=== PATIENT | female | born 1930 | race Caucasian/White ===

== ENCOUNTER → 2016-09-21 | Outpatient (CLI) | payer OTHER, BC ==
[~2016-09-21] MED LIST: ASPI-232 PO; CALC600T37 PO; LEVO100T7 PO; LISI-461 PO; LPT/40 PO; MULTTAB58 PO; TNR50 PO; WARF2.5T8 PO; WARF5TAB7 PO
--- NOTE | 2016-09-21 12:32 | MAMMOGRAPHY REPORT ---
BILATERAL DIGITAL SCREENING MAMMOGRAM WITH CAD: 09/21/2016 CLINICAL HISTORY: Routine screening. Patient has no complaints. TECHNIQUE: Bilateral CC and MLO views were obtained. Current study was also evaluated with a Comput er Aided Detection (CAD) system. COMPARISON: Comparison is made to exams dated: 09/09/2014 mammogram, 07/27/2012 mammogram, 08/28/2013 mammogram, 07/26/2011 mammogram, 07/22/2010 mammogram, and 07/21/2009 mammogram - [facility]. BREAST COMPOSITION: There are scattered areas of fibroglandular density in both breasts. FINDINGS: There are mild vascular calcifications and scattered stable benign-appearing round and ro d like calcifications in the breasts. No suspicious mass, architectural distortion or cluster of lynda picious microcalcifications is seen. IMPRESSION: ACR BI-RADS CATEGORY 2: BENIGN There is no mammographic evidence of malignancy. A 1 year screening mammogram is recommended. The p atient will receive written notification of the results. Approximately 10% of breast cancers are not detected with mammography. A negative mammographic repor t should not delay biopsy if a clinically suggestive mass is present. Mare Arguello M.D. ay/:09/21/2016 08:20:41 [place]: Nellie SIMMONS(R)(M), [facility] letter sent: Normal 1/2 BI-RADS Code: ACR BI-RADS Category 2: Benign
== END | disposition home or self-care (01) ==
LOC: C.MAMM 07:32
PROVIDERS: ATTEND Family Medicine
DX: Z12.31 Encounter for screening mammogram for malignant neoplasm of breast (principal)

== ENCOUNTER 2017-06-29 08:07 | Inpatient (IN) | payer OTHER, BC ==
[~2017-06-29] VITALS: Ht 170.2 cm; Wt 61.4 kg
[2017-06-29] MEDS ORDERED: SODIUM CHLORIDE 0.9% 1000ML 1,000 ML IV STA (08:23)
[2017-06-29] MEDS ORDERED: CEFTRIAXONE SOD INJ 1 GM ADDVIAL IV STA (08:44)
[2017-06-29 09:12] LABS: BASO % 0.2 %; BASO ABS # 0.02 K/uL (0-0.2); COMPLETE YES; HEMATOCRIT 40.4 % (37-47); IG% 0.1 %; LYMPH % 17.8 %; MEAN CELL VOLUME 98.1 fL (80-100); MEAN CORPUSCULAR HEMOGLOBIN 31.8 pg (25-34); MEAN CORPUSCULAR HGB CONC 32.4 g/dl (32-36); MEAN PLATELET VOLUME 9.6 fL (7.4-10.4); MONO % 7.3 %; NEUT % 74.6 %; PLATELET COUNT 202 K/uL (130-400); RED BLOOD COUNT 4.12 M/uL (4.2-5.4); WHITE BLOOD COUNT 10.66 K/uL (4.8-10.8)
[2017-06-29 09:19] LABS: INR 2.1 (0.9-1.1); PARTIAL THROMBOPLASTIN RATIO 1.4; PROTHROMBIN TIME (PATIENT) 23.1 SECONDS (9.0-12.0)
--- NOTE | 2017-06-29 09:24 | DIAGNOSTIC IMAGING REPORT ---
CT HEAD WITHOUT CONTRAST (CT) CLINICAL HISTORY: Weakness COMPARISON STUDY: 05/18/2016 TECHNIQUE: Axial CT of the brain is performed from the vertex to the skull base. IV contrast was not administered for this examination. A dose lowering technique was utilized adhering to the principles of ALARA. CT DOSE: 782.75 mGycm FINDINGS: No intra or extra-axial mass lesions are visualized. There is no CT evidence of acute cortical infarction. There is no evidence of midline shift. There is no acute hemorrhage. No calvarial fractures are visualized. There are moderately extensive white matter hypodensities likely on a small vessel basis. There is no evidence of pathologic ventricular dilatation. There is chronic partial opacification of the left mastoid. Postsurgical changes involve the right mastoid. IMPRESSION: No acute intracranial findings Electronically signed by: Trev Booker M.D. 06/29/2017 9:23 AM Dictated Date/Time: 06/29/2017 9:18 AM
[2017-06-29 09:29] LABS: ALT/SGPT 18 U/L (12-78); BLOOD UREA NITROGEN 20 mg/dl (7-18); BUN/CREATININE RATIO 20.9 (10-20); CALCIUM 9.2 mg/dl (8.5-10.1); CARBON DIOXIDE 26 mmol/L (21-32); CHLORIDE 107 mmol/L (98-107); CREATININE 0.95 mg/dl (0.60-1.20); GLUCOSE 107 mg/dl (70-99); MAGNESIUM 2.1 mg/dl (1.8-2.4); POTASSIUM 3.9 mmol/L (3.5-5.1); SODIUM 141 mmol/L (136-145)
[2017-06-29] MEDS ORDERED: LEVO100T7 PO (09:36)
[2017-06-29] MEDS ORDERED: ASPI81TA28 PO (09:36)
[2017-06-29] MEDS ORDERED: ATOR-24 PO (09:36)
[2017-06-29] MEDS ORDERED: METO-478 PO (09:36)
[2017-06-29] MEDS ORDERED: CALC-51 PO (09:36)
[2017-06-29] MEDS ORDERED: WARF5TAB7 PO (09:36)
[2017-06-29] MEDS ORDERED: LOSA100T30 PO (09:36)
[2017-06-29] MEDS ORDERED: MULT-506 PO (09:36)
[2017-06-29] MEDS ORDERED: WARF2.5T8 PO (09:36)
[2017-06-29 09:38] LABS: ALKALINE PHOSPHATASE 103 U/L (45-117); AST/SGOT 19 U/L (15-37); THYROID STIMULATING HORMONE 0.744 uIu/ml (0.300-4.500)
--- NOTE | 2017-06-29 09:52 | DIAGNOSTIC IMAGING REPORT ---
CHEST ONE VIEW PORTABLE CLINICAL HISTORY: Weakness, disorientation. COMPARISON STUDY: 12/31/2015 FINDINGS: The cardiac and mediastinal contours are normal. There is no evidence of focal pulmonary consolidation. There is no evidence of failure. No pleural effusions are visualized.[ Subtle increased retrocardiac markings, likely represent a summation. IMPRESSION: No active disease in the chest. Electronically signed by: Trev Booker M.D. 06/29/2017 9:50 AM Dictated Date/Time: 06/29/2017 9:49 AM
[2017-06-29 10:16] LABS: URINE APPEARANCE CLEAR (CLEAR); URINE BILIRUBIN NEG (NEG); URINE COLOR YELLOW; URINE EPITHELIAL CELL AUTO >30 /lpf (0-5); URINE NITRITE NEG (NEG); URINE PH 7.5 (4.5-7.5); URINE SPECIFIC GRAVITY 1.024 (1.000-1.030); UROBILINOGEN NEG (NEG)
[2017-06-29 10:18] LABS: MANUAL MICROSCOPIC REQUIRED? NO; REVIEW REQ? NO
[2017-06-29 10:55] VITALS: O2SAT 95; Ht 170.2 cm; Wt 61.4 kg
[2017-06-29] MEDS ORDERED: CALC600T9 PO (10:58)
[2017-06-29] MEDS ORDERED: LOSA1TAB PO (10:58)
[2017-06-29] MEDS ORDERED: LOSA50TA6 PO (10:58)
[2017-06-29] MEDS ORDERED: ONDANSETRON INJ 2 MG/ML 2 ML VIAL IV PRN (11:00)
[2017-06-29] MEDS ORDERED: ACETAMINOPHEN 325 MG TAB ONE (11:10)
[2017-06-29] MEDS ORDERED: IV FLUIDS COMPLETED PRN (11:30)
--- NOTE | 2017-06-29 12:20 | History and Physical ---
History & Physical Date & Time of Service: Jun 29, 2017 at 11:50 Chief Complaint: Disoriented, Can't Find Words Primary Care Physician: Anamaria Mosley, History of Present Illness Source: patient, spouse, clinic records, hospital records This is an 87yo F with a PMH of HTN, hypothyroidism, paroxysmal A Fib and HLD who presents with confusion that began last evening. Patient presented to her PCP last week for painful urination and one episode of hematuria. UA was found to have a trace amount of blood and leuk esterase but no antibiotics were started. Urine culture was collected. Patient used Monistat with some relief. Throughout the course of the week, patient developed a dull headache, muscle aches and fatigue that her spouse assumed was the flu. Last evening patient was found to have a fever and chills that improved with Tylenol. Seemed slightly confused but thought mentation would improve with rest. This morning, per spouse , patient woke up markedly confused, not knowing how to get to her bathroom or remembering she was going to the ER despite being reminded multiple times. Per chart review, patient's urine culture came back growing E. coli on 06/23. Patient has not yet been notified with this result. Patient is A&O x 3 at baseline, but is only oriented to self at this time. Endorses dysuria, a dull frontal headache, chills and some dull lower back pain. Denies fever, visual changes, dizziness, difficulty with speech, facial droop, CP, SOB, abdominal pain, N/V, CVA tenderness or numbness/weakness of upper or lower extremities. Past Medical/Surgical History Medical Problems: (1) Dyslipidemia Status: Chronic (2) Hypertension Status: Chronic (3) Hypothyroidism Status: Chronic (4) Osteoporosis Status: Chronic (5) Paroxysmal atrial tachycardia Status: Chronic Surgical Problems: (1) H/O colonoscopy with polypectomy Permanent Comment: 07/17- 4 mm hepatic flexure tubular adenoma 09/21/2009- polyp x1, adenomatous tissue Status: Chronic (2) History of cataract surgery Status: Chronic (3) Hx of mastoidectomy Status: Resolved (4) S/P knee surgery Status: Chronic (5) S/p mastoid surgery Status: Chronic (6) S/P tonsillectomy and adenoidectomy Status: Chronic Family History Hypertension Social History Smoking Status: Never Smoker Alcohol Use: socially (1 glass of wine with dinner most nights ) Marital Status: Housing status: lives with significant other Occupational Status: retired Immunizations History of Influenza Vaccine: Yes Influenza Vaccine Date: Jun 14, 2013 History of Tetanus Vaccine?: Yes History of Pneumococcal: Yes Pneumococcal Date: Jul 10, 2010 History of Hepatitis B Vaccine: Unknown Multi-Drug Resistant Organisms History of MDRO: No Allergies Coded Allergies: No Known Allergies (Verified , 06/29/17) Home Medications Scheduled Aspirin (Aspirin Ec), 81 MG PO DAILY Atorvastatin (Lipitor), 40 MG PO DAILY Calcium Carbonate-Vitamin D (Calcium + D), 600 MG PO DAILY Levothyroxine Sodium (Levothyroxine Sodium), 100 MCG PO DAILY Losartan Potassium (Cozaar), 50 MG PO DAILY Losartan Potassium (Cozaar), 1 TAB PO DAILY Metoprolol Succinate (Toprol Xl), 50 MG PO DAILY Multivitamin (Multivitamin), 1 TAB PO DAILY Warfarin Sod (Jantoven), 2.5 MG PO [id number] Warfarin Sod (Jantoven), 5 MG PO MWF Review of Systems Ten systems reviewed and negative except as noted in the HPI. Physical Exam Vital Signs Date Time Temp Pulse Resp B/P (MAP) Pulse Ox O2 Delivery O2 Flow Rate FiO2 06/29/17 10:55 95 Room Air 06/29/17 10:30 74 21 161/79 95 Room Air 06/29/17 10:01 75 21 162/86 96 Room Air 06/29/17 09:01 37.1 06/29/17 08:42 Room Air 06/29/17 08:36 81 06/29/17 08:32 79 22 138/68 94 Room Air 06/29/17 08:11 37.2 95 16 166/83 95 Room Air General Appearance: no apparent distress (Sleepy, confused but responsive ) Head: normocephalic, atraumatic Eyes: normal inspection, PERRL, sclerae normal (conjunctiva normal ) ENT: normal ENT inspection, hearing grossly normal, pharynx normal (Dry mucous membranes ) Neck: supple, thyroid normal, trachea midline Respiratory/Chest: chest non-tender, lungs clear, normal breath sounds, no respiratory distress, no accessory muscle use Cardiovascular: regular rate, rhythm, no murmur, normal peripheral pulses Abdomen/GI: normal bowel sounds, non tender, soft, no organomegaly Back: normal inspection, + pertinent finding (Paraspinal TTP in lumbosacral area with radiation to the flank ) Extremities/Musculoskelatal: normal inspection, no calf tenderness, no pedal edema, non-tender 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, no motor/sensory deficits, alert ( oriented to self but not place or time), normal mood/affect, + disoriented Skin: normal color, warm/dry, no rash Diagnostics Laboratory Results Results Past 24 Hours Test 06/29/17 00:00 06/29/17 08:41 06/29/17 08:47 06/29/17 09:04 Range/Units Urine Color YELLOW Urine Appearance CLEAR CLEAR Urine pH 7.5 4.5-7.5 Urine Specific [place] 1.024 1.000-1.030 Urine Protein NEG NEG Urine Glucose (UA) NEG NEG Urine Ketones NEG NEG Urine Occult Blood NEG NEG Urine Nitrite NEG NEG Urine Bilirubin NEG NEG Urine Urobilinogen NEG NEG Urine Leukocyte Esterase MODERATE NEG Urine WBC (Auto) >30 0-5 /hpf Urine RBC (Auto) 5-10 0-4 /hpf Urine Hyaline Casts (Auto) 5-10 0-5 /lpf Urine Epithelial Cells (Auto) >30 0-5 /lpf Urine Bacteria (Auto) NEG NEG White Blood Count 10.66 4.8-10.8 K/uL Red Blood Count 4.12 4.2-5.4 M/uL Hemoglobin 13.1 12.0-16.0 g/dL Hematocrit 40.4 37-47 % Mean Corpuscular Volume 98.1 80-100 fL Mean Corpuscular Hemoglobin 31.8 25-34 pg Mean Corpuscular Hemoglobin Concent 32.4 32-36 g/dl Platelet Count 202 130-400 K/uL Mean Platelet Volume 9.6 7.4-10.4 fL Neutrophils (%) (Auto) 74.6 % Lymphocytes (%) (Auto) 17.8 % Monocytes (%) (Auto) 7.3 % Eosinophils (%) (Auto) 0.0 % Basophils (%) (Auto) 0.2 % Neutrophils # (Auto) 7.95 1.4-6.5 K/uL Lymphocytes # (Auto) 1.90 1.2-3.4 K/uL Monocytes # (Auto) 0.78 0.11-0.59 K/uL Eosinophils # (Auto) 0.00 0-0.5 K/uL Basophils # (Auto) 0.02 0-0.2 K/uL RDW Standard Deviation 45.4 36.4-46.3 fL RDW Coefficient of Variation 12.7 11.5-14.5 % Immature Granulocyte % (Auto) 0.1 % Immature Granulocyte # (Auto) 0.01 0.00-0.02 K/uL Prothrombin Time 23.1 9.0-12.0 SECONDS Prothromb Time International Ratio 2.1 0.9-1.1 Activated Partial Thromboplast Time 36.1 21.0-31.0 SECONDS Partial Thromboplastin Ratio 1.4 Sodium Level 141 136-145 mmol/L Potassium Level 3.9 3.5-5.1 mmol/L Chloride Level 107 98-107 mmol/L Carbon Dioxide Level 26 21-32 mmol/L Anion Gap 8.0 3-11 mmol/L Blood Urea Nitrogen 20 7-18 mg/dl Creatinine 0.95 0.60-1.20 mg/dl Est Creatinine Clear Calc Drug Dose 41.3 ml/min Estimated GFR () 62.9 Estimated GFR (Non- 54.2 BUN/Creatinine Ratio 20.9 10-20 Random Glucose 107 70-99 mg/dl Calcium Level 9.2 8.5-10.1 mg/dl Magnesium Level 2.1 1.8-2.4 mg/dl Total Bilirubin 0.8 0.2-1 mg/dl Direct Bilirubin 0.2 0-0.2 mg/dl Aspartate Amino Transf (AST/SGOT) 19 15-37 U/L Alanine Aminotransferase (ALT/SGPT) 18 12-78 U/L Alkaline Phosphatase 103 45-117 U/L Total Creatine Kinase 48 26-192 U/L Creatine Kinase MB < 0.5 0.5-3.6 ng/ml Creatine Kinase MB Ratio 0-3.0 Troponin I < 0.015 0-0.045 ng/ml Total Protein 7.2 6.4-8.2 gm/dl Albumin 3.6 3.4-5.0 gm/dl Lipase 239 73-393 U/L Thyroid Stimulating Hormone (TSH) 0.744 0.300-4.500 uIu/ml Bedside Lactic Acid Venous 1.21 0.90-1.70 mmol/L Influenza Type A Antigen Neg for Influ A NEG Influenza Type B Antigen Neg for Influ B NEG Microbiology Results 06/29/17 Blood Culture, Received Pending 06/29/17 Blood Culture, Received Pending 06/29/17 Urine Culture, Received Pending Diagnostic Radiology CT head: IMPRESSION: No acute intracranial findings CXR normal EKG Normal sinus rhythm Left anterior fascicular block Moderate voltage criteria for LVH, may be normal variant Abnormal ECG When compared with ECG of 18-MAY-2016 23:16, No significant change was found No change from prior EKG Impression Assessment and Plan This is an 87yo F with a PMH of HTN, hypothyroidism, paroxysmal A Fib and HLD who presents with confusion that began last evening. Pyelonephritis: -Dysuria, subjective fever, confusion, lethargy, flank pain -VS stable, wbc on high end of normal, lactic acid wnl -Out-patient urine culture with presence of 10,000-100,000 colonies/ml of E. coli -Rocephin initiated for treatment in ER -Garcia-sensitive culture. Will continue Rocephin -Blood, urine cultures pending -IVF resuscitation -Tylenol for fever -Monitor CBC Metabolic encephalopathy 2/2 UTI: -Patient lethargic and disoriented likely due to infection -Should see improvement with abx treatment and IVF -Other etiologies considered but unlikely -CT head without acute abnormalities, no focal deficits on exam -No recent medication changes -Flu PCR negative Headache: -Dull, frontal headache x 3 days -CT head normal -Likely 2/2 poor PO intake, water intake -Alleviated by Tylenol at home -Tylenol PRN, IVF Paroxysmal A Fib: -NSR on initial EKG -Continue home dose metoprolol, coumadin -INR therapeutic at 2.1 HTN: -Slightly elevated, likely 2/2 infection and pain -Continue home losartan and metoprolol -Add additional agents if indicated HLD: -Continue statin Hypothyroidism: -Continue levothyroxine -TSH wnl DVT Ppx: Home dose coumadin Code status: FULL PCP: Melany Dispo: Plan to return home once medically stable Patient seen in collaboration with Dr. Vera. Please see addendum. ADDENDUM: I agree with the assessment and plan as above. My exam of the patient revealed an elderly female with very dry mucous membranes who appeared acutely confused with some attention span. She had no focal neuro deficits, although ambulating was not tested. She did report a minor headache in the frontal region of her head. She was stating how silly she felt that she couldn' t remember the events of the last 24 hours but did remember things such as having several days of dysuria. She did also report some flank pain on both sides. Abdominal pain was benign but I was able to appreciate bilateral CVA tenderness. The patient and her spouse reported significant chills and some fever at home. I agree with the diagnosis of acute pyelonephritis and the treatment with Rocephin empirically until cultures return. Chuy, Level of Care Med/Surg Advanced Directives Existing Living Will: Yes Existing Power of Occupational Therapist'S Assistant: Yes Resuscitation Status FULL RESUSCITATION VTE Prophylaxis VTE Risk Assessment Done? Y/N: Yes Risk Level: Moderate Given or contraindicated: Warfarin (Coumadin)
[2017-06-29 12:29] VITALS: BP 147/77; PULSE 84; TEMP 36.8; O2SAT 93
[2017-06-29] MEDS ORDERED: SODIUM CHLORIDE 0.9% 1000ML 1,000 ML IV SCH (13:00)
[2017-06-29 14:59] VITALS: BP 154/70; PULSE 78; TEMP 37.3; O2SAT 95
[2017-06-29] MEDS ORDERED: WARFARIN SOD 2.5 MG TAB PO SCH (16:00)
[2017-06-29] MEDS: ACETAMINOPHEN 325 MG TAB PO PRN ×2 (16:03→23:43)
--- NOTE | 2017-06-29 18:36 | EMERGENCY ROOM VISIT NOTE ---
History Report prepared by Abraham: Peter Bryant Under the Supervision of: Dr. Ciro Ardon M.D. First contact with patient: 08:22 Chief Complaint: STROKE SYMPTOMS Stated Complaint: DISORIENTED, CAN'T FIND WORDS Nursing Triage Summary: Yesterday morning woke up with fever/achy all over, had mid back pain, slept off and on most of the day. Pts reports she thought she had the flu, so she just let her sleep all day, this morning pts noticed that pt is disoriented, speech is slurred, pt is shaky. History of Present Illness The patient is an 87 year old female who presents to the Emergency Room with complaints of persistent confusion that began this morning. Per the patient's , the patient did not sleep two nights ago due to a headache. When she woke up yesterday morning, she was running a fever that was improved with Tylenol. The patient's states that they attributed the patient's symptoms to the flu yesterday, noting that the patient was fatigued and slept most of the day. When the patient woke up at 0530 this morning, she was incredibly confused and forgot she was going to the emergency department despite being told multiple times. The patient's states that the patient had a urinalysis done six days ago that was ordered by her PCP from [facility]. She states that she looked at the results online which revealed a flagged finding. The patient's states that they called the patient's PCP's office but did not receive a call back. The patient reports dysuria 4 days ago and used Monistat which improved her symptoms. 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 Today the patient additionally notes lower back pain. She states that she got a flu shot this year. Pt denies LOC, headache, fevers, chills, diaphoresis, visual changes, neck pain, chest pain, breathing difficulties, nausea, vomiting, abdominal pain, melena, hematochezia, urinary symptoms, numbness, weakness, lymphadenopathy, rash, or other complaints. Source of History: patient Onset: this morning Position: other (global) Quality: other (confusion) Timing: other (persistent) Associated Symptoms: + headache, + back pain Review of Systems See HPI for pertinent positives and negatives. A total of ten systems were reviewed and were otherwise negative. Past Medical & Surgical Medical Problems: (1) Dyslipidemia (2) Hypertension (3) Hypothyroidism (4) Osteoporosis (5) Paroxysmal atrial tachycardia (6) Right Knee DJD Surgical Problems: (1) H/O colonoscopy with polypectomy (2) History of cataract surgery (3) Hx of mastoidectomy (4) S/P knee surgery (5) S/p mastoid surgery (6) S/P tonsillectomy and adenoidectomy Family History Hypertension Social History Smoking Status: Never Smoker Alcohol Use: occasionally Marital Status: Housing Status: lives with significant other Occupation Status: retired Current/Historical Medications Scheduled Aspirin (Aspirin Ec), 81 MG PO DAILY Atorvastatin (Lipitor), 40 MG PO DAILY Calcium Carbonate-Vitamin D (Calcium + D), 600 MG PO DAILY Levothyroxine Sodium (Levothyroxine Sodium), 100 MCG PO DAILY Losartan Potassium (Cozaar), 50 MG PO DAILY Losartan Potassium (Cozaar), 1 TAB PO DAILY Metoprolol Succinate (Toprol Xl), 50 MG PO DAILY Multivitamin (Multivitamin), 1 TAB PO DAILY Warfarin Sod (Jantoven), 2.5 MG PO 4XWK Warfarin Sod (Jantoven), 5 MG PO MWF Allergies Coded Allergies: No Known Allergies (Verified , 06/29/17) Physical Exam Vital Signs Date Time Temp Pulse Resp B/P (MAP) Pulse Ox O2 Delivery O2 Flow Rate FiO2 06/29/17 10:30 74 21 161/79 95 Room Air 06/29/17 10:01 75 21 162/86 96 Room Air 06/29/17 09:01 37.1 06/29/17 08:42 Room Air 06/29/17 08:36 81 06/29/17 08:32 79 22 138/68 94 Room Air 06/29/17 08:11 37.2 95 16 166/83 95 Room Air Physical Exam GENERAL: Awake, alert, well appearing, no distress HENT: Normocephalic, atraumatic. TM's normal. Oropharynx unremarkable. EYES: PERRL. EOMI. Normal conjunctiva. Sclera non-icteric. NECK: Supple. No nuchal rigidity. FROM. No JVD or bruit. RESPIRATORY: CTA CARDIAC: RRR. No murmur. ABDOMEN: Soft, non distended. No tenderness to palpation. No rebound or guarding. No masses. RECTAL: Deferred. MUSCULOSKELETAL: Unremarkable. No edema. No discoloration. Gross motor strength symmetric. NEURO: Cranial nerves 2-12 grossly intact. MIld confusion. Normal sensorium. No sensory or motor deficits noted. Speech normal. No pronator drift. SKIN: No rash or jaundice noted. LYMPH: No adenopathy. Medical Decision & Procedures ER Provider Diagnostic Interpretation: Radiology results as stated below per my review and radiologist interpretation: CT HEAD WITHOUT CONTRAST (CT) CLINICAL HISTORY: Weakness COMPARISON STUDY: 05/18/2016 TECHNIQUE: Axial CT of the brain is performed from the vertex to the skull base. IV contrast was not administered for this examination. A dose lowering technique was utilized adhering to the principles of ALARA. CT DOSE: 782.75 mGycm FINDINGS: No intra or extra-axial mass lesions are visualized. There is no CT evidence of acute cortical infarction. There is no evidence of midline shift. There is no acute hemorrhage. No calvarial fractures are visualized. There are moderately extensive white matter hypodensities likely on a small vessel basis. There is no evidence of pathologic ventricular dilatation. There is chronic partial opacification of the left mastoid. Postsurgical changes involve the right mastoid. IMPRESSION: No acute intracranial findings Electronically signed by: Trev Booker M.D. 06/29/2017 9:23 AM Dictated Date/Time: 06/29/2017 9:18 AM CHEST ONE VIEW PORTABLE CLINICAL HISTORY: Weakness, disorientation. COMPARISON STUDY: 12/31/2015 FINDINGS: The cardiac and mediastinal contours are normal. There is no evidence of focal pulmonary consolidation. There is no evidence of failure. No pleural effusions are visualized.[ Subtle increased retrocardiac markings, likely represent a summation. IMPRESSION: No active disease in the chest. Electronically signed by: Trev Booker M.D. 06/29/2017 9:50 AM Dictated Date/Time: 06/29/2017 9:49 AM Laboratory Results 06/29/17 08:41 Red Blood Count 4.12, Mean Corpuscular Volume 98.1, Mean Corpuscular Hemoglobin 31.8, Mean Corpuscular Hemoglobin Concent 32.4, Mean Platelet Volume 9.6, Neutrophils (%) (Auto) 74.6, Lymphocytes (%) (Auto) 17.8, Monocytes (%) (Auto) 7.3, Eosinophils (%) (Auto) 0.0, Basophils (%) (Auto) 0.2, Neutrophils # (Auto) 7.95, Lymphocytes # (Auto) 1.90, Monocytes # (Auto) 0.78, Eosinophils # (Auto) 0.00, Basophils # (Auto) 0.02 06/29/17 08:41 Test 06/29/17 00:00 06/29/17 08:41 06/29/17 08:47 06/29/17 09:04 Urine Color YELLOW Urine Appearance CLEAR (CLEAR) Urine pH 7.5 (4.5-7.5) Urine Specific [place] 1.024 (1.000-1.030) Urine Protein NEG (NEG) Urine Glucose (UA) NEG (NEG) Urine Ketones NEG (NEG) Urine Occult Blood NEG (NEG) Urine Nitrite NEG (NEG) Urine Bilirubin NEG (NEG) Urine Urobilinogen NEG (NEG) Urine Leukocyte Esterase MODERATE (NEG) Urine WBC (Auto) >30 /hpf (0-5) Urine RBC (Auto) 5-10 /hpf (0-4) Urine Hyaline Casts (Auto) 5-10 /lpf (0-5) Urine Epithelial Cells (Auto) >30 /lpf (0-5) Urine Bacteria (Auto) NEG (NEG) White Blood Count 10.66 K/uL (4.8-10.8) Red Blood Count 4.12 M/uL (4.2-5.4) Hemoglobin 13.1 g/dL (12.0-16.0) Hematocrit 40.4 % (37-47) Mean Corpuscular Volume 98.1 fL (80-100) Mean Corpuscular Hemoglobin 31.8 pg (25-34) Mean Corpuscular Hemoglobin Concent 32.4 g/dl (32-36) Platelet Count 202 K/uL (130-400) Mean Platelet Volume 9.6 fL (7.4-10.4) Neutrophils (%) (Auto) 74.6 % Lymphocytes (%) (Auto) 17.8 % Monocytes (%) (Auto) 7.3 % Eosinophils (%) (Auto) 0.0 % Basophils (%) (Auto) 0.2 % Neutrophils # (Auto) 7.95 K/uL (1.4-6.5) Lymphocytes # (Auto) 1.90 K/uL (1.2-3.4) Monocytes # (Auto) 0.78 K/uL (0.11-0.59) Eosinophils # (Auto) 0.00 K/uL (0-0.5) Basophils # (Auto) 0.02 K/uL (0-0.2) RDW Standard Deviation 45.4 fL (36.4-46.3) RDW Coefficient of Variation 12.7 % (11.5-14.5) Immature Granulocyte % (Auto) 0.1 % Immature Granulocyte # (Auto) 0.01 K/uL (0.00-0.02) Prothrombin Time 23.1 SECONDS (9.0-12.0) Prothromb Time International Ratio 2.1 (0.9-1.1) Activated Partial Thromboplast Time 36.1 SECONDS (21.0-31.0) Partial Thromboplastin Ratio 1.4 Anion Gap 8.0 mmol/L (3-11) Est Creatinine Clear Calc Drug Dose 41.3 ml/min Estimated GFR () 62.9 Estimated GFR (Non- 54.2 BUN/Creatinine Ratio 20.9 (10-20) Calcium Level 9.2 mg/dl (8.5-10.1) Magnesium Level 2.1 mg/dl (1.8-2.4) Total Bilirubin 0.8 mg/dl (0.2-1) Direct Bilirubin 0.2 mg/dl (0-0.2) Aspartate Amino Transf (AST/SGOT) 19 U/L (15-37) Alanine Aminotransferase (ALT/SGPT) 18 U/L (12-78) Alkaline Phosphatase 103 U/L (45-117) Total Creatine Kinase 48 U/L (26-192) Creatine Kinase MB < 0.5 ng/ml (0.5-3.6) Creatine Kinase MB Ratio (0-3.0) Troponin I < 0.015 ng/ml (0-0.045) Total Protein 7.2 gm/dl (6.4-8.2) Albumin 3.6 gm/dl (3.4-5.0) Lipase 239 U/L (73-393) Thyroid Stimulating Hormone (TSH) 0.744 uIu/ml (0.300-4.500) Bedside Lactic Acid Venous 1.21 mmol/L (0.90-1.70) Influenza Type A Antigen Neg for Influ A (NEG) Influenza Type B Antigen Neg for Influ B (NEG) Laboratory results reviewed by me Outpatient urine culture done 6 days ago showed trace blood trace esterase, e- coli. Medications Administered Medications (Trade) Dose Ordered Sig/Josué Route Start Time Stop Time Status Last Admin Dose Admin Sodium Chloride 1,000 ml @ 125 mls/hr Q8H STAT IV 06/29/17 08:23 06/29/17 12:41 DC 06/29/17 08:41 125 MLS/HR Ceftriaxone Sodium (Rocephin Inj) 1 gm NOW STAT IV 06/29/17 08:44 06/29/17 08:46 DC 06/29/17 09:01 1 GM ECG Indication: other (confusion) Rate (beats per minute): 80 Rhythm: normal sinus Findings: LAFB, no acute ischemic change, no ectopy, other (LVH) ED Course 0822: The patient was evaluated in room B10. A complete history and physical exam was performed. 0823: Ordered Sodium Chloride 1000 ml @ 125 mls/hr IV. 0844: Ordered Rocephin Inj 1 gm IV. 0851: I reevaluated the patient and she is resting comfortably. I discussed the test results with her and I discussed the treatment plan. She verbalized complete understanding and agreement. The patient will be evaluated for further treatment. 0955: I discussed the patients case with Paris Padilla PA-C. She is going to evaluate the patient for further treatment. Medical Decision Triage Nursing notes reviewed. The patient's presentation and history were concerning for confusion, fever, headache, and recent UTI symptoms Etiologies such as TIA, CVA, metabolic, infection, hypo/hyperglycemia, electrolyte abnormalities, sinusitis, meningitis, cardiac sources, intracerebral event, toxicologic, neurologic, as well as others were entertained. The patient was evaluated. Physical examination revealed no nuchal rigidity. She had minimal headache present. Neurologically she was intact. She did have some confusion and her spouse describes disorientation that has been present for over 24 hours. She recently had a urinalysis performed at her primary physician, six days ago. I did obtain the records. She was found to have a culture positive for Escherichia coli. No sensitivities reported. The patient was given a dose of IV Rocephin. Blood work revealed some mild dehydration but was otherwise unremarkable. Cultures of blood and urine pending. The patient had a CAT scan performed which did not show any abnormalities. She had a therapeutic INR. The patient was hydrated. I discussed further evaluation and management in the hospital given the metal status changes and patient and spouse were in agreement. Consultation was made with the [facility] service. The patient was evaluated in the Emergency Room for further management. Medication Reconcilliation Current Medication List: was personally reviewed by me Blood Pressure Screening Patient's blood pressure: Elevated blood pressure Blood pressure disposition: Referred to PCP (and hospitalist) Consults Time Called: [phone] Consulting Physician: Paris Padilla PA-C Returned Call: [phone] I discussed the patients case with Paris Padilla PA-C. She is going to evaluate the patient for further treatment. Impression Primary Impression: Metabolic encephalopathy Additional Impression: E-coli UTI Scribe Attestation The scribe's documentation has been prepared under my direction and personally reviewed by me in its entirety. I confirm that the note above accurately reflects all work, treatment, procedures, and medical decision making performed by me. Departure Information Dispostion Being Evaluated By Hospitalist Referrals Anamaria Mosley DO (PCP) Problem Qualifiers
[2017-06-29 23:33] VITALS: BP 143/70; PULSE 92; TEMP 39.2
[2017-06-30] VITALS (18 sets, daily range): BP systolic 96–158; BP diastolic 51–68; PULSE 69–82; TEMP 37.1–39.1; O2SAT 89–97
[2017-06-30] MEDS ORDERED: LACTATED RINGER'S 1000ML 1,000 ML IV ONE (00:15)
[2017-06-30] MEDS: ACETAMINOPHEN IV 650 MG in EMPTY BAG 0 ML IV PRN ×3 (00:45→12:36)
[2017-06-30] MEDS: LEVOTHYROXINE 100 MCG TAB PO SCH (05:12)
[2017-06-30] MEDS: LOSARTAN POTASSIUM 50 MG TAB PO SCH (08:00)
[2017-06-30] MEDS: LOSARTAN POTASSIUM 25 MG TAB PO SCH (08:00)
[2017-06-30] MEDS: METOPROLOL SUCC 50MG EXT REL TAB PO SCH ×2 (08:00→22:04)
[2017-06-30] MEDS: CALCIUM 600MG + VIT D 400 IU TAB PO SCH (08:00)
[2017-06-30] MEDS: ASPIRIN 81 MG ECTAB PO SCH (08:00)
[2017-06-30] MEDS: ATORVASTATIN 40 MG TAB PO SCH (08:00)
[2017-06-30 08:02] LABS: HEMATOCRIT 32.6 % (37-47); MEAN CORPUSCULAR HEMOGLOBIN 32.4 pg (25-34); MEAN CORPUSCULAR HGB CONC 33.4 g/dl (32-36); MEAN PLATELET VOLUME 9.1 fL (7.4-10.4); PLATELET COUNT 140 K/uL (130-400); RED BLOOD COUNT 3.36 M/uL (4.2-5.4); WHITE BLOOD COUNT 8.53 K/uL (4.8-10.8)
[2017-06-30 08:11] LABS: INR 1.8 (0.9-1.1); PROTHROMBIN TIME (PATIENT) 19.4 SECONDS (9.0-12.0)
[2017-06-30 08:28] LABS: BUN/CREATININE RATIO 25.5 (10-20); CREATININE 0.7 mg/dl (0.60-1.20); POTASSIUM 3.4 mmol/L (3.5-5.1)
[2017-06-30] MEDS ORDERED: CEFTRIAXONE SOD INJ 1 GM in DEXTROSE 5% ADD-VANTAGE 50ML 50 ML IV SCH (09:00)
[2017-06-30] MEDS ORDERED: SULBACTAM SOD IV SCH (09:30)
[2017-06-30] MEDS ORDERED: AMPICILLIN IV SCH (09:30)
[2017-06-30] MEDS ORDERED: SODIUM CHLORIDE 0.9% IV SCH (09:30)
[2017-06-30] MEDS ORDERED: CEFTRIAXONE SOD INJ 1000 MG in DEXTROSE 5% 50ML IV ONE (10:30)
[2017-06-30] MEDS ORDERED: VANCOMYCIN INJ 1,500 MG in SODIUM CHLORIDE 0.9% 500ML 500 ML IV ONE (10:30)
[2017-06-30] MEDS: DEXAMETHASONE INJ 10 MG in SYRINGE 0 ML IV SCH ×3 (10:32→22:04)
[2017-06-30] MEDS: ACYCLOVIR SOD INJ 650 MG in DEXTROSE 5% 100ML 100 ML IV SCH ×2 (10:38→17:38)
[2017-06-30] MEDS: SODIUM CHLORIDE 0.9% 1000ML 1,000 ML IV SCH ×2 (10:41→11:51)
[2017-06-30] MEDS ORDERED: LIDOCAINE 2% JELLY 5 ML TUBE EXT STA (11:04)
--- NOTE | 2017-06-30 11:13 | Progress Note ---
Progress Note Date of Service Jun 30, 2017. Progress Note ID Consult Dictated #[id number] A/P: 1. 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
--- NOTE | 2017-06-30 11:43 | Pharmacy Progress Note ---
Pharmacy Antibiotic Consult Date of Service: Jun 30, 2017. Pharmacy Dosing Scope Pharmacy is consulted to initiate vancomycin IV dosing therapy, order appropriate labs and adjust drug dose/frequency. Subjective The patient is a 87 year old female admitted on Jun 29, 2017 at 10:48. Objective Height (Feet): 5 Height (Inches): 7.00 Weight (Kilograms): 65.500 Lab Results (24hrs): Test 06/30/17 07:30 06/30/17 10:43 White Blood Count 8.53 K/uL (4.8-10.8) Red Blood Count 3.36 M/uL (4.2-5.4) Hemoglobin 10.9 g/dL (12.0-16.0) Hematocrit 32.6 % (37-47) Mean Corpuscular Volume 97.0 fL (80-100) Mean Corpuscular Hemoglobin 32.4 pg (25-34) Mean Corpuscular Hemoglobin Concent 33.4 g/dl (32-36) RDW Standard Deviation 44.5 fL (36.4-46.3) RDW Coefficient of Variation 12.6 % (11.5-14.5) Platelet Count 140 K/uL (130-400) Mean Platelet Volume 9.1 fL (7.4-10.4) Prothrombin Time 19.4 SECONDS (9.0-12.0) Prothromb Time International Ratio 1.8 (0.9-1.1) Sodium Level 138 mmol/L (136-145) Potassium Level 3.4 mmol/L (3.5-5.1) Chloride Level 106 mmol/L (98-107) Carbon Dioxide Level 21 mmol/L (21-32) Anion Gap 12.0 mmol/L (3-11) Blood Urea Nitrogen 18 mg/dl (7-18) Creatinine 0.70 mg/dl (0.60-1.20) Est Creatinine Clear Calc Drug Dose 56.1 ml/min Estimated GFR () 90.9 Estimated GFR (Non- 78.5 BUN/Creatinine Ratio 25.5 (10-20) Random Glucose 89 mg/dl (70-99) Calcium Level 8.0 mg/dl (8.5-10.1) Lactic Acid Level 1.2 mmol/L (0.4-2.0) Micro Results: Date/Time Source Procedure Growth Status 06/30/17 10:43 Blood Cryptococcal Antigen Pending Received 06/30/17 10:43 Blood Blood Culture Pending Received 06/30/17 10:27 Blood Blood Culture Pending Received 06/29/17 08:51 Blood Blood Culture Pending Received 06/29/17 08:41 Blood Blood Culture Pending Received 06/29/17 00:00 Urine , Clean Catch Urine Culture Pending Received Assessment & Plan Assessment: 87yo F with a PMH of HTN, hypothyroidism, paroxysmal A Fib and HLD who presented with confusion. Patient with complaints of dysuria and flank pain. Previous Urine cultures were growing E. coli and patient was started on ceftriaxone. Abx being broadened to Vancomycin/Rocephin/Acyclovir/Ampicillin for possible meningitis. LP to be obtained. Blood cultures, Urine culture pending. WBC normal, Current Tmax 38.7 C. Plan: Loading dose: 1500 mg (23mg/kg) IV X 1 dose then: 1000 mg (15 mg/kg) IV every 14 hours. PK: SCr 0.7, CrCl 56.1, Ke 0.051, T1/2 14 hours Will dose more aggressively for meningitis Goal trough level estimate: between 17-20 mcg/mL. Trough ordered for 07/02 @0330. Pt also ordered Rocephin 2 gm q12H, Acyclovir 650 mg q8H, Ampicillin 2 gm q4H- dosed appropriately. Pharmacy will continue to follow and will adjust dose/frequency as necessary. Thank you
--- NOTE | 2017-06-30 11:57 | DIAGNOSTIC IMAGING REPORT ---
HEAD WITHOUT CONTRAST (CT) CLINICAL HISTORY: 87 years-old Female with worsening mental status. Acute altered mental status TECHNIQUE: Multiple axial CT images of the head were obtained without contrast. A dose lowering technique was utilized adhering to the principles of ALARA. CT DOSE: 1804.35 mGy.cm COMPARISON: CT head 06/29/2017. FINDINGS: Exam is mildly motion degraded. No acute intracranial hemorrhage, midline shift, mass, territorial ischemia or abnormal extra-axial collection. Mild to moderate atrophy with extensive chronic microvascular ischemic changes. Vascular calcifications are noted at the level of the skull base. The calvarium is intact. Small left mastoid effusion. Mild mucosal thickening of the ethmoid air cells. Scalp soft tissues and orbits are unremarkable. IMPRESSION: No acute intracranial abnormality. No hemorrhage or territorial ischemia. The above report was generated using voice recognition software. It may contain grammatical, syntax or spelling errors. Electronically signed by: Domingo Banks M.D. 06/30/2017 11:55 AM Dictated Date/Time: 06/30/2017 11:53 AM
[2017-06-30] MEDS ORDERED: VANCOMYCIN CONSULT ACTIVE PRN (12:00)
--- NOTE | 2017-06-30 12:07 | DIAGNOSTIC IMAGING REPORT ---
ABD/PELVIS NO IV OR ORAL CONT CT DOSE: HISTORY: Pain. Fever. h/o pyelo with onset of confusion/persistent fever TECHNIQUE: Multiaxial CT images of the abdomen and pelvis were performed without contrast. A dose lowering technique was utilized adhering to the principles of ALARA. COMPARISON STUDY: 12/31/2015 FINDINGS: Lung bases show mild chronic basilar interstitial change. No well-defined focal infiltrates are appreciated. A peripheral right hepatic cyst is stable. Liver otherwise is uniform. Spleen and pancreas are unremarkable. Small punctate nonobstructing right renal calcification. Very slight fullness right kidney compared to the left. No evidence for an obstructing urinary tract calculus. The ureters are normal in course and caliber. Bladder is midline. Bowel pattern is considered nonobstructive. IMPRESSION: No acute process of the abdomen or pelvis The above report was generated using voice recognition software. It may contain grammatical, syntax or spelling errors. Electronically signed by: Obie Warner M.D. 06/30/2017 12:05 PM Dictated Date/Time: 06/30/2017 11:59 AM
--- NOTE | 2017-06-30 12:10 | INFECT. DISEASE CONSULTATION ---
DATE OF CONSULTATION: 06/30/2017 DATE OF CONSULTATION: 06/30/2017 REQUESTING PHYSICIAN: Dr. Vera. HISTORY OF PRESENT ILLNESS: This is an 87-year-old female who was admitted to the hospital yesterday with confusion. Per the H&P she had recently been seen by her primary care physician for dysuria and hematuria. She was not given any antibiotics at that time. Yesterday, she developed some frontal headache and generalized fatigue. She was brought to the hospital. She was somewhat confused per the hospitalist service yesterday. Her is at the bedside and states that she is unable to recall her spouse's name, her name or where she is. Yesterday, she was able to give her birthdate and her location. She is not able to do that today. Per the H&P her outpatient culture was growing E. coli from 06/23/2017. She was given a dose of Rocephin yesterday which she tolerated well. Overnight she did have significant worsening with elevated fevers as high as 39.2 beginning around midnight last night. She has been persistently afebrile throughout the night despite being given intravenous Tylenol. Her spouse is at the bedside during my examination and states that she has become increasingly encephalopathic. She is having some shaking chills on my examination today. Blood and urine cultures were obtained yesterday and are pending. Repeat blood cultures were also obtained today in addition to a serum cryptococcal antigen. She did have a CAT scan of the head yesterday secondary to her confusion, which was negative. A repeat is pending at this time. She has not had any intra-abdominal imaging. She was followed by the ICU team earlier this morning and a CAT scan of the abdomen and pelvis will be obtained to rule out any obstruction or evidence of pyelonephritis. She was started on antibiotics yesterday with a clinical diagnosis of pyelo. Her antibiotics have subsequently been broadened as now there is concern for [employer] infection with her worsening mental status. She is currently receiving ampicillin, vancomycin, IV steroids and acyclovir and is continued on Rocephin. I do not have sensitivities from her previous urine culture with E. coli. The patient does open her eyes to her name and states she is feeling fine, but she is unable to answer any additional questions or follow any commands. MEDICAL HISTORY: Significant for high cholesterol, hypertension, hypothyroidism, osteoporosis, atrial tachycardia. PAST SURGICAL HISTORY: Significant for cholecystectomy, colonoscopy with polyp removal, cataract surgery, mastoidectomy, knee surgery, mastoid surgery and adenoidectomy. FAMILY HISTORY: Noncontributory. SOCIAL HISTORY: Negative for tobacco use, alcohol use or drug use. Her spouse denies any recent sick contacts. ALLERGIES: She has no known drug allergies. MEDICATIONS: Include Rocephin, vancomycin, Coumadin, ampicillin, acyclovir, dexamethasone, aspirin, Lipitor, Cozaar, Toprol-XL, Synthroid, acetaminophen. PHYSICAL EXAMINATION: VITAL SIGNS: She currently has temperature of 38.5, her T-max is 39.2. She has been persistently afebrile overnight, pulse 72, respiratory rate 18, blood pressure 96/57, oxygen saturation is 92% on room air. She is encephalopathic and does not follow commands. She does not have any nuchal rigidity. She is warm to touch. She is shaking on my examination. HEAD, EYES, EARS, NOSE, AND THROAT: Her mucous membranes are dry. HEART: Regular rate. I do not auscultate a murmur. LUNGS: Clear anteriorly with poor inspiratory effort. ABDOMEN: Soft and nondistended. There is no edema. SKIN: Without rash. LABORATORY DATA: CBC reveals a white blood cell count of 8.5, hemoglobin 10.9, platelets are 140. Chemistry panel reveals sodium of 138, potassium 3.4, chloride 106, bicarbonate 21, BUN 18, creatinine 0.7, glucose is 89. LFTs are within normal limits. TSH was normal. Procalcitonin is pending. Her urinalysis yesterday had greater than 30 WBCs, but no bacteria. Her flu swab was negative. Again, blood and urine cultures are pending. CT of the head and CT of the abdomen and pelvis are pending as well. ASSESSMENT AND PLAN: Sepsis with likely urinary source, but some concern for meningitis with acute change in mental status and persistent fever. I do agree with broadening her antibiotics pending the results of her cultures. Many imaging studies are pending and additional intervention will depend on those results. I do agree that an LP would be warranted if there is concern for meningitis. She will remain on broad spectrum antibiotics and antiviral pending the results of that. Should she have any clinical worsening there will be a low threshold for transfer to the intensive care unit. We will follow along with you. Thank you for this consultation.
[2017-06-30] MEDS ORDERED: ACETAMINOPHEN 325 MG TAB PO ONE (12:30)
[2017-06-30] MEDS ORDERED: ACETAMINOPHEN IV 650 MG in EMPTY BAG 0 ML IV ONE (12:45)
[2017-06-30 12:51] LABS: URINE APPEARANCE CLEAR (CLEAR); URINE BILIRUBIN NEG (NEG); URINE COLOR YELLOW; URINE NITRITE NEG (NEG); URINE SPECIFIC GRAVITY 1.022 (1.000-1.030); UROBILINOGEN NEG (NEG)
[2017-06-30 12:54] LABS: MANUAL MICROSCOPIC REQUIRED? NO; REVIEW REQ? NO
[2017-06-30] MEDS ORDERED: DiphenhydrAMINE INJ 12.5 MG in SYRINGE 0 ML IV ONE (13:00)
[2017-06-30] MEDS ORDERED: PHYTONADIONE INJ 5 MG in SODIUM CHLORIDE 0.9% 50ML 50 ML IV ONE (13:00)
[2017-06-30] MEDS: AMPICILLIN IV 2,000 MG in SODIUM CHLOR 0.9% AD-VAN 100ML 100 ML IV SCH ×4 (13:17→22:49)
[2017-06-30] MEDS ORDERED: WARFARIN SOD 5 MG TAB PO SCH (16:00)
--- NOTE | 2017-06-30 17:09 | Critical Care Consultation ---
Critical Care Consultation Date of Consultation: Jun 30, 2017. Attending Physician: Lyric Vera DO Reason for Consultation: Severe sepsis History of Present Illness This is a 87 year old female, admitted yesterday for confusion, headaches. As outpatient she was recently diagnosed with E Coli UTI, but was not treated yet. In the hospital she was started on Rocephin, however, today she appeared even more confused, became febrile overnight at 39.2 C. Per spouse, there was no photophobia or neck stiffness. In the morning she had significant chills but after receiving fluids, her temperature improved. Now, she is still confused, but appears comfortable, doesn 't appear to have any further chills. Went for repeat CT brain this AM and a CT of the abdomen, both being unremarkable. Now she is in the process of reversing the INR, receiving FFP transfusions and vitamin K Past Medical/Surgical History Atrial fibrillation HTN, hypothyroidism dyslipidemia Cholecystectomy, knee surgery cataract surgery Family History Hypertension Unable to obtain Social History Smoking Status: Never Smoker Alcohol Use: socially (1 glass of wine with dinner most nights ) Marital Status: Housing Status: lives with significant other Occupation Status: retired Allergies Coded Allergies: No Known Allergies (Verified , 06/29/17) Home Medications Scheduled Aspirin (Aspirin Ec), 81 MG PO DAILY Atorvastatin (Lipitor), 40 MG PO DAILY Calcium Carbonate-Vitamin D (Calcium + D), 600 MG PO DAILY Levothyroxine Sodium (Levothyroxine Sodium), 100 MCG PO DAILY Losartan Potassium (Cozaar), 50 MG PO DAILY Losartan Potassium (Cozaar), 1 TAB PO DAILY Metoprolol Succinate (Toprol Xl), 50 MG PO DAILY Multivitamin (Multivitamin), 1 TAB PO DAILY Warfarin Sod (Jantoven), 2.5 MG PO [id number] Warfarin Sod (Jantoven), 5 MG PO MWF Current Inpatient Medications Current Inpatient Medications Medications (Trade) Dose Ordered Sig/Josué Route Start Time Stop Time Status Last Admin Dose Admin Acetaminophen (Tylenol Tab) 650 mg Q4H PRN PO 06/29/17 11:00 07/29/17 10:59 06/29/17 16:03 650 MG Ondansetron HCl (Zofran Inj) 4 mg Q6H PRN IV 06/29/17 11:00 07/29/17 10:59 Aspirin (Ecotrin Tab) 81 mg DAILY PO 06/30/17 08:00 07/30/17 08:59 Atorvastatin Calcium (Lipitor Tab) 40 mg DAILY PO 06/30/17 08:00 07/30/17 08:59 Levothyroxine Sodium (Synthroid Tab) 100 mcg DAILYBB PO 06/30/17 06:30 07/30/17 06:29 Losartan Potassium (coZAAR TAB) 25 mg DAILY PO 06/30/17 08:00 07/30/17 08:59 Losartan Potassium (coZAAR TAB) 50 mg DAILY PO 06/30/17 08:00 07/30/17 08:59 Metoprolol Succinate (Toprol Xl Tab) 50 mg DAILY PO 06/30/17 08:00 07/30/17 08:59 Calcium/Vitamin D (Caltrate Plus Tab) 2 tab DAILY PO 06/30/17 08:00 07/30/17 07:59 Miscellaneous (Iv Fluids Completed) 1 ea PRN PRN N/A 06/29/17 11:30 06/29/18 11:29 Acetaminophen 650 mg/Empty Bag 65 ml @ 260 mls/hr Q6H PRN IV 06/30/17 00:15 07/30/17 00:14 06/30/17 12:36 260 MLS/HR Ceftriaxone Sodium 2000 mg/ Dextrose 70 ml @ 100 mls/hr Q12H IV 06/30/17 22:00 07/10/17 21:59 Vancomycin HCl 1000 mg/Sodium Chloride 270 ml @ 125 mls/hr Q14H IV 07/01/17 00:00 07/11/17 00:00 Acyclovir Sodium 650 mg/Dextrose 113 ml @ 110 mls/hr Q8H IV 06/30/17 10:30 07/10/17 10:29 06/30/17 10:38 110 MLS/HR Dexamethasone Sodium Phosphate 10 mg/Syringe 2.5 ml @ 1 mls/min Q6@0400,1000,1600,2200 IV 06/30/17 10:15 07/30/17 10:14 06/30/17 15:40 1 MLS/MIN Ampicillin Sodium 2000 mg/Sodium Chloride 100 ml @ 216 mls/hr Q4H IV 06/30/17 11:00 07/10/17 10:59 06/30/17 15:39 216 MLS/HR Vancomycin HCl (Consult) 1 ea UD PRN N/A 06/30/17 12:00 07/30/17 11:59 Review of Systems Unable to obtain secondary to confusion Physical Exam Date Time Temp Pulse Resp B/P (MAP) Pulse Ox O2 Delivery O2 Flow Rate FiO2 06/30/17 16:26 69 21 138/56 97 2.0 06/30/17 16:00 37.4 70 19 133/52 94 3.0 06/30/17 16:00 37.4 70 19 133/52 (79) 94 06/30/17 15:45 37.4 74 21 136/51 90 2.0 06/30/17 15:45 74 21 136/51 (79) 90 06/30/17 15:31 69 20 135/56 (82) 89 06/30/17 15:30 69 20 135/56 89 2.0 06/30/17 15:30 73 20 90 06/30/17 15:16 75 21 152/63 (92) 93 06/30/17 15:15 79 23 91 06/30/17 15:15 37.1 75 21 152/63 93 2.0 06/30/17 15:01 77 19 157/65 94 06/30/17 15:00 79 27 157/65 (95) 92 06/30/17 14:12 37.1 75 18 125/51 (75) 93 Room Air 06/30/17 14:05 39.1 82 20 92 06/30/17 12:02 39.1 82 20 138/62 (87) 92 Room Air 06/30/17 08:00 Room Air 06/30/17 07:59 38.5 72 18 96/57 (70) 92 Room Air 06/30/17 04:51 38.1 06/30/17 03:05 37.9 06/30/17 01:50 38.7 06/29/17 23:59 Room Air 06/29/17 23:33 39.2 92 20 143/70 (94) Room Air General Appearance: WD/WN, no apparent distress Head: normocephalic, atraumatic Eyes: PERRLA, EOMI Neck: normal range of motion, trachea midline, supple, no nuchal rigidity Respiratory: breath sounds normal, no respiratory distress Cardiovasular: regular rate/rhythm, normal S1S2 Abdomen: non tender, no rebound, no guarding Back: left CVA tenderness Upper Extremities: no edema Lower Extremities: no edema Neuro: other (AAO x 1, equal strength b/l, doeasn;t follow up commands well. EOMI) Laboratory Results Last 24 Hours Test 06/30/17 00:00 06/30/17 07:30 06/30/17 10:43 Urine Color YELLOW Urine Appearance CLEAR Urine pH 5.0 Urine Specific [place] 1.022 Urine Protein NEG Urine Glucose (UA) NEG Urine Ketones 1+ Urine Occult Blood TRACE Urine Nitrite NEG Urine Bilirubin NEG Urine Urobilinogen NEG Urine Leukocyte Esterase NEG Urine WBC (Auto) 1-5 /hpf Urine RBC (Auto) 0-4 /hpf Urine Hyaline Casts (Auto) 1-5 /lpf Urine Epithelial Cells (Auto) 10-20 /lpf Urine Bacteria (Auto) NEG White Blood Count 8.53 K/uL Red Blood Count 3.36 M/uL Hemoglobin 10.9 g/dL Hematocrit 32.6 % Mean Corpuscular Volume 97.0 fL Mean Corpuscular Hemoglobin 32.4 pg Mean Corpuscular Hemoglobin Concent 33.4 g/dl RDW Standard Deviation 44.5 fL RDW Coefficient of Variation 12.6 % Platelet Count 140 K/uL Mean Platelet Volume 9.1 fL Prothrombin Time 19.4 SECONDS Prothromb Time International Ratio 1.8 Sodium Level 138 mmol/L Potassium Level 3.4 mmol/L Chloride Level 106 mmol/L Carbon Dioxide Level 21 mmol/L Anion Gap 12.0 mmol/L Blood Urea Nitrogen 18 mg/dl Creatinine 0.70 mg/dl Est Creatinine Clear Calc Drug Dose 56.1 ml/min Estimated GFR () 90.9 Estimated GFR (Non- 78.5 BUN/Creatinine Ratio 25.5 Random Glucose 89 mg/dl Calcium Level 8.0 mg/dl Lactic Acid Level 1.2 mmol/L Procalcitonin 0.48 ng/ml Diagnostic Results 06/29: Blood Cx x 2 pending 06/30: Blood Cx x [address] abdomen: Lung bases show mild chronic basilar interstitial change. No well-defined focal infiltrates are appreciated. A peripheral right hepatic cyst is stable. Liver otherwise is uniform. Spleen and pancreas are unremarkable. Small punctate nonobstructing right renal calcification. Very slight fullness right kidney compared to the left. No evidence for an obstructing urinary tract calculus. The ureters are normal in course and caliber. Bladder is midline. Bowel pattern is considered nonobstructive. IMPRESSION: No acute process of the abdomen or pelvis CT brain: No acute intracranial abnormality. No hemorrhage or territorial ischemia. Assessment & Plan 87 year old female with severe sepsis (encephalopathy). Differential diagnosis at this point seems to be concentrated on UTI and encephalitis. Most likely she is delirious and encephalopathic secondary to UTI, however, we' ll need to empirically treat her and rule out encephalitis. Plan: Broad spectrum Abx to cover meningitis. On Vancomycin, Rocephin, Ampicillin and acyclovir Follow up blood cultures Reversing the INR with FFP and vitamin K If INR < 1.5, may proceed with lumbar puncture Remains in sinus rhythm. Continue beta-blockers. Holding anticoagulation for LP For the time being there is no benefit from ICU monitoring, may monitor in telemetry Critical care time spent greater than 40 minutes
[2017-06-30 19:40] LABS: INR 1.1 (0.9-1.1); PROTHROMBIN TIME (PATIENT) 11.9 SECONDS (9.0-12.0)
[2017-06-30] MEDS ORDERED: LIDOCAINE HCL 1% 20 ML VIAL ONE (20:05)
[2017-06-30] MEDS ORDERED: LACTOBACILLUS ACIDOPHILUS 1 GM PACK PO ONE (20:37)
--- NOTE | 2017-06-30 20:48 | Procedure Note ---
Procedure Note Procedure Date Jun 30, 2017. Procedure Description Procedure Name: Lumbar puncture Procedure time out: side/site verified, patient ID confirmed, correct procedure Consent obtained: written Time of procedure: 20:00 Performed by: attending Indications: diagnostic Description: Patient placed at the edge of the bed in sitting position, with the feet dangling, head flexed forward. The skin on the lower back was sterilized with chlorhexidine. The L4-L5 space was marked Patient covered with sterile drape Skin and SC tissues were infiltrated with lidocaine. The LP needle was inserted in between spaces, advanced between L4-L5 but unable to advance past half, hitting bone. Attempted one space below, but again unsuccessful. Procedure aborted, pressure applied. No bleeding noted. Patient to lay flat for tonight for an hour Complications: none Patient tolerated procedure: well Post-procedure vital signs: reviewed and stable
--- NOTE | 2017-06-30 21:51 | Progress Note ---
Medicine Progress Note Date & Time of Visit: Jun 30, 2017 at 0900. Subjective 87 yo F with PAF on coumadin presented with confusion, fever and UTI. In presence of fevers and chills with CVA tenderness on exam she was thought to have pyelonephritis and was placed on Rocephin empirically. Overnight she continued to spike fevers and this morning she was significantly more confused and was very ill-appearing laying in a position in bed. She had continued to have fevers and shaking chills. She did not admit to neck stiffness or photophobia but she was still somewhat reporting a headache, so encephalitis was considered more possible. She was placed on Vanc, an increased dose of Rocephin, Ampicillin, Acyclovir and dexamethasone empirically. ID was consulted and the ICU team was asked to evaluate for an LP as the fluoroscopy room was not in use today. She underwent a repeat head CT to look for bleed in the setting of worsening confusion on coumadin, and this was normal. A CT abd/pelvis was also ordered in setting of pyelo looking for obstructive findings and this did not reveal an acute process. A Mireles catheter was placed more because of the confusion. The patient was given FFP and IV vit K (5mg) to reverse her INR in setting of INR 1.8. She will undergo LP later today. Objective Last 8 Hrs Date Time Temp Pulse Resp B/P (MAP) Pulse Ox O2 Delivery O2 Flow Rate FiO2 06/30/17 16:26 69 21 138/56 97 2.0 06/30/17 16:00 37.4 70 19 133/52 94 3.0 06/30/17 16:00 37.4 70 19 133/52 (79) 94 06/30/17 15:45 37.4 74 21 136/51 90 2.0 06/30/17 15:45 74 21 136/51 (79) 90 06/30/17 15:31 69 20 135/56 (82) 89 06/30/17 15:30 69 20 135/56 89 2.0 06/30/17 15:30 73 20 90 06/30/17 15:16 75 21 152/63 (92) 93 06/30/17 15:15 79 23 91 06/30/17 15:15 37.1 75 21 152/63 93 2.0 06/30/17 15:01 77 19 157/65 94 06/30/17 15:00 79 27 157/65 (95) 92 06/30/17 14:12 37.1 75 18 125/51 (75) 93 Room Air 06/30/17 14:05 39.1 82 20 92 06/30/17 12:02 39.1 82 20 138/62 (87) 92 Room Air Physical Exam: GEN: WNWD, ill-appearing, alert but disoriented. Shaking chills noted. HEENT: NC/AT, PERRL, normal sclerae CARDIO: reg rate, S1/2 heard without m/g/r LUNGS: CTA bilaterally, no crackles, rales or wheezes, good diaphragmatic excursion ABD: soft, non-tender, non-distended, no rebound or guarding, +BS. CVA tenderness was not assessed. EXTREMITY: RP and DP palpable 2+ bilat, no LE swelling or edema, extremities are warm and well-perfused NEURO: disoriented, strength intact, pt unable to move neck much with passive ROM MUSC: deconditioned, no focal deficits-limited exam in clinical setting. SKIN: warm and dry Laboratory Results: 06/30/17 07:30 06/30/17 07:30 Test 06/29/17 08:41 06/29/17 08:47 06/29/17 09:04 06/30/17 00:00 Immature Granulocyte % (Auto) 0.1 % White Blood Count 10.66 K/uL (4.8-10.8) Red Blood Count 4.12 M/uL (4.2-5.4) Hemoglobin 13.1 g/dL (12.0-16.0) Hematocrit 40.4 % (37-47) Mean Corpuscular Volume 98.1 fL (80-100) Mean Corpuscular Hemoglobin 31.8 pg (25-34) Mean Corpuscular Hemoglobin Concent 32.4 g/dl (32-36) Platelet Count 202 K/uL (130-400) Mean Platelet Volume 9.6 fL (7.4-10.4) Neutrophils (%) (Auto) 74.6 % Lymphocytes (%) (Auto) 17.8 % Monocytes (%) (Auto) 7.3 % Eosinophils (%) (Auto) 0.0 % Basophils (%) (Auto) 0.2 % Neutrophils # (Auto) 7.95 K/uL (1.4-6.5) Lymphocytes # (Auto) 1.90 K/uL (1.2-3.4) Monocytes # (Auto) 0.78 K/uL (0.11-0.59) Eosinophils # (Auto) 0.00 K/uL (0-0.5) Basophils # (Auto) 0.02 K/uL (0-0.2) Immature Granulocyte # (Auto) 0.01 K/uL (0.00-0.02) Activated Partial Thromboplast Time 36.1 SECONDS (21.0-31.0) Partial Thromboplastin Ratio 1.4 Magnesium Level 2.1 mg/dl (1.8-2.4) Total Bilirubin 0.8 mg/dl (0.2-1) Direct Bilirubin 0.2 mg/dl (0-0.2) Aspartate Amino Transf (AST/SGOT) 19 U/L (15-37) Alanine Aminotransferase (ALT/SGPT) 18 U/L (12-78) Alkaline Phosphatase 103 U/L (45-117) Total Creatine Kinase 48 U/L (26-192) Creatine Kinase MB < 0.5 ng/ml (0.5-3.6) Creatine Kinase MB Ratio (0-3.0) Troponin I < 0.015 ng/ml (0-0.045) Total Protein 7.2 gm/dl (6.4-8.2) Albumin 3.6 gm/dl (3.4-5.0) Lipase 239 U/L (73-393) Thyroid Stimulating Hormone (TSH) 0.744 uIu/ml (0.300-4.500) Bedside Lactic Acid Venous 1.21 mmol/L (0.90-1.70) Influenza Type A Antigen Neg for Influ A (NEG) Influenza Type B Antigen Neg for Influ B (NEG) Urine Color YELLOW Urine Appearance CLEAR (CLEAR) Urine pH 5.0 (4.5-7.5) Urine Specific [place] 1.022 (1.000-1.030) Urine Protein NEG (NEG) Urine Glucose (UA) NEG (NEG) Urine Ketones 1+ (NEG) Urine Occult Blood TRACE (NEG) Urine Nitrite NEG (NEG) Urine Bilirubin NEG (NEG) Urine Urobilinogen NEG (NEG) Urine Leukocyte Esterase NEG (NEG) Urine WBC (Auto) 1-5 /hpf (0-5) Urine RBC (Auto) 0-4 /hpf (0-4) Urine Hyaline Casts (Auto) 1-5 /lpf (0-5) Urine Epithelial Cells (Auto) 10-20 /lpf (0-5) Urine Bacteria (Auto) NEG (NEG) Test 06/30/17 07:30 06/30/17 10:43 06/30/17 17:31 06/30/17 18:59 Red Blood Count 3.36 M/uL (4.2-5.4) Mean Corpuscular Volume 97.0 fL (80-100) Mean Corpuscular Hemoglobin 32.4 pg (25-34) Mean Corpuscular Hemoglobin Concent 33.4 g/dl (32-36) RDW Standard Deviation 44.5 fL (36.4-46.3) RDW Coefficient of Variation 12.6 % (11.5-14.5) Mean Platelet Volume 9.1 fL (7.4-10.4) Anion Gap 12.0 mmol/L (3-11) Est Creatinine Clear Calc Drug Dose 56.1 ml/min Estimated GFR () 90.9 Estimated GFR (Non- 78.5 BUN/Creatinine Ratio 25.5 (10-20) Calcium Level 8.0 mg/dl (8.5-10.1) Lactic Acid Level 1.2 mmol/L (0.4-2.0) Procalcitonin 0.48 ng/ml (0-0.5) Prothrombin Time 11.9 SECONDS (9.0-12.0) Prothromb Time International Ratio 1.1 (0.9-1.1) Test 06/30/17 20:48 Bedside Glucose 143 mg/dl (70-90) Date/Time Source Procedure Growth Status 06/30/17 10:43 Blood Cryptococcal Antigen - Final NO CRYPTOCOCCAL ANTIGEN DETECTED Complete 06/30/17 17:31 Cerebral Spinal Fluid Cryptococcal Antigen Pending Ordered 06/30/17 00:00 Urine,Catheterized Urine Culture Pending Received Last 24 Hours Test 06/30/17 00:00 06/30/17 07:30 06/30/17 10:43 Urine Color YELLOW Urine Appearance CLEAR Urine pH 5.0 Urine Specific [place] 1.022 Urine Protein NEG Urine Glucose (UA) NEG Urine Ketones 1+ Urine Occult Blood TRACE Urine Nitrite NEG Urine Bilirubin NEG Urine Urobilinogen NEG Urine Leukocyte Esterase NEG Urine WBC (Auto) 1-5 /hpf Urine RBC (Auto) 0-4 /hpf Urine Hyaline Casts (Auto) 1-5 /lpf Urine Epithelial Cells (Auto) 10-20 /lpf Urine Bacteria (Auto) NEG White Blood Count 8.53 K/uL Red Blood Count 3.36 M/uL Hemoglobin 10.9 g/dL Hematocrit 32.6 % Mean Corpuscular Volume 97.0 fL Mean Corpuscular Hemoglobin 32.4 pg Mean Corpuscular Hemoglobin Concent 33.4 g/dl RDW Standard Deviation 44.5 fL RDW Coefficient of Variation 12.6 % Platelet Count 140 K/uL Mean Platelet Volume 9.1 fL Prothrombin Time 19.4 SECONDS Prothromb Time International Ratio 1.8 Sodium Level 138 mmol/L Potassium Level 3.4 mmol/L Chloride Level 106 mmol/L Carbon Dioxide Level 21 mmol/L Anion Gap 12.0 mmol/L Blood Urea Nitrogen 18 mg/dl Creatinine 0.70 mg/dl Est Creatinine Clear Calc Drug Dose 56.1 ml/min Estimated GFR () 90.9 Estimated GFR (Non- 78.5 BUN/Creatinine Ratio 25.5 Random Glucose 89 mg/dl Calcium Level 8.0 mg/dl Lactic Acid Level 1.2 mmol/L Procalcitonin 0.48 ng/ml Date/Time Source Procedure Growth Status 06/30/17 10:43 Blood Cryptococcal Antigen - Final NO CRYPTOCOCCAL ANTIGEN DETECTED Complete 06/30/17 10:43 Blood Blood Culture Pending Received 06/30/17 10:27 Blood Blood Culture Pending Received 06/30/17 00:00 Urine,Catheterized Urine Culture Pending Received Assessment & Plan 87 yo F with PAF on coumadin presented with confusion, fever and UTI. In presence of fevers and chills with CVA tenderness on exam she was thought to have pyelonephritis and was placed on Rocephin empirically. Overnight she continued to spike fevers and this morning she was significantly more confused and was very ill-appearing laying in a position in bed. She had continued to have fevers and shaking chills. She did not admit to neck stiffness or photophobia but she was still somewhat reporting a headache, so encephalitis was considered more possible. She was placed on Vanc, an increased dose of Rocephin, Ampicillin, Acyclovir and dexamethasone empirically. ID was consulted and the ICU team was asked to evaluate for an LP as the fluoroscopy room was not in use today. She underwent a repeat head CT to look for bleed in the setting of worsening confusion on coumadin, and this was normal. A CT abd/pelvis was also ordered in setting of pyelo looking for obstructive findings and this did not reveal an acute process. A Mireles catheter was placed more because of the confusion. The patient was given FFP and IV vit K (5mg) to reverse her INR in setting of INR 1.8. She will undergo LP later today. 1. encephalitis-fever, headache and confusion point to this as a likely cause of her symptoms. Empiric acyclovir and broad abx pending CSF studies. 2. Pyelonephritis-covered with Rocephin being give for #1. Urine culture still pending. 3. PAF-on coumadin which was reversed and is being held. Will restart tomorrow pending ability to tolerate PO without bridge. 4. HTN-controlled on Losartan and Toprol XL. 5. Hypothyroidsim-cont Synthroid DVT Ppx: Holding coumadin with reversal in prep for LP procedure. Code status: FULL PCP: Melany Dispo: Plan to return home once medically stable Reassessed later in the day and mental status is starting to improve as she now remember's her spouse's name and is moving around easier in bed. Fever defervesced in the early afternoon on therapy. Lyric Vera DO [facility] Hospitalist Current Inpatient Medications: Current Inpatient Medications Medications (Trade) Dose Ordered Sig/Josué Route Start Time Stop Time Status Last Admin Dose Admin Acetaminophen (Tylenol Tab) 650 mg Q4H PRN PO 06/29/17 11:00 07/29/17 10:59 06/29/17 16:03 650 MG Ondansetron HCl (Zofran Inj) 4 mg Q6H PRN IV 06/29/17 11:00 07/29/17 10:59 Aspirin (Ecotrin Tab) 81 mg DAILY PO 06/30/17 08:00 07/30/17 08:59 Atorvastatin Calcium (Lipitor Tab) 40 mg DAILY PO 06/30/17 08:00 07/30/17 08:59 Levothyroxine Sodium (Synthroid Tab) 100 mcg DAILYBB PO 06/30/17 06:30 07/30/17 06:29 Losartan Potassium (coZAAR TAB) 25 mg DAILY PO 06/30/17 08:00 07/30/17 08:59 Losartan Potassium (coZAAR TAB) 50 mg DAILY PO 06/30/17 08:00 07/30/17 08:59 Metoprolol Succinate (Toprol Xl Tab) 50 mg DAILY PO 06/30/17 08:00 07/30/17 08:59 Calcium/Vitamin D (Caltrate Plus Tab) 2 tab DAILY PO 06/30/17 08:00 07/30/17 07:59 Miscellaneous (Iv Fluids Completed) 1 ea PRN PRN N/A 06/29/17 11:30 06/29/18 11:29 Acetaminophen 650 mg/Empty Bag 65 ml @ 260 mls/hr Q6H PRN IV 06/30/17 00:15 07/30/17 00:14 06/30/17 12:36 260 MLS/HR Ceftriaxone Sodium 2000 mg/ Dextrose 70 ml @ 100 mls/hr Q12H IV 06/30/17 22:00 07/10/17 21:59 Vancomycin HCl 1000 mg/Sodium Chloride 270 ml @ 125 mls/hr Q14H IV 07/01/17 00:00 07/11/17 00:00 Acyclovir Sodium 650 mg/Dextrose 113 ml @ 110 mls/hr Q8H IV 06/30/17 10:30 07/10/17 10:29 06/30/17 10:38 110 MLS/HR Dexamethasone Sodium Phosphate 10 mg/Syringe 2.5 ml @ 1 mls/min Q6@0400,1000,1600,2200 IV 06/30/17 10:15 07/30/17 10:14 06/30/17 15:40 1 MLS/MIN Ampicillin Sodium 2000 mg/Sodium Chloride 100 ml @ 216 mls/hr Q4H IV 06/30/17 11:00 07/10/17 10:59 06/30/17 15:39 216 MLS/HR Vancomycin HCl (Consult) 1 ea UD PRN N/A 06/30/17 12:00 07/30/17 11:59
[2017-06-30] MEDS: CEFTRIAXONE SOD INJ 2,000 MG in DEXTROSE 5% 50ML 50 ML IV SCH (22:04)
[2017-06-30] MEDS ORDERED: GLUCOSE 40% GEL 15 GM TUBE PO PRN (22:45)
[2017-06-30] MEDS ORDERED: GLUCOSE 10 TABS/TUBE PO PRN (22:45)
[2017-06-30] MEDS ORDERED: DEXTROSE 50% 50 ML SYR IV PRN (22:45)
[2017-06-30] MEDS ORDERED: GLUCAGON FOR INJ 1 MG VIAL SQ PRN (22:45)
[2017-07-01] VITALS (40 sets, daily range): BP systolic 115–153; BP diastolic 56–75; PULSE 50–89; TEMP 36.3–37.6; O2SAT 89–98
[2017-07-01] MEDS: ACETAMINOPHEN IV 650 MG in EMPTY BAG 0 ML IV PRN (00:05)
[2017-07-01] MEDS ORDERED: VANCOMYCIN TROUGH ONE (03:30)
[2017-07-01] MEDS: ACYCLOVIR SOD INJ 650 MG in DEXTROSE 5% 100ML 100 ML IV SCH ×3 (03:43→18:09)
[2017-07-01] MEDS: AMPICILLIN IV 2,000 MG in SODIUM CHLOR 0.9% AD-VAN 100ML 100 ML IV SCH ×6 (03:44→22:28)
[2017-07-01] MEDS: DEXAMETHASONE INJ 10 MG in SYRINGE 0 ML IV SCH ×2 (03:44→10:35)
[2017-07-01] MEDS: LEVOTHYROXINE 100 MCG TAB PO SCH (06:00)
[2017-07-01 06:07] LABS: COMPLETE YES; HEMATOCRIT 31.1 % (37-47); IG% 0.3 %; LYMPH % 21.9 %; LYMPH ABS # 1.31 K/uL (1.2-3.4); MEAN CORPUSCULAR HEMOGLOBIN 33.3 pg (25-34); MEAN CORPUSCULAR HGB CONC 34.7 g/dl (32-36); MEAN PLATELET VOLUME 9.9 fL (7.4-10.4); MONO % 3.7 %; NEUT % 74.1 %; PLATELET COUNT 129 K/uL (130-400); RED BLOOD COUNT 3.24 M/uL (4.2-5.4); WHITE BLOOD COUNT 5.99 K/uL (4.8-10.8)
[2017-07-01 06:27] LABS: INR 1.1 (0.9-1.1); PROTHROMBIN TIME (PATIENT) 11.6 SECONDS (9.0-12.0)
[2017-07-01 07:00] LABS: BUN/CREATININE RATIO 28.7 (10-20); CALCIUM 7.7 mg/dl (8.5-10.1); CREATININE 0.67 mg/dl (0.60-1.20); POTASSIUM 3.2 mmol/L (3.5-5.1)
[2017-07-01] MEDS: INSULIN ASPART 100 UNITS/ML 3 ML PEN SC SCH ×4 (07:00→21:53)
[2017-07-01] MEDS: ACETAMINOPHEN 325 MG TAB PO PRN (07:35)
[2017-07-01] MEDS: CALCIUM 600MG + VIT D 400 IU TAB PO SCH (07:36)
[2017-07-01] MEDS: LACTOBACILLUS ACIDOPHILUS 1 GM PACK PO SCH ×3 (07:36→15:26)
[2017-07-01] MEDS: LOSARTAN POTASSIUM 50 MG TAB PO SCH (07:37)
[2017-07-01] MEDS: ATORVASTATIN 40 MG TAB PO SCH (07:38)
[2017-07-01] MEDS: ASPIRIN 81 MG ECTAB PO SCH (07:38)
[2017-07-01] MEDS: LOSARTAN POTASSIUM 25 MG TAB PO SCH (07:38)
[2017-07-01] MEDS ORDERED: [UNRECOGNIZED DRUG - OTHER] IV SCH (08:30)
[2017-07-01] MEDS ORDERED: POTASSIUM CHLORIDE IV SCH (08:30)
[2017-07-01] MEDS ORDERED: POTASSIUM CHLORIDE 20 MEQ TABCR PO ONE (08:30)
[2017-07-01] MEDS ORDERED: CALCIUM GLUCONATE IV SCH (08:30)
[2017-07-01] MEDS: METOPROLOL SUCC 50MG EXT REL TAB PO SCH (08:39)
[2017-07-01] MEDS: CEFTRIAXONE SOD INJ 2,000 MG in DEXTROSE 5% 50ML 50 ML IV SCH ×2 (10:36→21:53)
--- NOTE | 2017-07-01 11:00 | DIAGNOSTIC IMAGING REPORT ---
FLUOROSCOPICALLY GUIDED LUMBAR PUNCTURE CLINICAL HISTORY: rule out bacterial meningitis. Altered mental status. FLUOROSCOPY TIME: 0.4 seconds. A single fluoroscopic spot image obtained. PROCEDURE: The procedure, risks and benefits were discussed with the patient including the risk of spinal headache, bleeding and infection. The patient agreed to the procedure and informed written consent was obtained. The procedure was performed by Dr. Castillo following a timeout. The left L3-L4 interlaminar space was targeted. Skin overlying the space was prepped and draped in the usual sterile fashion and local anesthesia was achieved with 1% lidocaine. Under intermittent fluoroscopic guidance, a 20-gauge x 3 1/2 in. Sprotte needle was inserted into the thecal sac. A total of 10 cc of clear, colorless cerebral spinal fluid was obtained and spread amongst 4 vials. The patient tolerated the procedure well. There were no immediate complications. The specimens were sent to the laboratory at the request of the referring physician. IMPRESSION: Successful fluoroscopic guided lumbar puncture with removal of 10 cc of clear, colorless cerebral spinal fluid. No immediate complications. Electronically signed by: Alexis Castillo M.D. 07/01/2017 10:59 AM Dictated Date/Time: 07/01/2017 10:58 AM
[2017-07-01 11:06] LABS: CSF CHEMISTRY TUBE # 1
[2017-07-01 11:13] LABS: CSF TOTAL PROTEIN 79.3 mg/dl (15.0-45.0)
[2017-07-01 11:25] LABS: CSF APPEARANCE CLEAR; CSF COLOR COLORLESS; CSF XANTHOCHROMIC NO XANTHOCHROMIA
[2017-07-01] MEDS ORDERED: LORAZEPAM 2 MG/ML 1 ML VIAL IV STA (13:17)
[2017-07-01] MEDS ORDERED: LORAZEPAM 0.5 MG TAB PO PRN (13:30)
[2017-07-01] MEDS: VANCOMYCIN INJ 1,000 MG in SODIUM CHLORIDE 0.9% 250ML 250 ML IV SCH ×3 (13:43)
--- NOTE | 2017-07-01 16:07 | Progress Note ---
Medicine Progress Note Date & Time of Visit: Jul 01, 2017 at 13:18. Subjective 87 yo F with PAF on coumadin presented with confusion, fever and UTI. In presence of fevers and chills with CVA tenderness on exam she was thought to have pyelonephritis and was placed on Rocephin empirically. Overnight she continued to spike fevers and on HD2 she was significantly more confused and was very ill-appearing laying in a position in bed. She had continued to have fevers and shaking chills. She did not admit to neck stiffness or photophobia but she was still somewhat reporting a headache, so meningoencephalitis was considered more possible. She was placed on Vanc, an increased dose of Rocephin, Ampicillin, Acyclovir and dexamethasone empirically. ID was consulted and the ICU team was asked to evaluate for an LP as the fluoroscopy room was not in use that day. She underwent a repeat head CT to look for bleed in the setting of worsening confusion on coumadin, and this was normal. A CT abd/pelvis was also ordered in setting of ?pyelo looking for obstructive findings and this did not reveal an acute process. A Mireles catheter was placed more because of the confusion. The patient was given FFP and IV vit K (5mg) to reverse her INR in setting of INR 1.8. Later that day an LP was attempted as her repeat INR was 1.1. The LP was unsuccessful, but she continued to do well clinically overnight. On HD3, 24 hours after starting antibiotics, she underwent fluoroscopic-guided LP that was successful revealing no organisms on gram stain. CSF studies otherwise included WBC 16, RBC 2, glucose 86 and total protein 79. She is mentating normally today and having some severe anxiety and some agitation likely related to the steroids she has been given as well as the stress of not remembering the events of the past couple of days. Spouse is at bedside and is comforting her. We discussed the Mireles removal which is for comfort and both spouse and patient were comfortable with keeping it in place until she was up and moving around a little more. Objective Last 8 Hrs Date Time Temp Pulse Resp B/P (MAP) Pulse Ox O2 Delivery O2 Flow Rate FiO2 07/01/17 12:00 36.8 62 21 130/64 (86) 91 07/01/17 12:00 91 Nasal Cannula 2.0 07/01/17 11:46 63 17 120/66 (84) 89 07/01/17 11:45 64 17 07/01/17 11:31 67 20 115/57 (76) 90 07/01/17 11:30 66 23 89 07/01/17 11:17 62 21 130/56 (80) 90 07/01/17 11:15 62 19 91 07/01/17 11:01 58 13 135/64 (87) 95 07/01/17 11:00 61 24 90 07/01/17 10:46 60 17 132/57 (82) 92 07/01/17 10:45 67 26 91 07/01/17 10:30 61 21 92 07/01/17 08:00 92 Nasal Cannula 2.0 07/01/17 06:56 36.3 80 19 130/60 (83) 93 Nasal Cannula 2.0 Physical Exam: GEN: WNWD, no more rigors noted, mentating clearly, emotionally distressed/ crying HEENT: NC/AT, PERRL, normal sclerae, MMM CARDIO: reg rate, S1/2 heard without m/g/r LUNGS: CTA bilaterally, no crackles, rales or wheezes, good diaphragmatic excursion ABD: soft, non-tender, non-distended, no rebound or guarding, +BS. EXTREMITY: RP and DP palpable 2+ bilat, no LE swelling or edema, extremities are warm and well-perfused NEURO: oriented, no gross focal deficits. MUSC: deconditioned, lying supine on a bed restriction so limited exam SKIN: warm and dry Laboratory Results: 07/01/17 05:37 Red Blood Count 3.24, Mean Corpuscular Volume 96.0, Mean Corpuscular Hemoglobin 33.3, Mean Corpuscular Hemoglobin Concent 34.7, Mean Platelet Volume 9.9, Neutrophils (%) (Auto) 74.1, Lymphocytes (%) (Auto) 21.9, Monocytes (%) (Auto) 3.7, Eosinophils (%) (Auto) 0.0, Basophils (%) (Auto) 0.0, Neutrophils # (Auto) 4.44, Lymphocytes # (Auto) 1.31, Monocytes # (Auto) 0.22, Eosinophils # (Auto) 0.00, Basophils # (Auto) 0.00 07/01/17 05:37 Test 06/29/17 08:41 06/29/17 08:47 06/29/17 09:04 06/30/17 00:00 Activated Partial Thromboplast Time 36.1 SECONDS (21.0-31.0) Partial Thromboplastin Ratio 1.4 Magnesium Level 2.1 mg/dl (1.8-2.4) Total Bilirubin 0.8 mg/dl (0.2-1) Direct Bilirubin 0.2 mg/dl (0-0.2) Aspartate Amino Transf (AST/SGOT) 19 U/L (15-37) Alanine Aminotransferase (ALT/SGPT) 18 U/L (12-78) Alkaline Phosphatase 103 U/L (45-117) Total Creatine Kinase 48 U/L (26-192) Creatine Kinase MB < 0.5 ng/ml (0.5-3.6) Creatine Kinase MB Ratio (0-3.0) Troponin I < 0.015 ng/ml (0-0.045) Total Protein 7.2 gm/dl (6.4-8.2) Albumin 3.6 gm/dl (3.4-5.0) Lipase 239 U/L (73-393) Thyroid Stimulating Hormone (TSH) 0.744 uIu/ml (0.300-4.500) Bedside Lactic Acid Venous 1.21 mmol/L (0.90-1.70) Influenza Type A Antigen Neg for Influ A (NEG) Influenza Type B Antigen Neg for Influ B (NEG) Urine Color YELLOW Urine Appearance CLEAR (CLEAR) Urine pH 5.0 (4.5-7.5) Urine Specific Geff 1.022 (1.000-1.030) Urine Protein NEG (NEG) Urine Glucose (UA) NEG (NEG) Urine Ketones 1+ (NEG) Urine Occult Blood TRACE (NEG) Urine Nitrite NEG (NEG) Urine Bilirubin NEG (NEG) Urine Urobilinogen NEG (NEG) Urine Leukocyte Esterase NEG (NEG) Urine WBC (Auto) 1-5 /hpf (0-5) Urine RBC (Auto) 0-4 /hpf (0-4) Urine Hyaline Casts (Auto) 1-5 /lpf (0-5) Urine Epithelial Cells (Auto) 10-20 /lpf (0-5) Urine Bacteria (Auto) NEG (NEG) Test 06/30/17 10:43 07/01/17 05:37 07/01/17 10:00 07/01/17 11:54 Lactic Acid Level 1.2 mmol/L (0.4-2.0) Procalcitonin 0.48 ng/ml (0-0.5) White Blood Count 5.99 K/uL (4.8-10.8) Red Blood Count 3.24 M/uL (4.2-5.4) Hemoglobin 10.8 g/dL (12.0-16.0) Hematocrit 31.1 % (37-47) Mean Corpuscular Volume 96.0 fL (80-100) Mean Corpuscular Hemoglobin 33.3 pg (25-34) Mean Corpuscular Hemoglobin Concent 34.7 g/dl (32-36) Platelet Count 129 K/uL (130-400) Mean Platelet Volume 9.9 fL (7.4-10.4) Neutrophils (%) (Auto) 74.1 % Lymphocytes (%) (Auto) 21.9 % Monocytes (%) (Auto) 3.7 % Eosinophils (%) (Auto) 0.0 % Basophils (%) (Auto) 0.0 % Neutrophils # (Auto) 4.44 K/uL (1.4-6.5) Lymphocytes # (Auto) 1.31 K/uL (1.2-3.4) Monocytes # (Auto) 0.22 K/uL (0.11-0.59) Eosinophils # (Auto) 0.00 K/uL (0-0.5) Basophils # (Auto) 0.00 K/uL (0-0.2) RDW Standard Deviation 43.8 fL (36.4-46.3) RDW Coefficient of Variation 12.3 % (11.5-14.5) Immature Granulocyte % (Auto) 0.3 % Immature Granulocyte # (Auto) 0.02 K/uL (0.00-0.02) Prothrombin Time 11.6 SECONDS (9.0-12.0) Prothromb Time International Ratio 1.1 (0.9-1.1) Anion Gap 9.0 mmol/L (3-11) Est Creatinine Clear Calc Drug Dose 58.6 ml/min Estimated GFR () 92.2 Estimated GFR (Non- 79.6 BUN/Creatinine Ratio 28.7 (10-20) Calcium Level 7.7 mg/dl (8.5-10.1) CSF Color COLORLESS CSF Appearance CLEAR CSF WBC 164 /uL (0-5) CSF RBC 2 /uL (0) CSF Polynuclear WBCs 1.0 % CSF Mononuclear WBCs 99.0 % CSF Xanthrochromic NO XANTHOCHROMIA CSF Cell Count Tube # 3 CSF Chemistry Tube # 1 CSF Glucose 86 mg/dl (40-70) CSF Total Protein 79.3 mg/dl (15.0-45.0) Bedside Glucose 207 mg/dl (70-90) Date/Time Source Procedure Growth Status 06/30/17 10:43 Blood Cryptococcal Antigen - Final NO CRYPTOCOCCAL ANTIGEN DETECTED Complete 07/01/17 10:00 Cerebral Spinal Fluid Gram Stain - Final Resulted 07/01/17 10:00 Cerebral Spinal Fluid CSF Culture Pending Resulted 06/30/17 00:00 Urine,Catheterized Urine Culture - Preliminary NO GROWTH - LESS THAN 1,000 COLONIES/... Resulted Last 24 Hours Test 06/30/17 16:38 06/30/17 18:59 06/30/17 20:48 07/01/17 00:07 Bedside Glucose 116 mg/dl 143 mg/dl 156 mg/dl Prothrombin Time 11.9 SECONDS Prothromb Time International Ratio 1.1 Test 07/01/17 05:37 07/01/17 06:01 07/01/17 10:00 07/01/17 11:54 White Blood Count 5.99 K/uL Red Blood Count 3.24 M/uL Hemoglobin 10.8 g/dL Hematocrit 31.1 % Mean Corpuscular Volume 96.0 fL Mean Corpuscular Hemoglobin 33.3 pg Mean Corpuscular Hemoglobin Concent 34.7 g/dl Platelet Count 129 K/uL Mean Platelet Volume 9.9 fL Neutrophils (%) (Auto) 74.1 % Lymphocytes (%) (Auto) 21.9 % Monocytes (%) (Auto) 3.7 % Eosinophils (%) (Auto) 0.0 % Basophils (%) (Auto) 0.0 % Neutrophils # (Auto) 4.44 K/uL Lymphocytes # (Auto) 1.31 K/uL Monocytes # (Auto) 0.22 K/uL Eosinophils # (Auto) 0.00 K/uL Basophils # (Auto) 0.00 K/uL RDW Standard Deviation 43.8 fL RDW Coefficient of Variation 12.3 % Immature Granulocyte % (Auto) 0.3 % Immature Granulocyte # (Auto) 0.02 K/uL Prothrombin Time 11.6 SECONDS Prothromb Time International Ratio 1.1 Sodium Level 141 mmol/L Potassium Level 3.2 mmol/L Chloride Level 108 mmol/L Carbon Dioxide Level 24 mmol/L Anion Gap 9.0 mmol/L Blood Urea Nitrogen 19 mg/dl Creatinine 0.67 mg/dl Est Creatinine Clear Calc Drug Dose 58.6 ml/min Estimated GFR () 92.2 Estimated GFR (Non- 79.6 BUN/Creatinine Ratio 28.7 Random Glucose 166 mg/dl Calcium Level 7.7 mg/dl Bedside Glucose 158 mg/dl 207 mg/dl CSF Color COLORLESS CSF Appearance CLEAR CSF WBC 164 /uL CSF RBC 2 /uL CSF Polynuclear WBCs 1.0 % CSF Mononuclear WBCs 99.0 % CSF Xanthrochromic NO XANTHOCHROMIA CSF Cell Count Tube # 3 CSF Chemistry Tube # 1 CSF Glucose 86 mg/dl CSF Total Protein 79.3 mg/dl Date/Time Source Procedure Growth Status 07/01/17 10:00 Cerebral Spinal Fluid Gram Stain - Final Resulted 07/01/17 10:00 Cerebral Spinal Fluid CSF Culture Pending Resulted 07/01/17 10:00 Cerebral Spinal Fluid Cryptococcal Antigen - Final Complete Assessment & Plan 87 yo F with PAF on coumadin presented with confusion, fever and UTI. In presence of fevers and chills with CVA tenderness on exam she was thought to have pyelonephritis and was placed on Rocephin empirically. Overnight she continued to spike fevers and on HD2 she was significantly more confused and was very ill-appearing laying in a position in bed. She had continued to have fevers and shaking chills. She did not admit to neck stiffness or photophobia but she was still somewhat reporting a headache, so meningoencephalitis was considered more possible. She was placed on Vanc, an increased dose of Rocephin, Ampicillin, Acyclovir and dexamethasone empirically. ID was consulted and the ICU team was asked to evaluate for an LP as the fluoroscopy room was not in use that day. She underwent a repeat head CT to look for bleed in the setting of worsening confusion on coumadin, and this was normal. A CT abd/pelvis was also ordered in setting of ?pyelo looking for obstructive findings and this did not reveal an acute process. A Mireles catheter was placed more because of the confusion. The patient was given FFP and IV vit K (5mg) to reverse her INR in setting of INR 1.8. Later that day an LP was attempted as her repeat INR was 1.1. The LP was unsuccessful, but she continued to do well clinically overnight. On HD3, 24 hours after starting antibiotics, she underwent fluoroscopic-guided LP that was successful revealing no organisms on gram stain. CSF studies otherwise included WBC 16, RBC 2, glucose 86 and total protein 79. She is mentating normally today and having some severe anxiety and some agitation likely related to the steroids she has been given as well as the stress of not remembering the events of the past couple of days. Spouse is at bedside and is comforting her. We discussed the Mireles removal which is for comfort and both spouse and patient were comfortable with keeping it in place until she was up and moving around a little more. 1. AMS 2/2 meningitis (likely viral) vs encephalitis--no orgs present on GS, however, pt had been on abx for 24 hours at this time. Continuing Vanc, Rocephin, Ampicillin and Acyclovir. Stopping steroids as S/ pneumo not seen at this point and patient is having side effects of steroids including hyperglycemia, agitation, emotional lability, and anxiety. Awaiting results of reference tests that were sent off and for ID to help de-escalate therapy. Clinically, she is mentating well. 2. Pyelonephritis-this was thought to be the case, however, the initial admission urine culture did not grow any bacteria nor did the repeat UA/UCx. Regardless she is receiving appropriate abx coverage for any UTI or pyelo at this time, but I don't think that was the source of her confusion and fever at this point. 3. PAF-on coumadin which was reversed and is being held. Will restart tomorrow after LP under fluoro was performed today. 4. HTN-controlled on Losartan and Toprol XL. 5. Hypothyroidsim-cont Synthroid 6. Hypokalemia-replaced, repeat in am. DVT Ppx: Holding coumadin with reversal in prep for LP procedure. Code status: FULL PCP: Melany Dispo: Plan to return home once medically stable. Will order PT/OT at this point. Lyric Vera DO [facility] Hospitalist Consultants: ID Current Inpatient Medications: Current Inpatient Medications Medications (Trade) Dose Ordered Sig/Josué Route Start Time Stop Time Status Last Admin Dose Admin Acetaminophen (Tylenol Tab) 650 mg Q4H PRN PO 06/29/17 11:00 07/29/17 10:59 07/01/17 07:35 650 MG Ondansetron HCl (Zofran Inj) 4 mg Q6H PRN IV 06/29/17 11:00 07/29/17 10:59 Aspirin (Ecotrin Tab) 81 mg DAILY PO 06/30/17 08:00 07/30/17 08:59 07/01/17 07:38 81 MG Atorvastatin Calcium (Lipitor Tab) 40 mg DAILY PO 06/30/17 08:00 07/30/17 08:59 07/01/17 07:38 40 MG Levothyroxine Sodium (Synthroid Tab) 100 mcg DAILYBB PO 06/30/17 06:30 07/30/17 06:29 Losartan Potassium (coZAAR TAB) 25 mg DAILY PO 06/30/17 08:00 07/30/17 08:59 07/01/17 07:38 25 MG Losartan Potassium (coZAAR TAB) 50 mg DAILY PO 06/30/17 08:00 07/30/17 08:59 07/01/17 07:37 50 MG Metoprolol Succinate (Toprol Xl Tab) 50 mg DAILY PO 06/30/17 08:00 07/30/17 08:59 07/01/17 08:39 50 MG Calcium/Vitamin D (Caltrate Plus Tab) 2 tab DAILY PO 06/30/17 08:00 07/30/17 07:59 07/01/17 07:36 2 TAB Miscellaneous (Iv Fluids Completed) 1 ea PRN PRN N/A 06/29/17 11:30 06/29/18 11:29 Acetaminophen 650 mg/Empty Bag 65 ml @ 260 mls/hr Q6H PRN IV 06/30/17 00:15 07/30/17 00:14 07/01/17 00:05 260 MLS/HR Ceftriaxone Sodium 2000 mg/ Dextrose 70 ml @ 100 mls/hr Q12H IV 06/30/17 22:00 07/10/17 21:59 07/01/17 10:36 100 MLS/HR Vancomycin HCl 1000 mg/Sodium Chloride 270 ml @ 125 mls/hr Q14H IV 07/01/17 00:00 07/11/17 00:00 07/01/17 00:00 125 MLS/HR Acyclovir Sodium 650 mg/Dextrose 113 ml @ 110 mls/hr Q8H IV 06/30/17 10:30 07/10/17 10:29 07/01/17 10:37 110 MLS/HR Ampicillin Sodium 2000 mg/Sodium Chloride 100 ml @ 216 mls/hr Q4H IV 06/30/17 11:00 07/10/17 10:59 07/01/17 10:37 216 MLS/HR Vancomycin HCl (Consult) 1 ea UD PRN N/A 06/30/17 12:00 07/30/17 11:59 Lactobacillus Acidophilus (Lactinex Granules Pack) 1 gm TIDM PO 07/01/17 07:30 07/31/17 07:29 07/01/17 07:36 1 GM Insulin Aspart (novoLOG ASPART) SLIDING SCALE If C... ACHS SC 07/01/17 07:00 07/31/17 06:59 07/01/17 12:50 2 UNITS Glucose (Glucose 40% Gel) 15-30 GRAMS 15 GRAMS... UD PRN PO 06/30/17 22:45 07/30/17 22:44 Glucose (Glucose Chew Tab) 4-8 Tablets 4 Tabl... UD PRN PO 06/30/17 22:45 07/30/17 22:44 Dextrose (Dextrose 50% 50ML Syringe) 25-50ML OF 50% DW IV FOR... UD PRN IV 06/30/17 22:45 07/30/17 22:44 Glucagon (Glucagon Inj) 1 mg UD PRN SQ 06/30/17 22:45 07/30/17 22:44
[2017-07-02] VITALS (9 sets, daily range): BP systolic 126–166; BP diastolic 61–83; PULSE 52–71; TEMP 36.4–36.9; O2SAT 90–98
[2017-07-02] MEDS: ACYCLOVIR SOD INJ 650 MG in DEXTROSE 5% 100ML 100 ML IV SCH ×3 (02:24→17:56)
[2017-07-02] MEDS: AMPICILLIN IV 2,000 MG in SODIUM CHLOR 0.9% AD-VAN 100ML 100 ML IV SCH ×6 (02:26→23:30)
[2017-07-02] MEDS: VANCOMYCIN INJ 1,000 MG in SODIUM CHLORIDE 0.9% 250ML 250 ML IV SCH (03:56)
[2017-07-02 03:59] LABS: COMPLETE YES; HEMATOCRIT 31.2 % (37-47); IG% 0.4 %; LYMPH % 6.7 %; LYMPH ABS # 0.89 K/uL (1.2-3.4); MEAN CELL VOLUME 95.1 fL (80-100); MEAN CORPUSCULAR HEMOGLOBIN 32.3 pg (25-34); MEAN PLATELET VOLUME 10.1 fL (7.4-10.4); MONO % 5.4 %; NEUT % 87.5 %; PLATELET COUNT 146 K/uL (130-400); RED BLOOD COUNT 3.28 M/uL (4.2-5.4); WHITE BLOOD COUNT 13.36 K/uL (4.8-10.8)
[2017-07-02 04:17] LABS: INR 1.1 (0.9-1.1)
[2017-07-02 04:25] LABS: BUN/CREATININE RATIO 41.5 (10-20); CALCIUM 7.9 mg/dl (8.5-10.1); CREATININE 0.71 mg/dl (0.60-1.20); MAGNESIUM 2.3 mg/dl (1.8-2.4)
[2017-07-02] MEDS: LEVOTHYROXINE 100 MCG TAB PO SCH (06:00)
[2017-07-02] MEDS: INSULIN ASPART 100 UNITS/ML 3 ML PEN SC SCH (07:00)
[2017-07-02] MEDS: LACTOBACILLUS ACIDOPHILUS 1 GM PACK PO SCH ×3 (08:21→15:22)
[2017-07-02] MEDS: METOPROLOL SUCC 50MG EXT REL TAB PO SCH (08:22)
[2017-07-02] MEDS: ATORVASTATIN 40 MG TAB PO SCH (08:22)
[2017-07-02] MEDS: ASPIRIN 81 MG ECTAB PO SCH (08:23)
[2017-07-02] MEDS: CALCIUM 600MG + VIT D 400 IU TAB PO SCH (08:23)
[2017-07-02] MEDS: LOSARTAN POTASSIUM 50 MG TAB PO SCH (08:24)
[2017-07-02] MEDS: LOSARTAN POTASSIUM 25 MG TAB PO SCH (08:24)
[2017-07-02] MEDS: CEFTRIAXONE SOD INJ 2,000 MG in DEXTROSE 5% 50ML 50 ML IV SCH ×2 (08:24→22:18)
[2017-07-02] MEDS: CALCIUM GLUCONATE 10% 1,000 MG in SODIUM CHLORIDE 0.9% 50ML 50 ML IV SCH ×2 (09:15→09:32)
[2017-07-02] MEDS: VANCOMYCIN INJ 1,250 MG in SODIUM CHLORIDE 0.9% 250ML 250 ML IV SCH (11:16)
--- NOTE | 2017-07-02 11:16 | Pharmacy Progress Note ---
Pharmacy Abx Dose Progress Nt Date of Service Jul 02, 2017. Pharmacy Dosing Scope The patient WAS receiving the following antimicrobial agents per Pharmacy consult: Vancomycin 1000 mg IV every 14 hours. It was increased today based on trough level. Objective Height (Feet): 5 Height (Inches): 7.00 Weight (Kilograms): 65.500 Vital Signs (Past 12Hrs) Vital Signs Past 12 Hours Date Time Temp Pulse Resp B/P (MAP) Pulse Ox O2 Delivery O2 Flow Rate FiO2 07/02/17 08:00 97 Room Air 07/02/17 07:34 36.6 57 20 158/74 (102) 98 2.0 07/02/17 04:10 Nasal Cannula 2.0 07/02/17 03:49 36.7 52 18 126/67 (86) 96 Nasal Cannula 2.0 Humidified Oxygen 07/02/17 00:02 Nasal Cannula 2.0 07/01/17 23:59 36.6 57 20 136/58 (84) 98 Nasal Cannula 2.0 Humidified Oxygen Lab Results (24Hrs) Item Value Date Time Vancomycin Level Trough 11.3 mcg/ml 07/02/17 0334 Laboratory Tests (24 Hours) Test 07/02/17 03:34 White Blood Count 13.36 K/uL (4.8-10.8) H Red Blood Count 3.28 M/uL (4.2-5.4) L Hemoglobin 10.6 g/dL (12.0-16.0) L Hematocrit 31.2 % (37-47) L Mean Corpuscular Volume 95.1 fL (80-100) Mean Corpuscular Hemoglobin 32.3 pg (25-34) Mean Corpuscular Hemoglobin Concent 34.0 g/dl (32-36) Platelet Count 146 K/uL (130-400) Mean Platelet Volume 10.1 fL (7.4-10.4) Neutrophils (%) (Auto) 87.5 % Lymphocytes (%) (Auto) 6.7 % Monocytes (%) (Auto) 5.4 % Eosinophils (%) (Auto) 0.0 % Basophils (%) (Auto) 0.0 % Neutrophils # (Auto) 11.69 K/uL (1.4-6.5) H Lymphocytes # (Auto) 0.89 K/uL (1.2-3.4) L Monocytes # (Auto) 0.72 K/uL (0.11-0.59) H Eosinophils # (Auto) 0.00 K/uL (0-0.5) Basophils # (Auto) 0.00 K/uL (0-0.2) Micro Results Date/Time Source Procedure Growth Status 06/30/17 10:43 Blood Cryptococcal Antigen - Final NO CRYPTOCOCCAL ANTIGEN DETECTED Complete 06/30/17 10:43 Blood Blood Culture - Preliminary NO GROWTH TO DATE. Resulted 06/30/17 10:27 Blood Blood Culture - Preliminary NO GROWTH TO DATE. Resulted 06/29/17 08:51 Blood Blood Culture - Preliminary NO GROWTH TO DATE. Resulted 06/29/17 08:41 Blood Blood Culture - Preliminary NO GROWTH TO DATE. Resulted 07/01/17 10:00 Cerebral Spinal Fluid Gram Stain - Final Resulted 07/01/17 10:00 Cerebral Spinal Fluid CSF Culture Pending Resulted 07/01/17 10:00 Cerebral Spinal Fluid Cryptococcal Antigen - Final Complete 06/30/17 00:00 Urine,Catheterized Urine Culture - Final NO GROWTH - LESS THAN 1,000 COLONIES/ML Complete 06/29/17 00:00 Urine , Clean Catch Urine Culture - Final MORE THAN THREE TYPES OF ORGANISMS MT... Complete Assessment & Plan Assessment 87 year old female receiving Vancomycin for treatment of Meningitis. Day # 3 of antimicrobial therapy Plan Vancomycin IV * Trough level of 11.3 mcg/mL is subtherapeutic for Meningitis. * Ke = 0.08/hr, Vd = 0.7 L/kg, t1/2 = 8.7 hrs. * Change to Vancomycin 1250 mg IV every 12 hours * Goal trough level 15 to 20 mcg/mL * Trough Vanco level ordered for: 07/03 before dose at 1200. Pharmacy will continue to follow and will adjust dose/frequency as necessary. Thank you.
--- NOTE | 2017-07-02 14:38 | Progress Note ---
Medicine Progress Note Date & Time of Visit: Jul 02, 2017 at 10:55. Subjective 87 yo F with PAF on coumadin presented with confusion, fever and UTI. In presence of fevers and chills with CVA tenderness on exam she was thought to have pyelonephritis and was placed on Rocephin empirically. Overnight she continued to spike fevers and on HD2 she was significantly more confused and was very ill-appearing laying in a position in bed. She had continued to have fevers and shaking chills. She did not admit to neck stiffness or photophobia but she was still somewhat reporting a headache, so meningoencephalitis was considered more possible. She was placed on Vanc, an increased dose of Rocephin, Ampicillin, Acyclovir and dexamethasone empirically. ID was consulted and the ICU team was asked to evaluate for an LP as the fluoroscopy room was not in use that day. She underwent a repeat head CT to look for bleed in the setting of worsening confusion on coumadin, and this was normal. A CT abd/pelvis was also ordered in setting of ?pyelo looking for obstructive findings and this did not reveal an acute process. A Mireles catheter was placed more because of the confusion. The patient was given FFP and IV vit K (5mg) to reverse her INR in setting of INR 1.8. Later that day an LP was attempted as her repeat INR was 1.1. The LP was unsuccessful, but she continued to do well clinically overnight. On HD3, 24 hours after starting antibiotics, she underwent fluoroscopic-guided LP that was successful revealing no organisms on gram stain. CSF studies otherwise included WBC 16, RBC 2, glucose 86 and total protein 79. She is mentating normally today and anxiety spells related to the steroids have resolved. She is ambulating with minimal assist today. -much improved today -up in chair, reading paper -mentating clearly -asymptomatic -some overnight confusion per spouse but pt was easily reoriented. -afebrile. Objective Last 8 Hrs Date Time Temp Pulse Resp B/P (MAP) Pulse Ox O2 Delivery O2 Flow Rate FiO2 07/02/17 08:00 97 Room Air 07/02/17 07:34 36.6 57 20 158/74 (102) 98 2.0 07/02/17 04:10 Nasal Cannula 2.0 07/02/17 03:49 36.7 52 18 126/67 (86) 96 Nasal Cannula 2.0 Humidified Oxygen Physical Exam: GEN: WNWD, mentating clearly, NAD HEENT: NC/AT, normal sclerae, MMM CARDIO: reg rate, S1/2 heard without m/g/r LUNGS: CTA bilaterally, no crackles, rales or wheezes, good diaphragmatic excursion ABD: soft, non-tender, non-distended, no rebound or guarding, +BS. EXTREMITY: RP and DP palpable 2+ bilat, no LE swelling or edema, extremities are warm and well-perfused NEURO: oriented, no gross focal deficits. MUSC: no gross focal deficits. SKIN: warm and dry Laboratory Results: 07/02/17 03:34 Red Blood Count 3.28, Mean Corpuscular Volume 95.1, Mean Corpuscular Hemoglobin 32.3, Mean Corpuscular Hemoglobin Concent 34.0, Mean Platelet Volume 10.1, Neutrophils (%) (Auto) 87.5, Lymphocytes (%) (Auto) 6.7, Monocytes (%) (Auto) 5.4, Eosinophils (%) (Auto) 0.0, Basophils (%) (Auto) 0.0, Neutrophils # (Auto) 11.69, Lymphocytes # (Auto) 0.89, Monocytes # (Auto) 0.72, Eosinophils # (Auto) 0.00, Basophils # (Auto) 0.00 07/02/17 03:34 Test 06/29/17 08:41 06/29/17 08:47 06/29/17 09:04 06/30/17 00:00 Activated Partial Thromboplast Time 36.1 SECONDS (21.0-31.0) Partial Thromboplastin Ratio 1.4 Total Bilirubin 0.8 mg/dl (0.2-1) Direct Bilirubin 0.2 mg/dl (0-0.2) Aspartate Amino Transf (AST/SGOT) 19 U/L (15-37) Alanine Aminotransferase (ALT/SGPT) 18 U/L (12-78) Alkaline Phosphatase 103 U/L (45-117) Total Creatine Kinase 48 U/L (26-192) Creatine Kinase MB < 0.5 ng/ml (0.5-3.6) Creatine Kinase MB Ratio (0-3.0) Troponin I < 0.015 ng/ml (0-0.045) Total Protein 7.2 gm/dl (6.4-8.2) Albumin 3.6 gm/dl (3.4-5.0) Lipase 239 U/L (73-393) Thyroid Stimulating Hormone (TSH) 0.744 uIu/ml (0.300-4.500) Bedside Lactic Acid Venous 1.21 mmol/L (0.90-1.70) Influenza Type A Antigen Neg for Influ A (NEG) Influenza Type B Antigen Neg for Influ B (NEG) Urine Color YELLOW Urine Appearance CLEAR (CLEAR) Urine pH 5.0 (4.5-7.5) Urine Specific [place] 1.022 (1.000-1.030) Urine Protein NEG (NEG) Urine Glucose (UA) NEG (NEG) Urine Ketones 1+ (NEG) Urine Occult Blood TRACE (NEG) Urine Nitrite NEG (NEG) Urine Bilirubin NEG (NEG) Urine Urobilinogen NEG (NEG) Urine Leukocyte Esterase NEG (NEG) Urine WBC (Auto) 1-5 /hpf (0-5) Urine RBC (Auto) 0-4 /hpf (0-4) Urine Hyaline Casts (Auto) 1-5 /lpf (0-5) Urine Epithelial Cells (Auto) 10-20 /lpf (0-5) Urine Bacteria (Auto) NEG (NEG) Test 06/30/17 10:43 07/01/17 10:00 07/02/17 03:34 07/02/17 07:05 Lactic Acid Level 1.2 mmol/L (0.4-2.0) Procalcitonin 0.48 ng/ml (0-0.5) CSF Color COLORLESS CSF Appearance CLEAR CSF WBC 164 /uL (0-5) CSF RBC 2 /uL (0) CSF Polynuclear WBCs 1.0 % CSF Mononuclear WBCs 99.0 % CSF Xanthrochromic NO XANTHOCHROMIA CSF Cell Count Tube # 3 CSF Chemistry Tube # 1 CSF Glucose 86 mg/dl (40-70) CSF Total Protein 79.3 mg/dl (15.0-45.0) White Blood Count 13.36 K/uL (4.8-10.8) Red Blood Count 3.28 M/uL (4.2-5.4) Hemoglobin 10.6 g/dL (12.0-16.0) Hematocrit 31.2 % (37-47) Mean Corpuscular Volume 95.1 fL (80-100) Mean Corpuscular Hemoglobin 32.3 pg (25-34) Mean Corpuscular Hemoglobin Concent 34.0 g/dl (32-36) Platelet Count 146 K/uL (130-400) Mean Platelet Volume 10.1 fL (7.4-10.4) Neutrophils (%) (Auto) 87.5 % Lymphocytes (%) (Auto) 6.7 % Monocytes (%) (Auto) 5.4 % Eosinophils (%) (Auto) 0.0 % Basophils (%) (Auto) 0.0 % Neutrophils # (Auto) 11.69 K/uL (1.4-6.5) Lymphocytes # (Auto) 0.89 K/uL (1.2-3.4) Monocytes # (Auto) 0.72 K/uL (0.11-0.59) Eosinophils # (Auto) 0.00 K/uL (0-0.5) Basophils # (Auto) 0.00 K/uL (0-0.2) RDW Standard Deviation 43.6 fL (36.4-46.3) RDW Coefficient of Variation 12.6 % (11.5-14.5) Immature Granulocyte % (Auto) 0.4 % Immature Granulocyte # (Auto) 0.06 K/uL (0.00-0.02) Prothrombin Time 12.0 SECONDS (9.0-12.0) Prothromb Time International Ratio 1.1 (0.9-1.1) Anion Gap 8.0 mmol/L (3-11) Est Creatinine Clear Calc Drug Dose 55.3 ml/min Estimated GFR () 89.4 Estimated GFR (Non- 77.1 BUN/Creatinine Ratio 41.5 (10-20) Calcium Level 7.9 mg/dl (8.5-10.1) Magnesium Level 2.3 mg/dl (1.8-2.4) Vancomycin Level Trough 11.3 mcg/ml (SEE COMMENT) Bedside Glucose 128 mg/dl (70-90) Date/Time Source Procedure Growth Status 06/30/17 10:43 Blood Cryptococcal Antigen - Final NO CRYPTOCOCCAL ANTIGEN DETECTED Complete 07/01/17 10:00 Cerebral Spinal Fluid Gram Stain - Final Resulted 07/01/17 10:00 Cerebral Spinal Fluid CSF Culture - Preliminary NO GROWTH TO DATE. Resulted 06/30/17 00:00 Urine,Catheterized Urine Culture - Final NO GROWTH - LESS THAN 1,000 COLONIES/ML Complete Last 24 Hours Test 07/01/17 11:54 07/01/17 16:14 07/01/17 20:13 07/02/17 03:34 Bedside Glucose 207 mg/dl 136 mg/dl 185 mg/dl White Blood Count 13.36 K/uL Red Blood Count 3.28 M/uL Hemoglobin 10.6 g/dL Hematocrit 31.2 % Mean Corpuscular Volume 95.1 fL Mean Corpuscular Hemoglobin 32.3 pg Mean Corpuscular Hemoglobin Concent 34.0 g/dl Platelet Count 146 K/uL Mean Platelet Volume 10.1 fL Neutrophils (%) (Auto) 87.5 % Lymphocytes (%) (Auto) 6.7 % Monocytes (%) (Auto) 5.4 % Eosinophils (%) (Auto) 0.0 % Basophils (%) (Auto) 0.0 % Neutrophils # (Auto) 11.69 K/uL Lymphocytes # (Auto) 0.89 K/uL Monocytes # (Auto) 0.72 K/uL Eosinophils # (Auto) 0.00 K/uL Basophils # (Auto) 0.00 K/uL RDW Standard Deviation 43.6 fL RDW Coefficient of Variation 12.6 % Immature Granulocyte % (Auto) 0.4 % Immature Granulocyte # (Auto) 0.06 K/uL Prothrombin Time 12.0 SECONDS Prothromb Time International Ratio 1.1 Sodium Level 144 mmol/L Potassium Level 4.0 mmol/L Chloride Level 111 mmol/L Carbon Dioxide Level 25 mmol/L Anion Gap 8.0 mmol/L Blood Urea Nitrogen 29 mg/dl Creatinine 0.71 mg/dl Est Creatinine Clear Calc Drug Dose 55.3 ml/min Estimated GFR () 89.4 Estimated GFR (Non- 77.1 BUN/Creatinine Ratio 41.5 Random Glucose 161 mg/dl Calcium Level 7.9 mg/dl Magnesium Level 2.3 mg/dl Vancomycin Level Trough 11.3 mcg/ml Test 07/02/17 07:05 Bedside Glucose 128 mg/dl Assessment & Plan 87 yo F with PAF on coumadin presented with confusion, fever and UTI. In presence of fevers and chills with CVA tenderness on exam she was thought to have pyelonephritis and was placed on Rocephin empirically. Overnight she continued to spike fevers and on HD2 she was significantly more confused and was very ill-appearing laying in a position in bed. She had continued to have fevers and shaking chills. She did not admit to neck stiffness or photophobia but she was still somewhat reporting a headache, so meningoencephalitis was considered more possible. She was placed on Vanc, an increased dose of Rocephin, Ampicillin, Acyclovir and dexamethasone empirically. ID was consulted and the ICU team was asked to evaluate for an LP as the fluoroscopy room was not in use that day. She underwent a repeat head CT to look for bleed in the setting of worsening confusion on coumadin, and this was normal. A CT abd/pelvis was also ordered in setting of ?pyelo looking for obstructive findings and this did not reveal an acute process. A Mireles catheter was placed more because of the confusion. The patient was given FFP and IV vit K (5mg) to reverse her INR in setting of INR 1.8. Later that day an LP was attempted as her repeat INR was 1.1. The LP was unsuccessful, but she continued to do well clinically overnight. On HD3, 24 hours after starting antibiotics, she underwent fluoroscopic-guided LP that was successful revealing no organisms on gram stain. CSF studies otherwise included WBC 16, RBC 2, glucose 86 and total protein 79. She is mentating normally today and anxiety spells related to the steroids have resolved. She is ambulating with minimal assist today. 1. AMS 2/2 meningitis (likely viral) vs encephalitis--no orgs present on GS, however, pt had been on abx for 24 hours at this time. Continuing Vanc, Rocephin, Ampicillin and Acyclovir. Stopping steroids as S. pneumo not seen at this point and patient is having side effects of steroids including hyperglycemia, agitation, emotional lability, and anxiety. Awaiting results of reference tests that were sent off and for ID to help de-escalate therapy. Clinically, she is mentating well. 2. PAF-on coumadin which was reversed and is being held. Restarting coumadin today. INR daily. 4. HTN-controlled on Losartan and Toprol XL. 5. Hypothyroidsim-cont Synthroid 6. Hypocalcemia-replaced, repeat in am. DVT Ppx: Coumadin and Lovenox 40mg SQ daily until INR therapeutic. Code status: FULL PCP: Melany Dispo: Plan to return home once medically stable and cleared by ID. DO [place] [facility] Consultants: [facility] Current Inpatient Medications: Current Inpatient Medications Medications (Trade) Dose Ordered Sig/Josué Route Start Time Stop Time Status Last Admin Dose Admin Acetaminophen (Tylenol Tab) 650 mg Q4H PRN PO 06/29/17 11:00 07/29/17 10:59 07/01/17 07:35 650 MG Ondansetron HCl (Zofran Inj) 4 mg Q6H PRN IV 06/29/17 11:00 07/29/17 10:59 Aspirin (Ecotrin Tab) 81 mg DAILY PO 06/30/17 08:00 07/30/17 08:59 07/02/17 08:23 81 MG Atorvastatin Calcium (Lipitor Tab) 40 mg DAILY PO 06/30/17 08:00 07/30/17 08:59 07/02/17 08:22 40 MG Levothyroxine Sodium (Synthroid Tab) 100 mcg DAILYBB PO 06/30/17 06:30 07/30/17 06:29 Losartan Potassium (coZAAR TAB) 25 mg DAILY PO 06/30/17 08:00 07/30/17 08:59 07/02/17 08:24 25 MG Losartan Potassium (coZAAR TAB) 50 mg DAILY PO 06/30/17 08:00 07/30/17 08:59 07/02/17 08:24 50 MG Metoprolol Succinate (Toprol Xl Tab) 50 mg DAILY PO 06/30/17 08:00 07/30/17 08:59 07/02/17 08:22 50 MG Calcium/Vitamin D (Caltrate Plus Tab) 2 tab DAILY PO 06/30/17 08:00 07/30/17 07:59 07/02/17 08:23 2 TAB Miscellaneous (Iv Fluids Completed) 1 ea PRN PRN N/A 06/29/17 11:30 06/29/18 11:29 Ceftriaxone Sodium 2000 mg/ Dextrose 70 ml @ 100 mls/hr Q12H IV 06/30/17 22:00 07/10/17 21:59 07/02/17 08:24 100 MLS/HR Acyclovir Sodium 650 mg/Dextrose 113 ml @ 110 mls/hr Q8H IV 06/30/17 10:30 07/10/17 10:29 07/02/17 08:25 110 MLS/HR Ampicillin Sodium 2000 mg/Sodium Chloride 100 ml @ 216 mls/hr Q4H IV 06/30/17 11:00 07/10/17 10:59 07/02/17 08:21 216 MLS/HR Vancomycin HCl (Consult) 1 ea UD PRN N/A 06/30/17 12:00 07/30/17 11:59 Lactobacillus Acidophilus (Lactinex Granules Pack) 1 gm TIDM PO 07/01/17 07:30 07/31/17 07:29 07/02/17 08:21 1 GM Insulin Aspart (novoLOG ASPART) SLIDING SCALE If C... ACHS SC 07/01/17 07:00 07/31/17 06:59 07/01/17 21:53 1 UNITS Glucose (Glucose 40% Gel) 15-30 GRAMS 15 GRAMS... UD PRN PO 06/30/17 22:45 07/30/17 22:44 Glucose (Glucose Chew Tab) 4-8 Tablets 4 Tabl... UD PRN PO 06/30/17 22:45 07/30/17 22:44 Dextrose (Dextrose 50% 50ML Syringe) 25-50ML OF 50% DW IV FOR... UD PRN IV 06/30/17 22:45 07/30/17 22:44 Glucagon (Glucagon Inj) 1 mg UD PRN SQ 06/30/17 22:45 07/30/17 22:44 Warfarin Sodium (Coumadin Tab) 5 mg DAILY@16 PO 07/02/17 16:00 08/01/17 15:59 Vancomycin HCl 1250 mg/Sodium Chloride 275 ml @ 125 mls/hr Q12H IV 07/02/17 12:00 07/11/17 00:00
[2017-07-02] MEDS: WARFARIN SOD 5 MG TAB PO SCH (15:21)
[2017-07-02] MEDS: ENOXAPARIN 40 MG/0.4 ML SYR SQ SCH (15:33)
[2017-07-03] MEDS: VANCOMYCIN INJ 1,250 MG in SODIUM CHLORIDE 0.9% 250ML 250 ML IV SCH (00:24)
[2017-07-03] MEDS: ACYCLOVIR SOD INJ 650 MG in DEXTROSE 5% 100ML 100 ML IV SCH ×3 (02:38→18:45)
[2017-07-03] MEDS: AMPICILLIN IV 2,000 MG in SODIUM CHLOR 0.9% AD-VAN 100ML 100 ML IV SCH ×2 (04:02→08:28)
[2017-07-03 07:32] LABS: INR 1.4 (0.9-1.1); PROTHROMBIN TIME (PATIENT) 15.1 SECONDS (9.0-12.0)
[2017-07-03 07:58] LABS: BUN/CREATININE RATIO 21.1 (10-20); CALCIUM 8.4 mg/dl (8.5-10.1); CREATININE 0.77 mg/dl (0.60-1.20); MAGNESIUM 1.9 mg/dl (1.8-2.4); POTASSIUM 3.5 mmol/L (3.5-5.1)
[2017-07-03 08:30] VITALS: BP 156/94; PULSE 84; TEMP 36.9; O2SAT 92
--- NOTE | 2017-07-03 10:34 | Progress Note ---
Subjective Date of Service: Jul 03, 2017. Subjective Pt evaluation today including: conversation w/ patient, conversation w/ family , physical exam, chart review, lab review pt lethargic this am, does not answer questions. at bedside, states she was up oob multiple times over night urinating. states yesterday pt was much better, at baseline, eating and reading paper, mentation much improved but had lack of sleep overnight. no fevers. All cultures negative, ct abd/pelvis negative, remains on multiple abx. CSF study delayed but with 164 wbc 99% lymphocytes. lyme pcr pending, unclear if hsv pcr done, remains on acyclovir. wbc increased but was also on steroids - stopped due to increased blood glucose and agitation. crypto antigen negative. Problem List Medical Problems: (1) E-coli UTI Status: Acute (2) Facial abrasion Status: Acute (3) Facial contusion Status: Acute (4) Fall Status: Acute (5) Metabolic encephalopathy Status: Acute (6) Nasal bone fracture Status: Acute (7) Rapid atrial fibrillation Status: Acute Objective Vital Signs Date Time Temp Pulse Resp B/P (MAP) Pulse Ox O2 Delivery O2 Flow Rate FiO2 07/03/17 08:30 36.9 84 16 156/94 (114) 92 Room Air 07/03/17 00:00 Room Air 07/02/17 22:42 36.4 71 17 166/83 (110) 90 Room Air 07/02/17 20:00 Room Air 07/02/17 16:30 Room Air 07/02/17 15:37 36.5 70 18 142/61 (88) 96 Room Air 07/02/17 12:34 36.8 69 18 126/70 (88) 96 Room Air 07/02/17 11:55 96 Room Air 07/02/17 11:43 36.9 70 24 126/64 (84) 95 07/02/17 11:42 36.6 57 20 97 2.0 Physical Exam General Appearance: + pertinent finding (confused, letheragic) ENT: + pertinent finding (mmd) Neck: supple Respiratory/Chest: lungs clear, normal breath sounds, no respiratory distress Cardiovascular: regular rate, rhythm, no edema Abdomen: non tender, soft Extremities: non-tender, no pedal edema Neurologic/Psychiatric: + disoriented, + pertinent finding Skin: normal color, no rash Laboratory Results Item Value Date Time Gram Stain - Final Complete 07/01/17 1000 Cerebral Spinal Fluid Cryptococcal Antigen - Final Complete 07/01/17 1000 Cerebral Spinal Fluid Blood Culture - Preliminary Resulted 06/30/17 1043 Blood NO GROWTH TO DATE. Blood Culture - Preliminary Resulted 06/30/17 1027 Blood NO GROWTH TO DATE. Urine Culture - Final Complete 06/30/17 0000 Urine,Catheterized NO GROWTH - LESS THAN 1,000 COLONIES/ML Blood Culture - Preliminary Resulted 06/29/17 0851 Blood NO GROWTH TO DATE. Blood Culture - Preliminary Resulted 06/29/17 0841 Blood NO GROWTH TO DATE. Last 24 Hours Test 07/03/17 07:06 Prothrombin Time 15.1 SECONDS Prothromb Time International Ratio 1.4 Sodium Level 135 mmol/L Potassium Level 3.5 mmol/L Chloride Level 100 mmol/L Carbon Dioxide Level 28 mmol/L Anion Gap 7.0 mmol/L Blood Urea Nitrogen 16 mg/dl Creatinine 0.77 mg/dl Est Creatinine Clear Calc Drug Dose 51.0 ml/min Estimated GFR () 81.0 Estimated GFR (Non- 69.9 BUN/Creatinine Ratio 21.1 Random Glucose 85 mg/dl Calcium Level 8.4 mg/dl Ionized Calcium 1.10 mmol/l Magnesium Level 1.9 mg/dl Assessment and Plan (1) Aseptic meningitis Assessment & Plan: will continue acyclovir for now, also ctx pending lyme. will stop vanco and amp as csf appears more viral. May need MRI head if no improvement in mental state, was reported at baseline yesterday All cultures remain negative. will follow.
[2017-07-03] MEDS: CALCIUM 600MG + VIT D 400 IU TAB PO SCH (10:35)
[2017-07-03] MEDS: LEVOTHYROXINE 100 MCG TAB PO SCH (10:35)
[2017-07-03] MEDS: LACTOBACILLUS ACIDOPHILUS 1 GM PACK PO SCH ×3 (10:35→17:00)
[2017-07-03] MEDS: ASPIRIN 81 MG ECTAB PO SCH (10:36)
[2017-07-03] MEDS: ACETAMINOPHEN 325 MG TAB PO PRN (11:07)
[2017-07-03] MEDS ORDERED: VANCOMYCIN TROUGH ONE (11:30)
[2017-07-03] MEDS: CEFTRIAXONE SOD INJ 2,000 MG in DEXTROSE 5% 50ML 50 ML IV SCH ×2 (11:47→23:44)
[2017-07-03] MEDS: LOSARTAN POTASSIUM 50 MG TAB PO SCH (12:24)
[2017-07-03] MEDS: LOSARTAN POTASSIUM 25 MG TAB PO SCH (12:24)
[2017-07-03] MEDS: METOPROLOL SUCC 50MG EXT REL TAB PO SCH (12:25)
[2017-07-03] MEDS: ATORVASTATIN 40 MG TAB PO SCH (12:25)
--- NOTE | 2017-07-03 13:29 | DIAGNOSTIC IMAGING REPORT ---
CHEST ONE VIEW PORTABLE CLINICAL HISTORY: Acute change in mental status VIRAL MENINGITIS COMPARISON STUDY: 06/29/2017 FINDINGS: The study is rotated. The heart is normal in size. There is a small left pleural effusion with associated left basilar atelectasis/consolidation. There is interstitial thickening at the right lung base.[ There is no overt failure. IMPRESSION: Small left pleural effusion with associated left basilar atelectasis/consolidation. Electronically signed by: Trev Booker M.D. 07/03/2017 1:28 PM Dictated Date/Time: 07/03/2017 1:27 PM
--- NOTE | 2017-07-03 13:37 | Neurology Consultation ---
Neurology Consultation Date of Consultation: Jul 03, 2017. Attending Physician: Lyric Vera DO Primary Care Physician: Anamaria Mosley DO Reason for Consultation: change MS History of Present Illness Source: patient, hospital records Indu is a 87 year old female PMH : HTN, hypothyroidism, paroxysmal A Fib and HLD who presents with confusion on 06/29 . She saw her PCP last week for painful urination and burning and her UA had trace amount of blood and leuk esterase. At that time she was not given antibiotics. she developed a dull headache, muscle aches and fatigue. The evening prior to the admission she was found to have a fever and chills that improved with Tylenol and was somewhat confused. The next morning she woke up markedly confused, not knowing how to get to her bathroom or remembering she was going to the ER. Her urine culture came back growing E. coli on 06/23. In the ED she was confused. A lumbar puncture was done which showed 164 WBC and both the protein and glucose were elevated Her is in the room and states the first 2 days she was minimally interactive. Over the weekend she was sitting up eating and reading the paper. She is normally independent and does gardening. She is lethargic and wants to sleep. denies pain. Past Medical/Surgical History Medical Problems: (1) E-coli UTI Status: Acute (2) Facial abrasion Status: Acute (3) Facial contusion Status: Acute (4) Fall Status: Acute (5) Metabolic encephalopathy Status: Acute (6) Nasal bone fracture Status: Acute (7) Rapid atrial fibrillation Status: Acute Social History Smoking Status: Former smoker Alcohol Use: socially (1 glass of wine with dinner most nights ) Marital Status: Housing Status: lives with significant other Occupation Status: retired Allergies Coded Allergies: No Known Allergies (Verified , 06/29/17) Current Inpatient Medications Current Inpatient Medications Medications (Trade) Dose Ordered Sig/Josué Route Start Time Stop Time Status Last Admin Dose Admin Acetaminophen (Tylenol Tab) 650 mg Q4H PRN PO 06/29/17 11:00 07/29/17 10:59 07/03/17 11:07 650 MG Ondansetron HCl (Zofran Inj) 4 mg Q6H PRN IV 06/29/17 11:00 07/29/17 10:59 Aspirin (Ecotrin Tab) 81 mg DAILY PO 06/30/17 08:00 07/30/17 08:59 07/02/17 08:23 81 MG Atorvastatin Calcium (Lipitor Tab) 40 mg DAILY PO 06/30/17 08:00 07/30/17 08:59 07/02/17 08:22 40 MG Levothyroxine Sodium (Synthroid Tab) 100 mcg DAILYBB PO 06/30/17 06:30 07/30/17 06:29 Losartan Potassium (coZAAR TAB) 25 mg DAILY PO 06/30/17 08:00 07/30/17 08:59 07/02/17 08:24 25 MG Losartan Potassium (coZAAR TAB) 50 mg DAILY PO 06/30/17 08:00 07/30/17 08:59 07/02/17 08:24 50 MG Metoprolol Succinate (Toprol Xl Tab) 50 mg DAILY PO 06/30/17 08:00 07/30/17 08:59 07/02/17 08:22 50 MG Calcium/Vitamin D (Caltrate Plus Tab) 2 tab DAILY PO 06/30/17 08:00 07/30/17 07:59 07/02/17 08:23 2 TAB Miscellaneous (Iv Fluids Completed) 1 ea PRN PRN N/A 06/29/17 11:30 06/29/18 11:29 Ceftriaxone Sodium 2000 mg/ Dextrose 70 ml @ 100 mls/hr Q12H IV 06/30/17 22:00 07/10/17 21:59 07/03/17 11:47 100 MLS/HR Acyclovir Sodium 650 mg/Dextrose 113 ml @ 110 mls/hr Q8H IV 06/30/17 10:30 07/10/17 10:29 07/03/17 10:24 110 MLS/HR Lactobacillus Acidophilus (Lactinex Granules Pack) 1 gm TIDM PO 07/01/17 07:30 07/31/17 07:29 07/02/17 15:22 1 GM Warfarin Sodium (Coumadin Tab) 5 mg DAILY@16 PO 07/02/17 16:00 08/01/17 15:59 07/02/17 15:21 5 MG Enoxaparin Sodium (Lovenox Inj) 40 mg Q24H SQ 07/02/17 16:00 08/01/17 15:59 07/02/17 15:33 40 MG Physical Exam Vital Signs (Past 24 Hrs): Date Time Temp Pulse Resp B/P (MAP) Pulse Ox O2 Delivery O2 Flow Rate FiO2 07/03/17 11:37 Room Air 07/03/17 08:30 36.9 84 16 156/94 (114) 92 Room Air 07/03/17 00:00 Room Air 07/02/17 22:42 36.4 71 17 166/83 (110) 90 Room Air 07/02/17 20:00 Room Air 07/02/17 16:30 Room Air 07/02/17 15:37 36.5 70 18 142/61 (88) 96 Room Air Physical Exam: Constitutional: appearance nourished, healthy and normal Ears, Nose, Mouth and Throat: mucous membranes moist, no injection and skin normal, eyes normal, neck supple Cardiovascular: normal S-1 and S-2 and regular rate and rhythm Respiratory: clear to auscultation (CTA) and no rales, rhonchi or wheeze Musculoskeletal: no peripheral edema and good distal pulses, non pitting edema of the right hand Skin: no stigmata of neurocutaneous disease noted and normal and intact, some bruising on shoulder Eyes: extraocular muscles intact (EOMI) and pupils equal, round and reactive to light (PERRL) NEUROLOGIC EXAMINATION: Mental status: Alert and interactive she does not know where she is or where she lives keep responding "I don't know " Oriented to person Speech fluent with no evidence of aphasia Cranial Nerves eye brow raise and smile symmetric Reflexes: Deep tendon reflexes were symmetrical and graded 2/5. Plantar responses were flexor. Gait/Stance: Posture lying in bed. stands with assistance to the bedside commode, and returns to bed with minimal assistance Strength: moves all ext spontaneously, squeezes bilaterally with hands. Laboratory Results Past 24 Hours: 07/03/17 07:06 Test 07/03/17 07:06 07/03/17 13:06 Prothrombin Time 15.1 SECONDS (9.0-12.0) Prothromb Time International Ratio 1.4 (0.9-1.1) Anion Gap 7.0 mmol/L (3-11) Est Creatinine Clear Calc Drug Dose 51.0 ml/min Estimated GFR () 81.0 Estimated GFR (Non- 69.9 BUN/Creatinine Ratio 21.1 (10-20) Calcium Level 8.4 mg/dl (8.5-10.1) Ionized Calcium 1.10 mmol/l (1.12-1.32) Magnesium Level 1.9 mg/dl (1.8-2.4) Imaging CT head- Senescent changes as above with no hemorrhage, mass effect, or evidence of acute territorial ischemia by CT criteria. Impression change MS Plan 1. Labs reviewed [address] in [address] 2[address] head with no evidence of stroke 3. ID - currently on ceftriaxone and acyclovir 4. a febrile since admission 5. TSH WNL 6. b12, folate pending results 7. MRI may be helpful to evaluate for any causes of confusion further recommendations to follow I have seen and discussed above patient with Dr Camilla Hudson, neurology Pt seen and examined, CT, labs hx reviewed. Pt CT has significant chronic vasc changes although they were present in large part on a CT head from 2016. Pt sleepy which waxes and wanes, not following commands, but in no distress. Perrla , unable to vis ON, no fixed gaze pref. Neck supple. No resting tremor, mild gegenhalten. Imp presumed viral meningitis, defer to ID re antimicrobials. Waxing, waning MS, likely some delirium made worse, or more susceptible to because of chronic vascular changes. Rec EEG, r/o sz, MRI brain, r/o abscess ( doubt). Discussed with pt and Dr Vera. ROGERIO Hudson MD
[2017-07-03 13:39] LABS: BASO % 0.1 %; BASO ABS # 0.01 K/uL (0-0.2); HEMATOCRIT 32.1 % (37-47); IG% 0.6 %; LYMPH % 17.1 %; LYMPH ABS # 1.54 K/uL (1.2-3.4); MEAN CELL VOLUME 93.9 fL (80-100); MEAN CORPUSCULAR HEMOGLOBIN 32.2 pg (25-34); MEAN PLATELET VOLUME 9.6 fL (7.4-10.4); MONO % 8.6 %; NEUT % 73.6 %; PLATELET COUNT 150 K/uL (130-400); RED BLOOD COUNT 3.42 M/uL (4.2-5.4); WHITE BLOOD COUNT 9.03 K/uL (4.8-10.8)
[2017-07-03 13:41] LABS: COMPLETE YES; MEAN CORPUSCULAR HGB CONC 34.3 g/dl (32-36)
--- NOTE | 2017-07-03 13:50 | DIAGNOSTIC IMAGING REPORT ---
CT SCAN OF THE BRAIN WITHOUT IV CONTRAST CLINICAL HISTORY: Change in mental status. COMPARISON STUDY: CT of the brain dated 06/30/2017. TECHNIQUE: Unenhanced axial CT scan of the brain is performed from the vertex to the skull base. CT DOSE: 1577.26 mGycm FINDINGS: Brain parenchyma: There are age-related involutional changes noting moderate to advanced subcortical and periventricular microangiopathic change. There is no hemorrhage, mass effect, or evidence of acute territorial ischemia by CT criteria. Mac-white matter is preserved. No extra-axial fluid collection is seen. Ventricles, sulci, cisterns: Prominent secondary to involutional change. Intracranial vasculature: There is atherosclerotic calcification of the cavernous carotid and vertebral arteries. Calvarium: Unremarkable. Sinuses and mastoids: Trace mucosal thickening is seen in left maxillary antrum. The remaining visualized paranasal sinuses are clear. There is a left mastoid effusion. There is evidence of previous right mastoid surgery. Orbits: The bony orbits are grossly intact. There are bilateral ocular lens implants. IMPRESSION: Senescent changes as above with no hemorrhage, mass effect, or evidence of acute territorial ischemia by CT criteria. Electronically signed by: Evgeny Garduno M.D. 07/03/2017 1:48 PM Dictated Date/Time: 07/03/2017 1:46 PM
--- NOTE | 2017-07-03 14:42 | Progress Note ---
Medicine Progress Note Date & Time of Visit: Jul 03, 2017 at 1100. Subjective 87 yo F with PAF on coumadin presented with confusion, fever and UTI. In presence of fevers and chills with CVA tenderness on exam she was thought to have pyelonephritis and was placed on Rocephin empirically. Overnight she continued to spike fevers and on HD2 she was significantly more confused and was very ill-appearing laying in a position in bed. She had continued to have fevers and shaking chills. She did not admit to neck stiffness or photophobia but she was still somewhat reporting a headache, so meningoencephalitis was considered more possible. She was placed on Vanc, an increased dose of Rocephin, Ampicillin, Acyclovir and dexamethasone empirically. ID was consulted and the ICU team was asked to evaluate for an LP as the fluoroscopy room was not in use that day. She underwent a repeat head CT to look for bleed in the setting of worsening confusion on coumadin, and this was normal. A CT abd/pelvis was also ordered in setting of ?pyelo looking for obstructive findings and this did not reveal an acute process. A Mireles catheter was placed more because of the confusion. The patient was given FFP and IV vit K (5mg) to reverse her INR in setting of INR 1.8. Later that day an LP was attempted as her repeat INR was 1.1. The LP was unsuccessful, but she continued to do well clinically overnight. On HD3, 24 hours after starting antibiotics, she underwent fluoroscopic-guided LP that was successful revealing no organisms on gram stain. CSF studies otherwise included WBC 16, RBC 2, glucose 86 and total protein 79. She was mentating normally on 07/02, reading the paper and ambulating at baseline, however, then became disoriented overnight. Mireles had been removed earlier that day and she was ambulating to and from the bathroom several times overnight. She is now completely disoriented on 07/03. Repeat head CT was negative for acute changes. CXR revealed a small possible basilar consolidation. The patient was not septic ( normal temp, normal WBC count, no respiratory distress). Neurology was consulted. Objective Last 8 Hrs Date Time Temp Pulse Resp B/P (MAP) Pulse Ox O2 Delivery O2 Flow Rate FiO2 07/03/17 11:37 Room Air 07/03/17 08:30 36.9 84 16 156/94 (114) 92 Room Air Physical Exam: GEN: WNWD, completely disoriented, verbal but not making sense HEENT: NC/AT, normal sclerae, MMM, PERRL-small CARDIO: reg rate, S1/2 heard without m/g/r LUNGS: CTA bilaterally, no crackles, rales or wheezes, good diaphragmatic excursion ABD: soft, non-tender, non-distended, no rebound or guarding, +BS. EXTREMITY: no LE swelling or edema, extremities are warm and well-perfused NEURO: pt disoriented generally MUSC: moving all extremities equally, no gross focal deficit, however, very limited exam in setting of altered state. SKIN: warm and dry Laboratory Results: 07/03/17 13:06 Red Blood Count 3.42, Mean Corpuscular Volume 93.9, Mean Corpuscular Hemoglobin 32.2, Mean Corpuscular Hemoglobin Concent 34.3, Mean Platelet Volume 9.6, Neutrophils (%) (Auto) 73.6, Lymphocytes (%) (Auto) 17.1, Monocytes (%) (Auto) 8.6, Eosinophils (%) (Auto) 0.0, Basophils (%) (Auto) 0.1, Neutrophils # (Auto) 6.65, Lymphocytes # (Auto) 1.54, Monocytes # (Auto) 0.78, Eosinophils # (Auto) 0.00, Basophils # (Auto) 0.01 07/03/17 07:06 Test 06/29/17 08:41 06/29/17 08:47 06/29/17 09:04 06/30/17 00:00 Activated Partial Thromboplast Time 36.1 SECONDS (21.0-31.0) Partial Thromboplastin Ratio 1.4 Total Bilirubin 0.8 mg/dl (0.2-1) Direct Bilirubin 0.2 mg/dl (0-0.2) Aspartate Amino Transf (AST/SGOT) 19 U/L (15-37) Alanine Aminotransferase (ALT/SGPT) 18 U/L (12-78) Alkaline Phosphatase 103 U/L (45-117) Total Creatine Kinase 48 U/L (26-192) Creatine Kinase MB < 0.5 ng/ml (0.5-3.6) Creatine Kinase MB Ratio (0-3.0) Troponin I < 0.015 ng/ml (0-0.045) Total Protein 7.2 gm/dl (6.4-8.2) Albumin 3.6 gm/dl (3.4-5.0) Lipase 239 U/L (73-393) Thyroid Stimulating Hormone (TSH) 0.744 uIu/ml (0.300-4.500) Bedside Lactic Acid Venous 1.21 mmol/L (0.90-1.70) Influenza Type A Antigen Neg for Influ A (NEG) Influenza Type B Antigen Neg for Influ B (NEG) Urine Color YELLOW Urine Appearance CLEAR (CLEAR) Urine pH 5.0 (4.5-7.5) Urine Specific [place] 1.022 (1.000-1.030) Urine Protein NEG (NEG) Urine Glucose (UA) NEG (NEG) Urine Ketones 1+ (NEG) Urine Occult Blood TRACE (NEG) Urine Nitrite NEG (NEG) Urine Bilirubin NEG (NEG) Urine Urobilinogen NEG (NEG) Urine Leukocyte Esterase NEG (NEG) Urine WBC (Auto) 1-5 /hpf (0-5) Urine RBC (Auto) 0-4 /hpf (0-4) Urine Hyaline Casts (Auto) 1-5 /lpf (0-5) Urine Epithelial Cells (Auto) 10-20 /lpf (0-5) Urine Bacteria (Auto) NEG (NEG) Test 06/30/17 10:43 07/01/17 10:00 07/02/17 03:34 07/02/17 07:05 Lactic Acid Level 1.2 mmol/L (0.4-2.0) Procalcitonin 0.48 ng/ml (0-0.5) CSF Color COLORLESS CSF Appearance CLEAR CSF WBC 164 /uL (0-5) CSF RBC 2 /uL (0) CSF Polynuclear WBCs 1.0 % CSF Mononuclear WBCs 99.0 % CSF Xanthrochromic NO XANTHOCHROMIA CSF Cell Count Tube # 3 CSF Chemistry Tube # 1 CSF Glucose 86 mg/dl (40-70) CSF Total Protein 79.3 mg/dl (15.0-45.0) Vancomycin Level Trough 11.3 mcg/ml (SEE COMMENT) Bedside Glucose 128 mg/dl (70-90) Test 07/03/17 07:06 07/03/17 13:06 Prothrombin Time 15.1 SECONDS (9.0-12.0) Prothromb Time International Ratio 1.4 (0.9-1.1) Anion Gap 7.0 mmol/L (3-11) Est Creatinine Clear Calc Drug Dose 51.0 ml/min Estimated GFR () 81.0 Estimated GFR (Non- 69.9 BUN/Creatinine Ratio 21.1 (10-20) Calcium Level 8.4 mg/dl (8.5-10.1) Ionized Calcium 1.10 mmol/l (1.12-1.32) Magnesium Level 1.9 mg/dl (1.8-2.4) White Blood Count 9.03 K/uL (4.8-10.8) Red Blood Count 3.42 M/uL (4.2-5.4) Hemoglobin 11.0 g/dL (12.0-16.0) Hematocrit 32.1 % (37-47) Mean Corpuscular Volume 93.9 fL (80-100) Mean Corpuscular Hemoglobin 32.2 pg (25-34) Mean Corpuscular Hemoglobin Concent 34.3 g/dl (32-36) Platelet Count 150 K/uL (130-400) Mean Platelet Volume 9.6 fL (7.4-10.4) Neutrophils (%) (Auto) 73.6 % Lymphocytes (%) (Auto) 17.1 % Monocytes (%) (Auto) 8.6 % Eosinophils (%) (Auto) 0.0 % Basophils (%) (Auto) 0.1 % Neutrophils # (Auto) 6.65 K/uL (1.4-6.5) Lymphocytes # (Auto) 1.54 K/uL (1.2-3.4) Monocytes # (Auto) 0.78 K/uL (0.11-0.59) Eosinophils # (Auto) 0.00 K/uL (0-0.5) Basophils # (Auto) 0.01 K/uL (0-0.2) RDW Standard Deviation 41.8 fL (36.4-46.3) RDW Coefficient of Variation 12.3 % (11.5-14.5) Immature Granulocyte % (Auto) 0.6 % Immature Granulocyte # (Auto) 0.05 K/uL (0.00-0.02) Nucleated RBC Absolute Count (auto) 0.04 K/uL (0-0) Nucleated Red Blood Cells % 0.4 % Vitamin B12 Level 645 pg/mL (211-911) Folate 12.91 ng/mL (>5.38) Date/Time Source Procedure Growth Status 06/30/17 10:43 Blood Cryptococcal Antigen - Final NO CRYPTOCOCCAL ANTIGEN DETECTED Complete 07/01/17 10:00 Cerebral Spinal Fluid Gram Stain - Final Complete 07/01/17 10:00 Cerebral Spinal Fluid CSF Culture - Final NO GROWTH Complete 06/30/17 00:00 Urine,Catheterized Urine Culture - Final NO GROWTH - LESS THAN 1,000 COLONIES/ML Complete Last 24 Hours Test 07/03/17 07:06 07/03/17 13:06 Prothrombin Time 15.1 SECONDS Prothromb Time International Ratio 1.4 Sodium Level 135 mmol/L Potassium Level 3.5 mmol/L Chloride Level 100 mmol/L Carbon Dioxide Level 28 mmol/L Anion Gap 7.0 mmol/L Blood Urea Nitrogen 16 mg/dl Creatinine 0.77 mg/dl Est Creatinine Clear Calc Drug Dose 51.0 ml/min Estimated GFR () 81.0 Estimated GFR (Non- 69.9 BUN/Creatinine Ratio 21.1 Random Glucose 85 mg/dl Calcium Level 8.4 mg/dl Ionized Calcium 1.10 mmol/l Magnesium Level 1.9 mg/dl White Blood Count 9.03 K/uL Red Blood Count 3.42 M/uL Hemoglobin 11.0 g/dL Hematocrit 32.1 % Mean Corpuscular Volume 93.9 fL Mean Corpuscular Hemoglobin 32.2 pg Mean Corpuscular Hemoglobin Concent 34.3 g/dl Platelet Count 150 K/uL Mean Platelet Volume 9.6 fL Neutrophils (%) (Auto) 73.6 % Lymphocytes (%) (Auto) 17.1 % Monocytes (%) (Auto) 8.6 % Eosinophils (%) (Auto) 0.0 % Basophils (%) (Auto) 0.1 % Neutrophils # (Auto) 6.65 K/uL Lymphocytes # (Auto) 1.54 K/uL Monocytes # (Auto) 0.78 K/uL Eosinophils # (Auto) 0.00 K/uL Basophils # (Auto) 0.01 K/uL RDW Standard Deviation 41.8 fL RDW Coefficient of Variation 12.3 % Immature Granulocyte % (Auto) 0.6 % Immature Granulocyte # (Auto) 0.05 K/uL Nucleated RBC Absolute Count (auto) 0.04 K/uL Nucleated Red Blood Cells % 0.4 % Vitamin B12 Level 645 pg/mL Folate 12.91 ng/mL Assessment & Plan 87 yo F with PAF on coumadin presented with confusion, fever and UTI. In presence of fevers and chills with CVA tenderness on exam she was thought to have pyelonephritis and was placed on Rocephin empirically. Overnight she continued to spike fevers and on HD2 she was significantly more confused and was very ill-appearing laying in a position in bed. She had continued to have fevers and shaking chills. She did not admit to neck stiffness or photophobia but she was still somewhat reporting a headache, so meningoencephalitis was considered more possible. She was placed on Vanc, an increased dose of Rocephin, Ampicillin, Acyclovir and dexamethasone empirically. ID was consulted and the ICU team was asked to evaluate for an LP as the fluoroscopy room was not in use that day. She underwent a repeat head CT to look for bleed in the setting of worsening confusion on coumadin, and this was normal. A CT abd/pelvis was also ordered in setting of ?pyelo looking for obstructive findings and this did not reveal an acute process. A Mireles catheter was placed more because of the confusion. The patient was given FFP and IV vit K (5mg) to reverse her INR in setting of INR 1.8. Later that day an LP was attempted as her repeat INR was 1.1. The LP was unsuccessful, but she continued to do well clinically overnight. On HD3, 24 hours after starting antibiotics, she underwent fluoroscopic-guided LP that was successful revealing no organisms on gram stain. CSF studies otherwise included WBC 16, RBC 2, glucose 86 and total protein 79. She was mentating normally on 07/02, reading the paper and ambulating at baseline, however, then became disoriented overnight. Mireles had been removed earlier that day and she was ambulating to and from the bathroom several times overnight. She is now completely disoriented on 07/03. Repeat head CT was negative for acute changes. CXR revealed a small possible basilar consolidation. The patient was not septic ( normal temp, normal WBC count, no respiratory distress). Neurology was consulted. 1. AMS 2/2 meningitis (likely viral) vs encephalitis--no orgs present on GS, however, pt had been on abx for 24 hours at this time. Vanc and Ampicillin were stopped 07/03 (after delirium began) and Rocephin/Acyclovir continued pending labs. She was given steroids initially but these were stopped 2/2 emotional lability and intense anxiety. She also had some Ativan IV and had a poor reaction to this. She ultimately cleared up and then regressed overnight. I am not convinced that a new small consolidation would cause this; she appears to have something more consistent with a worsening encephalitis. Neuro was consulted for assistance; considering MRI which I agree with. Repeat head CT was negative for acute changes. As there are no respiratory symptoms present and she was on broad spectrum antibiotics recently, and she is not septic, was planning to hold off on expanding abx but decided to empirically cover her with Zosyn in addition for anaerobic coverage. Apprec neuro and ID recs. Cont to monitor her closely. 2. HAP?-L base consolidation vs atelectasis. Added Zosyn to regimen for broader anaerobic coverage in setting of AMS. 3. PAF-on coumadin which was reversed with FFP/vitamin K. Coumadin restarted 07/02 and INR today is 1.4. Repeat head CT was negative for acute head bleed. Cont INR daily. 4. HTN-controlled on Losartan and Toprol XL. 5. Hypothyroidsim-cont Synthroid 6. Hypocalcemia-resolved. Diet-pt was made strict NPO at this time. Will add some maintenance fluids so she does not become dehydrated. DVT Ppx: Coumadin and Lovenox 40mg SQ daily until INR therapeutic. Code status: FULL PCP: Melany Dispo: uncertain at this time DO [facility] Consultants: ID Current Inpatient Medications: Current Inpatient Medications Medications (Trade) Dose Ordered Sig/Joséu Route Start Time Stop Time Status Last Admin Dose Admin Acetaminophen (Tylenol Tab) 650 mg Q4H PRN PO 06/29/17 11:00 07/29/17 10:59 07/03/17 11:07 650 MG Ondansetron HCl (Zofran Inj) 4 mg Q6H PRN IV 06/29/17 11:00 07/29/17 10:59 Aspirin (Ecotrin Tab) 81 mg DAILY PO 06/30/17 08:00 07/30/17 08:59 07/02/17 08:23 81 MG Atorvastatin Calcium (Lipitor Tab) 40 mg DAILY PO 06/30/17 08:00 07/30/17 08:59 07/02/17 08:22 40 MG Levothyroxine Sodium (Synthroid Tab) 100 mcg DAILYBB PO 06/30/17 06:30 07/30/17 06:29 Losartan Potassium (coZAAR TAB) 25 mg DAILY PO 06/30/17 08:00 07/30/17 08:59 07/02/17 08:24 25 MG Losartan Potassium (coZAAR TAB) 50 mg DAILY PO 06/30/17 08:00 07/30/17 08:59 07/02/17 08:24 50 MG Metoprolol Succinate (Toprol Xl Tab) 50 mg DAILY PO 06/30/17 08:00 07/30/17 08:59 07/02/17 08:22 50 MG Calcium/Vitamin D (Caltrate Plus Tab) 2 tab DAILY PO 06/30/17 08:00 07/30/17 07:59 07/02/17 08:23 2 TAB Miscellaneous (Iv Fluids Completed) 1 ea PRN PRN N/A 06/29/17 11:30 06/29/18 11:29 Ceftriaxone Sodium 2000 mg/ Dextrose 70 ml @ 100 mls/hr Q12H IV 06/30/17 22:00 07/10/17 21:59 07/03/17 11:47 100 MLS/HR Acyclovir Sodium 650 mg/Dextrose 113 ml @ 110 mls/hr Q8H IV 06/30/17 10:30 07/10/17 10:29 07/03/17 10:24 110 MLS/HR Lactobacillus Acidophilus (Lactinex Granules Pack) 1 gm TIDM PO 07/01/17 07:30 07/31/17 07:29 07/02/17 15:22 1 GM Warfarin Sodium (Coumadin Tab) 5 mg DAILY@16 PO 07/02/17 16:00 08/01/17 15:59 07/02/17 15:21 5 MG Enoxaparin Sodium (Lovenox Inj) 40 mg Q24H SQ 07/02/17 16:00 08/01/17 15:59 07/02/17 15:33 40 MG
[2017-07-03] MEDS ORDERED: PIPERACILL/TAZOBAC CONSULT ACTIVE PRN (14:55)
[2017-07-03] MEDS ORDERED: PIPERACILL/TAZOBAC IV 3.375 GM in DEXTROSE 5% 100ML IV ONE (15:30)
[2017-07-03 15:40] VITALS: BP 173/90; PULSE 93; TEMP 37; O2SAT 91
[2017-07-03] MEDS: WARFARIN SOD 5 MG TAB PO SCH (16:00)
[2017-07-03] MEDS: SODIUM CHLORIDE 0.9% 1000ML 1,000 ML IV SCH (16:26)
[2017-07-03] MEDS: ENOXAPARIN 40 MG/0.4 ML SYR SQ SCH (16:27)
[2017-07-03] MEDS ORDERED: QUETIAPINE FUMARATE 25 MG TAB PO ONE (20:45)
--- NOTE | 2017-07-03 21:41 | DIAGNOSTIC IMAGING REPORT ---
ORBITS FOR MRI HISTORY: Pre-MRI pre-MRI screening. COMPARISON: None. FINDINGS: There are no radiopaque foreign bodies identified within the orbits. No radiopaque foreign bodies within the region of the middle ears IMPRESSION: No radiopaque foreign bodies identified within the orbits or middle ear regions. The above report was generated using voice recognition software. It may contain grammatical, syntax or spelling errors. Electronically signed by: Obie Warner M.D. 07/03/2017 9:39 PM Dictated Date/Time: 07/03/2017 9:39 PM
--- NOTE | 2017-07-03 23:03 | DIAGNOSTIC IMAGING REPORT ---
BRAIN WITHOUT CONTRAST HISTORY: Mental status change MS change modest improvement with antibiotics TECHNIQUE: Multiplanar multisequence MRI of the brain was performed without the use of contrast. COMPARISON STUDY: CT brain same date. No prior MRIs FINDINGS: Near nondiagnostic study due to patient motion and inability to tolerate the exam diffusion-weighted images are considered negative for an acute ischemic insult. Components of age-related chronic small vessel change are felt to be present. Ventricular system is midline. No major mass or collection is felt to be present IMPRESSION: 1. Near nondiagnostic study as the patient could not tolerate the exam. 2. No evidence for an acute ischemic insult. 3. Generalized atrophy of the cerebellar as well as cerebral hemispheres. 4. Considerable chronic small vessel change throughout both cerebral hemispheres. The above report was generated using voice recognition software. It may contain grammatical, syntax or spelling errors. Electronically signed by: Obie Warner M.D. 07/03/2017 11:02 PM Dictated Date/Time: 07/03/2017 10:58 PM
[2017-07-03] MEDS: PIPERACILL/TAZOBAC IV 3.375 GM in DEXTROSE 5% 100ML IV SCH (23:42)
[2017-07-04] VITALS (19 sets, daily range): BP systolic 114–190; BP diastolic 71–117; PULSE 88–117; TEMP 36.8–38.9; O2SAT 92–99
[2017-07-04] MEDS ORDERED: NURSING VERBAL MED ORDER ONE (00:15)
[2017-07-04] MEDS ORDERED: ACETAMINOPHEN IV 650 MG / 65ML IV ONE (00:45)
[2017-07-04] MEDS: ACYCLOVIR SOD INJ 650 MG in DEXTROSE 5% 100ML 100 ML IV SCH ×3 (02:28→19:58)
[2017-07-04] MEDS: SODIUM CHLORIDE 0.9% 1000ML 1,000 ML IV SCH (02:31)
[2017-07-04] MEDS: LEVOTHYROXINE 100 MCG TAB PO SCH (05:29)
[2017-07-04] MEDS: PIPERACILL/TAZOBAC IV 3.375 GM in DEXTROSE 5% 100ML IV SCH ×3 (06:29→22:18)
[2017-07-04 06:54] LABS: HEMATOCRIT 37.2 % (37-47); MEAN CORPUSCULAR HEMOGLOBIN 32.5 pg (25-34); MEAN CORPUSCULAR HGB CONC 34.9 g/dl (32-36); MEAN PLATELET VOLUME 9.5 fL (7.4-10.4); PLATELET COUNT 179 K/uL (130-400); WHITE BLOOD COUNT 8.71 K/uL (4.8-10.8)
[2017-07-04 07:09] LABS: INR 1.3 (0.9-1.1); PROTHROMBIN TIME (PATIENT) 13.6 SECONDS (9.0-12.0)
[2017-07-04 07:31] LABS: BUN/CREATININE RATIO 15.6 (10-20); CALCIUM 8.4 mg/dl (8.5-10.1); CREATININE 0.62 mg/dl (0.60-1.20); POTASSIUM 3.1 mmol/L (3.5-5.1)
--- NOTE | 2017-07-04 08:59 | Progress Note ---
Medicine Progress Note Date & Time of Visit: Jul 04, 2017 at 08:59 . Subjective Increasing confusion / lethargy over past 24 hours. Leonides temp to 38.9 last night. Patient minimally responsive and unable to answer questions. . Objective Last 8 Hrs Date Time Temp Pulse Resp B/P (MAP) Pulse Ox O2 Delivery O2 Flow Rate FiO2 07/04/17 07:50 159/95 (116) 07/04/17 07:28 37.5 104 20 180/94 (122) 92 Room Air 185/103 (130) 07/04/17 02:30 36.8 07/04/17 01:20 Room Air Physical Exam: General- no apparent distress Eyes- anicteric ENT- dry oral mucosa Neck- supple, no JVD Lungs- transmitted upper airway sounds, irregular respirations Heart- RRR, tachy, no gallop appreciated Abdomen- quiet bowel sounds, soft, nontender Extremities- no pretibial edema or calf tenderness Neuro- lethargic, minimally response; pupils about 2 mm, reactive Skin- warm & dry . Laboratory Results: Last 24 Hours Test 07/03/17 13:06 07/04/17 06:38 White Blood Count 9.03 K/uL 8.71 K/uL Red Blood Count 3.42 M/uL 4.00 M/uL Hemoglobin 11.0 g/dL 13.0 g/dL Hematocrit 32.1 % 37.2 % Mean Corpuscular Volume 93.9 fL 93.0 fL Mean Corpuscular Hemoglobin 32.2 pg 32.5 pg Mean Corpuscular Hemoglobin Concent 34.3 g/dl 34.9 g/dl Platelet Count 150 K/uL 179 K/uL Mean Platelet Volume 9.6 fL 9.5 fL Neutrophils (%) (Auto) 73.6 % Lymphocytes (%) (Auto) 17.1 % Monocytes (%) (Auto) 8.6 % Eosinophils (%) (Auto) 0.0 % Basophils (%) (Auto) 0.1 % Neutrophils # (Auto) 6.65 K/uL Lymphocytes # (Auto) 1.54 K/uL Monocytes # (Auto) 0.78 K/uL Eosinophils # (Auto) 0.00 K/uL Basophils # (Auto) 0.01 K/uL RDW Standard Deviation 41.8 fL 41.2 fL RDW Coefficient of Variation 12.3 % 12.1 % Immature Granulocyte % (Auto) 0.6 % Immature Granulocyte # (Auto) 0.05 K/uL Nucleated RBC Absolute Count (auto) 0.04 K/uL Nucleated Red Blood Cells % 0.4 % Vitamin B12 Level 645 pg/mL Folate 12.91 ng/mL Prothrombin Time 13.6 SECONDS Prothromb Time International Ratio 1.3 Sodium Level 130 mmol/L Potassium Level 3.1 mmol/L Chloride Level 94 mmol/L Carbon Dioxide Level 26 mmol/L Anion Gap 10.0 mmol/L Blood Urea Nitrogen 10 mg/dl Creatinine 0.62 mg/dl Est Creatinine Clear Calc Drug Dose 63.3 ml/min Estimated GFR () 94.6 Estimated GFR (Non- 81.6 BUN/Creatinine Ratio 15.6 Random Glucose 107 mg/dl Calcium Level 8.4 mg/dl Magnesium Level 2.0 mg/dl Assessment & Plan ALTERED MENTAL STATUS Presented with progressive confusion. CT head demonstrated chronic microvascular changes, no acute findings. Altered mental status initially attributed to UTI. Recent outpatient urine culture grew E coli. UA at time of admission showed moderate leukocyte esterase, many WBC's, many epith cells, no bacteria. Initially received IV ceftriaxone. Urine culture subsequently grew more than 3 organisms, probable skin mariel. Blood cultures at time of admission were negative. 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 ID consulted. Antibiotic coverage was broadened (high dose ceftriaxone, vancomycin, ampicillin , acyclovir). LP could not be performed initially because of elevated INR on warfarin. Warfarin was reversed with vitamin K and FFP. LP performed, results as noted: Item Value Date Time CSF Appearance CLEAR 07/01/17 1000 CSF Color COLORLESS 07/01/17 1000 CSF WBC 164 /uL *H 07/01/17 1000 CSF RBC 2 /uL 07/01/17 1000 CSF Cell Count Tube # 3 07/01/17 1000 CSF Mononuclear WBCs 99.0 % 07/01/17 1000 CSF Polynuclear WBCs 1.0 % 07/01/17 1000 CSF Chemistry Tube # 1 07/01/17 1000 CSF Glucose 86 mg/dl H 07/01/17 1000 CSF Total Protein 79.3 mg/dl H 07/01/17 1000 CSF gram stain negative. CSF cultures negative so far. Cryptococcal Ag negative. Lyme PCR pending. HSV PCR pending. Enterovirus PCR pending. West Nile PCR pending. [place] most likely to have viral meningitis. Condition initially improved. Vancomycin and ampicillin discontinued. Ceftriaxone and acyclovir were continued. Worsening confusion yesterday (07/03). Neuro consulted. MRI performed yesterday had some motion artifact, but did not show any acute changes. EEG done- results pending. POSSIBLE PNEUMONIA Chest x-ray 07/03 showed LLL density, infiltrate vs atelectasis. Started on IV piperacillin / tazobactam for possible pneumonia. PAROXYSMAL ATRIAL TACHYCARDIA Unable to take oral metoprolol due to NPO status. Convert to parenteral. HYPERTENSION Unable to take oral meds due to NPO status. Convert metoprolol to IV. IV enalapril PRN. HYPONATREMIA Serum sodium 141 --> --> 130. Hyponatremia may be secondary to free water diluent in multiple IV antibiotics. Consider SIADH secondary to COMPONENT OVERHAUL OPERATOR or pulmonary process. Check Uosm. Follow. HYPOKALEMIA K today = 3.1. Replace. Follow. HYPOTHYROIDISM Unable to take oral levothyroxine. Convert to IV if NPO for a prolonged period of time. VTE PROPHYLAXIS On warfarin at time of admission which was subsequently held / reversed. Started on enoxaparin after LP. DISPOSITION To be determined. Family Medicine follow-up with Dr. Mosley. Life partner Pretty given update on status and plans. Transfer to Telemetry Unit for closer monitoring and administration of IV metoprolol. ADDENDUM: Around 12:30 patient developed increasing upper airway sounds. She maintained her O2 sats. Rapid Response Team summoned. Better air movement with insertion of nasal airway. Critical Care Team consulted. Transferred to ICU for monitoring of airway and further evaluation and management. . Consultants: ID Current Inpatient Medications: Current Inpatient Medications Medications (Trade) Dose Ordered Sig/Josué Route Start Time Stop Time Status Last Admin Dose Admin Acetaminophen (Tylenol Tab) 650 mg Q4H PRN PO 06/29/17 11:00 07/29/17 10:59 07/03/17 11:07 650 MG Ondansetron HCl (Zofran Inj) 4 mg Q6H PRN IV 06/29/17 11:00 07/29/17 10:59 Aspirin (Ecotrin Tab) 81 mg DAILY PO 06/30/17 08:00 07/30/17 08:59 07/02/17 08:23 81 MG Atorvastatin Calcium (Lipitor Tab) 40 mg DAILY PO 06/30/17 08:00 07/30/17 08:59 07/02/17 08:22 40 MG Levothyroxine Sodium (Synthroid Tab) 100 mcg DAILYBB PO 06/30/17 06:30 07/30/17 06:29 Losartan Potassium (coZAAR TAB) 25 mg DAILY PO 06/30/17 08:00 07/30/17 08:59 07/02/17 08:24 25 MG Losartan Potassium (coZAAR TAB) 50 mg DAILY PO 06/30/17 08:00 07/30/17 08:59 07/02/17 08:24 50 MG Metoprolol Succinate (Toprol Xl Tab) 50 mg DAILY PO 06/30/17 08:00 07/30/17 08:59 07/02/17 08:22 50 MG Calcium/Vitamin D (Caltrate Plus Tab) 2 tab DAILY PO 06/30/17 08:00 07/30/17 07:59 07/02/17 08:23 2 TAB Miscellaneous (Iv Fluids Completed) 1 ea PRN PRN N/A 06/29/17 11:30 06/29/18 11:29 Ceftriaxone Sodium 2000 mg/ Dextrose 70 ml @ 100 mls/hr Q12H IV 06/30/17 22:00 07/10/17 21:59 07/03/17 23:44 100 MLS/HR Acyclovir Sodium 650 mg/Dextrose 113 ml @ 110 mls/hr Q8H IV 06/30/17 10:30 07/10/17 10:29 07/04/17 02:28 110 MLS/HR Lactobacillus Acidophilus (Lactinex Granules Pack) 1 gm TIDM PO 07/01/17 07:30 07/31/17 07:29 07/02/17 15:22 1 GM Warfarin Sodium (Coumadin Tab) 5 mg DAILY@16 PO 07/02/17 16:00 08/01/17 15:59 07/02/17 15:21 5 MG Enoxaparin Sodium (Lovenox Inj) 40 mg Q24H SQ 07/02/17 16:00 08/01/17 15:59 07/03/17 16:27 40 MG Piperacillin Sod/ Tazobactam Sod (Consult) 1 ea UD PRN N/A 07/03/17 14:55 08/02/17 14:54 Piperacillin Sod/ Tazobactam Sod 3.375 gm/Dextrose 115 ml @ 28.75 mls/ hr Q8H IV 07/03/17 22:00 07/10/17 21:59 07/04/17 06:29 28.75 MLS/HR Sodium Chloride 1,000 ml @ 100 mls/hr Q10H IV 07/03/17 15:45 08/02/17 15:44 07/04/17 02:31 100 MLS/HR
[2017-07-04] MEDS: ASPIRIN 81 MG ECTAB PO SCH (09:51)
[2017-07-04] MEDS: LOSARTAN POTASSIUM 25 MG TAB PO SCH (09:51)
[2017-07-04] MEDS: LACTOBACILLUS ACIDOPHILUS 1 GM PACK PO SCH (09:51)
[2017-07-04] MEDS: LOSARTAN POTASSIUM 50 MG TAB PO SCH (09:51)
[2017-07-04] MEDS: CALCIUM 600MG + VIT D 400 IU TAB PO SCH (09:51)
[2017-07-04] MEDS: METOPROLOL SUCC 50MG EXT REL TAB PO SCH (09:52)
[2017-07-04] MEDS: ATORVASTATIN 40 MG TAB PO SCH (09:52)
[2017-07-04] MEDS: CEFTRIAXONE SOD INJ 2,000 MG in DEXTROSE 5% 50ML 50 ML IV SCH ×2 (10:52→21:44)
[2017-07-04] MEDS: METOPROLOL TARTRATE 1 MG/ML VIAL IV. SCH ×2 (10:54→17:45)
[2017-07-04] MEDS: POTASSIUM CHLORIDE INJ 40 MEQ in D5W AND NSS 1,000 ML IV SCH (10:56)
--- NOTE | 2017-07-04 13:09 | DIAGNOSTIC IMAGING REPORT ---
CHEST ONE VIEW PORTABLE CLINICAL HISTORY: cough dyspnea COMPARISON STUDY: 07/03/2017 FINDINGS: Unchanging left basilar parenchymal infiltrate. Slight blunting left lateral calcific angle. Right lung is considered clear. Components of a moderate emphysematous changes are present bilaterally. IMPRESSION: Stable exam with unchanging infiltrative and effusion change left lung base. The above report was generated using voice recognition software. It may contain grammatical, syntax or spelling errors. Electronically signed by: Obie Warner M.D. 07/04/2017 1:08 PM Dictated Date/Time: 07/04/2017 1:07 PM
--- NOTE | 2017-07-04 13:57 | DIAGNOSTIC IMAGING REPORT ---
HEAD WITHOUT CONTRAST (CT) CT DOSE: 558.98 mGy.cm HISTORY: Mental status change r/o stroke TECHNIQUE: Multiaxial CT images of the head were performed without the use of intravenous contrast. A dose lowering technique was utilized adhering to the principles of ALARA. Comparison: 07/03/2017 Findings: The paranasal sinuses and mastoid air cells are clear. The calvarium and skull base are intact. The ventricles and sulci are within normal limits. There is no mass, hematoma, midline shift, or acute infarct. Considerable chronic small vessel change throughout both cerebral hemispheres. Ventricular system is midline. No acute intracranial hemorrhage. Impression: Chronic and age-related change. No acute process. No change from the prior exam. The above report was generated using voice recognition software. It may contain grammatical, syntax or spelling errors. Electronically signed by: Obie Warner M.D. 07/04/2017 1:56 PM Dictated Date/Time: 07/04/2017 1:45 PM
--- NOTE | 2017-07-04 14:19 | ELECTROENCEPHALOGRAPH REPORT ---
ELECTROENCEPHALOGRAM FOR: Dr. Hudson and Camilla Olea. CLINICAL DIAGNOSIS: Viral meningoencephalitis with agitation and confusion. ELECTROENCEPHALOGRAM DIAGNOSIS: Moderately diffusely abnormal EEG during wakefulness. DESCRIPTION OF TRACING: This EEG was done as a bedside recording with simultaneous video analysis of patient movement and behavior. No stimulation parameters were utilized and drowsiness and light sleep are not clearly obtained. There is a lot of patient movement and muscle artifact throughout the recording and what appears to be some eye blink artifacts bifrontally, occurring episodically. The tracing is characterized by the absence of a normal background alpha rhythm and predominant rhythm was in the theta range at about 6-7 Hz of maximum frequency and of up to 30 microvolts of maximum amplitude. This is maximum in posterior head regions and bilaterally symmetrical. Polymorphic mid to lower frequency theta activity intermixed with some waveforms in the delta range and is seen over all head regions without clear focal or regional predominance. There are a number of high amplitude almost triphasic appearing waves occurring in the bifrontal regions and these may correlate with the presence of eye blink artifacts. Unfortunately, magnification of the video recording was insufficient to actually showed detailed eye movements. No clinical accompaniments are noted in the form of abnormal involuntary myoclonic activity, etc. At no time during the recording is there evidence for unequivocal potentially epileptogenic discharges. INTERPRETATION: This electroencephalogram reveals evidence for moderate diffuse generalized nonlateralizing encephalopathy of nonspecific type, but certainly one that could appear in the setting of a meningoencephalitis. There are no potentially epileptogenic discharges associated with this. The triphasic activity is of uncertain origin, could correlate with eye blinks but could also suggest an underlying metabolic disturbance.
--- NOTE | 2017-07-04 14:54 | Progress Note ---
Subjective Date of Service: Jul 04, 2017. Subjective Pt evaluation today including: conversation w/ patient, conversation w/ family , physical exam, chart review, lab review pt transferred to ICU today, resp distress, comfortable on mask O2 on my exam. Had increasing lethargy overnight, ct done today, unchanged, EEG done as well. at bedside, provides history. pt unable to answer questions, unresponsive. afebrile with exception of isolated fever 38.9 overnight. zosyn added yesterday by primary for concern of lower lobe infiltrate, ? aspiration. All cultures remain negative, remains on emperic acyclovir. MRI attempted but could not be fully completed due to agitation and movement. no enhancement noted however. would like to discuss transfer to tertiary care center. Problem List Medical Problems: (1) E-coli UTI Status: Acute (2) Facial abrasion Status: Acute (3) Facial contusion Status: Acute (4) Fall Status: Acute (5) Metabolic encephalopathy Status: Acute (6) Nasal bone fracture Status: Acute (7) Rapid atrial fibrillation Status: Acute Objective Vital Signs Date Time Temp Pulse Resp B/P (MAP) Pulse Ox O2 Delivery O2 Flow Rate FiO2 07/04/17 13:00 101 30 155/94 (114) 97 Humidified Oxygen 11.0 Mask 07/04/17 12:47 37.7 107 31 166/110 (128) 97 Humidified Oxygen 11.0 Mask 07/04/17 12:30 190/100 (130) 07/04/17 12:00 94 Room Air 07/04/17 11:46 36.8 109 29 148/101 (117) 96 Room Air 07/04/17 10:54 105 07/04/17 09:45 37.5 104 20 92 2.0 07/04/17 08:00 Room Air 07/04/17 07:50 159/95 (116) 07/04/17 07:28 37.5 104 20 180/94 (122) 92 Room Air 185/103 (130) 07/04/17 02:30 36.8 07/04/17 01:20 Room Air 07/04/17 00:08 38.9 88 20 163/97 (119) 93 07/03/17 16:00 Room Air 07/03/17 15:40 37.0 93 20 173/90 (117) 91 Room Air Physical Exam General Appearance: + pertinent finding (unresponsive) Neck: supple, + pertinent finding (no nuchal rigidity) Respiratory/Chest: lungs clear, + decreased breath sounds Cardiovascular: regular rate, rhythm, no edema Abdomen: non tender, soft Extremities: non-tender, no pedal edema Skin: normal color, no rash Laboratory Results Item Value Date Time Gram Stain - Final Complete 07/01/17 1000 Cerebral Spinal Fluid Blood Culture - Preliminary Resulted 06/30/17 1043 Blood NO GROWTH TO DATE. Blood Culture - Preliminary Resulted 06/30/17 1027 Blood NO GROWTH TO DATE. Blood Culture - Preliminary Resulted 06/29/17 0851 Blood NO GROWTH TO DATE. Blood Culture - Preliminary Resulted 06/29/17 0841 Blood NO GROWTH TO DATE. Last 24 Hours Test 07/04/17 06:38 White Blood Count 8.71 K/uL Red Blood Count 4.00 M/uL Hemoglobin 13.0 g/dL Hematocrit 37.2 % Mean Corpuscular Volume 93.0 fL Mean Corpuscular Hemoglobin 32.5 pg Mean Corpuscular Hemoglobin Concent 34.9 g/dl RDW Standard Deviation 41.2 fL RDW Coefficient of Variation 12.1 % Platelet Count 179 K/uL Mean Platelet Volume 9.5 fL Prothrombin Time 13.6 SECONDS Prothromb Time International Ratio 1.3 Sodium Level 130 mmol/L Potassium Level 3.1 mmol/L Chloride Level 94 mmol/L Carbon Dioxide Level 26 mmol/L Anion Gap 10.0 mmol/L Blood Urea Nitrogen 10 mg/dl Creatinine 0.62 mg/dl Est Creatinine Clear Calc Drug Dose 63.3 ml/min Estimated GFR () 94.6 Estimated GFR (Non- 81.6 BUN/Creatinine Ratio 15.6 Random Glucose 107 mg/dl Calcium Level 8.4 mg/dl Magnesium Level 2.0 mg/dl Assessment and Plan (1) Aseptic meningitis Assessment & Plan: will continue acyclovir for now, also ctx pending lyme. will stop vanco and amp as csf appears more viral. continue abx for now All cultures remain negative. will follow. would like transfer
[2017-07-04] MEDS: ENALAPRILAT IV 0.625 MG in DEXTROSE 5% 25ML 25 ML IV PRN (15:17)
[2017-07-04] MEDS: ENOXAPARIN 40 MG/0.4 ML SYR SQ SCH (15:55)
--- NOTE | 2017-07-04 19:04 | Critical Care Consultation ---
Critical Care Consultation Date of Consultation: Jul 04, 2017. Attending Physician: Ciro Arevalo M.D. Reason for Consultation: Code Purple History of Present Illness This is an 87 yo F with h/o Paroxysmal AFib, HTN, HLD, Hypothyroidism transferred to the ICU following a Code Purple. Patient initially presented with Confusion in the setting of fever and UTI. 1 day prior to arrival she had reportedly become progressively confused. On arrival she was treated with Rocephin for suspected pyelonephritis, however due to altered mental status, viral meningitis vs encephalitis were suspected. Lumbar puncture performed showed 164 WBC and both the protein and glucose were elevated with a negative gram stain. Infectious disease was consulted. Patient was placed popn broad spectrum abx including Vancomycin, Ceftriaxone, Ampicillin and Acyclovir. CT Head and MRI Brain were performed showing no acute abnormalities. CXR showed Left Basilar consolidation vs. atelectasis. During admission, patient became progressively more confused and lethargic. Aroung 12:30 today, when patient was being evaluated by nurse she reported increased lethargy and possible airway obstruction by her tongue thought she maintain oxygen saturation throughout. At this point, oxymask was placed on patient and raphael jaeger was called. Past Medical/Surgical History (1) Dyslipidemia Status: Chronic (2) Hypertension Status: Chronic (3) Hypothyroidism Status: Chronic (4) Osteoporosis Status: Chronic (5) Paroxysmal atrial tachycardia Status: Chronic Surgical Problems: (1) H/O colonoscopy with polypectomy Permanent Comment: 07/17- 4 mm hepatic flexure tubular adenoma 09/21/2009- polyp x1, adenomatous tissue Status: Chronic (2) History of cataract surgery Status: Chronic (3) Hx of mastoidectomy Status: Resolved (4) S/P knee surgery Status: Chronic (5) S/p mastoid surgery Status: Chronic (6) S/P tonsillectomy and adenoidectomy Status: Chronic Family History Hypertension Social History Smoking Status: Never Smoker Alcohol Use: socially (1 glass of wine with dinner most nights ) Marital Status: Housing Status: lives with significant other Occupation Status: retired Allergies Coded Allergies: No Known Allergies (Verified , 06/29/17) Home Medications Scheduled Aspirin (Aspirin Ec), 81 MG PO DAILY Atorvastatin (Lipitor), 40 MG PO DAILY Calcium Carbonate-Vitamin D (Calcium + D), 600 MG PO DAILY Levothyroxine Sodium (Levothyroxine Sodium), 100 MCG PO DAILY Losartan Potassium (Cozaar), 50 MG PO DAILY Losartan Potassium (Cozaar), 1 TAB PO DAILY Metoprolol Succinate (Toprol Xl), 50 MG PO DAILY Multivitamin (Multivitamin), 1 TAB PO DAILY Warfarin Sod (Jantoven), 2.5 MG PO [id number] Warfarin Sod (Jantoven), 5 MG PO MWF Current Inpatient Medications Current Inpatient Medications Medications (Trade) Dose Ordered Sig/Josué Route Start Time Stop Time Status Last Admin Dose Admin Acetaminophen (Tylenol Tab) 650 mg Q4H PRN PO 06/29/17 11:00 07/29/17 10:59 07/03/17 11:07 650 MG Ondansetron HCl (Zofran Inj) 4 mg Q6H PRN IV 06/29/17 11:00 07/29/17 10:59 Aspirin (Ecotrin Tab) 81 mg DAILY PO 06/30/17 08:00 07/30/17 08:59 Future Hold 07/02/17 08:23 81 MG Atorvastatin Calcium (Lipitor Tab) 40 mg DAILY PO 06/30/17 08:00 07/30/17 08:59 Future Hold 07/02/17 08:22 40 MG Levothyroxine Sodium (Synthroid Tab) 100 mcg DAILYBB PO 06/30/17 06:30 07/30/17 06:29 Future Hold Losartan Potassium (coZAAR TAB) 25 mg DAILY PO 06/30/17 08:00 07/30/17 08:59 Future Hold 07/02/17 08:24 25 MG Losartan Potassium (coZAAR TAB) 50 mg DAILY PO 06/30/17 08:00 07/30/17 08:59 Future Hold 07/02/17 08:24 50 MG Metoprolol Succinate (Toprol Xl Tab) 50 mg DAILY PO 06/30/17 08:00 07/30/17 08:59 Future Hold 07/02/17 08:22 50 MG Calcium/Vitamin D (Caltrate Plus Tab) 2 tab DAILY PO 06/30/17 08:00 07/30/17 07:59 Future Hold 07/02/17 08:23 2 TAB Miscellaneous (Iv Fluids Completed) 1 ea PRN PRN N/A 06/29/17 11:30 06/29/18 11:29 Ceftriaxone Sodium 2000 mg/ Dextrose 70 ml @ 100 mls/hr Q12H IV 06/30/17 22:00 07/10/17 21:59 07/04/17 10:52 100 MLS/HR Acyclovir Sodium 650 mg/Dextrose 113 ml @ 110 mls/hr Q8H IV 06/30/17 10:30 07/10/17 10:29 07/04/17 12:15 110 MLS/HR Lactobacillus Acidophilus (Lactinex Granules Pack) 1 gm TIDM PO 07/01/17 07:30 07/31/17 07:29 Future Hold 07/02/17 15:22 1 GM Warfarin Sodium (Coumadin Tab) 5 mg DAILY@16 PO 07/02/17 16:00 08/01/17 15:59 Future Hold 07/02/17 15:21 5 MG Enoxaparin Sodium (Lovenox Inj) 40 mg Q24H SQ 07/02/17 16:00 08/01/17 15:59 07/04/17 15:55 40 MG Piperacillin Sod/ Tazobactam Sod (Consult) 1 ea UD PRN N/A 07/03/17 14:55 08/02/17 14:54 Piperacillin Sod/ Tazobactam Sod 3.375 gm/Dextrose 115 ml @ 28.75 mls/ hr Q8H IV 07/03/17 22:00 07/10/17 21:59 07/04/17 15:26 28.75 MLS/HR Metoprolol Tartrate (Lopressor Iv) 5 mg Q6 IV. 07/04/17 12:00 08/03/17 11:59 07/04/17 17:45 5 MG Potassium Chloride 40 meq/ Dextrose/Sodium Chloride 1,020 ml @ 100 mls/hr [id number] IV 07/04/17 10:30 08/03/17 10:29 07/04/17 10:56 100 MLS/HR Enalaprilat 0.625 mg/Dextrose 25.5 ml @ 100 mls/hr Q6H PRN IV 07/04/17 09:15 08/03/17 09:14 07/04/17 15:17 100 MLS/HR Review of Systems could not assess due to patient's unresponsiveness Physical Exam Date Time Temp Pulse Resp B/P (MAP) Pulse Ox O2 Delivery O2 Flow Rate FiO2 07/04/17 18:00 92 92 172/105 (127) 99 Humidified Oxygen 11.0 07/04/17 17:45 109 145/107 07/04/17 16:25 168/103 (124) 07/04/17 16:00 36.9 117 25 180/117 (138) 97 Humidified Oxygen 11.0 07/04/17 16:00 97 Humidified Oxygen 11.0 07/04/17 13:00 101 30 155/94 (114) 97 Humidified Oxygen 11.0 Mask 07/04/17 12:47 37.7 107 31 166/110 (128) 97 Humidified Oxygen 11.0 Mask 07/04/17 12:30 190/100 (130) 07/04/17 12:00 94 Room Air 07/04/17 11:46 36.8 109 29 148/101 (117) 96 Room Air 07/04/17 10:54 105 07/04/17 09:45 37.5 104 20 92 2.0 07/04/17 08:00 Room Air 07/04/17 07:50 159/95 (116) 07/04/17 07:28 37.5 104 20 180/94 (122) 92 Room Air 185/103 (130) 07/04/17 02:30 36.8 07/04/17 01:20 Room Air 07/04/17 00:08 38.9 88 20 163/97 (119) 93 General Appearance: other (unresponsive) Head: normocephalic, atraumatic Eyes: PERRLA, conjunctivae normal Neck: trachea midline, no stridor, supple, no lymphadenopathy Respiratory: no respiratory distress, other (coarse breath sounds) Cardiovasular: regular rate/rhythm, no murmur Abdomen: normal bowel sounds, no rebound, no masses Upper Extremities: no edema Lower Extremities: no edema Neuro: lethargic, other (unresponsive) Laboratory Results Last 24 Hours Test 07/04/17 06:38 07/04/17 18:38 White Blood Count 8.71 K/uL Red Blood Count 4.00 M/uL Hemoglobin 13.0 g/dL Hematocrit 37.2 % Mean Corpuscular Volume 93.0 fL Mean Corpuscular Hemoglobin 32.5 pg Mean Corpuscular Hemoglobin Concent 34.9 g/dl RDW Standard Deviation 41.2 fL RDW Coefficient of Variation 12.1 % Platelet Count 179 K/uL Mean Platelet Volume 9.5 fL Prothrombin Time 13.6 SECONDS Prothromb Time International Ratio 1.3 Sodium Level 130 mmol/L Potassium Level 3.1 mmol/L Chloride Level 94 mmol/L Carbon Dioxide Level 26 mmol/L Anion Gap 10.0 mmol/L Blood Urea Nitrogen 10 mg/dl Creatinine 0.62 mg/dl Est Creatinine Clear Calc Drug Dose 63.3 ml/min Estimated GFR () 94.6 Estimated GFR (Non- 81.6 BUN/Creatinine Ratio 15.6 Random Glucose 107 mg/dl Calcium Level 8.4 mg/dl Magnesium Level 2.0 mg/dl Diagnostic Results HEAD WITHOUT CONTRAST (CT) CT DOSE: 558.98 mGy.cm HISTORY: Mental status change r/o stroke TECHNIQUE: Multiaxial CT images of the head were performed without the use of intravenous contrast. A dose lowering technique was utilized adhering to the principles of ALARA. Comparison: 07/03/2017 Findings: The paranasal sinuses and mastoid air cells are clear. The calvarium and skull base are intact. The ventricles and sulci are within normal limits. There is no mass, hematoma, midline shift, or acute infarct. Considerable chronic small vessel change throughout both cerebral hemispheres. Ventricular system is midline. No acute intracranial hemorrhage. Impression: Chronic and age-related change. No acute process. No change from the prior exam. CHEST ONE VIEW PORTABLE CLINICAL HISTORY: cough dyspnea COMPARISON STUDY: 07/03/2017 FINDINGS: Unchanging left basilar parenchymal infiltrate. Slight blunting left lateral calcific angle. Right lung is considered clear. Components of a moderate emphysematous changes are present bilaterally. IMPRESSION: Stable exam with unchanging infiltrative and effusion change left lung base. ORBITS FOR MRI HISTORY: Pre-MRI pre-MRI screening. COMPARISON: None. FINDINGS: There are no radiopaque foreign bodies identified within the orbits. No radiopaque foreign bodies within the region of the middle ears IMPRESSION: No radiopaque foreign bodies identified within the orbits or middle ear regions. CT SCAN OF THE BRAIN WITHOUT IV CONTRAST CLINICAL HISTORY: Change in mental status. COMPARISON STUDY: CT of the brain dated 06/30/2017. TECHNIQUE: Unenhanced axial CT scan of the brain is performed from the vertex to the skull base. CT DOSE: 1577.26 mGycm FINDINGS: Brain parenchyma: There are age-related involutional changes noting moderate to advanced subcortical and periventricular microangiopathic change. There is no hemorrhage, mass effect, or evidence of acute territorial ischemia by CT criteria. Mac-white matter is preserved. No extra-axial fluid collection is seen. Ventricles, sulci, cisterns: Prominent secondary to involutional change. Intracranial vasculature: There is atherosclerotic calcification of the cavernous carotid and vertebral arteries. Calvarium: Unremarkable. Sinuses and mastoids: Trace mucosal thickening is seen in left maxillary antrum. The remaining visualized paranasal sinuses are clear. There is a left mastoid effusion. There is evidence of previous right mastoid surgery. Orbits: The bony orbits are grossly intact. There are bilateral ocular lens implants. IMPRESSION: Senescent changes as above with no hemorrhage, mass effect, or evidence of acute territorial ischemia by CT criteria. ABD/PELVIS NO IV OR ORAL CONT CT DOSE: HISTORY: Pain. Fever. h/o pyelo with onset of confusion/persistent fever TECHNIQUE: Multiaxial CT images of the abdomen and pelvis were performed without contrast. A dose lowering technique was utilized adhering to the principles of ALARA. COMPARISON STUDY: 12/31/2015 FINDINGS: Lung bases show mild chronic basilar interstitial change. No well-defined focal infiltrates are appreciated. A peripheral right hepatic cyst is stable. Liver otherwise is uniform. Spleen and pancreas are unremarkable. Small punctate nonobstructing right renal calcification. Very slight fullness right kidney compared to the left. No evidence for an obstructing urinary tract calculus. The ureters are normal in course and caliber. Bladder is midline. Bowel pattern is considered nonobstructive. IMPRESSION: No acute process of the abdomen or pelvis ABD/PELVIS NO IV OR ORAL CONT CT DOSE: HISTORY: Pain. Fever. h/o pyelo with onset of confusion/persistent fever TECHNIQUE: Multiaxial CT images of the abdomen and pelvis were performed without contrast. A dose lowering technique was utilized adhering to the principles of ALARA. COMPARISON STUDY: 12/31/2015 FINDINGS: Lung bases show mild chronic basilar interstitial change. No well-defined focal infiltrates are appreciated. A peripheral right hepatic cyst is stable. Liver otherwise is uniform. Spleen and pancreas are unremarkable. Small punctate nonobstructing right renal calcification. Very slight fullness right kidney compared to the left. No evidence for an obstructing urinary tract calculus. The ureters are normal in course and caliber. Bladder is midline. Bowel pattern is considered nonobstructive. IMPRESSION: No acute process of the abdomen or pelvis CHEST ONE VIEW PORTABLE CLINICAL HISTORY: Weakness, disorientation. COMPARISON STUDY: 12/31/2015 FINDINGS: The cardiac and mediastinal contours are normal. There is no evidence of focal pulmonary consolidation. There is no evidence of failure. No pleural effusions are visualized.[ Subtle increased retrocardiac markings, likely represent a summation. IMPRESSION: No active disease in the chest. CT HEAD WITHOUT CONTRAST (CT) CLINICAL HISTORY: Weakness COMPARISON STUDY: 05/18/2016 TECHNIQUE: Axial CT of the brain is performed from the vertex to the skull base. IV contrast was not administered for this examination. A dose lowering technique was utilized adhering to the principles of ALARA. CT DOSE: 782.75 mGycm FINDINGS: No intra or extra-axial mass lesions are visualized. There is no CT evidence of acute cortical infarction. There is no evidence of midline shift. There is no acute hemorrhage. No calvarial fractures are visualized. There are moderately extensive white matter hypodensities likely on a small vessel basis. There is no evidence of pathologic ventricular dilatation. There is chronic partial opacification of the left mastoid. Postsurgical changes involve the right mastoid. IMPRESSION: No acute intracranial findings Assessment & Plan 87 yo F w/x h/o Paroxysmal AFIB, HTN, HLD, presented with fever, Acute Confusion /Lethardy and UTI. LP consiste with menigits vs Encepahliyis likely of viral origin, currently on broad spectrum abx ( Zosyn, Ceftriaxone )and Acyclovir. 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 No acute process. No change from the prior exam. MRI: No evidence for an acute ischemic insult.Generalized atrophy of the cerebellar as well as cerebral hemispheres ID following the patient. Continue broad abx coverage ( Ceftriaxone, Zosyn) + Acyclovir EEG dated 07/05: Result reveals evidence for moderate diffuse generalized nonlateralizing encephalopathy of nonspecific type Respiratory: Possible Pneumonia vs Atelectasis Possible Pneumonia: Maintain on on broad spectrum abx pending cx's Chest X-ray: Reviewed: Stable exam with unchanging infiltrative and effusion change left lung base. Cardiovascular: Paroxysmal Afib, HTN HLD HTN: IV enalapril prn recently started, Continue to monitor BP Afib: Continue IV Lopressor 5 mg q6 CV drips: Remains off vasoactive medications Rhythm: Sinus EKG: Normal sinus_, QTc : 429 Fluids/Renal: Hyponatremia appears hypovolemic F/u serum osms Hypokalemia: K 3.1, Continue IV KCL supplementation IV Fluids: Fluids from intravenous medications Mireles: Present GI/Nutrition: Feeding: none Prophylaxis: Not On PPI Bowel movements:0 Endocrine: Last 24 hour glucose: Ranging 84 to 164 Insulin protocol: Yes; Drip: No Hematology: Hemoglobin 13 DVT prophylaxis: Lovenox Lovenox Infectious Disease/Immunology: suspected Viral Encephalitis vs.Viral Meningitis Tmax: 37.8 Antimicrobials: day 5 Ceftriaxone Day 5/? Zosyn day 2/? Acyclovir Cultures: Blood: No growth Urine: No growth MRSA: neg CSF: No growth to date Resident Physician Supervision Note: Dr. Phillip was resident physician during care of patient. I separately evaluated patient and did history and exam. I discussed the case with the resident and generally agree with the findings and plan. Patient experienced a code purple for an acute airway obstruction in the setting of acute encephalopathy. Upon my arrival in the patient's room the patient had undergone placement of a nasal trumpet without difficulty and essentially without response by the patient to maintain a patent airway. During my evaluation the patient's mucous membranes were rather dry and the patient's tongue had actually adhered to the hard palate and affectively formed in acute airway obstruction. Placement of the nasal trumpet circumvented the airway obstruction and she was saturating well. I think tongue depressor and examine the oropharynx for hard concretions, there were none it is noted that the patient did not exhibit a gag reflex. The bio teen spray and mouth care carefully lubricated the patient's oropharynx and she was breathing easier through her oropharynx. Given the acute encephalopathy with minimal response and placing a nasal trumpet and lack of gag reflex she is at risk for reocclusion of her airway and his brought to the critical care unit for closer monitoring. An extensive discussion with the patient's spouse, and discussing long-term goals of care should the patient undergo a cardiac arrest she would not want to undergo cardiopulmonary resuscitation. She is agreeable to short-term intubation for correctable medical conditions which still allow her to have a meaningful engagement in life. I have personally spent 35 minutes of critical care time in the direct management of this patient. This is a life/limb threatening event. This includes time spent evaluating patient, direct bedside care, chart review, placing orders, interpretation of diagnostic studies, discussion with consultants, patient, and family members, as well as other required patient management activities. This time is exclusive of all separately billable procedures, and teaching time and separate from and in addition to any other critical care service time. This note is reflective of care delivered on the date of service of 07/04/2017 Documented By: Demond Salmeron DO
[2017-07-04 20:12] LABS: LYME DISEASE AB IGG NEG (NEG); LYME DISEASE AB IGM NEG (NEG)
--- NOTE | 2017-07-04 20:23 | NEUROLOGY CONSULTATION ---
DATE OF CONSULTATION: 07/04/2017 HISTORY OF PRESENT ILLNESS: I am seeing Mrs. Venegas in followup of what appears to be a viral meningitis. Her MRI of the brain was performed last evening and was thought to be by the radiologist as nearly nondiagnostic. There were no acute ischemic abnormalities. There is considerable chronic vascular changes, contrast component was not performed. Her EEG shows moderate diffuse generalized nonlateralizing encephalopathy which is nonspecific but could appear in the setting of meningoencephalitis. There are no potentially epileptogenic discharges, triphasic activity of certain etiology could correlate with eye blinks but also suggest an underlying metabolic disturbance. Overnight she had respiratory decompensation, thought to be related in part to dry secretions. She was brought down stairs to the ICU and had a nasal trumpet in place. A followup CT of the head was unchanged. PHYSICAL EXAMINATION: VITAL SIGNS: T-max 37.7, pulse 92, respiration increased, blood pressure 172/105 and 99% on 11 liters of O2. NEUROLOGIC: The patient is sleepy, essentially unarousable. Her neck remained some mild rigidity. Her pupils are equal. I could not reliably visualize the optic nerves. There was a positive blink to visual threat. No obvious facial asymmetry, mild increase in tone in the uppers, but no posturing. Reflexes are symmetric. Toes are mute. Cerebellar sensory not testable. IMPRESSION: Meningo meningitis presumably viral, doubt HSV due to lack of temporal abnormality on MRI, non-supporting evidence on EEG and on lumbar puncture without significant red cells. That having been said, I agree with empiric antiviral therapy. Dr. Arevalo has contacted our lab asking if they can baca the PCR for HSV at the outside lab. Her West Nile negative. PLAN: The patient has declined. There is no obvious seizure. I would recommend if she does not, began to improve to do either a CT of the head with and without contrast. I think doing an MRI would require intubation which is not clearly desired by the patient's partner. It would be difficult to do an MRI under conscious sedation and risk of harm associated with sedation in this setting is greater than the potential yield of the imaging. I would also recommend if not improving, a repeat lumbar puncture. Along with lumbar puncture if performed, I would perform a cytology. Triphasic waves were seen on EEG, and can be seen in hepatic encephalopahty. Would repeat a liver profile and perform an ammonia level. I have taken the liberty to order a serum Lyme. Dr. Ingram will follow with you. SANDRAD
[2017-07-04 23:29] LABS: CULTURE SOURCE CSF; ENTEROVIRUS PCR Not Detected (Not Detected); HSV TYPE 1 DNA Not Detected (Not Detected); HSV TYPE 1&2 DNA SOURCE CSF; HSV TYPE 2 DNA Not Detected (Not Detected); LYME DNA PCR CSF OR SYNOVIAL Not detected (Not Detected); LYME DNA SOURCE CSF
[2017-07-05] VITALS (21 sets, daily range): BP systolic 99–182; BP diastolic 67–129; PULSE 62–105; TEMP 36.3–37; O2SAT 97–100
[2017-07-05 00:46] LABS: ISTAT ALLEN TEST Pass; ISTAT ARTERIAL BLOOD GAS HCO3 26 meq/L (19-24); ISTAT ARTERIAL BLOOD GAS PCO2 33 mmHg (35-46); ISTAT ARTERIAL BLOOD GAS PO2 132 mmHg (80-95); ISTAT ARTERIAL BLOOD GAS pH 7.49 (7.35-7.45); ISTAT CARBON DIOXIDE 27 mEq/l (24-31); ISTAT DELIVERY SYSTEM Other; ISTAT FIO2 50 %; ISTAT SITE L Radial
[2017-07-05] MEDS: ACYCLOVIR SOD INJ 650 MG in DEXTROSE 5% 100ML 100 ML IV SCH ×3 (03:21→17:15)
[2017-07-05 05:36] LABS: HEMATOCRIT 37.6 % (37-47); MEAN CELL VOLUME 93.1 fL (80-100); MEAN CORPUSCULAR HEMOGLOBIN 33.7 pg (25-34); MEAN CORPUSCULAR HGB CONC 36.2 g/dl (32-36); MEAN PLATELET VOLUME 9.6 fL (7.4-10.4); PLATELET COUNT 209 K/uL (130-400); RED BLOOD COUNT 4.04 M/uL (4.2-5.4); WHITE BLOOD COUNT 11.96 K/uL (4.8-10.8)
[2017-07-05 05:46] LABS: INR 1.4 (0.9-1.1); PROTHROMBIN TIME (PATIENT) 14.8 SECONDS (9.0-12.0)
[2017-07-05 05:55] LABS: BUN/CREATININE RATIO 14.5 (10-20); CALCIUM 7.9 mg/dl (8.5-10.1); CREATININE 0.89 mg/dl (0.60-1.20); MAGNESIUM 2.2 mg/dl (1.8-2.4); POTASSIUM 3.2 mmol/L (3.5-5.1)
[2017-07-05 05:57] LABS: ALB/GLOB RATIO 0.7 (0.9-2); PHOSPHORUS 2.5 mg/dl (2.5-4.9)
[2017-07-05] MEDS: PIPERACILL/TAZOBAC IV 3.375 GM in DEXTROSE 5% 100ML IV SCH (05:58)
[2017-07-05] MEDS: METOPROLOL TARTRATE 1 MG/ML VIAL IV. SCH ×4 (05:59→17:15)
[2017-07-05] MEDS: POTASSIUM CHLORIDE INJ 40 MEQ in D5W AND NSS 1,000 ML IV SCH ×2 (06:54→07:38)
[2017-07-05] MEDS ORDERED: ACETAMINOPHEN 650 MG SUPP PR PRN (07:30)
[2017-07-05] MEDS: POTASSIUM CHLR 10 MEQ / WTR 10 MEQ in PREMIXED WATER 100 ML IV SCH ×3 (07:37→10:29)
--- NOTE | 2017-07-05 09:34 | Critical Care Progress Note ---
Critical Care Progress Note Date of Service Jul 05, 2017. ICU Day ICU Day Number: [address] Salmeron Subjective Overnight fever resolved. Nurse reported facial grimacing and possible posturing. Patient remains well saturated with nasal trumpet and humidified oxygen mask Objective GENERAL: obtunded, no distress EYE EXAM: normal conjunctiva, PERRL and EOM's grossly intact OROPHARYNX: tongue normal and mucous membranes are moist NECK: supple, no nuchal rigidity, no adenopathy LUNGS: Clear to auscultation. Normal chest wall mechanics HEART: no murmurs, S1 normal and S2 normal ABDOMEN: abdomen soft, non-tender, normo-active bowel sounds, no masses, no rebound or guarding. LOWER EXTREMITIES: No pitting edema. NEURO EXAM: GCS 3 Current SOFA Score SOFA Score Response (Comments) Value Platelets (x10) > 150 0 Bilirubin (mg/dL) < 1.2 0 Erickson Coma Score < 6 4 Level of Hypotension No Hypotension 0 Creatinine (mg/dL) 1.2 - 1.9 1 Total 5 Assessment & Plan 87 yo F w/x h/o Paroxysmal AFIB,n HTN, HLD, presented with fever, Acute Confusion/Lethargy and UTI. LP consistent with menigitis vs Encephalitis likely of viral origin, currently on broad spectrum abx ( Zosyn, Ceftriaxone )and Acyclovir. GRAPHIC DESIGN INTERN/Neuro: Encephalopathy secondary to Suspected Viral Meningitis vs Encephalitis GCS: 3 Pupils: Pinpoint, reactive, Focal Signs: None EEG dated 07/05: Result reveals evidence for moderate diffuse generalized nonlateralizing encephalopathy of nonspecific type CT: Chronic and age-related change. No acute process. No change from the prior exam. MRI: No evidence for an acute ischemic insult.Generalized atrophy of the cerebellar as well as cerebral hemispheres ID following the patient. Continue broad abx coverage ( Ceftriaxone, Zosyn) + Acyclovir - Added Doxycycline CSF negative for Lyme ABs, Enterovirus, HSV I,II, [place] virus, Cryptococcal) VZV pending Repeating LP per Neurology recommendations Respiratory: Atelectasis given LL Lung Infiltrate, Pneumonia possible but less likley Possible Pneumonia: Maintain on broad spectrum abx Chest X-ray: Reviewed: Stable exam with unchanging infiltrative and effusion change left lung base. Cardiovascular: Paroxysmal Afib, HTN HLD HTN: IV enalapril prn , Continue IV Lopressor 5 mg q6 Continue to monitor BP Afib: rate controlled, Continue IV Lopressor 5 mg q6 CV drips: Remains off vasoactive medications Rhythm: Sinus EKG: Normal sinus, QTc : 429 Fluids/Renal: Hyponatremia appears hypovolemic Hypokalemia: K 3.2 <--3.1, Continue IV KCL supplementation IV Fluids: Fluids from intravenous medications Mireles: Present GI/Nutrition: Feeding: none Prophylaxis: Not On PPI Bowel movements:0 Endocrine: Last 24 hour glucose: Ranging 84 to 164 Insulin protocol: Yes; Drip: No Hematology: Hemoglobin 13 DVT prophylaxis: Lovenox Lovenox Infectious Disease/Immunology: suspected Viral Encephalitis vs.Viral Meningitis Tmax: 37.8 Antimicrobials: day 5 Ceftriaxone Day 5/? Zosyn day 2/? Acyclovir Cultures: Blood: No growth Urine: No growth MRSA: neg CSF: No growth to date Resident Physician Supervision Note: Dr. Phillip was resident physician during care of patient. I separately evaluated patient and did history and exam. I discussed the case with the resident and generally agree with the findings and plan. This note is reflective care delivered on 07/05/2017 Patient has not had significant improvement in her mental status. I discussed the case with Dr. Arevalo who has been in touch with infectious disease at [facility] regarding the differential of viral etiologies of aseptic meningitis versus encephalitis. In discussion with neurology repeat LP to demonstrate decrease in lymphocytes burden as well as cytology may be beneficial. Patient also had MRI degradation secondary to motion. Patient also has possible atelectasis of the left lower lobe versus a possible evolving infectious etiology, therefore and consideration of all 3 events felt the risks of intubation are outweighed by the benefits and we placed a endotracheal tube to facilitate lumbar puncture MRI as well as bronchoscopy. Consent was obtained from the patient's spouse. Plan for tomorrow is to have spontaneous waking trial as well as spontaneous breathing trial and consider possible extubation I have personally spent 45 minutes of critical care time in the direct management of this patient. This is a life/limb threatening event. This includes time spent evaluating patient, direct bedside care, chart review, placing orders, interpretation of diagnostic studies, discussion with consultants, patient, and family members, as well as other required patient management activities. This time is exclusive of all separately billable procedures, and teaching time and separate from and in addition to any other critical care service time. Documented By: Demond Salmeron DO Consults & Procedures Consultants: Infectious Disease Neurology Procedures: FLUOROSCOPICALLY GUIDED LUMBAR PUNCTURE CLINICAL HISTORY: Evaluate for encephalitis. PROCEDURE: Due to altered mental status and sedation, the procedure, risks and benefits were discussed with the patient's power of attorney at law including the risk of spinal headache, bleeding and infection. She agreed to the procedure and informed written consent was obtained. The procedure was performed by Dr. Sandoval following a timeout. The right L5-S1 interlaminar space was targeted. Skin overlying the space was prepped and draped in sterile fashion and local anesthesia was achieved with 1% lidocaine. Under intermittent fluoroscopic guidance, a 3 1/2 inch 22-gauge spinal needle was directed into the thecal sac with immediate return of clear CSF. A total of 9 cc of CSF was collected in 4 vials and sent to the laboratory as ordered. The needle was removed. The patient tolerated the procedure well and no immediate complications were evident. [~ rep ct add3]] MRI OF THE BRAIN COMBO CLINICAL HISTORY: Encephalitis. COMPARISON STUDY: CT of the brain dated 07/04/2017. MRI of the brain dated 07/03/2017. TECHNIQUE: MRI of the brain was performed utilizing various T1 and T2-weighted sequences in the axial, sagittal, and coronal planes. Contrast-enhanced sequences were acquired following the administration of 6 cc of Gadavist. FINDINGS: Brain parenchyma: There are age-related involutional changes noting advanced confluent subcortical and periventricular microangiopathic disease. There is no hemorrhage or mass effect. There is patchy T2 signal abnormality seen throughout the cerebellum, and also involving both thalami. There may also be T2 signal abnormality within the white matter; however, this is not well evaluated due to extensive microangiopathic change. Subtle cortical abnormality is identified within the temporal lobes, best appreciated on the FLAIR sequences. Faint restricted diffusion is suggested in these regions that is not typical for ischemia. No enhancing mass lesion is identified on the postcontrast images. There is no leptomeningeal or pachymeningeal enhancement. No extra-axial fluid collection is seen. The cerebellar tonsils are normal in configuration. Ventricles, sulci, and cisterns: Prominent secondary to involutional change. Pituitary and sella: Unremarkable. Intracranial vasculature: Normal flow voids are maintained at the skull base. Orbits: The bony orbits are grossly intact. Orbital contents are normal in appearance noting bilateral ocular lens implants. Sinuses and mastoids: Trace mucosal thickening is seen within the maxillary antra. Mild mucosal thickening is also identified within the ethmoid sinuses. Fluid is noted in the sphenoid sinuses. There is a left mastoid effusion. Fluid is present within the pharynx. Calvarium: Unremarkable. Cervical cord: Partially visualized cervical spinal cord is normal in morphology and signal intensity. IMPRESSION: 1. There is patchy T2 signal abnormality identified, greatest in the cerebellar hemispheres and the thalami. There may also be periventricular matter abnormality; however, this is not well assessed due to significant underlying microangiopathic change. Subtle cortical signal abnormality is seen within the temporal lobes, and these findings are best appreciated on the FLAIR sequence. The appearance is consistent with a nonspecific encephalitis/cerebritis. This could be related to an infectious/viral process or less likely a metabolic or global ischemic insult. Clinical correlation will be essential. 2. No hemorrhage is identified. There is no restricted diffusion identified typical for stroke. 3. There is no enhancing mass. No leptomeningeal/pachymeningeal enhancement is seen. 4. Left mastoid effusion and paranasal sinus disease as above. 5. Fluid is seen layering in the pharynx. IMPRESSION: Fluoroscopically guided lumbar puncture collection of 9 cc of clear CSF. Data Medications: Current Inpatient Medications Medications (Trade) Dose Ordered Sig/Josué Route Start Time Stop Time Status Last Admin Dose Admin Acetaminophen (Tylenol Tab) 650 mg Q4H PRN PO 06/29/17 11:00 07/29/17 10:59 Future Hold 07/03/17 11:07 650 MG Ondansetron HCl (Zofran Inj) 4 mg Q6H PRN IV 06/29/17 11:00 07/29/17 10:59 Aspirin (Ecotrin Tab) 81 mg DAILY PO 06/30/17 08:00 07/30/17 08:59 Future Hold 07/02/17 08:23 81 MG Atorvastatin Calcium (Lipitor Tab) 40 mg DAILY PO 06/30/17 08:00 07/30/17 08:59 Future Hold 07/02/17 08:22 40 MG Levothyroxine Sodium (Synthroid Tab) 100 mcg DAILYBB PO 06/30/17 06:30 07/30/17 06:29 Future Hold Losartan Potassium (coZAAR TAB) 25 mg DAILY PO 06/30/17 08:00 07/30/17 08:59 Future Hold 07/02/17 08:24 25 MG Losartan Potassium (coZAAR TAB) 50 mg DAILY PO 06/30/17 08:00 07/30/17 08:59 Future Hold 07/02/17 08:24 50 MG Metoprolol Succinate (Toprol Xl Tab) 50 mg DAILY PO 06/30/17 08:00 07/30/17 08:59 Future Hold 07/02/17 08:22 50 MG Calcium/Vitamin D (Caltrate Plus Tab) 2 tab DAILY PO 06/30/17 08:00 07/30/17 07:59 Future Hold 07/02/17 08:23 2 TAB Miscellaneous (Iv Fluids Completed) 1 ea PRN PRN N/A 06/29/17 11:30 06/29/18 11:29 Ceftriaxone Sodium 2000 mg/ Dextrose 70 ml @ 100 mls/hr Q12H IV 06/30/17 22:00 07/10/17 21:59 07/04/17 21:44 100 MLS/HR Acyclovir Sodium 650 mg/Dextrose 113 ml @ 110 mls/hr Q8H IV 06/30/17 10:30 07/10/17 10:29 07/05/17 03:21 110 MLS/HR Lactobacillus Acidophilus (Lactinex Granules Pack) 1 gm TIDM PO 07/01/17 07:30 07/31/17 07:29 Future Hold 07/02/17 15:22 1 GM Warfarin Sodium (Coumadin Tab) 5 mg DAILY@16 PO 07/02/17 16:00 08/01/17 15:59 Future Hold 07/02/17 15:21 5 MG Enoxaparin Sodium (Lovenox Inj) 40 mg Q24H SQ 07/02/17 16:00 08/01/17 15:59 Future Hold 07/04/17 15:55 40 MG Piperacillin Sod/ Tazobactam Sod (Consult) 1 ea UD PRN N/A 07/03/17 14:55 08/02/17 14:54 Piperacillin Sod/ Tazobactam Sod 3.375 gm/Dextrose 115 ml @ 28.75 mls/ hr Q8H IV 07/03/17 22:00 07/10/17 21:59 07/05/17 05:58 28.75 MLS/HR Metoprolol Tartrate (Lopressor Iv) 5 mg Q6 IV. 07/04/17 12:00 08/03/17 11:59 07/05/17 05:59 5 MG Potassium Chloride 40 meq/ Dextrose/Sodium Chloride 1,020 ml @ 100 mls/hr [id number] IV 07/04/17 10:30 08/03/17 10:29 07/05/17 07:38 100 MLS/HR Enalaprilat 0.625 mg/Dextrose 25.5 ml @ 100 mls/hr Q6H PRN IV 07/04/17 09:15 08/03/17 09:14 07/04/17 15:17 100 MLS/HR Acetaminophen (Tylenol Supp) 650 mg Q4H PRN [place] 07/05/17 07:30 08/04/17 07:29 Vital Signs: Date Time Temp Pulse Resp B/P (MAP) Pulse Ox O2 Delivery O2 Flow Rate FiO2 07/05/17 06:02 62 31 124/76 (92) 97 Humidified Oxygen 11.0 07/05/17 05:59 88 118/67 07/05/17 05:01 63 35 131/82 (98) 97 Humidified Oxygen 11.0 07/05/17 04:01 36.8 91 22 125/80 (95) 97 Humidified Oxygen 11.0 07/05/17 03:01 80 24 109/71 (84) 98 Humidified Oxygen 11.0 07/05/17 02:01 83 24 101/67 (78) 98 Humidified Oxygen 11.0 07/05/17 01:01 86 24 102/67 (79) 97 Humidified Oxygen 11.0 07/05/17 00:01 36.3 91 26 113/79 (90) 97 Humidified Oxygen 11.0 07/04/17 23:56 96 24 115/71 (86) 97 Humidified Oxygen 11.0 07/04/17 23:39 90 24 114/73 (87) 96 Humidified Oxygen 11.0 07/04/17 23:01 98 27 167/90 (115) 96 Humidified Oxygen 11.0 07/04/17 22:01 37.4 96 26 139/87 (104) 95 Humidified Oxygen 11.0 07/04/17 21:01 106 24 174/93 (120) 97 Humidified Oxygen 11.0 07/04/17 20:01 37.6 100 29 174/111 (132) 99 Humidified Oxygen 11.0 07/04/17 18:00 92 92 172/105 (127) 99 Humidified Oxygen 11.0 07/04/17 17:45 109 145/107 07/04/17 16:25 168/103 (124) 07/04/17 16:00 36.9 117 25 180/117 (138) 97 Humidified Oxygen 11.0 07/04/17 16:00 97 Humidified Oxygen 11.0 07/04/17 13:00 101 30 155/94 (114) 97 Humidified Oxygen 11.0 Mask 07/04/17 12:47 37.7 107 31 166/110 (128) 97 Humidified Oxygen 11.0 Mask 07/04/17 12:30 190/100 (130) 07/04/17 12:00 94 Room Air 07/04/17 11:46 36.8 109 29 148/101 (117) 96 Room Air 07/04/17 10:54 105 07/04/17 09:45 37.5 104 20 92 2.0 Laboratory Results: Last 24 Hours Test 07/04/17 18:48 07/05/17 00:03 07/05/17 00:06 07/05/17 00:32 Total Bilirubin 0.7 mg/dl Direct Bilirubin 0.2 mg/dl Aspartate Amino Transf (AST/SGOT) 26 U/L Alanine Aminotransferase (ALT/SGPT) 23 U/L Alkaline Phosphatase 82 U/L Ammonia 20.0 umol/L Total Protein 7.3 gm/dl Albumin 3.1 gm/dl Lyme Disease IgG Antibody NEG Lyme Disease IgM Antibody NEG Urine Osmolality 510 mOms/kg Bedside Glucose 122 mg/dl Blood Gas Sample Site L Radial Bedside Blood Gas pH (LAB) 7.49 Bedside Blood Gas pCO2 (LAB) 33 mmHg Bedside Blood Gas pO2 (LAB) 132 mmHg Bedside Blood Gas HCO3 (LAB) 26 meq/L Bedside Blood Gas Total CO2 27 mEq/l Bedside Blood Gas Base Excess (LAB) 2.0 meq/L Bedside Blood Gas O2 Saturation 99.0 % Evelio Test Pass Oxygen Delivery Device Other Bedside FiO2 50 % Test 07/05/17 05:09 White Blood Count 11.96 K/uL Red Blood Count 4.04 M/uL Hemoglobin 13.6 g/dL Hematocrit 37.6 % Mean Corpuscular Volume 93.1 fL Mean Corpuscular Hemoglobin 33.7 pg Mean Corpuscular Hemoglobin Concent 36.2 g/dl RDW Standard Deviation 41.2 fL RDW Coefficient of Variation 12.1 % Platelet Count 209 K/uL Mean Platelet Volume 9.6 fL Prothrombin Time 14.8 SECONDS Prothromb Time International Ratio 1.4 Sodium Level 128 mmol/L Potassium Level 3.2 mmol/L Chloride Level 93 mmol/L Carbon Dioxide Level 28 mmol/L Anion Gap 7.0 mmol/L Blood Urea Nitrogen 13 mg/dl Creatinine 0.89 mg/dl Est Creatinine Clear Calc Drug Dose 44.1 ml/min Estimated GFR () 68.0 Estimated GFR (Non- 58.7 BUN/Creatinine Ratio 14.5 Random Glucose 166 mg/dl Calcium Level 7.9 mg/dl Phosphorus Level 2.5 mg/dl Magnesium Level 2.2 mg/dl Total Bilirubin 0.6 mg/dl Aspartate Amino Transf (AST/SGOT) 20 U/L Alanine Aminotransferase (ALT/SGPT) 21 U/L Alkaline Phosphatase 75 U/L Total Protein 6.7 gm/dl Albumin 2.8 gm/dl Globulin 3.9 gm/dl Albumin/Globulin Ratio 0.7 Resident Tracking Resident Involvement: Resident Care Provided Care Provided: Adult Hospital Medicine
--- NOTE | 2017-07-05 10:22 | Progress Note ---
Medicine Progress Note Date & Time of Visit: Jul 05, 2017 at 08:15 . Subjective Low grade temp overnight. Remains unresponsive. No new problems reported. . Objective Last 8 Hrs Date Time Temp Pulse Resp B/P (MAP) Pulse Ox O2 Delivery O2 Flow Rate FiO2 07/05/17 10:00 96 21 182/129 (146) 99 Humidified Oxygen 11.0 07/05/17 08:00 36.8 89 26 153/90 (111) 100 Humidified Oxygen 11.0 07/05/17 08:00 Humidified Oxygen 11.0 Mask 07/05/17 06:02 62 31 124/76 (92) 97 Humidified Oxygen 11.0 07/05/17 05:59 88 118/67 07/05/17 05:01 63 35 131/82 (98) 97 Humidified Oxygen 11.0 07/05/17 04:01 36.8 91 22 125/80 (95) 97 Humidified Oxygen 11.0 07/05/17 03:01 80 24 109/71 (84) 98 Humidified Oxygen 11.0 Physical Exam: General- no apparent distress Eyes- anicteric Neck- supple, no JVD, no stridor Lungs- few scattered rhonchi Heart- RRR, with ectopy, no murmur, no gallop Abdomen- quiet bowel sounds, soft, nontender Extremities- no pretibial edema or calf tenderness Neuro- unresponsive; pupils 2 mm, reactive Skin- warm & dry . Laboratory Results: Last 24 Hours Test 07/04/17 18:48 07/05/17 00:03 07/05/17 00:06 07/05/17 00:32 Total Bilirubin 0.7 mg/dl Direct Bilirubin 0.2 mg/dl Aspartate Amino Transf (AST/SGOT) 26 U/L Alanine Aminotransferase (ALT/SGPT) 23 U/L Alkaline Phosphatase 82 U/L Ammonia 20.0 umol/L Total Protein 7.3 gm/dl Albumin 3.1 gm/dl Lyme Disease IgG Antibody NEG Lyme Disease IgM Antibody NEG Urine Osmolality 510 mOms/kg Bedside Glucose 122 mg/dl Blood Gas Sample Site L Radial Bedside Blood Gas pH (LAB) 7.49 Bedside Blood Gas pCO2 (LAB) 33 mmHg Bedside Blood Gas pO2 (LAB) 132 mmHg Bedside Blood Gas HCO3 (LAB) 26 meq/L Bedside Blood Gas Total CO2 27 mEq/l Bedside Blood Gas Base Excess (LAB) 2.0 meq/L Bedside Blood Gas O2 Saturation 99.0 % Evelio Test Pass Oxygen Delivery Device Other Bedside FiO2 50 % Test 07/05/17 05:09 07/05/17 10:04 White Blood Count 11.96 K/uL Red Blood Count 4.04 M/uL Hemoglobin 13.6 g/dL Hematocrit 37.6 % Mean Corpuscular Volume 93.1 fL Mean Corpuscular Hemoglobin 33.7 pg Mean Corpuscular Hemoglobin Concent 36.2 g/dl RDW Standard Deviation 41.2 fL RDW Coefficient of Variation 12.1 % Platelet Count 209 K/uL Mean Platelet Volume 9.6 fL Prothrombin Time 14.8 SECONDS Prothromb Time International Ratio 1.4 Sodium Level 128 mmol/L Potassium Level 3.2 mmol/L Chloride Level 93 mmol/L Carbon Dioxide Level 28 mmol/L Anion Gap 7.0 mmol/L Blood Urea Nitrogen 13 mg/dl Creatinine 0.89 mg/dl Est Creatinine Clear Calc Drug Dose 44.1 ml/min Estimated GFR () 68.0 Estimated GFR (Non- 58.7 BUN/Creatinine Ratio 14.5 Random Glucose 166 mg/dl Calcium Level 7.9 mg/dl Phosphorus Level 2.5 mg/dl Magnesium Level 2.2 mg/dl Total Bilirubin 0.6 mg/dl Aspartate Amino Transf (AST/SGOT) 20 U/L Alanine Aminotransferase (ALT/SGPT) 21 U/L Alkaline Phosphatase 75 U/L Total Protein 6.7 gm/dl Albumin 2.8 gm/dl Globulin 3.9 gm/dl Albumin/Globulin Ratio 0.7 Date/Time Source Procedure Growth Status 07/05/17 00:00 Blood Parasitology Test Pending Ordered 07/04/17 13:10 Nasal MRSA DNA Surveillance Screen - Final Specimen Negative for MRSA by DNA Probe Complete Assessment & Plan ALTERED MENTAL STATUS Presented with progressive confusion. CT head demonstrated chronic microvascular changes, no acute findings. Altered mental status initially attributed to UTI. Recent outpatient urine culture grew E coli. UA at time of admission showed moderate leukocyte esterase, many WBC's, many epith cells, no bacteria. Initially received IV ceftriaxone. Urine culture subsequently grew more than 3 organisms, probable skin mariel. Blood cultures at time of admission were negative. SUBSTANCE ABUSE TECHNICIAN infection was considered in light of fever and altered mental status. ID consulted. Antibiotic coverage was broadened (high dose ceftriaxone, vancomycin, ampicillin , acyclovir). LP could not be performed initially because of elevated INR on warfarin. Warfarin was reversed with vitamin K and FFP. LP performed, results as noted: Item Value Date Time CSF Appearance CLEAR 07/01/17 1000 CSF Color COLORLESS 07/01/17 1000 CSF WBC 164 /uL *H 07/01/17 1000 CSF RBC 2 /uL 07/01/17 1000 CSF Cell Count Tube # 3 07/01/17 1000 CSF Mononuclear WBCs 99.0 % 07/01/17 1000 CSF Polynuclear WBCs 1.0 % 07/01/17 1000 CSF Chemistry Tube # 1 07/01/17 1000 CSF Glucose 86 mg/dl H 07/01/17 1000 CSF Total Protein 79.3 mg/dl H 07/01/17 1000 CSF gram stain negative. CSF cultures negative so far. Cryptococcal Ag negative. CSF Lyme PCR and antibodies negative. CSF HSV 1/2 PCR negative. CSF Enterovirus PCR negative. CSF West Nile PCR negative. Anthony most likely to have viral meningitis. Condition initially improved. Vancomycin and ampicillin discontinued. Ceftriaxone and acyclovir were continued. Worsening confusion 07/03. Neuro consulted. MRI performed 07/03 had some motion artifact, but did not show any acute changes. EEG- moderate diffuse nonlateralizing encephalopathy, no apparent epileptogenic foci. Unresponsive. Coordinate care with CCM, Neuro, ID. POSSIBLE PNEUMONIA Chest x-ray 07/03 showed LLL density, infiltrate vs atelectasis. Started on IV piperacillin / tazobactam for possible pneumonia. PAROXYSMAL ATRIAL FIB Unable to take oral metoprolol due to NPO status. Converted to parenteral metoprolol. HYPERTENSION Unable to take oral meds due to NPO status. Converted metoprolol to IV. IV enalapril PRN. HYPONATREMIA Serum sodium 141 --> --> 130 --> 128. Hyponatremia may be secondary to free water diluent in multiple IV antibiotics. Consider SIADH secondary to SUBSTANCE ABUSE TECHNICIAN or pulmonary process. 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 Follow. HYPOKALEMIA K today = 3.2. Replace. Follow. HYPOTHYROIDISM Unable to take oral levothyroxine. Convert to IV if NPO for a prolonged period of time. VTE PROPHYLAXIS On warfarin at time of admission which was subsequently held / reversed. Started on enoxaparin after LP; hold for possible repeat LP. SCD's. DISPOSITION To be determined. Family Medicine follow-up with Dr. Mosley. Spouse given update. Status and options discussed. Pros and cons of transfer to tertiary care discussed. Ms. Cortes indicates that she would not like patient to be transferred to tertiary care unless there is likely to be clear benefit for the patient. At this time, there are no apparent diagnostic or therapeutic services that would require tertiary care. Continue current antimicrobial management and supportive care. Case discussed with CCM. Consider tick-borne illnesses besides Lyme (e.g., Anaplasmosis, Ehrlichiosis) Check tick-borne PCR panel (blood). Check peripheral smear for Anaplasma. Start doxycycline empirically. Repeat LP and MRI brain with contrast planned. Case discussed with ID at [facility]. Continuation of acyclovir recommended in case CSF HSV PCR false negative. Resumption of ampicillin to cover possible Listeria recommended. . Consultants: ID Current Inpatient Medications: Current Inpatient Medications Medications (Trade) Dose Ordered Sig/Josué Route Start Time Stop Time Status Last Admin Dose Admin Acetaminophen (Tylenol Tab) 650 mg Q4H PRN PO 06/29/17 11:00 07/29/17 10:59 Future Hold 07/03/17 11:07 650 MG Ondansetron HCl (Zofran Inj) 4 mg Q6H PRN IV 06/29/17 11:00 07/29/17 10:59 Aspirin (Ecotrin Tab) 81 mg DAILY PO 06/30/17 08:00 07/30/17 08:59 Future Hold 07/02/17 08:23 81 MG Atorvastatin Calcium (Lipitor Tab) 40 mg DAILY PO 06/30/17 08:00 07/30/17 08:59 Future Hold 07/02/17 08:22 40 MG Levothyroxine Sodium (Synthroid Tab) 100 mcg DAILYBB PO 06/30/17 06:30 07/30/17 06:29 Future Hold Losartan Potassium (coZAAR TAB) 25 mg DAILY PO 06/30/17 08:00 07/30/17 08:59 Future Hold 07/02/17 08:24 25 MG Losartan Potassium (coZAAR TAB) 50 mg DAILY PO 06/30/17 08:00 07/30/17 08:59 Future Hold 07/02/17 08:24 50 MG Metoprolol Succinate (Toprol Xl Tab) 50 mg DAILY PO 06/30/17 08:00 07/30/17 08:59 Future Hold 07/02/17 08:22 50 MG Calcium/Vitamin D (Caltrate Plus Tab) 2 tab DAILY PO 06/30/17 08:00 07/30/17 07:59 Future Hold 07/02/17 08:23 2 TAB Miscellaneous (Iv Fluids Completed) 1 ea PRN PRN N/A 06/29/17 11:30 06/29/18 11:29 Ceftriaxone Sodium 2000 mg/ Dextrose 70 ml @ 100 mls/hr Q12H IV 06/30/17 22:00 07/10/17 21:59 07/04/17 21:44 100 MLS/HR Acyclovir Sodium 650 mg/Dextrose 113 ml @ 110 mls/hr Q8H IV 06/30/17 10:30 07/10/17 10:29 07/05/17 03:21 110 MLS/HR Lactobacillus Acidophilus (Lactinex Granules Pack) 1 gm TIDM PO 07/01/17 07:30 07/31/17 07:29 Future Hold 07/02/17 15:22 1 GM Warfarin Sodium (Coumadin Tab) 5 mg DAILY@16 PO 07/02/17 16:00 08/01/17 15:59 Future Hold 07/02/17 15:21 5 MG Enoxaparin Sodium (Lovenox Inj) 40 mg Q24H SQ 07/02/17 16:00 08/01/17 15:59 Future Hold 07/04/17 15:55 40 MG Piperacillin Sod/ Tazobactam Sod (Consult) 1 ea UD PRN N/A 07/03/17 14:55 08/02/17 14:54 Piperacillin Sod/ Tazobactam Sod 3.375 gm/Dextrose 115 ml @ 28.75 mls/ hr Q8H IV 07/03/17 22:00 07/10/17 21:59 07/05/17 05:58 28.75 MLS/HR Metoprolol Tartrate (Lopressor Iv) 5 mg Q6 IV. 07/04/17 12:00 08/03/17 11:59 07/05/17 05:59 5 MG Potassium Chloride 40 meq/ Dextrose/Sodium Chloride 1,020 ml @ 100 mls/hr [id number] IV 07/04/17 10:30 08/03/17 10:29 07/05/17 07:38 100 MLS/HR Enalaprilat 0.625 mg/Dextrose 25.5 ml @ 100 mls/hr Q6H PRN IV 07/04/17 09:15 08/03/17 09:14 07/04/17 15:17 100 MLS/HR Acetaminophen (Tylenol Supp) 650 mg Q4H PRN [place] 07/05/17 07:30 08/04/17 07:29
[2017-07-05] MEDS: CEFTRIAXONE SOD INJ 2,000 MG in DEXTROSE 5% 50ML 50 ML IV SCH ×2 (10:29→22:11)
[2017-07-05] MEDS: ENALAPRILAT IV 0.625 MG in DEXTROSE 5% 25ML 25 ML IV PRN (10:31)
[2017-07-05] MEDS: NORMOSOL R 1,000 ML IV SCH ×2 (11:40→17:14)
[2017-07-05] MEDS: DOXYCYCLINE HYCLATE 100 MG in DEXTROSE 5% 100ML IV SCH ×2 (11:40→23:12)
[2017-07-05] MEDS: AMPICILLIN IV 2,000 MG in SODIUM CHLOR 0.9% AD-VAN 100ML 100 ML IV SCH ×3 (14:14→22:11)
[2017-07-05] MEDS ORDERED: ETOMIDATE 2 MG/ML 20 ML VIAL IV ONE (14:30)
[2017-07-05] MEDS ORDERED: VECURONIUM BROMIDE 10 MG VIAL IV STA (14:30)
[2017-07-05] MEDS ORDERED: RAPID SEQUENCE INDUCTION BAG ONE (14:35)
[2017-07-05] MEDS ORDERED: ROCURONIUM BROMIDE 10 MG/ML 5 ML VIAL IV ONE (14:44)
[2017-07-05] MEDS ORDERED: MIDAZOLAM HCL 1 MG/ML 2ML VIAL IV PRN (14:45)
[2017-07-05] MEDS ORDERED: FENTANYL CITRATE INJ 50 MCG/1 ML 2 ML VIAL IV PRN (14:45)
[2017-07-05] MEDS ORDERED: PROPOFOL IV EMULSION 10 MG/ML 100 ML VIAL IV ONE (16:07)
--- NOTE | 2017-07-05 16:15 | Anesthesiology Progress Note ---
Anesthesia Post Op Note Date & Time Jul 05, 2017 at 16:14 Vital Signs Pain Intensity: 0.0 Vital Signs Past 12 Hours Date Time Temp Pulse Resp B/P (MAP) Pulse Ox O2 Delivery O2 Flow Rate FiO2 07/05/17 15:43 100 07/05/17 14:00 105 21 133/77 (95) 98 Humidified Oxygen 11.0 07/05/17 12:00 36.9 91 29 153/94 (113) 98 Humidified Oxygen 11.0 07/05/17 12:00 Humidified Oxygen 11.0 Mask 07/05/17 11:41 106 198/100 07/05/17 10:00 96 21 182/129 (146) 99 Humidified Oxygen 11.0 07/05/17 08:00 36.8 89 26 153/90 (111) 100 Humidified Oxygen 11.0 07/05/17 08:00 Humidified Oxygen 11.0 Mask 07/05/17 06:02 62 31 124/76 (92) 97 Humidified Oxygen 11.0 07/05/17 05:59 88 118/67 07/05/17 05:01 63 35 131/82 (98) 97 Humidified Oxygen 11.0 Notes Mental Status: alert / awake / arousable, participated in evaluation Pt Amnestic to Procedure: Yes Nausea / Vomiting: adequately controlled Pain: adequately controlled Airway Patency, RR, SpO2: stable & adequate BP & HR: stable & adequate Hydration State: stable & adequate Anesthetic Complications: no major complications apparent Pt s/p LP under fluoro with anesthesia. Intubated and remained intubated on the vent. Vital signs otherwise stable. Sedated on propofol drip. Reports given to ICU nurse. RT at bedside managing vent.
--- NOTE | 2017-07-05 16:26 | DIAGNOSTIC IMAGING REPORT ---
FLUOROSCOPICALLY GUIDED LUMBAR PUNCTURE CLINICAL HISTORY: Evaluate for encephalitis. PROCEDURE: Due to altered mental status and sedation, the procedure, risks and benefits were discussed with the patient's power of state's attorney including the risk of spinal headache, bleeding and infection. She agreed to the procedure and informed written consent was obtained. The procedure was performed by Dr. Sandoval following a timeout. The right L5-S1 interlaminar space was targeted. Skin overlying the space was prepped and draped in sterile fashion and local anesthesia was achieved with 1% lidocaine. Under intermittent fluoroscopic guidance, a 3 1/2 inch 22-gauge spinal needle was directed into the thecal sac with immediate return of clear CSF. A total of 9 cc of CSF was collected in 4 vials and sent to the laboratory as ordered. The needle was removed. The patient tolerated the procedure well and no immediate complications were evident. IMPRESSION: Fluoroscopically guided lumbar puncture collection of 9 cc of clear CSF. Electronically signed by: Patricio Sandoval M.D. 07/05/2017 4:24 PM Dictated Date/Time: 07/05/2017 4:22 PM
--- NOTE | 2017-07-05 16:39 | PROGRESS NOTE ---
DATE: 07/05/2017 DATE: 07/05/2017 REFERRING DOCTOR: Dr. Arevalo. 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 The CSF initially had lymphocytic pleocytosis, elevated protein, normal glucose and cultures, etc. have been negative including testing for appropriate herpes virus. Imaging studies have been inadequate due to motion artifact. She was down today for another lumbar puncture, results of which are pending and is on deck for MRI with contrast under her current sedated state. I refer the reader to Dr. Hudson's recommendations that this additional testing be done and she is currently being seen by infectious disease. 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 Right now her examination shows a paralyzed woman who is unresponsive, intubated and on ventilator pending performance of some diagnostic studies, so at this time neurology is simply going to look at her again tomorrow after the MRI hopefully will be done and we can go from there. There was talk of transferring her off to [facility] for further studies or recommendations and I guess this is still a potential but I am not sure [facility] would offer anything different than what we are currently doing here. Again, I will check with her tomorrow. I discussed the case with Dr. Arevalo. HILARIO
[2017-07-05 18:02] LABS: CSF APPEARANCE CLEAR; CSF COLOR COLORLESS; CSF XANTHOCHROMIC NO XANTHOCHROMIA
[2017-07-05] MEDS ORDERED: GADAVIST IV PRN (19:30)
--- NOTE | 2017-07-05 19:32 | DIAGNOSTIC IMAGING REPORT ---
MRI OF THE BRAIN COMBO CLINICAL HISTORY: Encephalitis. COMPARISON STUDY: CT of the brain dated 07/04/2017. MRI of the brain dated 07/03/2017. TECHNIQUE: MRI of the brain was performed utilizing various T1 and T2-weighted sequences in the axial, sagittal, and coronal planes. Contrast-enhanced sequences were acquired following the administration of 6 cc of Gadavist. FINDINGS: Brain parenchyma: There are age-related involutional changes noting advanced confluent subcortical and periventricular microangiopathic disease. There is no hemorrhage or mass effect. There is patchy T2 signal abnormality seen throughout the cerebellum, and also involving both thalami. There may also be T2 signal abnormality within the white matter; however, this is not well evaluated due to extensive microangiopathic change. Subtle cortical abnormality is identified within the temporal lobes, best appreciated on the FLAIR sequences. Faint restricted diffusion is suggested in these regions that is not typical for ischemia. No enhancing mass lesion is identified on the postcontrast images. There is no leptomeningeal or pachymeningeal enhancement. No extra-axial fluid collection is seen. The cerebellar tonsils are normal in configuration. Ventricles, sulci, and cisterns: Prominent secondary to involutional change. Pituitary and sella: Unremarkable. Intracranial vasculature: Normal flow voids are maintained at the skull base. Orbits: The bony orbits are grossly intact. Orbital contents are normal in appearance noting bilateral ocular lens implants. Sinuses and mastoids: Trace mucosal thickening is seen within the maxillary antra. Mild mucosal thickening is also identified within the ethmoid sinuses. Fluid is noted in the sphenoid sinuses. There is a left mastoid effusion. Fluid is present within the pharynx. Calvarium: Unremarkable. Cervical cord: Partially visualized cervical spinal cord is normal in morphology and signal intensity. IMPRESSION: 1. There is patchy T2 signal abnormality identified, greatest in the cerebellar hemispheres and the thalami. There may also be periventricular matter abnormality; however, this is not well assessed due to significant underlying microangiopathic change. Subtle cortical signal abnormality is seen within the temporal lobes, and these findings are best appreciated on the FLAIR sequence. The appearance is consistent with a nonspecific encephalitis/cerebritis. This could be related to an infectious/viral process or less likely a metabolic or global ischemic insult. Clinical correlation will be essential. 2. No hemorrhage is identified. There is no restricted diffusion identified typical for stroke. 3. There is no enhancing mass. No leptomeningeal/pachymeningeal enhancement is seen. 4. Left mastoid effusion and paranasal sinus disease as above. 5. Fluid is seen layering in the pharynx. Electronically signed by: Evgeny Garduno M.D. 07/05/2017 7:31 PM Dictated Date/Time: 07/05/2017 7:21 PM
[2017-07-05] MEDS: PEPTAMEN INTENSE VHP 1000ML BAG OG SCH (23:13)
[2017-07-06] VITALS (46 sets, daily range): BP systolic 111–178; BP diastolic 65–102; PULSE 49–92; TEMP 36.8–37; O2SAT 97–100
[2017-07-06] MEDS: METOPROLOL TARTRATE 1 MG/ML VIAL IV. SCH ×5 (00:04→23:55)
[2017-07-06] MEDS: NORMOSOL R 1,000 ML IV SCH (01:51)
[2017-07-06] MEDS: ACYCLOVIR SOD INJ 650 MG in DEXTROSE 5% 100ML 100 ML IV SCH ×3 (01:52→17:41)
[2017-07-06] MEDS: AMPICILLIN IV 2,000 MG in SODIUM CHLOR 0.9% AD-VAN 100ML 100 ML IV SCH ×6 (01:52→22:28)
[2017-07-06 05:55] LABS: HEMATOCRIT 40.4 % (37-47); MEAN CORPUSCULAR HEMOGLOBIN 32.1 pg (25-34); MEAN CORPUSCULAR HGB CONC 34.2 g/dl (32-36); MEAN PLATELET VOLUME 9.4 fL (7.4-10.4); PLATELET COUNT 219 K/uL (130-400); WHITE BLOOD COUNT 10.63 K/uL (4.8-10.8)
[2017-07-06 06:05] LABS: ISTAT ALLEN TEST Pass; ISTAT ARTERIAL BLOOD GAS HCO3 25 meq/L (19-24); ISTAT ARTERIAL BLOOD GAS PCO2 33 mmHg (35-46); ISTAT ARTERIAL BLOOD GAS PO2 93 mmHg (80-95); ISTAT ARTERIAL BLOOD GAS pH 7.48 (7.35-7.45); ISTAT CARBON DIOXIDE 26 mEq/l (24-31); ISTAT DELIVERY SYSTEM Ventilator; ISTAT FIO2 30 %; ISTAT PEEP 5; ISTAT SITE L Radial
[2017-07-06 06:17] LABS: BUN/CREATININE RATIO 18.7 (10-20); CALCIUM 8.2 mg/dl (8.5-10.1); CREATININE 0.53 mg/dl (0.60-1.20); MAGNESIUM 2.2 mg/dl (1.8-2.4); PHOSPHORUS 1.8 mg/dl (2.5-4.9); POTASSIUM 3.6 mmol/L (3.5-5.1)
[2017-07-06] MEDS ORDERED: SODIUM PHOSPHATE 3 MMOL/1 ML INFUSION IV STA (06:27)
[2017-07-06] MEDS ORDERED: SODIUM PHOSPHATE INJ 21 MMOL in SODIUM CHLORIDE 0.9% 500ML 500 ML IV ONE (06:45)
--- NOTE | 2017-07-06 07:02 | DIAGNOSTIC IMAGING REPORT ---
CHEST ONE VIEW PORTABLE CLINICAL HISTORY: Respiratory failure COMPARISON STUDY: 07/04/2017 FINDINGS: There is an endotracheal tube 4.5 cm above the constantine. There is a nasogastric tube within the stomach. The cardiac and mediastinal contours remain stable. There are trace bilateral pleural effusions. There are left basal airspace opacities unchanged the prior study.[ IMPRESSION: 1. Endotracheal tube 4.5 cm above the constantine 2. Nasogastric tube within the stomach 3. Trace bilateral pleural effusions. Stable left basal airspace opacities Electronically signed by: Trev Booker M.D. 07/06/2017 7:00 AM Dictated Date/Time: 07/06/2017 6:58 AM
--- NOTE | 2017-07-06 08:07 | Progress Note ---
Medicine Progress Note Date & Time of Visit: Jul 06, 2017 at 07:30 . Subjective Intubated yesterday for airway protection. Repeat LP and MRI done. Nurses note eye opening to noxious stimuli. Spouse at bedside. . Objective Last 8 Hrs Date Time Temp Pulse Resp B/P (MAP) Pulse Ox O2 Delivery O2 Flow Rate FiO2 07/06/17 07:33 30 07/06/17 06:01 58 12 154/74 (100) 99 CPAP Mechanical Ventilator 07/06/17 05:38 81 148/81 07/06/17 05:32 73 13 148/81 (103) 100 07/06/17 05:24 30 07/06/17 05:01 70 8 149/75 (99) 99 07/06/17 04:01 37.0 78 16 140/79 (99) 97 CPAP Mechanical Ventilator 07/06/17 04:00 CPAP Mechanical Ventilator 07/06/17 03:31 80 10 135/74 (94) 98 07/06/17 03:01 59 13 145/75 (98) 98 07/06/17 02:33 30 07/06/17 02:31 57 12 126/76 (93) 99 07/06/17 02:01 55 14 131/82 (98) 99 CPAP Mechanical Ventilator 07/06/17 01:31 77 15 117/75 (89) 100 07/06/17 01:01 52 16 122/69 (86) 99 07/06/17 00:31 74 18 150/88 (108) 99 07/06/17 00:04 89 157/99 07/06/17 00:01 36.8 92 13 157/99 (118) 100 CPAP Mechanical Ventilator 07/05/17 23:59 CPAP Mechanical Ventilator Physical Exam: General- no apparent distress Eyes- anicteric ENT- oral ETT, oral GT Neck- no JVD Lungs- clear Heart- RRR, no murmur, no gallop Abdomen- quiet bowel sounds, soft, nontender Extremities- no pretibial edema or calf tenderness Neuro- minimally responsive; pupils 2 mm, reactive Skin- warm & dry . Laboratory Results: Last 24 Hours Test 07/05/17 10:04 07/05/17 11:52 07/05/17 15:39 07/05/17 23:48 Bedside Glucose 185 mg/dl 111 mg/dl CSF Color COLORLESS CSF Appearance CLEAR CSF WBC 57 /uL CSF RBC 41 /uL CSF Mononuclear WBCs 100.0 % CSF Xanthrochromic NO XANTHOCHROMIA CSF Cell Count Tube # 3 CSF Chemistry Tube # 1 CSF Glucose 76 mg/dl CSF Total Protein 81.0 mg/dl Test 07/06/17 00:27 07/06/17 05:33 07/06/17 05:54 Blood Gas Sample Site L Radial Bedside Blood Gas pH (LAB) 7.48 Bedside Blood Gas pCO2 (LAB) 33 mmHg Bedside Blood Gas pO2 (LAB) 93 mmHg Bedside Blood Gas HCO3 (LAB) 25 meq/L Bedside Blood Gas Total CO2 26 mEq/l Bedside Blood Gas Base Excess (LAB) 1.0 meq/L Bedside Blood Gas O2 Saturation 98.0 % Evelio Test Pass Oxygen Delivery Device Ventilator Bedside FiO2 30 % Blood Gas PEEP 5 White Blood Count 10.63 K/uL Red Blood Count 4.30 M/uL Hemoglobin 13.8 g/dL Hematocrit 40.4 % Mean Corpuscular Volume 94.0 fL Mean Corpuscular Hemoglobin 32.1 pg Mean Corpuscular Hemoglobin Concent 34.2 g/dl RDW Standard Deviation 40.8 fL RDW Coefficient of Variation 12.2 % Platelet Count 219 K/uL Mean Platelet Volume 9.4 fL Sodium Level 132 mmol/L Potassium Level 3.6 mmol/L Chloride Level 97 mmol/L Carbon Dioxide Level 26 mmol/L Anion Gap 9.0 mmol/L Blood Urea Nitrogen 10 mg/dl Creatinine 0.53 mg/dl Est Creatinine Clear Calc Drug Dose 74.1 ml/min Estimated GFR () 99.6 Estimated GFR (Non- 86.0 BUN/Creatinine Ratio 18.7 Random Glucose 102 mg/dl Calcium Level 8.2 mg/dl Phosphorus Level 1.8 mg/dl Magnesium Level 2.2 mg/dl Bedside Glucose 112 mg/dl Date/Time Source Procedure Growth Status 07/05/17 10:04 Blood Parasitology Test - Preliminary Resulted 07/05/17 15:39 Cerebral Spinal Fluid Gram Stain - Final Resulted 07/05/17 15:39 Cerebral Spinal Fluid CSF Culture Pending Resulted Assessment & Plan ALTERED MENTAL STATUS Presented with progressive confusion. CT head demonstrated chronic microvascular changes, no acute findings. Altered mental status initially attributed to UTI. Recent outpatient urine culture grew E coli. UA at time of admission showed moderate leukocyte esterase, many WBC's, many epith cells, no bacteria. Initially received IV ceftriaxone. Urine culture subsequently grew more than 3 organisms, probable skin mariel. Blood cultures at time of admission were negative. AQUATIC PERFORMER infection was considered in light of fever and altered mental status. ID consulted. Antibiotic coverage was broadened (high dose ceftriaxone, vancomycin, ampicillin , acyclovir). LP could not be performed initially because of elevated INR on warfarin. Warfarin was reversed with vitamin K and FFP. LP performed, results as noted: Item Value Date Time CSF Appearance CLEAR 07/01/17 1000 CSF Color COLORLESS 07/01/17 1000 CSF WBC 164 /uL *H 07/01/17 1000 CSF RBC 2 /uL 07/01/17 1000 CSF Cell Count Tube # 3 07/01/17 1000 CSF Mononuclear WBCs 99.0 % 07/01/17 1000 CSF Polynuclear WBCs 1.0 % 07/01/17 1000 CSF Chemistry Tube # 1 07/01/17 1000 CSF Glucose 86 mg/dl H 07/01/17 1000 CSF Total Protein 79.3 mg/dl H 07/01/17 1000 CSF gram stain negative. CSF cultures negative so far. Cryptococcal Ag negative. CSF Lyme PCR and antibodies negative. CSF HSV 1/2 PCR negative. CSF Enterovirus PCR negative. CSF West Nile PCR negative. Hernshaw most likely to have viral meningitis. Condition initially improved. Vancomycin, ampicillin, dexamethasone discontinued. Ceftriaxone and acyclovir were continued. Worsening confusion 07/03. Neuro consulted. MRI performed 07/03 had some motion artifact, but did not show any acute changes. EEG- moderate diffuse nonlateralizing encephalopathy, no apparent epileptogenic foci. Repeat LP 07/05/17: Item Value Date Time CSF WBC 57 /uL *H 07/05/17 1539 CSF RBC 41 /uL 07/05/17 1539 CSF Cell Count Tube # 3 07/05/17 1539 CSF Mononuclear WBCs 100.0 % 07/05/17 1539 CSF Glucose 76 mg/dl H 07/05/17 1539 CSF Total Protein 81.0 mg/dl H 07/05/17 1539 MRI with contrast 07/05/17 demonstrated T2 abnormalities in cerebellum and thalami as well as some subtle findings within temporal lobes. 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 Continue acyclovir. 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 Continue supportive measures. LLL DENSITY Chest x-ray 07/03 showed LLL density, infiltrate vs atelectasis. Started on IV piperacillin / tazobactam for possible pneumonia. Bronchoscopy performed 07/05; results pending. PAROXYSMAL ATRIAL FIB Unable to take oral metoprolol due to NPO status. Converted to parenteral metoprolol. Best not to maintain full anticoagulation at this time due to critical illness, procedures, etc. Resume warfarin when able. HYPERTENSION Unable to take oral meds due to NPO status. Converted metoprolol to IV. IV enalapril PRN. HYPONATREMIA Serum sodium 141 --> --> 130 --> 128--> 132. Hyponatremia may be secondary to free water diluent in multiple IV antibiotics. Consider SIADH secondary to AQUATIC PERFORMER or pulmonary process. 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 Follow. HYPOKALEMIA K as low as 3.1. Receiving replacement. K today = 3.6. Follow. HYPOTHYROIDISM Levothyroxine via OGT. NUTRITION Receiving enteral feedings via OGT. VTE PROPHYLAXIS On warfarin at time of admission which was subsequently held / reversed. Continue enoxaparin. SCD's. DISPOSITION To be determined. Family Medicine follow-up with Dr. Mosley. Spouse Ms. Cortes given update. . Consultants: ID Current Inpatient Medications: Current Inpatient Medications Medications (Trade) Dose Ordered Sig/Josué Route Start Time Stop Time Status Last Admin Dose Admin Acetaminophen (Tylenol Tab) 650 mg Q4H PRN PO 06/29/17 11:00 07/29/17 10:59 Future Hold 07/03/17 11:07 650 MG Ondansetron HCl (Zofran Inj) 4 mg Q6H PRN IV 06/29/17 11:00 07/29/17 10:59 Aspirin (Ecotrin Tab) 81 mg DAILY PO 06/30/17 08:00 07/30/17 08:59 Future Hold 07/02/17 08:23 81 MG Atorvastatin Calcium (Lipitor Tab) 40 mg DAILY PO 06/30/17 08:00 07/30/17 08:59 Future Hold 07/02/17 08:22 40 MG Levothyroxine Sodium (Synthroid Tab) 100 mcg DAILYBB PO 06/30/17 06:30 07/30/17 06:29 Future Hold Losartan Potassium (coZAAR TAB) 25 mg DAILY PO 06/30/17 08:00 07/30/17 08:59 Future Hold 07/02/17 08:24 25 MG Losartan Potassium (coZAAR TAB) 50 mg DAILY PO 06/30/17 08:00 07/30/17 08:59 Future Hold 07/02/17 08:24 50 MG Metoprolol Succinate (Toprol Xl Tab) 50 mg DAILY PO 06/30/17 08:00 07/30/17 08:59 Future Hold 07/02/17 08:22 50 MG Calcium/Vitamin D (Caltrate Plus Tab) 2 tab DAILY PO 06/30/17 08:00 07/30/17 07:59 Future Hold 07/02/17 08:23 2 TAB Miscellaneous (Iv Fluids Completed) 1 ea PRN PRN N/A 06/29/17 11:30 06/29/18 11:29 Ceftriaxone Sodium 2000 mg/ Dextrose 70 ml @ 100 mls/hr Q12H IV 06/30/17 22:00 07/10/17 21:59 07/05/17 22:11 100 MLS/HR Acyclovir Sodium 650 mg/Dextrose 113 ml @ 110 mls/hr Q8H IV 06/30/17 10:30 07/10/17 10:29 07/06/17 01:52 110 MLS/HR Lactobacillus Acidophilus (Lactinex Granules Pack) 1 gm TIDM PO 07/01/17 07:30 07/31/17 07:29 Future Hold 07/02/17 15:22 1 GM Warfarin Sodium (Coumadin Tab) 5 mg DAILY@16 PO 07/02/17 16:00 08/01/17 15:59 Future Hold 07/02/17 15:21 5 MG Enoxaparin Sodium (Lovenox Inj) 40 mg Q24H SQ 07/02/17 16:00 08/01/17 15:59 Future Hold 07/04/17 15:55 40 MG Metoprolol Tartrate (Lopressor Iv) 5 mg Q6 IV. 07/04/17 12:00 08/03/17 11:59 07/06/17 05:38 5 MG Enalaprilat 0.625 mg/Dextrose 25.5 ml @ 100 mls/hr Q6H PRN IV 07/04/17 09:15 08/03/17 09:14 07/05/17 10:31 100 MLS/HR Acetaminophen (Tylenol Supp) 650 mg Q4H PRN AR 07/05/17 07:30 08/04/17 07:29 Doxycycline Hyclate 100 mg/ Dextrose 110 ml @ 55 mls/hr Q12H IV 07/05/17 11:00 07/07/17 10:59 07/05/17 23:12 55 MLS/HR Parenteral Electrolyte Solution 1,000 ml @ 125 mls/hr Q8H IV 07/05/17 10:45 08/04/17 10:44 07/06/17 01:51 125 MLS/HR Fentanyl Citrate (Fentanyl Inj) 50 mcg Q2H PRN IV 07/05/17 11:15 07/19/17 11:14 Ampicillin Sodium 2000 mg/Sodium Chloride 100 ml @ 200 mls/hr Q4@0200,0600,1000,1400,1800,2200 IV 07/05/17 14:00 07/15/17 13:59 07/06/17 05:39 200 MLS/HR Midazolam HCl (Versed Inj) 2 mg Q2H PRN IV 07/05/17 14:45 08/04/17 14:44 Fentanyl Citrate (Fentanyl Inj) 50 mcg Q2H PRN IV 07/05/17 14:45 07/19/17 14:44 Gadobutrol (Gadavist) 6 mmol UD PRN IV 07/05/17 19:30 07/09/17 19:29 Enteral Nutritional Formula (Peptamen Intense VHP) Start at 20mL/hr, titrate... DAILY OG 07/05/17 22:15 08/04/17 22:14 07/05/17 23:13 20 ML Sodium Phosphate 21 mmol/Sodium Chloride 507 ml @ 88 mls/hr ONE ONCE IV 07/06/17 06:45 07/06/17 12:30 07/06/17 06:47 88 MLS/HR
[2017-07-06] MEDS: PEPTAMEN INTENSE VHP 1000ML BAG OG SCH (09:00)
[2017-07-06] MEDS ORDERED: POTASSIUM PHOS 3 MMOL/1 ML INFUSION IV STA (09:03)
[2017-07-06] MEDS ORDERED: POTASSIUM PHOSPHATE IV ONE (09:45)
[2017-07-06] MEDS ORDERED: SODIUM CHLORIDE 0.9% IV ONE (09:45)
[2017-07-06] MEDS: LEVOTHYROXINE 100 MCG TAB GT SCH (10:13)
[2017-07-06] MEDS: CEFTRIAXONE SOD INJ 2,000 MG in DEXTROSE 5% 50ML 50 ML IV SCH ×2 (10:26→22:28)
--- NOTE | 2017-07-06 11:13 | Critical Care Progress Note ---
Critical Care Progress Note Date of Service Jul 06, 2017. ICU Day ICU Day Number: [address] Salmeron Subjective Overnight Patient had a CPAP trial , tolerated overnight. remains minimally responsive. Tolerating feeds Objective GENERAL: obtunded, no distress EYE EXAM: normal conjunctiva, PERRL and EOM's grossly intact OROPHARYNX: tongue normal and mucous membranes are moist NECK: supple, no nuchal rigidity, no adenopathy LUNGS: Clear to auscultation. HEART: no murmurs, S1 normal and S2 normal ABDOMEN: abdomen soft, non-tender, normo-active bowel sounds, no masses, no rebound or guarding. LOWER EXTREMITIES: No pitting edema. NEURO EXAM: GCS 6T Current SOFA Score SOFA Score Response (Comments) Value Platelets (x10) > 150 0 Bilirubin (mg/dL) < 1.2 0 Erickson Coma Score < 6 4 Level of Hypotension No Hypotension 0 Creatinine (mg/dL) < 1.2 0 Total 4 Assessment & Plan 87 yo F w/x h/o Paroxysmal AFIB, HTN, HLD, presented with fever, Acute Confusion /Lethargy and UTI. LP consistent with meningitis vs Encephalitis likely of viral origin, currently on broad spectrum abx ( Zosyn, Ceftriaxone )and Acyclovir. BOBBIN DUMPER/Neuro: Encephalopathy secondary to Suspected Viral Meningitis vs Encephalitis GCS: 6T Pupils: Pinpoint, reactive Focal Signs: None EEG dated 07/05: Result reveals evidence for moderate diffuse generalized nonlateralizing encephalopathy of nonspecific type CT: Chronic and age-related change. No acute process. No change from the prior exam. MRI: No evidence for an acute ischemic insult.Generalized atrophy of the cerebellar as well as cerebral hemispheres ID following the patient. Continue broad abx coverage ( Ceftriaxone, Doxycycline, Ampicillin) + Acyclovir Repeat MRI (07/06) : appearance is consistent with a nonspecific encephalitis/ cerebritis CSF negative for Lyme ABs, Enterovirus, HSV I,II, [place] virus, Cryptococcal) VZV pending Repeat LP (07/05) showed decrease in WBC (164-->54), Gram stain neg. cx pending. Glucose, Tot protein remain elevated Respiratory: Atelectasis given LL Lung Infiltrate, Pneumonia possible but less likely Possible Pneumonia: Maintain on broad spectrum abx Chest X-ray(07/06): Reviewed: stable L Basal opacities, Trace messi pleural effusions Cardiovascular: Paroxysmal Afib, HTN HLD HTN: IV enalapril prn , Continue IV Lopressor 5 mg q6 Continue to monitor BP Afib: rate controlled, Continue IV Lopressor 5 mg q6 CV drips: Remains off vasoactive medications Rhythm: Sinus EKG: Normal sinus, QTc : 429 Fluids/Renal: Hyponatremia: improving 129-->132 Hypokalemia: K 3.6<--3.2 <--3.1, Continue IV KCL supplementation Hypophosphatemia ( Phos 1.8) Ordered 28 mmol KPhos D/C IV Fluids Mireles: Present GI/Nutrition: Feeding: Peptamen, tolerating feeds Prophylaxis: Not On PPI Bowel movements:0 Endocrine: Last 24 hour glucose: Ranging 102-166 Insulin protocol: Yes; Drip: No Hematology: Hemoglobin 13.8 DVT prophylaxis: Lovenox Infectious Disease/Immunology: suspected Viral Encephalitis of unknown etiology. Tmax: 37.8 Leukocytosis resolved Antimicrobials: day 6 Ceftriaxone Day7/? Ampicillin Day 2/? Doxycycline Day 2/? Acyclovir Day7/? Cultures: Blood: No growth Blood (Parasitology) on smear: Negative Bronchial washings:pending Urine: No growth MRSA: neg CSF: No growth to date Resident Physician Supervision Note: Dr. Phillip was resident physician during care of patient. I separately evaluated patient and did history and exam. I discussed the case with the resident and generally agree with the findings and plan. Patient has not had significant improvement in her mental status. I reviewed the results of the MRI, lumbar puncture, as well as reviewed neurology's consultation. I discussed the case with Dr. Arevalo. 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 We will likely discontinue the ampicillin in the next 24 hours and continue doxycycline in the interim. Him not encouraged by her lack of improvement over the last 72 hours. I discussed aspects of what the patient' s long-term wishes may be if she does not recover fully nor quickly and might necessitate placement in a long-term care facility with regards to feeding access and risks for pneumonia in the setting of possible aspiration events associated with severe encephalopathy. I am only able to elicit a grimace with nailbed pressure and no significant withdrawal. Given this heavy encephalopathic state did not feel it appropriate to extubate the patient at this time. I have personally spent 40 minutes of critical care time in the direct management of this patient. This is a life/limb threatening event. This includes time spent evaluating patient, direct bedside care, chart review, placing orders, interpretation of diagnostic studies, discussion with consultants, patient, and family members, as well as other required patient management activities. This time is exclusive of all separately billable procedures, and teaching time and separate from and in addition to any other critical care service time. Documented By: Demond Salmeron DO Consults & Procedures Consultants: Infectious Disease Neurology Procedures: FLUOROSCOPICALLY GUIDED LUMBAR PUNCTURE CLINICAL HISTORY: Evaluate for encephalitis. 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 She agreed to the procedure and informed written consent was obtained. The procedure was performed by Dr. Sandoval following a timeout. The right L5-S1 interlaminar space was targeted. Skin overlying the space was prepped and draped in sterile fashion and local anesthesia was achieved with 1% lidocaine. Under intermittent fluoroscopic guidance, a 3 1/2 inch 22-gauge spinal needle was directed into the thecal sac with immediate return of clear CSF. A total of 9 cc of CSF was collected in 4 vials and sent to the laboratory as ordered. The needle was removed. The patient tolerated the procedure well and no immediate complications were evident. [~ rep ct add3]] MRI OF THE BRAIN COMBO CLINICAL HISTORY: Encephalitis. COMPARISON STUDY: CT of the brain dated 07/04/2017. MRI of the brain dated 07/03/2017. TECHNIQUE: MRI of the brain was performed utilizing various T1 and T2-weighted sequences in the axial, sagittal, and coronal planes. Contrast-enhanced sequences were acquired following the administration of 6 cc of Gadavist. FINDINGS: Brain parenchyma: There are age-related involutional changes noting advanced confluent subcortical and periventricular microangiopathic disease. There is no hemorrhage or mass effect. There is patchy T2 signal abnormality seen throughout the cerebellum, and also involving both thalami. There may also be T2 signal abnormality within the white matter; however, this is not well evaluated due to extensive microangiopathic change. Subtle cortical abnormality is identified within the temporal lobes, best appreciated on the FLAIR sequences. Faint restricted diffusion is suggested in these regions that is not typical for ischemia. No enhancing mass lesion is identified on the postcontrast images. There is no leptomeningeal or pachymeningeal enhancement. No extra-axial fluid collection is seen. The cerebellar tonsils are normal in configuration. Ventricles, sulci, and cisterns: Prominent secondary to involutional change. Pituitary and sella: Unremarkable. Intracranial vasculature: Normal flow voids are maintained at the skull base. Orbits: The bony orbits are grossly intact. Orbital contents are normal in appearance noting bilateral ocular lens implants. Sinuses and mastoids: Trace mucosal thickening is seen within the maxillary antra. Mild mucosal thickening is also identified within the ethmoid sinuses. Fluid is noted in the sphenoid sinuses. There is a left mastoid effusion. Fluid is present within the pharynx. Calvarium: Unremarkable. Cervical cord: Partially visualized cervical spinal cord is normal in morphology and signal intensity. IMPRESSION: 1. There is patchy T2 signal abnormality identified, greatest in the cerebellar hemispheres and the thalami. There may also be periventricular matter abnormality; however, this is not well assessed due to significant underlying microangiopathic change. Subtle cortical signal abnormality is seen within the temporal lobes, and these findings are best appreciated on the FLAIR sequence. The appearance is consistent with a nonspecific encephalitis/cerebritis. This could be related to an infectious/viral process or less likely a metabolic or global ischemic insult. Clinical correlation will be essential. 2. No hemorrhage is identified. There is no restricted diffusion identified typical for stroke. 3. There is no enhancing mass. No leptomeningeal/pachymeningeal enhancement is seen. 4. Left mastoid effusion and paranasal sinus disease as above. 5. Fluid is seen layering in the pharynx. IMPRESSION: Fluoroscopically guided lumbar puncture collection of 9 cc of clear CSF. Data Medications: Current Inpatient Medications Medications (Trade) Dose Ordered Sig/Josué Route Start Time Stop Time Status Last Admin Dose Admin Acetaminophen (Tylenol Tab) 650 mg Q4H PRN PO 06/29/17 11:00 07/29/17 10:59 Future Hold 07/03/17 11:07 650 MG Ondansetron HCl (Zofran Inj) 4 mg Q6H PRN IV 06/29/17 11:00 07/29/17 10:59 Aspirin (Ecotrin Tab) 81 mg DAILY PO 06/30/17 08:00 07/30/17 08:59 Future Hold 07/02/17 08:23 81 MG Atorvastatin Calcium (Lipitor Tab) 40 mg DAILY PO 06/30/17 08:00 07/30/17 08:59 Future Hold 07/02/17 08:22 40 MG Losartan Potassium (coZAAR TAB) 25 mg DAILY PO 06/30/17 08:00 07/30/17 08:59 Future Hold 07/02/17 08:24 25 MG Losartan Potassium (coZAAR TAB) 50 mg DAILY PO 06/30/17 08:00 07/30/17 08:59 Future Hold 07/02/17 08:24 50 MG Metoprolol Succinate (Toprol Xl Tab) 50 mg DAILY PO 06/30/17 08:00 07/30/17 08:59 Future Hold 07/02/17 08:22 50 MG Calcium/Vitamin D (Caltrate Plus Tab) 2 tab DAILY PO 06/30/17 08:00 07/30/17 07:59 Future Hold 07/02/17 08:23 2 TAB Miscellaneous (Iv Fluids Completed) 1 ea PRN PRN N/A 06/29/17 11:30 06/29/18 11:29 Ceftriaxone Sodium 2000 mg/ Dextrose 70 ml @ 100 mls/hr Q12H IV 06/30/17 22:00 07/10/17 21:59 07/06/17 10:26 100 MLS/HR Acyclovir Sodium 650 mg/Dextrose 113 ml @ 110 mls/hr Q8H IV 06/30/17 10:30 07/10/17 10:29 07/06/17 01:52 110 MLS/HR Lactobacillus Acidophilus (Lactinex Granules Pack) 1 gm TIDM PO 07/01/17 07:30 07/31/17 07:29 Future Hold 07/02/17 15:22 1 GM Warfarin Sodium (Coumadin Tab) 5 mg DAILY@16 PO 07/02/17 16:00 08/01/17 15:59 Future Hold 07/02/17 15:21 5 MG Enoxaparin Sodium (Lovenox Inj) 40 mg Q24H SQ 07/02/17 16:00 08/01/17 15:59 Future hold 07/04/17 15:55 40 MG Metoprolol Tartrate (Lopressor Iv) 5 mg Q6 IV. 07/04/17 12:00 08/03/17 11:59 07/06/17 05:38 5 MG Enalaprilat 0.625 mg/Dextrose 25.5 ml @ 100 mls/hr Q6H PRN IV 07/04/17 09:15 08/03/17 09:14 07/05/17 10:31 100 MLS/HR Acetaminophen (Tylenol Supp) 650 mg Q4H PRN CA 07/05/17 07:30 08/04/17 07:29 Doxycycline Hyclate 100 mg/ Dextrose 110 ml @ 55 mls/hr Q12H IV 07/05/17 11:00 07/07/17 10:59 07/05/17 23:12 55 MLS/HR Fentanyl Citrate (Fentanyl Inj) 50 mcg Q2H PRN IV 07/05/17 11:15 07/19/17 11:14 Ampicillin Sodium 2000 mg/Sodium Chloride 100 ml @ 200 mls/hr Q4@0200,0600,1000,1400,1800,2200 IV 07/05/17 14:00 07/15/17 13:59 07/06/17 10:10 200 MLS/HR Midazolam HCl (Versed Inj) 2 mg Q2H PRN IV 07/05/17 14:45 08/04/17 14:44 Fentanyl Citrate (Fentanyl Inj) 50 mcg Q2H PRN IV 07/05/17 14:45 07/19/17 14:44 Gadobutrol (Gadavist) 6 mmol UD PRN IV 07/05/17 19:30 07/09/17 19:29 Enteral Nutritional Formula (Peptamen Intense VHP) Start at 20mL/hr, titrate... DAILY OG 07/05/17 22:15 08/04/17 22:14 07/05/17 23:13 20 ML Sodium Phosphate 21 mmol/Sodium Chloride 507 ml @ 88 mls/hr ONE ONCE IV 07/06/17 06:45 07/06/17 12:30 07/06/17 06:47 88 MLS/HR Levothyroxine Sodium (Synthroid Tab) 100 mcg DAILY GT 07/06/17 09:00 08/05/17 08:59 07/06/17 10:13 100 MCG Potassium Phosphate 28 mmol/ Sodium Chloride 509.3333 ml @ 105 mls/hr 0945 ONCE IV 07/06/17 09:45 07/06/17 14:36 07/06/17 10:20 105 MLS/HR Vital Signs: Date Time Temp Pulse Resp B/P (MAP) Pulse Ox O2 Delivery O2 Flow Rate FiO2 07/06/17 10:31 67 18 138/70 (92) 99 CPAP 30 Mechanical Ventilator 07/06/17 10:01 52 17 129/81 (97) 98 07/06/17 10:00 57 18 98 CPAP 30 Mechanical Ventilator 07/06/17 09:01 56 17 144/80 (101) 99 07/06/17 09:00 63 19 99 CPAP 30 Mechanical Ventilator 07/06/17 08:31 61 15 139/82 (101) 99 07/06/17 08:01 36.9 55 17 145/74 (97) 99 CPAP 30 Mechanical Ventilator 07/06/17 08:00 49 14 99 07/06/17 07:55 CPAP Mechanical Ventilator 07/06/17 07:33 30 07/06/17 07:31 59 16 131/73 (92) 99 07/06/17 07:01 56 16 122/71 (88) 99 07/06/17 07:00 60 16 99 07/06/17 06:01 58 12 154/74 (100) 99 CPAP Mechanical Ventilator 07/06/17 05:38 81 148/81 07/06/17 05:32 73 13 148/81 (103) 100 07/06/17 05:24 30 07/06/17 05:01 70 8 149/75 (99) 99 07/06/17 04:01 37.0 78 16 140/79 (99) 97 CPAP Mechanical Ventilator 07/06/17 04:00 CPAP Mechanical Ventilator 07/06/17 03:31 80 10 135/74 (94) 98 07/06/17 03:01 59 13 145/75 (98) 98 07/06/17 02:33 30 07/06/17 02:31 57 12 126/76 (93) 99 07/06/17 02:01 55 14 131/82 (98) 99 CPAP Mechanical Ventilator 07/06/17 01:31 77 15 117/75 (89) 100 07/06/17 01:01 52 16 122/69 (86) 99 07/06/17 00:31 74 18 150/88 (108) 99 07/06/17 00:04 89 157/99 07/06/17 00:01 36.8 92 13 157/99 (118) 100 CPAP Mechanical Ventilator 07/05/17 23:59 CPAP Mechanical Ventilator 07/05/17 23:31 87 13 148/87 (107) 98 07/05/17 23:10 30 07/05/17 23:01 94 15 122/91 (101) 100 07/05/17 22:31 91 12 121/73 (89) 100 Mechanical Ventilator 30 07/05/17 22:13 96 14 125/88 (100) 100 Mechanical Ventilator 30 07/05/17 21:31 91 12 99/75 (83) 100 Mechanical Ventilator 30 07/05/17 21:01 94 18 145/96 (112) 97 Mechanical Ventilator 30 07/05/17 20:31 91 14 120/80 (93) 100 07/05/17 20:02 30 07/05/17 20:01 37.0 91 18 107/82 (90) 100 Mechanical Ventilator 30 07/05/17 20:00 30 07/05/17 20:00 Mechanical Ventilator 30 07/05/17 18:00 74 16 165/102 (123) 99 Mechanical Ventilator 30 07/05/17 17:15 91 176/114 07/05/17 16:00 36.8 68 20 112/74 (87) 99 Mechanical Ventilator 30 07/05/17 16:00 Mechanical Ventilator 30 07/05/17 15:43 100 07/05/17 14:00 105 21 133/77 (95) 98 Humidified Oxygen 11.0 07/05/17 12:00 36.9 91 29 153/94 (113) 98 Humidified Oxygen 11.0 07/05/17 12:00 Humidified Oxygen 11.0 Mask 07/05/17 11:41 106 198/100 Laboratory Results: Last 24 Hours Test 07/05/17 11:52 07/05/17 15:39 07/05/17 23:48 07/06/17 00:27 Bedside Glucose 185 mg/dl 111 mg/dl CSF Color COLORLESS CSF Appearance CLEAR CSF WBC 57 /uL CSF RBC 41 /uL CSF Mononuclear WBCs 100.0 % CSF Xanthrochromic NO XANTHOCHROMIA CSF Cell Count Tube # 3 CSF Chemistry Tube # 1 CSF Glucose 76 mg/dl CSF Total Protein 81.0 mg/dl Blood Gas Sample Site L Radial Bedside Blood Gas pH (LAB) 7.48 Bedside Blood Gas pCO2 (LAB) 33 mmHg Bedside Blood Gas pO2 (LAB) 93 mmHg Bedside Blood Gas HCO3 (LAB) 25 meq/L Bedside Blood Gas Total CO2 26 mEq/l Bedside Blood Gas Base Excess (LAB) 1.0 meq/L Bedside Blood Gas O2 Saturation 98.0 % Evelio Test Pass Oxygen Delivery Device Ventilator Bedside FiO2 30 % Blood Gas PEEP 5 Test 07/06/17 05:33 07/06/17 05:54 07/06/17 09:35 White Blood Count 10.63 K/uL Red Blood Count 4.30 M/uL Hemoglobin 13.8 g/dL Hematocrit 40.4 % Mean Corpuscular Volume 94.0 fL Mean Corpuscular Hemoglobin 32.1 pg Mean Corpuscular Hemoglobin Concent 34.2 g/dl RDW Standard Deviation 40.8 fL RDW Coefficient of Variation 12.2 % Platelet Count 219 K/uL Mean Platelet Volume 9.4 fL Sodium Level 132 mmol/L Potassium Level 3.6 mmol/L Chloride Level 97 mmol/L Carbon Dioxide Level 26 mmol/L Anion Gap 9.0 mmol/L Blood Urea Nitrogen 10 mg/dl Creatinine 0.53 mg/dl Est Creatinine Clear Calc Drug Dose 74.1 ml/min Estimated GFR () 99.6 Estimated GFR (Non- 86.0 BUN/Creatinine Ratio 18.7 Random Glucose 102 mg/dl Calcium Level 8.2 mg/dl Phosphorus Level 1.8 mg/dl Magnesium Level 2.2 mg/dl Bedside Glucose 112 mg/dl Resident Tracking Resident Involvement: Resident Care Provided Care Provided: Adult Hospital Medicine
--- NOTE | 2017-07-06 11:40 | PROGRESS NOTE ---
DATE: 07/06/2017 Indu is still intubated. She is on some CPAP. She is breathing on her own largely. She is very stuporous. I can get her to grimace to deep pain delivered to her nailbeds, but beyond this I really cannot get much of a response. Imaging studies have been done and there is some vague uptake in the temporal lobes, unfortunately clouded by the presence of a fairly extensive leukoencephalopathy picture. There is no real enhancement of the meninges. The CSF thus far shows a reduced number of lymphocytes and persistently elevated protein and normal glucose. Cytology, etc. is still pending. 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 This woman's obtundation is difficult to explain on the basis of what we see in the brain and the CSF at this point. I am going to repeat an EEG tomorrow just to be sure there is not some ongoing potentially epileptogenic activity. Unfortunately, the initial EEG was very technically limited due to lot of patient movement artifacts and perhaps some eye blink artifacts and there were some triphasic waveforms that were hard to interpret, but they may indicate the evidence of bilateral periodic epileptiform discharges and at this point I think we will get a better quality tracing tomorrow and hopefully be able to make some more judgments regarding whether there is some low grade seizure activity. HILARIO
[2017-07-06] MEDS: DOXYCYCLINE HYCLATE 100 MG in DEXTROSE 5% 100ML IV SCH ×2 (12:24→23:52)
--- NOTE | 2017-07-06 15:03 | Procedure Note ---
Procedure Note Date of Service Jul 05, 2017. Procedure Note Procedure Date: July 05, 2027 Procedure: Endotracheal intubation Pre-procedure Diagnosis: Altered mental status, respiratory insufficiency, need to undergo invasive procedures Post-procedure Diagnosis: same as above Prior to Procedure: Informed Consent: consent was obtained from the patient's spouse, patient is encephalopathic unable to consent Attending Staff: Roselyn Salmeron DO Indications: Patient is an 86-year-old female who is currently encephalopathic with left lower lobe atelectasis, respiratory insufficiency and needs to undergo a lumbar puncture as well as MRI. It is felt that the patient would best tolerate the invasive procedures with a secured airway. The identity of the patient was confirmed and a bedside time out was performed. Description of Procedure: Patient was evaluated and required intubation for impending respiratory failure. The patient was prepared in the usual fashion. A 3 neal laryngoscope was used. A 7.5 Fr endotrachial tube was placed endotracheally to 22 cm at the teeth. A grade 2 view was obtained, the airway was rather anterior. The endotracheal tube was noted to pass through the vocal cords. Chest rise was bilateral. Bilateral breath sounds were heard without air sounds in the abdomen. Mist was noted in the endotracheal tube. End-tidal CO2 measurement was positive. Chest x-ray shows proper endotracheal tube placement. Complications: None Findings: not applicable Specimens: not applicable Estimated blood loss: Zero
--- NOTE | 2017-07-06 15:05 | Procedure Note ---
Procedure Note Date of Service Jul 05, 2017. Procedure Note Procedure date: 07/05/2017 Procedure: fiberoptic bronchoscopy Pre-procedure Diagnosis: Infiltrate on x-ray of left lower lobe, respiratory insufficiency Post-procedure Diagnosis: same as above Prior to Procedure: Informed Consent: The risks, benefits, indications, potential complications, and alternatives were explained to the patient/family and informed consent obtained. Attending Staff: Roselyn Salmeron DO Skin Prep: Not applicable Anesthesia: Propofol infusion Indications: Patient is an 85-year-old female with respiratory insufficiency and acute encephalopathy with concern for possible developing pneumonia versus lower lobe atelectasis and inability to clear secretions.. The identity of the patient was confirmed and a bedside time out was performed. Description of Procedure: Fiberoptic bronchoscopy was performed via endotracheal tube. Bronchioalveolar lavage left lower lobe was performed. Findings included: Clear secretions with exception of one posterior lobe occlusion with pearly white secretions were successfully lavaged Complications: None Specimens: Bronchial washings sent for culture and Gram stain, cytology, fungal elements, and AFB stain and culture. Estimated blood loss: Zero
[2017-07-06] MEDS: FENTANYL CITRATE INJ 50 MCG/1 ML 2 ML VIAL IV PRN (15:13)
[2017-07-06] MEDS: ENOXAPARIN 40 MG/0.4 ML SYR SQ SCH (15:15)
[2017-07-07] VITALS (51 sets, daily range): BP systolic 108–200; BP diastolic 64–119; PULSE 57–99; TEMP 36.5–37.2; O2SAT 97–99
[2017-07-07] MEDS: PEPTAMEN INTENSE VHP 1000ML BAG OG SCH (01:21)
[2017-07-07] MEDS: ENALAPRILAT IV 0.625 MG in DEXTROSE 5% 25ML 25 ML IV PRN ×2 (01:22→08:08)
[2017-07-07] MEDS: AMPICILLIN IV 2,000 MG in SODIUM CHLOR 0.9% AD-VAN 100ML 100 ML IV SCH ×2 (02:06→06:16)
[2017-07-07] MEDS: ACYCLOVIR SOD INJ 650 MG in DEXTROSE 5% 100ML 100 ML IV SCH ×3 (02:20→16:47)
[2017-07-07] MEDS: FENTANYL CITRATE INJ 50 MCG/1 ML 2 ML VIAL IV PRN ×2 (02:38→14:54)
[2017-07-07 05:50] LABS: VEN BLD GAS O2 SATURATION 78.9 %; VEN BLOOD GAS BASE EXCESS 4.3 mEq/L
[2017-07-07 05:52] LABS: HEMATOCRIT 39.8 % (37-47); MEAN CORPUSCULAR HEMOGLOBIN 32.7 pg (25-34); MEAN CORPUSCULAR HGB CONC 34.4 g/dl (32-36); MEAN PLATELET VOLUME 9.5 fL (7.4-10.4); PLATELET COUNT 236 K/uL (130-400); RED BLOOD COUNT 4.19 M/uL (4.2-5.4); WHITE BLOOD COUNT 10.97 K/uL (4.8-10.8)
[2017-07-07] MEDS: METOPROLOL TARTRATE 1 MG/ML VIAL IV. SCH (06:16)
[2017-07-07 06:30] LABS: BUN/CREATININE RATIO 27.8 (10-20); CALCIUM 8.6 mg/dl (8.5-10.1); CREATININE 0.53 mg/dl (0.60-1.20); POTASSIUM 3.6 mmol/L (3.5-5.1)
[2017-07-07] MEDS ORDERED: POTASSIUM PHOS 3 MMOL/1 ML INFUSION IV STA (06:32)
[2017-07-07] MEDS ORDERED: POTASSIUM PHOSPHATE INJ 15 MMOL in SODIUM CHLORIDE 0.9% 250ML 250 ML IV ONE (07:15)
--- NOTE | 2017-07-07 07:16 | DIAGNOSTIC IMAGING REPORT ---
CHEST ONE VIEW PORTABLE CLINICAL HISTORY: Intubated tube position COMPARISON STUDY: 07/06/2017 FINDINGS: Endotracheal tube 4.5 cm above the constantine. Persistent pleural reactive change/atelectasis left base. Lungs otherwise appear clear. Right hemidiaphragm is smooth. Nasogastric tube remains within the stomach. . IMPRESSION: Endotracheal tube 4.5 cm above the constantine . Persistent pleural reactive change/atelectasis left base. The above report was generated using voice recognition software. It may contain grammatical, syntax or spelling errors. Electronically signed by: Obie Warner M.D. 07/07/2017 7:15 AM Dictated Date/Time: 07/07/2017 7:13 AM
[2017-07-07] MEDS: LEVOTHYROXINE 100 MCG TAB GT SCH (07:43)
[2017-07-07] MEDS ORDERED: MAGNESIUM HYDROXIDE SUSP 30 ML UDC PO PRN (08:15)
[2017-07-07] MEDS: METOPROLOL TARTRATE 50 MG TAB PO SCH ×2 (08:37→21:00)
[2017-07-07] MEDS ORDERED: POTASSIUM CHLORIDE 20 MEQ TABCR PO ONE (08:45)
--- NOTE | 2017-07-07 08:51 | Progress Note ---
Medicine Progress Note Date & Time of Visit: Jul 07, 2017 at 07:45 . Subjective Afebrile. Tolerating GT feedings. No diarrhea. Seems to be more responsive at times. . Objective Last 8 Hrs Date Time Temp Pulse Resp B/P (MAP) Pulse Ox O2 Delivery O2 Flow Rate FiO2 07/07/17 07:30 30 07/07/17 06:16 83 167/87 07/07/17 06:00 86 18 167/87 (113) 99 CPAP 30 Mechanical Ventilator 07/07/17 05:45 30 07/07/17 04:00 CPAP 30 Mechanical Ventilator 07/07/17 04:00 30 07/07/17 04:00 36.7 86 12 147/81 (103) 98 CPAP 30 Mechanical Ventilator 07/07/17 02:00 71 16 152/81 (104) 98 CPAP 30 Mechanical Ventilator 07/07/17 01:55 30 Physical Exam: General- no apparent distress Eyes- anicteric ENT- oral ETT, oral GT Neck- no JVD Lungs- clear Heart- RRR, no murmur, no gallop Abdomen- + BS, soft, nontender Extremities- no pretibial edema or calf tenderness; SCD's applied Neuro- minimally responsive; pupils 2 mm, reactive Skin- warm & dry . Laboratory Results: Last 24 Hours Test 07/06/17 09:35 07/06/17 12:17 07/06/17 17:45 07/07/17 00:43 HIV (1&2) Ab and P24 Ag, 4th Gener NEG Bedside Glucose 112 mg/dl 109 mg/dl 95 mg/dl Test 07/07/17 05:36 07/07/17 06:21 White Blood Count 10.97 K/uL Red Blood Count 4.19 M/uL Hemoglobin 13.7 g/dL Hematocrit 39.8 % Mean Corpuscular Volume 95.0 fL Mean Corpuscular Hemoglobin 32.7 pg Mean Corpuscular Hemoglobin Concent 34.4 g/dl RDW Standard Deviation 43.0 fL RDW Coefficient of Variation 12.7 % Platelet Count 236 K/uL Mean Platelet Volume 9.5 fL Venous Blood pH 7.43 Venous Blood Partial Pressure CO2 45 mmHg Venous Blood Partial Pressure O2 43 mmHg Venous Blood HCO3 29 mmol/L Venous Blood Oxygen Saturation 78.9 % Venous Blood Base Excess 4.3 mEq/L Sodium Level 135 mmol/L Potassium Level 3.6 mmol/L Chloride Level 99 mmol/L Carbon Dioxide Level 28 mmol/L Anion Gap 8.0 mmol/L Blood Urea Nitrogen 15 mg/dl Creatinine 0.53 mg/dl Est Creatinine Clear Calc Drug Dose 74.1 ml/min Estimated GFR () 99.6 Estimated GFR (Non- 86.0 BUN/Creatinine Ratio 27.8 Random Glucose 104 mg/dl Calcium Level 8.6 mg/dl Phosphorus Level 2.0 mg/dl Magnesium Level 2.0 mg/dl Bedside Glucose 119 mg/dl Assessment & Plan ALTERED MENTAL STATUS Presented with progressive confusion. CT head demonstrated chronic microvascular changes, no acute findings. Altered mental status initially attributed to UTI. Recent outpatient urine culture grew E coli. UA at time of admission showed moderate leukocyte esterase, many WBC's, many epith cells, no bacteria. Initially received IV ceftriaxone. Urine culture subsequently grew more than 3 organisms, probable skin mariel. Blood cultures at time of admission were negative. CHASSIS INSPECTOR infection was considered in light of fever and altered mental status. ID consulted. Antibiotic coverage was broadened (high dose ceftriaxone, vancomycin, ampicillin , acyclovir). LP could not be performed initially because of elevated INR on warfarin. Warfarin was reversed with vitamin K and FFP. LP performed, results as noted: Item Value Date Time CSF Appearance CLEAR 07/01/17 1000 CSF Color COLORLESS 07/01/17 1000 CSF WBC 164 /uL *H 07/01/17 1000 CSF RBC 2 /uL 07/01/17 1000 CSF Cell Count Tube # 3 07/01/17 1000 CSF Mononuclear WBCs 99.0 % 07/01/17 1000 CSF Polynuclear WBCs 1.0 % 07/01/17 1000 CSF Chemistry Tube # 1 07/01/17 1000 CSF Glucose 86 mg/dl H 07/01/17 1000 CSF Total Protein 79.3 mg/dl H 07/01/17 1000 CSF gram stain negative. CSF cultures negative so far. Cryptococcal Ag negative. CSF Lyme PCR and antibodies negative. CSF HSV 1/2 PCR negative. CSF Enterovirus PCR negative. CSF West Nile PCR negative. [place] most likely to have viral meningitis. Condition initially improved. Vancomycin, ampicillin, dexamethasone discontinued. Ceftriaxone and acyclovir were continued. Worsening confusion 07/03. Neuro consulted. MRI performed 07/03 had some motion artifact, but did not show any acute changes. EEG- moderate diffuse nonlateralizing encephalopathy, no apparent epileptogenic foci. Repeat LP 07/05/17: Item Value Date Time CSF WBC 57 /uL *H 07/05/17 1539 CSF RBC 41 /uL 07/05/17 1539 CSF Cell Count Tube # 3 07/05/17 1539 CSF Mononuclear WBCs 100.0 % 07/05/17 1539 CSF Glucose 76 mg/dl H 07/05/17 1539 CSF Total Protein 81.0 mg/dl H 07/05/17 1539 MRI with contrast 07/05/17 demonstrated T2 abnormalities in cerebellum and thalami as well as some subtle findings within temporal lobes. 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 Continue acyclovir. Can probably de-escalate antibiotic coverage. Listeria unlikely- can probably DC ampicillin. Lyme, pneumococcal pneumonia ruled out- can probably DC ceftriaxone. ?? tick borne illness. Tick-borne illness PCR panel pending. May be reasonable to continue doxy for now. Continue supportive measures. LLL DENSITY Chest x-ray 07/03 showed LLL density, infiltrate vs atelectasis. Started on IV piperacillin / tazobactam for possible pneumonia. Bronchoscopy performed 07/05; sputum culture from bronch grew only scant normal mariel. Pneumonia unlikely. PAROXYSMAL ATRIAL FIB Unable to take oral metoprolol due to NPO status. Converted to parenteral metoprolol. Best not to maintain full anticoagulation at this time due to critical illness, procedures, etc. Resume warfarin when able. HYPERTENSION Unable to take oral meds due to NPO status. Converted metoprolol to IV. IV enalapril PRN. HYPONATREMIA Serum sodium 141 --> --> 128--> --> 135. Hyponatremia may be secondary to free water diluent in multiple IV antibiotics. Consider SIADH secondary to CHASSIS INSPECTOR or pulmonary process. 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 Follow. HYPOKALEMIA K as low as 3.1. Receiving replacement. K today = 3.6. Follow. HYPOTHYROIDISM Levothyroxine via OGT. NUTRITION Receiving enteral feedings via OGT. VTE PROPHYLAXIS On warfarin at time of admission which was subsequently held / reversed. Continue enoxaparin. SCD's. DISPOSITION To be determined. Family Medicine follow-up with Dr. Mosley. Spouse Ms. Cortes given update. . Consultants: ID [facility] Neurology . Procedures: CT head 06/29/17 CT head 06/30/17 LP under fluoro guidance 07/01/17 CT head 07/03/17 MRI brain 07/03/17 CT head 07/04/17 endotracheal intubation 07/05/17 mechanical ventilation 07/05/17 bronchoscopy 07/05/17 MRI brain with contrast 07/05/17 LP under fluoro guidance 06/25/17 . Current Inpatient Medications: Current Inpatient Medications Medications (Trade) Dose Ordered Sig/Josué Route Start Time Stop Time Status Last Admin Dose Admin Acetaminophen (Tylenol Tab) 650 mg Q4H PRN PO 06/29/17 11:00 07/29/17 10:59 Future Hold 07/03/17 11:07 650 MG Ondansetron HCl (Zofran Inj) 4 mg Q6H PRN IV 06/29/17 11:00 07/29/17 10:59 Aspirin (Ecotrin Tab) 81 mg DAILY PO 06/30/17 08:00 07/30/17 08:59 Future Hold 07/02/17 08:23 81 MG Atorvastatin Calcium (Lipitor Tab) 40 mg DAILY PO 06/30/17 08:00 07/30/17 08:59 Future Hold 07/02/17 08:22 40 MG Losartan Potassium (coZAAR TAB) 25 mg DAILY PO 06/30/17 08:00 07/30/17 08:59 Future Hold 07/02/17 08:24 25 MG Losartan Potassium (coZAAR TAB) 50 mg DAILY PO 06/30/17 08:00 07/30/17 08:59 Future Hold 07/02/17 08:24 50 MG Calcium/Vitamin D (Caltrate Plus Tab) 2 tab DAILY PO 06/30/17 08:00 07/30/17 07:59 Future Hold 07/02/17 08:23 2 TAB Miscellaneous (Iv Fluids Completed) 1 ea PRN PRN N/A 06/29/17 11:30 06/29/18 11:29 Acyclovir Sodium 650 mg/Dextrose 113 ml @ 110 mls/hr Q8H IV 06/30/17 10:30 07/10/17 10:29 07/07/17 02:20 110 MLS/HR Lactobacillus Acidophilus (Lactinex Granules Pack) 1 gm TIDM PO 07/01/17 07:30 07/31/17 07:29 Future Hold 07/02/17 15:22 1 GM Warfarin Sodium (Coumadin Tab) 5 mg DAILY@16 PO 07/02/17 16:00 08/01/17 15:59 Future Hold 07/02/17 15:21 5 MG Enoxaparin Sodium (Lovenox Inj) 40 mg Q24H SQ 07/02/17 16:00 08/01/17 15:59 Future hold 07/06/17 15:15 40 MG Enalaprilat 0.625 mg/Dextrose 25.5 ml @ 100 mls/hr Q6H PRN IV 07/04/17 09:15 08/03/17 09:14 07/07/17 08:08 100 MLS/HR Acetaminophen (Tylenol Supp) 650 mg Q4H PRN RI 07/05/17 07:30 08/04/17 07:29 Doxycycline Hyclate 100 mg/ Dextrose 110 ml @ 55 mls/hr Q12H IV 07/05/17 11:00 07/07/17 10:59 07/06/17 23:52 55 MLS/HR Fentanyl Citrate (Fentanyl Inj) 50 mcg Q2H PRN IV 07/05/17 11:15 07/19/17 11:14 07/07/17 02:38 50 MCG Midazolam HCl (Versed Inj) 2 mg Q2H PRN IV 07/05/17 14:45 08/04/17 14:44 Fentanyl Citrate (Fentanyl Inj) 50 mcg Q2H PRN IV 07/05/17 14:45 07/19/17 14:44 Gadobutrol (Gadavist) 6 mmol UD PRN IV 07/05/17 19:30 07/09/17 19:29 Enteral Nutritional Formula (Peptamen Intense VHP) Start at 20mL/hr, titrate... DAILY OG 07/05/17 22:15 08/04/17 22:14 07/07/17 01:21 1,000 ML Levothyroxine Sodium (Synthroid Tab) 100 mcg DAILY GT 07/06/17 09:00 08/05/17 08:59 07/07/17 07:43 100 MCG Potassium Phosphate 15 mmol/ Sodium Chloride 255 ml @ 88 mls/hr ONE ONCE IV 07/07/17 07:15 07/07/17 10:08 07/07/17 07:44 88 MLS/HR Metoprolol Tartrate (Lopressor Tab) 50 mg BID PO 07/07/17 09:00 08/06/17 08:59 Potassium Chloride (Klor-Con Tab) 40 meq NOW ONCE PO 07/07/17 08:45 07/07/17 08:46 Magnesium Hydroxide (Milk Of Magnesia Susp) 30 ml Q6H PRN PO 07/07/17 08:15 08/06/17 08:14 Doxycycline Hyclate 100 mg/ Dextrose 110 ml @ 50 mls/hr Q12 IV 07/07/17 09:00 07/14/17 08:59 UNV
[2017-07-07] MEDS ORDERED: METOPROLOL TARTRATE 1 MG/ML VIAL IV PRN (11:00)
[2017-07-07] MEDS ORDERED: ENALAPRILAT IV 1.25 MG in DEXTROSE 5% 25ML 25 ML IV PRN (11:00)
[2017-07-07] MEDS ORDERED: ENALAPRILAT IV 0.625 MG in DEXTROSE 5% 25ML 25 ML IV ONE (11:30)
--- NOTE | 2017-07-07 11:48 | Critical Care Progress Note ---
Critical Care Progress Note Date of Service Jul 07, 2017. ICU Day ICU Day Number: [address] Salmeron Subjective Overnight, systolic BP went into the 190's. IV Enalapril was administered at 1204 AM . Additionally ,patient was noted to be grimacing more and shifting her limbs. Fentanyl was given for discomfort Objective GENERAL: obtunded, no distress EYE EXAM: normal conjunctiva, PERRL and EOM's grossly intact OROPHARYNX: tongue normal and mucous membranes are moist NECK: supple, no nuchal rigidity, no adenopathy LUNGS: Clear to auscultation. HEART: no murmurs, S1 normal and S2 normal ABDOMEN: abdomen soft, non-tender, normo-active bowel sounds, no masses, no rebound or guarding. LOWER EXTREMITIES: No pitting edema. NEURO EXAM: GCS 6T Current SOFA Score SOFA Score Response (Comments) Value Platelets (x10) < 150 1 Bilirubin (mg/dL) < 1.2 0 [place] Coma Score < 6 4 Level of Hypotension No Hypotension 0 Creatinine (mg/dL) < 1.2 0 Total 5 Assessment & Plan 87 yo F w/x h/o Paroxysmal AFIB, HTN, HLD, presented with fever, Acute Confusion /Lethargy and UTI. LP consistent with meningitis vs Encephalitis likely of viral origin, currently on broad spectrum abx (Ampicillin, Ceftriaxone, Doxycycline )and Acyclovir. 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 No acute process. No change from the prior exam. MRI: No evidence for an acute ischemic insult.Generalized atrophy of the cerebellar as well as cerebral hemispheres ID following the patient. MRI (07/06) : appearance is consistent with a nonspecific encephalitis/ cerebritis Repeat LP (07/05) showed decrease in WBC (164-->54), Gram stain neg. cx pending. Glucose, Tot protein remain elevated CSF negative for Lyme ABs, Enterovirus, HSV I,II, [place] virus, Cryptococcal) VZV pending EEG dated 07/07: Mildly to moderately diffusely abnormal EEG, No evidence of epileptogenic activity or of periodic lateralized epileptiform discharges which may be seen in association with herpetic encephalitis Continue Doxycycline, D/C'd Ampicillin and Ceftriaxone. Continue Acyclovir Respiratory: Atelectasis given LL Lung Infiltrate, Pneumonia possible but less likely Possible Pneumonia: Maintain on broad spectrum abx Chest X-ray(07/07): Persistent pleural reactive change/atelectasis left base. Cardiovascular: Paroxysmal Afib, HTN, HLD HTN: IV enalapril prn , D/C'd IV Lopressor. Start PO Lopressor 50 mg BID Afib: currently sinus, Continue to monitor CV drips: Remains off vasoactive medications Rhythm: Sinus EKG: Normal sinus, QTc : 429 Fluids/Renal: Hyponatremia: improving 129-->132-->135 Hypokalemia: K 3.6<--3.2 <--3.1, Given 40 PO K Phos Hypophosphatemia ( Phos1.8--> 2.0) M[place]les: Present GI/Nutrition: Feeding: Peptamen, tolerating feeds Prophylaxis: Not On PPI Bowel movements:0 Start PRN Milk of Magnesia, Senokot Endocrine: Last 24 hour glucose: Ranging 104-119 Insulin protocol: Yes; Drip: No Hematology: Hemoglobin 13.7 DVT prophylaxis: Lovenox Infectious Disease/Immunology: suspected Viral Encephalitis of unknown etiology. Tmax: 37.8 Leukocytosis resolved Antimicrobials: Doxycycline Day 3/? D/d's Ceftriaxone D/C'd Ampicillin Continue Acyclovir Cultures: Blood: No growth Blood (Parasitology) on smear: Negative Bronchial washings:pending Urine: No growth MRSA: neg CSF: No growth to date Resident Physician Supervision Note: Dr. Phillip was resident physician during care of patient. I separately evaluated patient and did history and exam. I discussed the case with the resident and generally agree with the findings and plan. Reviewed EEG results, possible improvement that patient appearing more uncomfortable, and this may represent more awareness. Patient remains critically ill due to acute encephalopathy. It would be inappropriate to extubate the patient at this time such decreased mental function and inability to clear secretions and maintain airway patency. I have personally spent 35 minutes of critical care time in the direct management of this patient. This is a life/limb threatening event. This includes time spent evaluating patient, direct bedside care, chart review, placing orders, interpretation of diagnostic studies, discussion with consultants, patient, and family members, as well as other required patient management activities. This time is exclusive of all separately billable procedures, and teaching time and separate from and in addition to any other critical care service time. Documented By: Demond Salmeron DO Consults & Procedures Consultants: Infectious Disease Neurology Procedures: FLUOROSCOPICALLY GUIDED LUMBAR PUNCTURE CLINICAL HISTORY: Evaluate for encephalitis. PROCEDURE: Due to altered mental status and sedation, the procedure, risks and benefits were discussed with the patient's power of cop including the risk of spinal headache, bleeding and infection. She agreed to the procedure and informed written consent was obtained. The procedure was performed by Dr. Sandoval following a timeout. The right L5-S1 interlaminar space was targeted. Skin overlying the space was prepped and draped in sterile fashion and local anesthesia was achieved with 1% lidocaine. Under intermittent fluoroscopic guidance, a 3 1/2 inch 22-gauge spinal needle was directed into the thecal sac with immediate return of clear CSF. A total of 9 cc of CSF was collected in 4 vials and sent to the laboratory as ordered. The needle was removed. The patient tolerated the procedure well and no immediate complications were evident. [~ rep ct add3]] MRI OF THE BRAIN COMBO CLINICAL HISTORY: Encephalitis. COMPARISON STUDY: CT of the brain dated 07/04/2017. MRI of the brain dated 07/03/2017. TECHNIQUE: MRI of the brain was performed utilizing various T1 and T2-weighted sequences in the axial, sagittal, and coronal planes. Contrast-enhanced sequences were acquired following the administration of 6 cc of Gadavist. FINDINGS: Brain parenchyma: There are age-related involutional changes noting advanced confluent subcortical and periventricular microangiopathic disease. There is no hemorrhage or mass effect. There is patchy T2 signal abnormality seen throughout the cerebellum, and also involving both thalami. There may also be T2 signal abnormality within the white matter; however, this is not well evaluated due to extensive microangiopathic change. Subtle cortical abnormality is identified within the temporal lobes, best appreciated on the FLAIR sequences. Faint restricted diffusion is suggested in these regions that is not typical for ischemia. No enhancing mass lesion is identified on the postcontrast images. There is no leptomeningeal or pachymeningeal enhancement. No extra-axial fluid collection is seen. The cerebellar tonsils are normal in configuration. Ventricles, sulci, and cisterns: Prominent secondary to involutional change. Pituitary and sella: Unremarkable. Intracranial vasculature: Normal flow voids are maintained at the skull base. Orbits: The bony orbits are grossly intact. Orbital contents are normal in appearance noting bilateral ocular lens implants. Sinuses and mastoids: Trace mucosal thickening is seen within the maxillary antra. Mild mucosal thickening is also identified within the ethmoid sinuses. Fluid is noted in the sphenoid sinuses. There is a left mastoid effusion. Fluid is present within the pharynx. Calvarium: Unremarkable. Cervical cord: Partially visualized cervical spinal cord is normal in morphology and signal intensity. IMPRESSION: 1. There is patchy T2 signal abnormality identified, greatest in the cerebellar hemispheres and the thalami. There may also be periventricular matter abnormality; however, this is not well assessed due to significant underlying microangiopathic change. Subtle cortical signal abnormality is seen within the temporal lobes, and these findings are best appreciated on the FLAIR sequence. The appearance is consistent with a nonspecific encephalitis/cerebritis. This could be related to an infectious/viral process or less likely a metabolic or global ischemic insult. Clinical correlation will be essential. 2. No hemorrhage is identified. There is no restricted diffusion identified typical for stroke. 3. There is no enhancing mass. No leptomeningeal/pachymeningeal enhancement is seen. 4. Left mastoid effusion and paranasal sinus disease as above. 5. Fluid is seen layering in the pharynx. IMPRESSION: Fluoroscopically guided lumbar puncture collection of 9 cc of clear CSF. Data Medications: Current Inpatient Medications Medications (Trade) Dose Ordered Sig/Josué Route Start Time Stop Time Status Last Admin Dose Admin Acetaminophen (Tylenol Tab) 650 mg Q4H PRN PO 06/29/17 11:00 07/29/17 10:59 Future Hold 07/03/17 11:07 650 MG Ondansetron HCl (Zofran Inj) 4 mg Q6H PRN IV 06/29/17 11:00 07/29/17 10:59 Aspirin (Ecotrin Tab) 81 mg DAILY PO 06/30/17 08:00 07/30/17 08:59 Future Hold 07/02/17 08:23 81 MG Atorvastatin Calcium (Lipitor Tab) 40 mg DAILY PO 06/30/17 08:00 07/30/17 08:59 Future Hold 07/02/17 08:22 40 MG Losartan Potassium (coZAAR TAB) 25 mg DAILY PO 06/30/17 08:00 07/30/17 08:59 Future Hold 07/02/17 08:24 25 MG Losartan Potassium (coZAAR TAB) 50 mg DAILY PO 06/30/17 08:00 07/30/17 08:59 Future Hold 07/02/17 08:24 50 MG Calcium/Vitamin D (Caltrate Plus Tab) 2 tab DAILY PO 06/30/17 08:00 07/30/17 07:59 Future Hold 07/02/17 08:23 2 TAB Miscellaneous (Iv Fluids Completed) 1 ea PRN PRN N/A 06/29/17 11:30 06/29/18 11:29 Acyclovir Sodium 650 mg/Dextrose 113 ml @ 110 mls/hr Q8H IV 06/30/17 10:30 07/10/17 10:29 07/07/17 10:46 110 MLS/HR Lactobacillus Acidophilus (Lactinex Granules Pack) 1 gm TIDM PO 07/01/17 07:30 07/31/17 07:29 Future Hold 07/02/17 15:22 1 GM Warfarin Sodium (Coumadin Tab) 5 mg DAILY@16 PO 07/02/17 16:00 08/01/17 15:59 Future Hold 07/02/17 15:21 5 MG Enoxaparin Sodium (Lovenox Inj) 40 mg Q24H SQ 07/02/17 16:00 08/01/17 15:59 Future hold 07/06/17 15:15 40 MG Enalaprilat 0.625 mg/Dextrose 25.5 ml @ 100 mls/hr Q6H PRN IV 07/04/17 09:15 08/03/17 09:14 07/07/17 08:08 100 MLS/HR Acetaminophen (Tylenol Supp) 650 mg Q4H PRN IA 07/05/17 07:30 08/04/17 07:29 Fentanyl Citrate (Fentanyl Inj) 50 mcg Q2H PRN IV 07/05/17 11:15 07/19/17 11:14 07/07/17 02:38 50 MCG Midazolam HCl (Versed Inj) 2 mg Q2H PRN IV 07/05/17 14:45 08/04/17 14:44 Fentanyl Citrate (Fentanyl Inj) 50 mcg Q2H PRN IV 07/05/17 14:45 07/19/17 14:44 Gadobutrol (Gadavist) 6 mmol UD PRN IV 07/05/17 19:30 07/09/17 19:29 Enteral Nutritional Formula (Peptamen Intense VHP) Start at 20mL/hr, titrate... DAILY OG 07/05/17 22:15 08/04/17 22:14 07/07/17 01:21 1,000 ML Levothyroxine Sodium (Synthroid Tab) 100 mcg DAILY GT 07/06/17 09:00 08/05/17 08:59 07/07/17 07:43 100 MCG Metoprolol Tartrate (Lopressor Tab) 50 mg BID PO 07/07/17 09:00 08/06/17 08:59 07/07/17 08:37 50 MG Magnesium Hydroxide (Milk Of Magnesia Susp) 30 ml Q6H PRN PO 07/07/17 08:15 08/06/17 08:14 07/07/17 10:46 30 ML Enalaprilat 1.25 mg/Dextrose 26 ml @ 100 mls/hr Q6H PRN IV 07/07/17 11:00 08/06/17 10:59 Metoprolol Tartrate (Lopressor Iv) 2.5 mg Q4 PRN IV 07/07/17 11:00 08/06/17 10:59 Vital Signs: Date Time Temp Pulse Resp B/P (MAP) Pulse Ox O2 Delivery O2 Flow Rate FiO2 07/07/17 11:07 30 07/07/17 10:00 65 17 97 CPAP 30 Mechanical Ventilator 07/07/17 09:31 85 21 195/119 (144) 98 07/07/17 09:01 80 18 187/109 (135) 98 07/07/17 09:00 85 18 98 07/07/17 08:31 75 14 184/92 (122) 98 07/07/17 08:01 36.8 88 14 193/101 (131) 98 CPAP 30 Mechanical Ventilator 07/07/17 08:00 88 19 98 07/07/17 07:40 CPAP Mechanical Ventilator 07/07/17 07:31 80 20 200/103 (135) 99 07/07/17 07:30 30 07/07/17 07:01 68 15 125/69 (87) 98 07/07/17 07:00 69 15 98 07/07/17 06:16 83 167/87 07/07/17 06:00 86 18 167/87 (113) 99 CPAP 30 Mechanical Ventilator 07/07/17 05:45 30 07/07/17 04:00 CPAP 30 Mechanical Ventilator 07/07/17 04:00 30 07/07/17 04:00 36.7 86 12 147/81 (103) 98 CPAP 30 Mechanical Ventilator 07/07/17 02:00 71 16 152/81 (104) 98 CPAP 30 Mechanical Ventilator 07/07/17 01:55 30 07/07/17 00:01 36.5 69 15 159/79 (105) 99 CPAP 30 Mechanical Ventilator 07/06/17 23:59 CPAP 30 Mechanical Ventilator 07/06/17 23:59 30 07/06/17 23:55 69 140/69 07/06/17 22:35 30 07/06/17 22:00 71 16 111/65 (80) 98 CPAP 30 Mechanical Ventilator 07/06/17 20:00 36.9 75 15 98 CPAP 30 Mechanical Ventilator 07/06/17 20:00 CPAP 30 Mechanical Ventilator 07/06/17 20:00 30 07/06/17 19:01 84 11 162/91 (114) 98 07/06/17 19:00 81 18 98 07/06/17 18:55 30 07/06/17 18:34 86 19 99 07/06/17 18:01 79 18 178/100 (126) 99 07/06/17 18:00 80 19 99 07/06/17 17:38 90 172/102 07/06/17 17:01 86 18 172/102 (125) 98 07/06/17 17:00 84 16 99 07/06/17 16:59 30 07/06/17 16:01 36.8 87 16 168/91 (116) 99 07/06/17 16:00 CPAP Mechanical Ventilator 07/06/17 16:00 84 18 99 CPAP 30 Mechanical Ventilator 07/06/17 15:01 81 20 167/83 (111) 99 07/06/17 15:00 82 20 99 07/06/17 14:25 30 07/06/17 14:01 66 21 153/87 (109) 99 07/06/17 14:00 68 21 100 07/06/17 13:01 60 22 154/76 (102) 99 07/06/17 13:00 65 18 99 07/06/17 12:31 71 18 133/77 (95) 98 07/06/17 12:25 74 158/87 07/06/17 12:01 36.8 55 16 158/87 (110) 98 CPAP 30 Mechanical Ventilator 07/06/17 12:00 CPAP Mechanical Ventilator 07/06/17 12:00 66 17 98 Laboratory Results: Last 24 Hours Test 07/06/17 12:17 07/06/17 17:45 07/07/17 00:43 07/07/17 05:36 Bedside Glucose 112 mg/dl 109 mg/dl 95 mg/dl White Blood Count 10.97 K/uL Red Blood Count 4.19 M/uL Hemoglobin 13.7 g/dL Hematocrit 39.8 % Mean Corpuscular Volume 95.0 fL Mean Corpuscular Hemoglobin 32.7 pg Mean Corpuscular Hemoglobin Concent 34.4 g/dl RDW Standard Deviation 43.0 fL RDW Coefficient of Variation 12.7 % Platelet Count 236 K/uL Mean Platelet Volume 9.5 fL Venous Blood pH 7.43 Venous Blood Partial Pressure CO2 45 mmHg Venous Blood Partial Pressure O2 43 mmHg Venous Blood HCO3 29 mmol/L Venous Blood Oxygen Saturation 78.9 % Venous Blood Base Excess 4.3 mEq/L Sodium Level 135 mmol/L Potassium Level 3.6 mmol/L Chloride Level 99 mmol/L Carbon Dioxide Level 28 mmol/L Anion Gap 8.0 mmol/L Blood Urea Nitrogen 15 mg/dl Creatinine 0.53 mg/dl Est Creatinine Clear Calc Drug Dose 74.1 ml/min Estimated GFR () 99.6 Estimated GFR (Non- 86.0 BUN/Creatinine Ratio 27.8 Random Glucose 104 mg/dl Calcium Level 8.6 mg/dl Phosphorus Level 2.0 mg/dl Magnesium Level 2.0 mg/dl Test 07/07/17 06:21 Bedside Glucose 119 mg/dl Resident Tracking Resident Involvement: Resident Care Provided Care Provided: Adult Hospital Medicine
--- NOTE | 2017-07-07 14:05 | ELECTROENCEPHALOGRAPH REPORT ---
REQUESTING: Dr. Ingram. 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 EEG DIAGNOSIS: Mildly to moderately diffusely abnormal EEG during apparent wakefulness. DESCRIPTION OF TRACING: This EEG was done as a bedside recording with photic stimulation. Simultaneous video analysis of patient movement and behavior was obtained. Under these conditions, there were few muscle movement artifacts seen early on but by and largely the tracing is relatively free of major artifacts unlike the prior recording which quite a number of these were present including what may have been in retrospect eye blink artifacts mimicking triphasic activity. Currently, the EEG reveals a background rhythm in the lower alpha and upper theta range ranging from 7-9 Hz of maximum frequency and of up to 30 microvolts of maximum amplitude. Polymorphic lower frequency theta activity intermixed with moderate amplitude random waveforms in the delta range is seen bifrontally and centrally in a symmetrical fashion without any lateralizing features. Beta activity is difficult to dissect out from some of the frontal movement artifacts. Photic stimulation evoked a minimal driving response with out any photomyogenic or photoparoxysmal component. Drowsiness and light sleep are not clearly seen. At no time during the waking tracing is there evidence for potentially epileptogenic activity in the form of polyspike or spike wave bursts, focal sharp waves or focal spikes and the previously noted triphasic activity is no longer evident and there is nothing to suggest evidence of periodic lateralized epileptiform discharges which may be seen in association with herpetic encephalitis, which is part of the differential diagnosis this case. The absence of this activity does not exclude the diagnosis but makes it somewhat less likely. MTDD
[2017-07-07] MEDS ORDERED: HydrALAZINE HCL 20 MG/ML VIAL IV. PRN (14:45)
[2017-07-07] MEDS: ENOXAPARIN 40 MG/0.4 ML SYR SQ SCH (14:56)
[2017-07-07] MEDS ORDERED: AMLODIPINE BESYLATE 5 MG TAB NG ONE (15:00)
[2017-07-07] MEDS: DOXYCYCLINE IV 100 MG in DEXTROSE 5% 100ML 100 ML IV SCH (15:00)
[2017-07-07 15:37] LABS: VARICELLA ZOSTER DNA PCR QUAL Not Detected (Not Detected); VZ DNA SOURCE CSF
--- NOTE | 2017-07-07 16:03 | PROGRESS NOTE ---
DATE: 07/07/2017 Indu looks largely with the same as she did yesterday. I think I can get some eye movements with verbal commands and I thought at one point she may need some squeezing motions with her hand when asked her to, but I really cannot get any withdrawal for pain. She has no spontaneous activity or very little that I see and at this point she looks fairly stable to what she was yesterday. She is on no sedating medications. EEG shows now only a moderate degree of diffuse encephalopathy and actually some could consider it mild based on her age. She does have at times alpha rhythm and central theta intermixed with some higher amplitude delta and the triphasic waveforms which in retrospect wrre probably eye blink artifacts are no longer present. Of importance is the fact that we do not see evidence for periodic lateralized epileptiform discharges which can be a hallmark of herpes encephalitis and at this point while she does have some vague temporal uptake with the dye and pleocytosis, we really do not have any red cells, we do not have any depressed glucose, we will have a modest degree of protein elevation and herpes titers were negative. So even though clinically one could try to if force this into a herpes simplex encephalitis diagnosis I would have a hard time doing so. That having been said, we do not have any other treatments, so I suspect infectious disease will continue the acyclovir for the required period of time. Coverage for listeria will probably be maintained as well even though cultures thus far as far as I can tell all been negative as they may well be in this entity. I will check again with her tomorrow. HILARIO
[2017-07-08] VITALS (55 sets, daily range): BP systolic 85–195; BP diastolic 51–131; PULSE 55–101; TEMP 36.5–36.8; O2SAT 97–99
[2017-07-08] MEDS: ACYCLOVIR SOD INJ 650 MG in DEXTROSE 5% 100ML 100 ML IV SCH ×3 (02:32→16:37)
[2017-07-08] MEDS: DOXYCYCLINE IV 100 MG in DEXTROSE 5% 100ML 100 ML IV SCH (03:21)
[2017-07-08 05:46] LABS: HEMATOCRIT 39.2 % (37-47); MEAN CELL VOLUME 95.8 fL (80-100); MEAN CORPUSCULAR HEMOGLOBIN 32.8 pg (25-34); MEAN CORPUSCULAR HGB CONC 34.2 g/dl (32-36); MEAN PLATELET VOLUME 9.1 fL (7.4-10.4); PLATELET COUNT 296 K/uL (130-400); RED BLOOD COUNT 4.09 M/uL (4.2-5.4); WHITE BLOOD COUNT 11.18 K/uL (4.8-10.8)
[2017-07-08 05:50] LABS: VEN BLD GAS O2 SATURATION 80.5 %; VEN BLOOD GAS BASE EXCESS 4.3 mEq/L
[2017-07-08 06:11] LABS: BUN/CREATININE RATIO 30.2 (10-20); CALCIUM 9.3 mg/dl (8.5-10.1); CREATININE 0.56 mg/dl (0.60-1.20); MAGNESIUM 2.2 mg/dl (1.8-2.4); POTASSIUM 4.1 mmol/L (3.5-5.1)
--- NOTE | 2017-07-08 07:52 | Progress Note ---
Medicine Progress Note Date & Time of Visit: Jul 08, 2017 at 07:42 . Subjective Afebrile. Remains on vent. Responds to some stimuli. Tolerating enteral feedings. Bowel movements after receiving MOM. . Objective Last 8 Hrs Date Time Temp Pulse Resp B/P (MAP) Pulse Ox O2 Delivery O2 Flow Rate FiO2 07/08/17 06:55 30 07/08/17 06:31 81 15 152/93 (112) 98 CPAP 30 Mechanical Ventilator 07/08/17 06:02 85 15 170/104 (126) 98 CPAP 30 Mechanical Ventilator 07/08/17 05:15 30 07/08/17 05:01 82 14 149/89 (109) 98 CPAP 30 Mechanical Ventilator 07/08/17 04:01 36.5 80 19 167/96 (119) 98 CPAP 30 Mechanical Ventilator 07/08/17 04:00 98 30 07/08/17 04:00 30 07/08/17 03:10 30 07/08/17 03:01 70 16 141/81 (101) 99 CPAP 30 Mechanical Ventilator 07/08/17 02:01 71 16 115/76 (89) 97 CPAP 30 Mechanical Ventilator 07/08/17 01:01 58 16 115/66 (82) 98 CPAP 30 Mechanical Ventilator 07/08/17 00:01 68 17 150/88 (108) 99 CPAP 30 Mechanical Ventilator 07/07/17 23:59 30 07/07/17 23:59 99 30 Physical Exam: General- no apparent distress Eyes- anicteric ENT- oral ETT, oral GT Neck- no JVD Lungs- clear to auscultation Heart- RRR, no murmur, no gallop Abdomen- + BS, soft, nontender Extremities- no pretibial edema or calf tenderness; SCD's applied Neuro- minimally responsive; pupils 2 mm, reactive Skin- warm & dry . Laboratory Results: Last 24 Hours Test 07/07/17 14:45 07/08/17 05:35 Bedside Glucose 113 mg/dl White Blood Count 11.18 K/uL Red Blood Count 4.09 M/uL Hemoglobin 13.4 g/dL Hematocrit 39.2 % Mean Corpuscular Volume 95.8 fL Mean Corpuscular Hemoglobin 32.8 pg Mean Corpuscular Hemoglobin Concent 34.2 g/dl RDW Standard Deviation 43.8 fL RDW Coefficient of Variation 12.8 % Platelet Count 296 K/uL Mean Platelet Volume 9.1 fL Venous Blood pH 7.43 Venous Blood Partial Pressure CO2 45 mmHg Venous Blood Partial Pressure O2 44 mmHg Venous Blood HCO3 29 mmol/L Venous Blood Oxygen Saturation 80.5 % Venous Blood Base Excess 4.3 mEq/L Sodium Level 131 mmol/L Potassium Level 4.1 mmol/L Chloride Level 95 mmol/L Carbon Dioxide Level 30 mmol/L Anion Gap 6.0 mmol/L Blood Urea Nitrogen 17 mg/dl Creatinine 0.56 mg/dl Est Creatinine Clear Calc Drug Dose 70.1 ml/min Estimated GFR () 97.9 Estimated GFR (Non- 84.4 BUN/Creatinine Ratio 30.2 Random Glucose 117 mg/dl Calcium Level 9.3 mg/dl Phosphorus Level 3.0 mg/dl Magnesium Level 2.2 mg/dl Assessment & Plan ALTERED MENTAL STATUS / FEBRILE ILLNESS Presented with progressive confusion. CT head demonstrated chronic microvascular changes, no acute findings. Altered mental status initially attributed to UTI. Recent outpatient urine culture grew E coli. UA at time of admission showed moderate leukocyte esterase, many WBC's, many epith cells, no bacteria. Initially received IV ceftriaxone. Urine culture subsequently grew more than 3 organisms, probable skin mariel. Blood cultures at time of admission were negative. [employer] infection was considered in light of fever and altered mental status. ID consulted. Antibiotic coverage was broadened (high dose ceftriaxone, vancomycin, ampicillin , acyclovir). LP could not be performed initially because of elevated INR on warfarin. Warfarin was reversed with vitamin K and FFP. LP performed, results as noted: Item Value Date Time CSF Appearance CLEAR 07/01/17 1000 CSF Color COLORLESS 07/01/17 1000 CSF WBC 164 /uL *H 07/01/17 1000 CSF RBC 2 /uL 07/01/17 1000 CSF Cell Count Tube # 3 07/01/17 1000 CSF Mononuclear WBCs 99.0 % 07/01/17 1000 CSF Polynuclear WBCs 1.0 % 07/01/17 1000 CSF Chemistry Tube # 1 07/01/17 1000 CSF Glucose 86 mg/dl H 07/01/17 1000 CSF Total Protein 79.3 mg/dl H 07/01/17 1000 CSF gram stain negative. CSF cultures negative so far. Cryptococcal Ag negative. CSF Lyme PCR and antibodies negative. CSF HSV 1/2 PCR negative. CSF Enterovirus PCR negative. CSF West Nile PCR negative. Hobbs most likely to have viral meningitis. Condition initially improved. Vancomycin, ampicillin, dexamethasone discontinued. Ceftriaxone and acyclovir were continued. Worsening confusion 07/03. Neuro consulted. MRI performed 07/03 had some motion artifact, but did not show any acute changes. EEG- moderate diffuse nonlateralizing encephalopathy, no apparent epileptogenic foci. Repeat LP 07/05/17: Item Value Date Time CSF WBC 57 /uL *H 07/05/17 1539 CSF RBC 41 /uL 07/05/17 1539 CSF Cell Count Tube # 3 07/05/17 1539 CSF Mononuclear WBCs 100.0 % 07/05/17 1539 CSF Glucose 76 mg/dl H 07/05/17 1539 CSF Total Protein 81.0 mg/dl H 07/05/17 1539 MRI with contrast 07/05/17 demonstrated T2 abnormalities in cerebellum and thalami as well as some subtle findings within temporal lobes. 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 Last elevated temp 07/04. De-escalating antibiotic coverage. Listeria unlikely- ampicillin discontinued. Lyme, pneumococcal pneumonia ruled out- ceftriaxone discontinued. ?? tick borne illness. Tick-borne illness PCR panel negative. DC doxycycline. Continue acyclovir. Continue supportive measures. RESPIRATORY Intubated for airway protection. Oxygenating well on 30% FIO2. Management per [facility]. LLL DENSITY Chest x-ray 07/03 showed LLL density, infiltrate vs atelectasis. Started on IV piperacillin / tazobactam for possible pneumonia. Bronchoscopy performed 07/05; sputum culture from bronch grew only scant normal mariel and Jacy (probable contamination / colonization). Pneumonia unlikely. PAROXYSMAL ATRIAL FIB Unable to take oral metoprolol due to NPO status. Converted to parenteral metoprolol. Best not to maintain full anticoagulation at this time due to critical illness, procedures, etc. Resume warfarin when able. HYPERTENSION Unable to take oral meds due to NPO status. Blood pressures fluctuating. Best to allow relatively high BP's in light of neuro status. Converted metoprolol to IV --> GT. Added amlodipine via GT. IV enalapril PRN. HYPONATREMIA Serum sodium 141 --> --> 128--> --> 131. Hyponatremia may be secondary to free water diluent in multiple IV antibiotics. Consider SIADH secondary to [employer] or pulmonary process. 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 Follow. HYPOKALEMIA K as low as 3.1. Receiving replacement. K today = 4.1. Follow. HYPOTHYROIDISM Levothyroxine via OGT. NUTRITION Receiving enteral feedings via OGT. VTE PROPHYLAXIS On warfarin at time of admission which was subsequently held / reversed due to ICU status and multiple procedures. Continue enoxaparin. SCD's. DISPOSITION To be determined. Family Medicine follow-up with Dr. Mosley. Spouse Ms. Cortes at bedside and given update. . Consultants: ID NATAS[facility] Neurology . Procedures: CT head 06/29/17 CT head 06/30/17 LP under fluoro guidance 07/01/17 CT head 07/03/17 MRI brain 07/03/17 CT head 07/04/17 endotracheal intubation 07/05/17 mechanical ventilation 07/05/17 bronchoscopy 07/05/17 MRI brain with contrast 07/05/17 LP under fluoro guidance 06/25/17 . Current Inpatient Medications: Current Inpatient Medications Medications (Trade) Dose Ordered Sig/Josué Route Start Time Stop Time Status Last Admin Dose Admin Acetaminophen (Tylenol Tab) 650 mg Q4H PRN PO 06/29/17 11:00 07/29/17 10:59 Future Hold 07/03/17 11:07 650 MG Ondansetron HCl (Zofran Inj) 4 mg Q6H PRN IV 06/29/17 11:00 07/29/17 10:59 Aspirin (Ecotrin Tab) 81 mg DAILY PO 06/30/17 08:00 07/30/17 08:59 Future Hold 07/02/17 08:23 81 MG Atorvastatin Calcium (Lipitor Tab) 40 mg DAILY PO 06/30/17 08:00 07/30/17 08:59 Future Hold 07/02/17 08:22 40 MG Losartan Potassium (coZAAR TAB) 25 mg DAILY PO 06/30/17 08:00 07/30/17 08:59 Future Hold 07/02/17 08:24 25 MG Losartan Potassium (coZAAR TAB) 50 mg DAILY PO 06/30/17 08:00 07/30/17 08:59 Future Hold 07/02/17 08:24 50 MG Calcium/Vitamin D (Caltrate Plus Tab) 2 tab DAILY PO 06/30/17 08:00 07/30/17 07:59 Future Hold 07/02/17 08:23 2 TAB Miscellaneous (Iv Fluids Completed) 1 ea PRN PRN N/A 06/29/17 11:30 06/29/18 11:29 Acyclovir Sodium 650 mg/Dextrose 113 ml @ 110 mls/hr Q8H IV 06/30/17 10:30 07/10/17 10:29 07/08/17 02:32 110 MLS/HR Lactobacillus Acidophilus (Lactinex Granules Pack) 1 gm TIDM PO 07/01/17 07:30 07/31/17 07:29 Future Hold 07/02/17 15:22 1 GM Warfarin Sodium (Coumadin Tab) 5 mg DAILY@16 PO 07/02/17 16:00 08/01/17 15:59 Future Hold 07/02/17 15:21 5 MG Enoxaparin Sodium (Lovenox Inj) 40 mg Q24H SQ 07/02/17 16:00 08/01/17 15:59 Future hold 07/07/17 14:56 40 MG Enalaprilat 0.625 mg/Dextrose 25.5 ml @ 100 mls/hr Q6H PRN IV 07/04/17 09:15 08/03/17 09:14 07/07/17 08:08 100 MLS/HR Acetaminophen (Tylenol Supp) 650 mg Q4H PRN NE 07/05/17 07:30 08/04/17 07:29 Fentanyl Citrate (Fentanyl Inj) 50 mcg Q2H PRN IV 07/05/17 11:15 07/19/17 11:14 07/07/17 14:54 50 MCG Midazolam HCl (Versed Inj) 2 mg Q2H PRN IV 07/05/17 14:45 08/04/17 14:44 Fentanyl Citrate (Fentanyl Inj) 50 mcg Q2H PRN IV 07/05/17 14:45 07/19/17 14:44 Gadobutrol (Gadavist) 6 mmol UD PRN IV 07/05/17 19:30 07/09/17 19:29 Enteral Nutritional Formula (Peptamen Intense VHP) Start at 20mL/hr, titrate... DAILY OG 07/05/17 22:15 08/04/17 22:14 07/07/17 01:21 1,000 ML Levothyroxine Sodium (Synthroid Tab) 100 mcg DAILY GT 07/06/17 09:00 08/05/17 08:59 07/07/17 07:43 100 MCG Metoprolol Tartrate (Lopressor Tab) 50 mg BID PO 07/07/17 09:00 08/06/17 08:59 07/07/17 21:00 50 MG Magnesium Hydroxide (Milk Of Magnesia Susp) 30 ml Q6H PRN PO 07/07/17 08:15 08/06/17 08:14 07/07/17 10:46 30 ML Doxycycline Hyclate 100 mg/ Dextrose 110 ml @ 50 mls/hr Q12H IV 07/07/17 10:00 07/14/17 09:59 07/08/17 03:21 50 MLS/HR Enalaprilat 1.25 mg/Dextrose 26 ml @ 100 mls/hr Q6H PRN IV 07/07/17 11:00 08/06/17 10:59 Metoprolol Tartrate (Lopressor Iv) 2.5 mg Q4 PRN IV 07/07/17 11:00 08/06/17 10:59 07/07/17 13:47 2.5 MG Hydralazine HCl (HydrALAZINE INJ) 10 mg Q6H PRN IV. 07/07/17 14:45 08/06/17 14:44 Amlodipine Besylate (Norvasc Tab) 5 mg QAM NG 07/08/17 09:00 08/07/17 08:59
[2017-07-08] MEDS: LEVOTHYROXINE 100 MCG TAB GT SCH (08:05)
[2017-07-08] MEDS: METOPROLOL TARTRATE 50 MG TAB PO SCH ×2 (08:06→21:00)
--- NOTE | 2017-07-08 08:15 | DIAGNOSTIC IMAGING REPORT ---
CHEST ONE VIEW PORTABLE CLINICAL HISTORY: Intubated. COMPARISON STUDY: Chest radiograph July 07, 2017. FINDINGS: The tip of the endotracheal tube is 6.6 cm above the constantine. Tip of nasogastric tube is within the body of the stomach. Cardiomediastinal silhouette is stable. There is no pneumothorax or pleural effusion. Mild left lower lung opacity persists. IMPRESSION: 1. Tip of endotracheal tube 6.6 cm above the constantine. 2. Persistent left lower lung opacity. Electronically signed by: Patricio Sandoval M.D. 07/08/2017 8:14 AM Dictated Date/Time: 07/08/2017 8:12 AM
[2017-07-08] MEDS ORDERED: AMLODIPINE BESYLATE 5 MG TAB NG SCH (09:00)
[2017-07-08] MEDS ORDERED: FUROSEMIDE INJ 40 MG in SYRINGE 0 ML IV ONE (09:45)
[2017-07-08] MEDS ORDERED: POTASSIUM CHLORIDE 20 MEQ TABCR PO ONE (09:45)
[2017-07-08] MEDS: METHYLPREDNISOLONE IV 1,000 MG in DEXTROSE 5% 250ML 250 ML IV SCH (10:35)
--- NOTE | 2017-07-08 10:39 | Critical Care Progress Note ---
Critical Care Progress Note Date of Service Jul 08, 2017. ICU Day ICU Day Number: [address] Salmeron Subjective NO acute events overnight. High tube residuals per nursing. Rectal tube placed overnight. Objective GENERAL: obtunded, no distress EYE EXAM: normal conjunctiva, PERRL and EOM's grossly intact OROPHARYNX: tongue normal and mucous membranes are moist NECK: supple, no nuchal rigidity, no adenopathy LUNGS: Clear to auscultation. HEART: no murmurs, S1 normal and S2 normal ABDOMEN: abdomen soft, non-tender, normo-active bowel sounds, no masses, LOWER EXTREMITIES: No pitting edema. NEURO EXAM: GCS 6T Current SOFA Score SOFA Score Response (Comments) Value PaO2/FiO2 (mmHg) < 400 1 Platelets (x10) > 150 0 Bilirubin (mg/dL) < 1.2 0 [place] Coma Score < 6 4 Level of Hypotension No Hypotension 0 Creatinine (mg/dL) < 1.2 0 Total 5 Assessment & Plan 87 yo F w/x h/o Paroxysmal AFIB, HTN, HLD, presented with fever, Acute Confusion /Lethargy and UTI. LP consistent with meningitis vs Encephalitis likely of viral origin, currently on , Doxycycline and Acyclovir. 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 No acute process. No change from the prior exam. MRI: No evidence for an acute ischemic insult.Generalized atrophy of the cerebellar as well as cerebral hemispheres ID following the patient. MRI (07/06) : appearance is consistent with a nonspecific encephalitis/ cerebritis Repeat LP (07/05) showed decrease in WBC (164-->54), Gram stain neg. cx pending. Glucose, Tot protein remain elevated CSF negative for Lyme ABs, Enterovirus, HSV I,II, [place] virus, Cryptococcal VZV) EBV, CMV pending EEG dated 07/07: Mildly to moderately diffusely abnormal EEG, No evidence of epileptogenic activity or of periodic lateralized epileptiform discharges which may be seen in association with herpetic encephalitis D/C'd Ampicillin and Ceftriaxone (07/07). D/C'd Doxycycline, Continue Acyclovir Respiratory: Atelectasis given LL Lung Infiltrate, Pneumonia possible but less likely Possible Pneumonia: Maintain on broad spectrum abx Chest X-ray(07/08): Tip of endotracheal tube 6.6 cm above the constantine., Persistent left lower lung opacity. Cardiovascular: Paroxysmal Afib, HTN, HLD HTN: BP remains elevated, IV Enalapril prn , D/C'd IV Lopressor. I Increase PO Lopressor to 100 mg BID Afib: currently sinus, Continue to monitor CV drips: Remains off vasoactive medications Rhythm: Sinus EKG: Normal sinus, QTc : 429 Fluids/Renal: Hyponatremia: persists 129-->132-->135-->131 Hypokalemia: resolved Hypophosphatemia: resolved Mireles: Present GI/Nutrition: s/p rectal tube Feeding: Peptamen, High tube feed residuals Prophylaxis: Not On PPI Bowel movements:2 PRN Milk of Magnesia, Senokot Endocrine: Last 24 hour glucose: Ranging 104-117 Insulin protocol: Yes; Drip: No Hematology: Hemoglobin 13.4 DVT prophylaxis: Lovenox Infectious Disease/Immunology: suspected Viral Encephalitis of unknown etiology. Tmax: 37.2 Leukocytosis resolved Antimicrobials: D/C'd Doxycycline D/d's Ceftriaxone D/C'd Ampicillin Continue Acyclovir Cultures: Blood: No growth Blood (Parasitology) on smear: Negative Bronchial washings:Jacy (likely from aspiration, no indication for antifungal ) Urine: No growth MRSA: neg CSF: No growth to date EBV, CMP serology pending Resident Physician Supervision Note: Dr. Phillip was resident physician during care of patient. I separately evaluated patient and did history and exam. I discussed the case with the resident and generally agree with the findings and plan. Patient's neuro status still not has improved. I have ordered an anti-NMDA receptor after discussion with neurology. We have also started high-dose steroids. I am concerned given her lack of improvement that this will likely result in an unfavorable outcome. Patient is critically ill due to severe encephalopathy. She is minimally responsive to deep painful stimuli do not feel appropriate to extubate the patient at this time. I have personally spent 35 minutes of critical care time in the direct management of this patient. This is a life/limb threatening event. This includes time spent evaluating patient, direct bedside care, chart review, placing orders, interpretation of diagnostic studies, discussion with consultants, patient, and family members, as well as other required patient management activities. This time is exclusive of all separately billable procedures, and teaching time and separate from and in addition to any other critical care service time. Documented By: Demond Salmeron DO Consults & Procedures Consultants: Infectious Disease Neurology Procedures: FLUOROSCOPICALLY GUIDED LUMBAR PUNCTURE CLINICAL HISTORY: Evaluate for encephalitis. 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 She agreed to the procedure and informed written consent was obtained. The procedure was performed by Dr. Sandoval following a timeout. The right L5-S1 interlaminar space was targeted. Skin overlying the space was prepped and draped in sterile fashion and local anesthesia was achieved with 1% lidocaine. Under intermittent fluoroscopic guidance, a 3 1/2 inch 22-gauge spinal needle was directed into the thecal sac with immediate return of clear CSF. A total of 9 cc of CSF was collected in 4 vials and sent to the laboratory as ordered. The needle was removed. The patient tolerated the procedure well and no immediate complications were evident. [~ rep ct add3]] MRI OF THE BRAIN COMBO CLINICAL HISTORY: Encephalitis. COMPARISON STUDY: CT of the brain dated 07/04/2017. MRI of the brain dated 07/03/2017. TECHNIQUE: MRI of the brain was performed utilizing various T1 and T2-weighted sequences in the axial, sagittal, and coronal planes. Contrast-enhanced sequences were acquired following the administration of 6 cc of Gadavist. FINDINGS: Brain parenchyma: There are age-related involutional changes noting advanced confluent subcortical and periventricular microangiopathic disease. There is no hemorrhage or mass effect. There is patchy T2 signal abnormality seen throughout the cerebellum, and also involving both thalami. There may also be T2 signal abnormality within the white matter; however, this is not well evaluated due to extensive microangiopathic change. Subtle cortical abnormality is identified within the temporal lobes, best appreciated on the FLAIR sequences. Faint restricted diffusion is suggested in these regions that is not typical for ischemia. No enhancing mass lesion is identified on the postcontrast images. There is no leptomeningeal or pachymeningeal enhancement. No extra-axial fluid collection is seen. The cerebellar tonsils are normal in configuration. Ventricles, sulci, and cisterns: Prominent secondary to involutional change. Pituitary and sella: Unremarkable. Intracranial vasculature: Normal flow voids are maintained at the skull base. Orbits: The bony orbits are grossly intact. Orbital contents are normal in appearance noting bilateral ocular lens implants. Sinuses and mastoids: Trace mucosal thickening is seen within the maxillary antra. Mild mucosal thickening is also identified within the ethmoid sinuses. Fluid is noted in the sphenoid sinuses. There is a left mastoid effusion. Fluid is present within the pharynx. Calvarium: Unremarkable. Cervical cord: Partially visualized cervical spinal cord is normal in morphology and signal intensity. IMPRESSION: 1. There is patchy T2 signal abnormality identified, greatest in the cerebellar hemispheres and the thalami. There may also be periventricular matter abnormality; however, this is not well assessed due to significant underlying microangiopathic change. Subtle cortical signal abnormality is seen within the temporal lobes, and these findings are best appreciated on the FLAIR sequence. The appearance is consistent with a nonspecific encephalitis/cerebritis. This could be related to an infectious/viral process or less likely a metabolic or global ischemic insult. Clinical correlation will be essential. 2. No hemorrhage is identified. There is no restricted diffusion identified typical for stroke. 3. There is no enhancing mass. No leptomeningeal/pachymeningeal enhancement is seen. 4. Left mastoid effusion and paranasal sinus disease as above. 5. Fluid is seen layering in the pharynx. IMPRESSION: Fluoroscopically guided lumbar puncture collection of 9 cc of clear CSF. Data Medications: Current Inpatient Medications Medications (Trade) Dose Ordered Sig/Josué Route Start Time Stop Time Status Last Admin Dose Admin Acetaminophen (Tylenol Tab) 650 mg Q4H PRN PO 06/29/17 11:00 07/29/17 10:59 Future Hold 07/03/17 11:07 650 MG Ondansetron HCl (Zofran Inj) 4 mg Q6H PRN IV 06/29/17 11:00 07/29/17 10:59 Aspirin (Ecotrin Tab) 81 mg DAILY PO 06/30/17 08:00 07/30/17 08:59 Future Hold 07/02/17 08:23 81 MG Atorvastatin Calcium (Lipitor Tab) 40 mg DAILY PO 06/30/17 08:00 07/30/17 08:59 Future Hold 07/02/17 08:22 40 MG Losartan Potassium (coZAAR TAB) 25 mg DAILY PO 06/30/17 08:00 07/30/17 08:59 Future Hold 07/02/17 08:24 25 MG Losartan Potassium (coZAAR TAB) 50 mg DAILY PO 06/30/17 08:00 07/30/17 08:59 Future Hold 07/02/17 08:24 50 MG Calcium/Vitamin D (Caltrate Plus Tab) 2 tab DAILY PO 06/30/17 08:00 07/30/17 07:59 Future Hold 07/02/17 08:23 2 TAB Miscellaneous (Iv Fluids Completed) 1 ea PRN PRN N/A 06/29/17 11:30 06/29/18 11:29 Acyclovir Sodium 650 mg/Dextrose 113 ml @ 110 mls/hr Q8H IV 06/30/17 10:30 07/10/17 10:29 07/08/17 02:32 110 MLS/HR Lactobacillus Acidophilus (Lactinex Granules Pack) 1 gm TIDM PO 07/01/17 07:30 07/31/17 07:29 Future Hold 07/02/17 15:22 1 GM Warfarin Sodium (Coumadin Tab) 5 mg DAILY@16 PO 07/02/17 16:00 08/01/17 15:59 Future Hold 07/02/17 15:21 5 MG Enoxaparin Sodium (Lovenox Inj) 40 mg Q24H SQ 07/02/17 16:00 08/01/17 15:59 Future hold 07/07/17 14:56 40 MG Enalaprilat 0.625 mg/Dextrose 25.5 ml @ 100 mls/hr Q6H PRN IV 07/04/17 09:15 08/03/17 09:14 07/07/17 08:08 100 MLS/HR Acetaminophen (Tylenol Supp) 650 mg Q4H PRN OR 07/05/17 07:30 08/04/17 07:29 Fentanyl Citrate (Fentanyl Inj) 50 mcg Q2H PRN IV 07/05/17 11:15 07/19/17 11:14 07/07/17 14:54 50 MCG Midazolam HCl (Versed Inj) 2 mg Q2H PRN IV 07/05/17 14:45 08/04/17 14:44 Fentanyl Citrate (Fentanyl Inj) 50 mcg Q2H PRN IV 07/05/17 14:45 07/19/17 14:44 Gadobutrol (Gadavist) 6 mmol UD PRN IV 07/05/17 19:30 07/09/17 19:29 Enteral Nutritional Formula (Peptamen Intense VHP) Start at 20mL/hr, titrate... DAILY OG 07/05/17 22:15 08/04/17 22:14 07/07/17 01:21 1,000 ML Levothyroxine Sodium (Synthroid Tab) 100 mcg DAILY GT 07/06/17 09:00 08/05/17 08:59 07/08/17 08:05 100 MCG Magnesium Hydroxide (Milk Of Magnesia Susp) 30 ml Q6H PRN PO 07/07/17 08:15 08/06/17 08:14 07/07/17 10:46 30 ML Enalaprilat 1.25 mg/Dextrose 26 ml @ 100 mls/hr Q6H PRN IV 07/07/17 11:00 08/06/17 10:59 Metoprolol Tartrate (Lopressor Iv) 2.5 mg Q4 PRN IV 07/07/17 11:00 08/06/17 10:59 07/07/17 13:47 2.5 MG Hydralazine HCl (HydrALAZINE INJ) 10 mg Q6H PRN IV. 07/07/17 14:45 08/06/17 14:44 Methylprednisolone Sodium Succinate 1000 mg/Dextrose 266 ml @ 250 mls/hr QD@1000 IV 07/08/17 10:00 07/11/17 11:04 Amlodipine Besylate (Norvasc Tab) 10 mg QAM NG 07/09/17 09:00 08/07/17 08:59 Metoprolol Tartrate (Lopressor Tab) 100 mg BID PO 07/08/17 21:00 08/06/17 08:59 Vital Signs: Date Time Temp Pulse Resp B/P (MAP) Pulse Ox O2 Delivery O2 Flow Rate FiO2 07/08/17 08:31 85 19 195/131 (152) 98 07/08/17 08:10 98 CPAP 30 Mechanical Ventilator 07/08/17 08:01 87 16 185/93 (123) 98 CPAP 30 Mechanical Ventilator 07/08/17 08:00 86 18 97 07/08/17 07:52 36.8 07/08/17 07:31 82 18 149/95 (113) 98 07/08/17 07:06 87 17 177/116 (136) 98 07/08/17 07:03 89 17 187/115 (139) 97 07/08/17 07:01 89 16 182/109 (133) 98 07/08/17 07:00 88 17 98 07/08/17 06:55 30 07/08/17 06:31 81 15 152/93 (112) 98 CPAP 30 Mechanical Ventilator 07/08/17 06:02 85 15 170/104 (126) 98 CPAP 30 Mechanical Ventilator 07/08/17 05:15 30 07/08/17 05:01 82 14 149/89 (109) 98 CPAP 30 Mechanical Ventilator 07/08/17 04:01 36.5 80 19 167/96 (119) 98 CPAP 30 Mechanical Ventilator 07/08/17 04:00 98 30 07/08/17 04:00 30 07/08/17 03:10 30 07/08/17 03:01 70 16 141/81 (101) 99 CPAP 30 Mechanical Ventilator 07/08/17 02:01 71 16 115/76 (89) 97 CPAP 30 Mechanical Ventilator 07/08/17 01:01 58 16 115/66 (82) 98 CPAP 30 Mechanical Ventilator 07/08/17 00:01 68 17 150/88 (108) 99 CPAP 30 Mechanical Ventilator 07/07/17 23:59 30 07/07/17 23:59 99 30 07/07/17 23:31 36.8 59 16 126/71 (89) 98 CPAP 30 Mechanical Ventilator 07/07/17 23:01 57 17 155/77 (103) 98 CPAP 30 Mechanical Ventilator 07/07/17 22:31 57 18 161/92 (115) 98 CPAP 30 Mechanical Ventilator 07/07/17 22:30 30 07/07/17 22:01 36.8 64 16 135/68 (90) 99 CPAP 30 Mechanical Ventilator 07/07/17 21:31 69 16 108/64 (79) 99 CPAP 30 Mechanical Ventilator 07/07/17 21:01 83 16 140/84 (102) 98 CPAP 30 Mechanical Ventilator 07/07/17 20:31 84 16 153/88 (109) 98 CPAP 30 Mechanical Ventilator 07/07/17 20:14 CPAP 30 Mechanical Ventilator 07/07/17 20:01 36.8 89 18 159/96 (117) 97 CPAP 30 Mechanical Ventilator 07/07/17 19:31 96 20 167/100 (122) 97 CPAP 30 Mechanical Ventilator 07/07/17 19:01 97 19 165/97 (119) 97 07/07/17 19:00 96 19 97 07/07/17 18:55 30 07/07/17 18:31 95 20 148/92 (110) 98 07/07/17 18:01 99 19 154/96 (115) 97 07/07/17 18:00 98 19 97 07/07/17 17:35 30 07/07/17 17:31 91 18 156/97 (116) 97 07/07/17 17:01 92 18 162/99 (120) 98 07/07/17 17:00 93 18 98 07/07/17 16:31 89 17 167/99 (121) 97 07/07/17 16:01 89 16 152/96 (114) 97 07/07/17 16:00 88 15 97 07/07/17 15:37 CPAP Mechanical Ventilator 07/07/17 15:31 37.2 87 13 153/95 (114) 97 07/07/17 15:14 92 14 187/101 (129) 98 07/07/17 15:01 86 12 175/104 (127) 97 07/07/17 15:00 87 11 97 07/07/17 14:55 30 07/07/17 14:52 86 16 181/114 (136) 97 07/07/17 14:31 91 21 181/114 (136) 97 07/07/17 14:01 91 19 176/108 (130) 97 07/07/17 14:00 91 17 97 07/07/17 13:47 94 186/112 07/07/17 13:31 90 18 186/112 (136) 97 07/07/17 13:01 89 17 174/97 (122) 97 07/07/17 13:00 92 20 97 07/07/17 12:01 36.8 92 20 170/104 (126) 97 CPAP 30 Mechanical Ventilator 07/07/17 12:00 92 20 97 07/07/17 12:00 CPAP Mechanical Ventilator 07/07/17 11:31 85 20 157/90 (112) 97 07/07/17 11:07 30 07/07/17 11:01 84 19 182/107 (132) 98 07/07/17 11:00 84 20 97 Laboratory Results: Last 24 Hours Test 07/07/17 14:45 07/08/17 05:35 Bedside Glucose 113 mg/dl White Blood Count 11.18 K/uL Red Blood Count 4.09 M/uL Hemoglobin 13.4 g/dL Hematocrit 39.2 % Mean Corpuscular Volume 95.8 fL Mean Corpuscular Hemoglobin 32.8 pg Mean Corpuscular Hemoglobin Concent 34.2 g/dl RDW Standard Deviation 43.8 fL RDW Coefficient of Variation 12.8 % Platelet Count 296 K/uL Mean Platelet Volume 9.1 fL Venous Blood pH 7.43 Venous Blood Partial Pressure CO2 45 mmHg Venous Blood Partial Pressure O2 44 mmHg Venous Blood HCO3 29 mmol/L Venous Blood Oxygen Saturation 80.5 % Venous Blood Base Excess 4.3 mEq/L Sodium Level 131 mmol/L Potassium Level 4.1 mmol/L Chloride Level 95 mmol/L Carbon Dioxide Level 30 mmol/L Anion Gap 6.0 mmol/L Blood Urea Nitrogen 17 mg/dl Creatinine 0.56 mg/dl Est Creatinine Clear Calc Drug Dose 70.1 ml/min Estimated GFR () 97.9 Estimated GFR (Non- 84.4 BUN/Creatinine Ratio 30.2 Random Glucose 117 mg/dl Calcium Level 9.3 mg/dl Phosphorus Level 3.0 mg/dl Magnesium Level 2.2 mg/dl
--- NOTE | 2017-07-08 13:02 | PROGRESS NOTE ---
DATE: 07/08/2017 Indu is still lethargic. She may open her eyes a little bit to stimuli and maybe withdraws a little bit, but nothing major has transpired so far. I went over the labs again, discussed the case with Dr. Arevalo and Dr. Salmeron. I suppose one of the things that may be operating here is autoimmune encephalitis rather than an infectious one. The history suggests that she was fine and then had a sudden decline which would be more consistent with a viral illness than a paraneoplastic autoimmune phenomenon, but I think it is worth a trial of steroids here. The temporal lobe Flair imaginf abnormaities in the temporal lobes, the lymphocytic pleocytosis, the minor elevation of the protein and normal sugar, all could be part of an autoimmune picture. If this is the case and she would respond, then we may end up having to look for an underlying neoplasm and in this case particularly an ovarian one. For some unclear reason the cytology was never done or at least I cannot find it and Dr. Salmeron is considering asking them to do NMDA receptor antibody level on the spinal fluid if any is left. We may end up doing one on peripheral blood but I will let this decision up to the ICU staff. I did explain our thinking to Mrs. Venegas' significant other and I think she understands that this is a heroic effort and unlikely to be successful, but at least it is at this point likely to do no harm as long as we continue the antibiotics. I will check back with her tomorrow. HILARIO
[2017-07-08] MEDS: PEPTAMEN INTENSE VHP 1000ML BAG OG SCH (16:16)
[2017-07-08] MEDS: ENOXAPARIN 40 MG/0.4 ML SYR SQ SCH (16:16)
[2017-07-08 18:52] LABS: BUN/CREATININE RATIO 32.8 (10-20); CALCIUM 9.3 mg/dl (8.5-10.1); CREATININE 0.73 mg/dl (0.60-1.20); POTASSIUM 3.8 mmol/L (3.5-5.1)
[2017-07-09] VITALS (55 sets, daily range): BP systolic 90–177; BP diastolic 55–107; PULSE 59–105; TEMP 36.4–36.9; O2SAT 95–98
[2017-07-09] MEDS: ACYCLOVIR SOD INJ 650 MG in DEXTROSE 5% 100ML 100 ML IV SCH ×3 (02:30→19:00)
--- NOTE | 2017-07-09 05:09 | Critical Care Progress Note ---
Critical Care Progress Note Date of Service Jul 09, 2017. ICU Day ICU Day Number: [address] Salmeron Subjective NO acute events overnight. NO change in mental status. Objective GENERAL: obtunded, w/o distress EYE EXAM: normal conjunctiva, PERRL and EOM's grossly intact OROPHARYNX: tongue normal and mucous membranes are moist NECK: supple, no nuchal rigidity, no adenopathy LUNGS: Clear to auscultation. HEART: no murmurs, S1 normal and S2 normal ABDOMEN: abdomen soft, non-tender, normo-active bowel sounds, no masses, LOWER EXTREMITIES: No pitting edema. NEURO EXAM: GCS 6T Current SOFA Score SOFA Score Response (Comments) Value PaO2/FiO2 (mmHg) < 400 1 Platelets (x10) > 150 0 Bilirubin (mg/dL) < 1.2 0 [place] Coma Score < 6 4 Level of Hypotension No Hypotension 0 Creatinine (mg/dL) < 1.2 0 Total 5 Assessment & Plan 87 yo F w/x h/o Paroxysmal AFIB, HTN, HLD, presented with fever, Acute Confusion /Lethargy and UTI. LP consistent with meningitis vs Encephalitis likely of viral origin, currently on , Acyclovir. 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 No acute process. No change from the prior exam. MRI: No evidence for an acute ischemic insult.Generalized atrophy of the cerebellar as well as cerebral hemispheres ID following the patient. MRI (07/06) : appearance is consistent with a nonspecific encephalitis/ cerebritis Repeat LP (07/05) showed decrease in WBC (164-->54), Gram stain neg. cx pending. Glucose, Tot protein remain elevated CSF negative for Lyme ABs, Enterovirus, HSV I,II, [place] virus, Cryptococcal VZV) EBV, CMV pending EEG dated 07/07: Mildly to moderately diffusely abnormal EEG, No evidence of epileptogenic activity or of periodic lateralized epileptiform discharges which may be seen in association with herpetic encephalitis D/C'd Ampicillin and Ceftriaxone (07/07). D/C'd Doxycycline, Continue Acyclovir Respiratory: Atelectasis given LL Lung Infiltrate, Pneumonia possible but less likely Possible Pneumonia: Maintain on broad spectrum abx Chest X-ray(07/09): Tip of endotracheal tube 6 cm above the constantine Cardiovascular: Paroxysmal Afib, HTN, HLD HTN: BP remains elevated, IV Enalapril prn , D/C'd IV Lopressor. I Continue PO Lopressor to 100 mg BID Afib: currently sinus, Continue to monitor CV drips: Remains off vasoactive medications Rhythm: Sinus EKG: Normal sinus, QTc : 429 Fluids/Renal: Hyponatremia: persists 125, ordered urine osm, serum osm, urine Na, r/o SIADH R/o Cerebral edema, CT Head: No significant change compared to the prior study. No acute intracranial abnormality Hypokalemia: resolved Hypophosphatemia: resolved Mireles: Present GI/Nutrition: s/p rectal tube Feeding: Peptamen Prophylaxis: Not On PPI Bowel movements:1 PRN Milk of Magnesia, Senokot Endocrine: Last 24 hour glucose: Ranging 211-250 Insulin protocol: Yes; Drip: No ordered 15u Lantus Hematology: Hemoglobin 15.4 DVT prophylaxis: Lovenox Infectious Disease/Immunology: suspected Viral Encephalitis of unknown etiology. Tmax: 36.8 Leukocytosis resolved Antimicrobials: D/C'd Doxycycline D/d's Ceftriaxone D/C'd Ampicillin Continue Acyclovir Cultures: Blood: No growth Blood (Parasitology) on smear: Negative Bronchial washings:Jacy (likely from aspiration, no indication for antifungal ) Urine: No growth MRSA: neg CSF: No growth to date EBV, CMP serology pending Resident Physician Supervision Note: Dr. Phillip was resident physician during care of patient. I separately evaluated patient and did history and exam. I discussed the case with the resident and generally agree with the findings and plan. No obvious improvement in mental status. Patient's sodium continues to decrease , urine sodium and serum positive was most indicative of hypovolemic hyponatremia. I cannot really concentrate fluids much more, I will add additional salt tabs and Lasix to increase serum sodium level. I am concerned that this is most likely progression of the disease process and will ultimately result in a poor outcome. Spouse consented for PICC today as required multiple IVs, pharmacy glycemic consult given high-dose steroid usage Documented By: Demond Salmeron DO Consults & Procedures Consultants: Infectious Disease Neurology Procedures: FLUOROSCOPICALLY GUIDED LUMBAR PUNCTURE CLINICAL HISTORY: Evaluate for encephalitis. PROCEDURE: Due to altered mental status and sedation, the procedure, risks and benefits were discussed with the patient's power of deputy commonwealth's attorney including the risk of spinal headache, bleeding and infection. She agreed to the procedure and informed written consent was obtained. The procedure was performed by Dr. Sandoval following a timeout. The right L5-S1 interlaminar space was targeted. Skin overlying the space was prepped and draped in sterile fashion and local anesthesia was achieved with 1% lidocaine. Under intermittent fluoroscopic guidance, a 3 1/2 inch 22-gauge spinal needle was directed into the thecal sac with immediate return of clear CSF. A total of 9 cc of CSF was collected in 4 vials and sent to the laboratory as ordered. The needle was removed. The patient tolerated the procedure well and no immediate complications were evident. [~ rep ct add3]] MRI OF THE BRAIN COMBO CLINICAL HISTORY: Encephalitis. COMPARISON STUDY: CT of the brain dated 07/04/2017. MRI of the brain dated 07/03/2017. TECHNIQUE: MRI of the brain was performed utilizing various T1 and T2-weighted sequences in the axial, sagittal, and coronal planes. Contrast-enhanced sequences were acquired following the administration of 6 cc of Gadavist. FINDINGS: Brain parenchyma: There are age-related involutional changes noting advanced confluent subcortical and periventricular microangiopathic disease. There is no hemorrhage or mass effect. There is patchy T2 signal abnormality seen throughout the cerebellum, and also involving both thalami. There may also be T2 signal abnormality within the white matter; however, this is not well evaluated due to extensive microangiopathic change. Subtle cortical abnormality is identified within the temporal lobes, best appreciated on the FLAIR sequences. Faint restricted diffusion is suggested in these regions that is not typical for ischemia. No enhancing mass lesion is identified on the postcontrast images. There is no leptomeningeal or pachymeningeal enhancement. No extra-axial fluid collection is seen. The cerebellar tonsils are normal in configuration. Ventricles, sulci, and cisterns: Prominent secondary to involutional change. Pituitary and sella: Unremarkable. Intracranial vasculature: Normal flow voids are maintained at the skull base. Orbits: The bony orbits are grossly intact. Orbital contents are normal in appearance noting bilateral ocular lens implants. Sinuses and mastoids: Trace mucosal thickening is seen within the maxillary antra. Mild mucosal thickening is also identified within the ethmoid sinuses. Fluid is noted in the sphenoid sinuses. There is a left mastoid effusion. Fluid is present within the pharynx. Calvarium: Unremarkable. Cervical cord: Partially visualized cervical spinal cord is normal in morphology and signal intensity. IMPRESSION: 1. There is patchy T2 signal abnormality identified, greatest in the cerebellar hemispheres and the thalami. There may also be periventricular matter abnormality; however, this is not well assessed due to significant underlying microangiopathic change. Subtle cortical signal abnormality is seen within the temporal lobes, and these findings are best appreciated on the FLAIR sequence. The appearance is consistent with a nonspecific encephalitis/cerebritis. This could be related to an infectious/viral process or less likely a metabolic or global ischemic insult. Clinical correlation will be essential. 2. No hemorrhage is identified. There is no restricted diffusion identified typical for stroke. 3. There is no enhancing mass. No leptomeningeal/pachymeningeal enhancement is seen. 4. Left mastoid effusion and paranasal sinus disease as above. 5. Fluid is seen layering in the pharynx. IMPRESSION: Fluoroscopically guided lumbar puncture collection of 9 cc of clear CSF. Data Medications: Current Inpatient Medications Medications (Trade) Dose Ordered Sig/Josué Route Start Time Stop Time Status Last Admin Dose Admin Acetaminophen (Tylenol Tab) 650 mg Q4H PRN PO 06/29/17 11:00 07/29/17 10:59 Future Hold 07/03/17 11:07 650 MG Ondansetron HCl (Zofran Inj) 4 mg Q6H PRN IV 06/29/17 11:00 07/29/17 10:59 Aspirin (Ecotrin Tab) 81 mg DAILY PO 06/30/17 08:00 07/30/17 08:59 Future Hold 07/02/17 08:23 81 MG Atorvastatin Calcium (Lipitor Tab) 40 mg DAILY PO 06/30/17 08:00 07/30/17 08:59 Future Hold 07/02/17 08:22 40 MG Losartan Potassium (coZAAR TAB) 25 mg DAILY PO 06/30/17 08:00 07/30/17 08:59 Future Hold 07/02/17 08:24 25 MG Losartan Potassium (coZAAR TAB) 50 mg DAILY PO 06/30/17 08:00 07/30/17 08:59 Future Hold 07/02/17 08:24 50 MG Calcium/Vitamin D (Caltrate Plus Tab) 2 tab DAILY PO 06/30/17 08:00 07/30/17 07:59 Future Hold 07/02/17 08:23 2 TAB Miscellaneous (Iv Fluids Completed) 1 ea PRN PRN N/A 06/29/17 11:30 06/29/18 11:29 Acyclovir Sodium 650 mg/Dextrose 113 ml @ 110 mls/hr Q8H IV 06/30/17 10:30 07/10/17 10:29 07/09/17 02:30 110 MLS/HR Lactobacillus Acidophilus (Lactinex Granules Pack) 1 gm TIDM PO 07/01/17 07:30 07/31/17 07:29 Future Hold 07/02/17 15:22 1 GM Warfarin Sodium (Coumadin Tab) 5 mg DAILY@16 PO 07/02/17 16:00 08/01/17 15:59 Future Hold 07/02/17 15:21 5 MG Enoxaparin Sodium (Lovenox Inj) 40 mg Q24H SQ 07/02/17 16:00 08/01/17 15:59 Future hold 07/08/17 16:16 40 MG Enalaprilat 0.625 mg/Dextrose 25.5 ml @ 100 mls/hr Q6H PRN IV 07/04/17 09:15 08/03/17 09:14 07/07/17 08:08 100 MLS/HR Acetaminophen (Tylenol Supp) 650 mg Q4H PRN MN 07/05/17 07:30 08/04/17 07:29 Fentanyl Citrate (Fentanyl Inj) 50 mcg Q2H PRN IV 07/05/17 11:15 07/19/17 11:14 07/07/17 14:54 50 MCG Midazolam HCl (Versed Inj) 2 mg Q2H PRN IV 07/05/17 14:45 08/04/17 14:44 Fentanyl Citrate (Fentanyl Inj) 50 mcg Q2H PRN IV 07/05/17 14:45 07/19/17 14:44 Gadobutrol (Gadavist) 6 mmol UD PRN IV 07/05/17 19:30 07/09/17 19:29 Enteral Nutritional Formula (Peptamen Intense VHP) Start at 20mL/hr, titrate... DAILY OG 07/05/17:15 08/04/17 22:14 07/08/17 16:16 1,000 ML Levothyroxine Sodium (Synthroid Tab) 100 mcg DAILY GT 07/06/17 09:00 08/05/17 08:59 07/08/17 08:05 100 MCG Magnesium Hydroxide (Milk Of Magnesia Susp) 30 ml Q6H PRN PO 07/07/17 08:15 08/06/17 08:14 07/07/17 10:46 30 ML Enalaprilat 1.25 mg/Dextrose 26 ml @ 100 mls/hr Q6H PRN IV 07/07/17 11:00 08/06/17 10:59 Metoprolol Tartrate (Lopressor Iv) 2.5 mg Q4 PRN IV 07/07/17 11:00 08/06/17 10:59 07/07/17 13:47 2.5 MG Hydralazine HCl (HydrALAZINE INJ) 10 mg Q6H PRN IV. 07/07/17 14:45 08/06/17 14:44 Methylprednisolone Sodium Succinate 1000 mg/Dextrose 266 ml @ 250 mls/hr QD@1000 IV 07/08/17 10:00 07/11/17 11:04 07/08/17 10:35 250 MLS/HR Amlodipine Besylate (Norvasc Tab) 10 mg QAM NG 07/09/17 09:00 08/07/17 08:59 Metoprolol Tartrate (Lopressor Tab) 100 mg BID PO 07/08/17 21:00 08/06/17 08:59 Vital Signs: Date Time Temp Pulse Resp B/P (MAP) Pulse Ox O2 Delivery O2 Flow Rate FiO2 07/09/17 02:30 30 07/09/17 01:31 96 14 165/93 (117) 97 CPAP 30 Mechanical Ventilator 07/09/17 01:01 93 16 165/94 (117) 97 CPAP 30 Mechanical Ventilator 07/09/17 00:35 CPAP 30 Mechanical Ventilator 07/09/17 00:32 88 11 177/86 (116) 98 CPAP 30 Mechanical Ventilator 07/09/17 00:02 36.5 61 11 166/95 (118) 98 CPAP 30 Mechanical Ventilator 07/08/17 23:42 30 07/08/17 22:31 66 14 101/59 (73) 97 CPAP 30 Mechanical Ventilator 07/08/17 22:01 62 14 90/56 (67) 98 CPAP 30 Mechanical Ventilator 07/08/17 21:31 57 15 85/54 (64) 97 CPAP 30 Mechanical Ventilator 07/08/17 21:07 30 07/08/17 21:01 55 15 96/51 (66) 98 CPAP 30 Mechanical Ventilator 07/08/17 20:18 CPAP 30 Mechanical Ventilator 07/08/17 20:01 36.5 95 18 151/86 (107) 97 CPAP 30 Mechanical Ventilator 07/08/17 19:31 101 20 149/85 (106) 97 CPAP 30 Mechanical Ventilator 07/08/17 19:01 96 19 148/89 (108) 97 CPAP 30 Mechanical Ventilator 07/08/17 18:31 97 19 150/91 (110) 97 07/08/17 18:01 97 19 155/91 (112) 98 07/08/17 18:00 98 19 97 07/08/17 17:20 30 07/08/17 17:01 92 17 144/81 (102) 97 CPAP 30 Mechanical Ventilator 07/08/17 17:00 90 17 97 07/08/17 16:31 83 17 118/76 (90) 97 07/08/17 16:01 36.6 79 17 93/59 (70) 97 CPAP 30 Mechanical Ventilator 07/08/17 16:00 77 18 97 07/08/17 16:00 97 CPAP 30 Mechanical Ventilator 07/08/17 15:01 87 17 129/79 (96) 97 CPAP 30 Mechanical Ventilator 07/08/17 15:00 87 19 97 07/08/17 14:31 84 14 124/76 (92) 97 07/08/17 14:26 30 07/08/17 14:01 85 18 135/83 (100) 97 CPAP 30 Mechanical Ventilator 07/08/17 14:00 84 17 97 07/08/17 13:31 83 18 148/86 (106) 97 07/08/17 13:01 80 15 120/71 (87) 97 CPAP 30 Mechanical Ventilator 07/08/17 13:00 72 17 97 07/08/17 12:31 76 16 119/69 (86) 98 07/08/17 12:01 76 17 116/67 (83) 98 07/08/17 12:00 75 17 97 07/08/17 11:40 97 CPAP 30 Mechanical Ventilator 07/08/17 11:31 78 18 142/91 (108) 97 07/08/17 11:30 36.8 07/08/17 11:25 30 07/08/17 11:00 77 19 98 07/08/17 10:31 68 18 120/75 (90) 97 07/08/17 10:01 71 18 151/87 (108) 98 07/08/17 10:00 70 20 98 07/08/17 09:31 73 19 179/111 (133) 98 07/08/17 09:01 73 20 183/105 (131) 98 07/08/17 09:00 72 18 99 07/08/17 08:31 85 19 195/131 (152) 98 07/08/17 08:10 98 CPAP 30 Mechanical Ventilator 07/08/17 08:01 87 16 185/93 (123) 98 CPAP 30 Mechanical Ventilator 07/08/17 08:00 86 18 97 07/08/17 07:52 36.8 07/08/17 07:31 82 18 149/95 (113) 98 07/08/17 07:06 87 17 177/116 (136) 98 07/08/17 07:03 89 17 187/115 (139) 97 07/08/17 07:01 89 16 182/109 (133) 98 07/08/17 07:00 88 17 98 07/08/17 06:55 30 07/08/17 06:31 81 15 152/93 (112) 98 CPAP 30 Mechanical Ventilator 07/08/17 06:02 85 15 170/104 (126) 98 CPAP 30 Mechanical Ventilator 07/08/17 05:15 30 07/08/17 05:01 82 14 149/89 (109) 98 CPAP 30 Mechanical Ventilator Laboratory Results: Last 24 Hours Test 07/08/17 05:35 07/08/17 11:25 07/08/17 18:07 07/08/17 18:13 White Blood Count 11.18 K/uL Red Blood Count 4.09 M/uL Hemoglobin 13.4 g/dL Hematocrit 39.2 % Mean Corpuscular Volume 95.8 fL Mean Corpuscular Hemoglobin 32.8 pg Mean Corpuscular Hemoglobin Concent 34.2 g/dl RDW Standard Deviation 43.8 fL RDW Coefficient of Variation 12.8 % Platelet Count 296 K/uL Mean Platelet Volume 9.1 fL Venous Blood pH 7.43 Venous Blood Partial Pressure CO2 45 mmHg Venous Blood Partial Pressure O2 44 mmHg Venous Blood HCO3 29 mmol/L Venous Blood Oxygen Saturation 80.5 % Venous Blood Base Excess 4.3 mEq/L Sodium Level 131 mmol/L 125 mmol/L Potassium Level 4.1 mmol/L 3.8 mmol/L Chloride Level 95 mmol/L 91 mmol/L Carbon Dioxide Level 30 mmol/L 26 mmol/L Anion Gap 6.0 mmol/L 8.0 mmol/L Blood Urea Nitrogen 17 mg/dl 24 mg/dl Creatinine 0.56 mg/dl 0.73 mg/dl Est Creatinine Clear Calc Drug Dose 70.1 ml/min 53.8 ml/min Estimated GFR () 97.9 86.4 Estimated GFR (Non- 84.4 74.6 BUN/Creatinine Ratio 30.2 32.8 Random Glucose 117 mg/dl 250 mg/dl Calcium Level 9.3 mg/dl 9.3 mg/dl Phosphorus Level 3.0 mg/dl Magnesium Level 2.2 mg/dl Bedside Glucose 135 mg/dl 219 mg/dl Test 07/09/17 00:45 Bedside Glucose 180 mg/dl Resident Tracking Resident Involvement: Resident Care Provided Care Provided: Adult Hospital Medicine
[2017-07-09 05:41] LABS: HEMATOCRIT 43.2 % (37-47); MEAN CELL VOLUME 93.3 fL (80-100); MEAN CORPUSCULAR HEMOGLOBIN 33.3 pg (25-34); MEAN CORPUSCULAR HGB CONC 35.6 g/dl (32-36); MEAN PLATELET VOLUME 8.9 fL (7.4-10.4); PLATELET COUNT 375 K/uL (130-400); RED BLOOD COUNT 4.63 M/uL (4.2-5.4); WHITE BLOOD COUNT 14.22 K/uL (4.8-10.8)
[2017-07-09 05:44] LABS: VEN BLD GAS O2 SATURATION 95.1 %; VEN BLOOD GAS BASE EXCESS 3.1 mEq/L
[2017-07-09 06:11] LABS: BUN/CREATININE RATIO 43.4 (10-20); CALCIUM 9.9 mg/dl (8.5-10.1); CREATININE 0.76 mg/dl (0.60-1.20); MAGNESIUM 2.1 mg/dl (1.8-2.4); POTASSIUM 3.7 mmol/L (3.5-5.1)
[2017-07-09 06:19] LABS: PHOSPHORUS 3.2 mg/dl (2.5-4.9); PREALBUMIN 34.6 mg/dl (20-40)
[2017-07-09] MEDS: LEVOTHYROXINE 100 MCG TAB GT SCH (07:40)
[2017-07-09] MEDS: AMLODIPINE BESYLATE 5 MG TAB NG SCH (07:41)
[2017-07-09] MEDS: METOPROLOL TARTRATE 50 MG TAB PO SCH ×2 (07:41→20:19)
[2017-07-09] MEDS ORDERED: NURSING VERBAL MED ORDER ONE (07:45)
--- NOTE | 2017-07-09 08:12 | DIAGNOSTIC IMAGING REPORT ---
CHEST ONE VIEW PORTABLE HISTORY: Intubated COMPARISON: Chest 07/08/2017. FINDINGS: Patient is rotated on this study. The endotracheal tube terminates approximately 6 cm from the constantine. Nasogastric tube terminates below the diaphragm. The tip is not included on this study. No pneumothorax. No pleural effusions. The heart is stable in size. Improved aeration within the left lower lobe airspace opacity.. No evidence for pulmonary edema. IMPRESSION: 1. Endotracheal tube terminates 6 cm from the constantine. 2. Improved aeration within the left lower lobe airspace opacity. Electronically signed by: Alexis Castillo M.D. 07/09/2017 8:11 AM Dictated Date/Time: 07/09/2017 8:09 AM
[2017-07-09] MEDS ORDERED: NovoLOG PER UNIT CHARGE SC ONE (08:30)
--- NOTE | 2017-07-09 08:44 | Progress Note ---
Medicine Progress Note Date & Time of Visit: Jul 09, 2017 at 08:10 . Subjective Started on methylprednisolone yesterday. No significant changes overnight. Some intermittent movements of the legs. Respiratory status stable on CPAP/PS. Tolerating enteral feedings. . Objective Last 8 Hrs Date Time Temp Pulse Resp B/P (MAP) Pulse Ox O2 Delivery O2 Flow Rate FiO2 07/09/17 07:05 30 07/09/17 05:31 102 17 158/91 (113) 96 CPAP 30 Mechanical Ventilator 07/09/17 05:30 30 07/09/17 05:01 105 17 160/107 (124) 97 CPAP 30 Mechanical Ventilator 07/09/17 04:55 CPAP 30 Mechanical Ventilator 07/09/17 04:32 95 16 138/67 (90) 96 CPAP 30 Mechanical Ventilator 07/09/17 04:01 36.5 92 17 90/55 (67) 95 CPAP 30 Mechanical Ventilator 07/09/17 03:31 104 17 136/72 (93) 96 CPAP 30 Mechanical Ventilator 07/09/17 03:01 99 17 151/92 (111) 97 CPAP 30 Mechanical Ventilator 07/09/17 02:31 100 18 166/98 (120) CPAP 30 Mechanical Ventilator 07/09/17 02:30 30 07/09/17 02:01 93 16 162/91 (114) 97 CPAP 30 Mechanical Ventilator 07/09/17 01:31 96 14 165/93 (117) 97 CPAP 30 Mechanical Ventilator 07/09/17 01:31 96 14 165/93 (117) 97 07/09/17 01:01 93 16 165/94 (117) 97 07/09/17 01:01 93 16 165/94 (117) 97 CPAP 30 Mechanical Ventilator 07/09/17 01:00 67 16 97 Physical Exam: General- no apparent distress Eyes- anicteric ENT- oral ETT, oral GT Neck- no JVD Lungs- clear to auscultation Heart- RRR with ectopy with, no murmur, no gallop Abdomen- + BS, soft, nontender Extremities- no pretibial edema or calf tenderness; SCD's applied; waffle boots applied Neuro- minimally responsive; pupils 2 mm, reactive; roving eye movements; intermittent movement of RUE; does not follow commands Skin- warm & dry . Laboratory Results: Last 24 Hours Test 07/08/17 11:25 07/08/17 18:07 07/08/17 18:13 07/09/17 00:45 Bedside Glucose 135 mg/dl 219 mg/dl 180 mg/dl Sodium Level 125 mmol/L Potassium Level 3.8 mmol/L Chloride Level 91 mmol/L Carbon Dioxide Level 26 mmol/L Anion Gap 8.0 mmol/L Blood Urea Nitrogen 24 mg/dl Creatinine 0.73 mg/dl Est Creatinine Clear Calc Drug Dose 53.8 ml/min Estimated GFR () 86.4 Estimated GFR (Non- 74.6 BUN/Creatinine Ratio 32.8 Random Glucose 250 mg/dl Calcium Level 9.3 mg/dl Test 07/09/17 05:27 07/09/17 08:15 07/09/17 08:24 White Blood Count 14.22 K/uL Red Blood Count 4.63 M/uL Hemoglobin 15.4 g/dL Hematocrit 43.2 % Mean Corpuscular Volume 93.3 fL Mean Corpuscular Hemoglobin 33.3 pg Mean Corpuscular Hemoglobin Concent 35.6 g/dl RDW Standard Deviation 40.9 fL RDW Coefficient of Variation 12.3 % Platelet Count 375 K/uL Mean Platelet Volume 8.9 fL Venous Blood pH 7.47 Venous Blood Partial Pressure CO2 37 mmHg Venous Blood Partial Pressure O2 72 mmHg Venous Blood HCO3 27 mmol/L Venous Blood Oxygen Saturation 95.1 % Venous Blood Base Excess 3.1 mEq/L Sodium Level 125 mmol/L Potassium Level 3.7 mmol/L Chloride Level 91 mmol/L Carbon Dioxide Level 25 mmol/L Anion Gap 9.0 mmol/L Blood Urea Nitrogen 33 mg/dl Creatinine 0.76 mg/dl Est Creatinine Clear Calc Drug Dose 51.7 ml/min Estimated GFR () 82.3 Estimated GFR (Non- 71.0 BUN/Creatinine Ratio 43.4 Random Glucose 211 mg/dl Calcium Level 9.9 mg/dl Phosphorus Level 3.2 mg/dl Magnesium Level 2.1 mg/dl Total Bilirubin 0.5 mg/dl Direct Bilirubin 0.2 mg/dl Aspartate Amino Transf (AST/SGOT) 24 U/L Alanine Aminotransferase (ALT/SGPT) 30 U/L Alkaline Phosphatase 97 U/L Total Protein 7.6 gm/dl Albumin 3.1 gm/dl Prealbumin 34.6 mg/dl Assessment & Plan ALTERED MENTAL STATUS / FEBRILE ILLNESS Presented with progressive confusion. CT head demonstrated chronic microvascular changes, no acute findings. Altered mental status initially attributed to UTI. Recent outpatient urine culture grew E coli. UA at time of admission showed moderate leukocyte esterase, many WBC's, many epith cells, no bacteria. Initially received IV ceftriaxone. Urine culture subsequently grew more than 3 organisms, probable skin mariel. Blood cultures at time of admission were negative. [employer] infection was considered in light of fever and altered mental status. ID consulted. Antibiotic coverage was broadened (high dose ceftriaxone, vancomycin, ampicillin , acyclovir). LP could not be performed initially because of elevated INR on warfarin. Warfarin was reversed with vitamin K and FFP. LP performed, results as noted: Item Value Date Time CSF Appearance CLEAR 07/01/17 1000 CSF Color COLORLESS 07/01/17 1000 CSF WBC 164 /uL *H 07/01/17 1000 CSF RBC 2 /uL 07/01/17 1000 CSF Cell Count Tube # 3 07/01/17 1000 CSF Mononuclear WBCs 99.0 % 07/01/17 1000 CSF Polynuclear WBCs 1.0 % 07/01/17 1000 CSF Chemistry Tube # 1 07/01/17 1000 CSF Glucose 86 mg/dl H 07/01/17 1000 CSF Total Protein 79.3 mg/dl H 07/01/17 1000 CSF gram stain negative. CSF cultures negative so far. Cryptococcal Ag negative. CSF Lyme PCR and antibodies negative. CSF HSV 1/2 PCR negative. CSF Enterovirus PCR negative. CSF West Nile PCR negative. [place] most likely to have viral meningitis. Condition initially improved. Vancomycin, ampicillin, dexamethasone discontinued. Ceftriaxone and acyclovir were continued. Worsening confusion 07/03. Neuro consulted. MRI performed 07/03 had some motion artifact, but did not show any acute changes. EEG- moderate diffuse nonlateralizing encephalopathy, no apparent epileptogenic foci. Repeat LP 07/05/17: Item Value Date Time CSF WBC 57 /uL *H 07/05/17 1539 CSF RBC 41 /uL 07/05/17 1539 CSF Cell Count Tube # 3 07/05/17 1539 CSF Mononuclear WBCs 100.0 % 07/05/17 1539 CSF Glucose 76 mg/dl H 07/05/17 1539 CSF Total Protein 81.0 mg/dl H 07/05/17 1539 CSF culture negative. MRI with contrast 07/05/17 demonstrated T2 abnormalities in cerebellum and thalami as well as some subtle findings within temporal lobes. 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 Last elevated temp 07/04. De-escalated antibiotic coverage. Listeria unlikely- ampicillin discontinued. Lyme, pneumococcal pneumonia ruled out- ceftriaxone discontinued. ?? tick borne illness. Tick-borne illness PCR panel negative. Stopped doxycycline. Continue acyclovir. Empiric trial of methylprednisolone recommended by Neurology for possible autoimmune disease. Continue supportive measures. RESPIRATORY Intubated for airway protection. Oxygenating well on 30% FIO2. Management per [facility]. LLL DENSITY Chest x-ray 07/03 showed LLL density, infiltrate vs atelectasis. Started on IV piperacillin / tazobactam for possible pneumonia. Bronchoscopy performed 07/05; sputum culture from bronch grew only scant normal mariel and Jacy (probable contamination / colonization). Pneumonia unlikely. PAROXYSMAL ATRIAL FIB Unable to take oral metoprolol due to NPO status. Converted to parenteral metoprolol. Best not to maintain full anticoagulation at this time due to critical illness, procedures, etc. Resume warfarin when able. HYPERTENSION Unable to take oral meds due to NPO status. Blood pressures fluctuating. Best to allow relatively high BP's in light of neuro status. Converted metoprolol to IV --> GT. Added amlodipine via GT. IV enalapril PRN. HYPONATREMIA Serum sodium 141 --> --> 128--> --> 131 --> --> 125. 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 Follow. HYPOKALEMIA K as low as 3.1. Receiving replacement. K today = 3.7. Follow. HYPOTHYROIDISM Levothyroxine via OGT. NUTRITION Receiving enteral feedings via OGT. HYPERGLYCEMIA Serum glucose this morning 211. Hyperglycemia secondary to methylprednisolone therapy. Management per protocol. VTE PROPHYLAXIS On warfarin at time of admission which was subsequently held / reversed due to ICU status and multiple procedures. Continue enoxaparin. SCD's. DISPOSITION To be determined. Family Medicine follow-up with Dr. Mosley. Spouse Ms. Cortes at bedside and given update. . Consultants: ID [facility] Neurology . Procedures: CT head 06/29/17 CT head 06/30/17 LP under fluoro guidance 07/01/17 CT head 07/03/17 MRI brain 07/03/17 CT head 07/04/17 endotracheal intubation 07/05/17 mechanical ventilation 11/22/17 bronchoscopy 07/05/17 MRI brain with contrast 07/05/17 LP under fluoro guidance 06/25/17 . Current Inpatient Medications: Current Inpatient Medications Medications (Trade) Dose Ordered Sig/Josué Route Start Time Stop Time Status Last Admin Dose Admin Acetaminophen (Tylenol Tab) 650 mg Q4H PRN PO 06/29/17 11:00 07/29/17 10:59 Future Hold 07/03/17 11:07 650 MG Ondansetron HCl (Zofran Inj) 4 mg Q6H PRN IV 06/29/17 11:00 07/29/17 10:59 Aspirin (Ecotrin Tab) 81 mg DAILY PO 06/30/17 08:00 07/30/17 08:59 Future Hold 07/02/17 08:23 81 MG Atorvastatin Calcium (Lipitor Tab) 40 mg DAILY PO 06/30/17 08:00 07/30/17 08:59 Future Hold 07/02/17 08:22 40 MG Losartan Potassium (coZAAR TAB) 25 mg DAILY PO 06/30/17 08:00 07/30/17 08:59 Future Hold 07/02/17 08:24 25 MG Losartan Potassium (coZAAR TAB) 50 mg DAILY PO 06/30/17 08:00 07/30/17 08:59 Future Hold 07/02/17 08:24 50 MG Calcium/Vitamin D (Caltrate Plus Tab) 2 tab DAILY PO 06/30/17 08:00 07/30/17 07:59 Future Hold 07/02/17 08:23 2 TAB Miscellaneous (Iv Fluids Completed) 1 ea PRN PRN N/A 06/29/17 11:30 06/29/18 11:29 Acyclovir Sodium 650 mg/Dextrose 113 ml @ 110 mls/hr Q8H IV 06/30/17 10:30 07/10/17 10:29 07/09/17 02:30 110 MLS/HR Lactobacillus Acidophilus (Lactinex Granules Pack) 1 gm TIDM PO 07/01/17 07:30 07/31/17 07:29 Future Hold 07/02/17 15:22 1 GM Warfarin Sodium (Coumadin Tab) 5 mg DAILY@16 PO 07/02/17 16:00 08/01/17 15:59 Future Hold 07/02/17 15:21 5 MG Enoxaparin Sodium (Lovenox Inj) 40 mg Q24H SQ 07/02/17 16:00 08/01/17 15:59 Future hold 07/08/17 16:16 40 MG Enalaprilat 0.625 mg/Dextrose 25.5 ml @ 100 mls/hr Q6H PRN IV 07/04/17 09:15 08/03/17 09:14 07/07/17 08:08 100 MLS/HR Acetaminophen (Tylenol Supp) 650 mg Q4H PRN FL 07/05/17 07:30 08/04/17 07:29 Fentanyl Citrate (Fentanyl Inj) 50 mcg Q2H PRN IV 07/05/17 11:15 07/19/17 11:14 07/07/17 14:54 50 MCG Midazolam HCl (Versed Inj) 2 mg Q2H PRN IV 07/05/17 14:45 08/04/17 14:44 Fentanyl Citrate (Fentanyl Inj) 50 mcg Q2H PRN IV 07/05/17 14:45 07/19/17 14:44 Gadobutrol (Gadavist) 6 mmol UD PRN IV 07/05/17 19:30 07/09/17 19:29 Enteral Nutritional Formula (Peptamen Intense VHP) Start at 20mL/hr, titrate... DAILY OG 07/05/17 22:15 08/04/17 22:14 07/08/17 16:16 1,000 ML Levothyroxine Sodium (Synthroid Tab) 100 mcg DAILY GT 07/06/17 09:00 08/05/17 08:59 07/09/17 07:40 100 MCG Magnesium Hydroxide (Milk Of Magnesia Susp) 30 ml Q6H PRN PO 07/07/17 08:15 08/06/17 08:14 07/07/17 10:46 30 ML Enalaprilat 1.25 mg/Dextrose 26 ml @ 100 mls/hr Q6H PRN IV 07/07/17 11:00 08/06/17 10:59 Metoprolol Tartrate (Lopressor Iv) 2.5 mg Q4 PRN IV 07/07/17 11:00 08/06/17 10:59 07/07/17 13:47 2.5 MG Hydralazine HCl (HydrALAZINE INJ) 10 mg Q6H PRN IV. 07/07/17 14:45 08/06/17 14:44 Methylprednisolone Sodium Succinate 1000 mg/Dextrose 266 ml @ 250 mls/hr QD@1000 IV 07/08/17 10:00 07/11/17 11:04 07/08/17 10:35 250 MLS/HR Amlodipine Besylate (Norvasc Tab) 10 mg QAM NG 07/09/17 09:00 08/07/17 08:59 07/09/17 07:41 10 MG Metoprolol Tartrate (Lopressor Tab) 100 mg BID PO 07/08/17 21:00 08/06/17 08:59 07/09/17 07:41 100 MG
--- NOTE | 2017-07-09 09:07 | DIAGNOSTIC IMAGING REPORT ---
HEAD CT NONCONTRAST CT DOSE: 614.27 mGy.cm HISTORY: Altered mental status. TECHNIQUE: Multiaxial CT images of the head were performed without the use of intravenous contrast. Automated exposure control was utilized for this study. A dose lowering technique was utilized adhering to the principles of ALARA. Comparison: Brain MRI 07/05/2017. Head CT 07/04/2017. Findings: The paranasal sinuses and mastoid air cells are clear. The calvarium and skull base are intact. There is no mass, hematoma, midline shift, acute infarct. Stable white matter hypodensity. Mild atrophic changes within the brain. Impression: No significant change compared to the prior study. No acute intracranial abnormality. Electronically signed by: Alexis Castillo M.D. 07/09/2017 9:06 AM Dictated Date/Time: 07/09/2017 9:01 AM
[2017-07-09] MEDS: METHYLPREDNISOLONE IV 1,000 MG in DEXTROSE 5% 250ML 250 ML IV SCH (11:31)
[2017-07-09] MEDS: PEPTAMEN INTENSE VHP 1000ML BAG OG SCH (12:25)
--- NOTE | 2017-07-09 12:50 | PROGRESS NOTE ---
DATE: 07/09/2017 SUBJECTIVE: I saw Indu today. She looks largely the same. She withdraws to noxious stimuli delivered to her left hand, not so much the right, will barely open her eyes at all and according to her significant other, she has been in this state since yesterday. Despite 2 high doses of IV Solu-Medrol. Her sodium has been down a little bit likely due to SIADH. A second CT scan has been done just to be sure there is no other issue that might be producing this and again, it shows only senescent changes without any hydrocephalus or other abnormalities. The diagnosis remains unestablished. We are trying to treat her as if this might be a paraneoplastic autoimmune encephalitis, but the lack of significant improvement after 2 doses of IV Solu-Medrol is and argument against this as I would have expected some change at this point. 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 HILARIO
[2017-07-09] MEDS ORDERED: PHARMACY GLYCEMIC MGMT CONSULT PRN (13:42)
[2017-07-09] MEDS ORDERED: FUROSEMIDE INJ 40 MG in SYRINGE 0 ML IV SCH (13:45)
[2017-07-09] MEDS ORDERED: INSULIN GLARGINE SOLOSTAR 100 UNITS/ML 3 ML PEN SC STA (13:57)
[2017-07-09] MEDS ORDERED: INSULIN ASPART 100 UNITS/ML 3 ML PEN SC STA (14:04)
--- NOTE | 2017-07-09 16:21 | Pharmacy Progress Note ---
Glycemic Control Intl Consult Date of Service Jul 09, 2017. Scope Glycemic Pharmacist consulted by Dr Salmeron on 07/09/17 for glycemic control and to write orders per [facility] inpatient glycemic control protocol Objective Weight (Kilograms): 67.200 Accuchecks BSG (last 24hrs): Test 07/08/17 18:07 07/08/17 18:13 07/09/17 00:45 07/09/17 05:27 Bedside Glucose 219 mg/dl (70-90) 180 mg/dl (70-90) Random Glucose 250 mg/dl (70-99) 211 mg/dl (70-99) Test 07/09/17 11:45 Bedside Glucose 159 mg/dl (70-90) Laboratory Data (last 24hrs) Test 07/08/17 18:13 07/09/17 05:27 Anion Gap 8.0 mmol/L 9.0 mmol/L BUN/Creatinine Ratio 32.8 43.4 Blood Urea Nitrogen 24 mg/dl 33 mg/dl Creatinine 0.73 mg/dl 0.76 mg/dl Potassium Level 3.8 mmol/L 3.7 mmol/L Sodium Level 125 mmol/L 125 mmol/L White Blood Count 14.22 K/uL Recent Pertinent Medications Outpatient Anti-diabetic Regimen: * None Risk Factors for Insulin Resistance: * Steroids: Methylprednisolone 1000 mg IV daily * Infection: ?viral meningitis, on acyclovir * Diet: Peptamen bariatric * Mechanical Ventilation: yes Assessment & Plan ASSESSMENT: * 87 yo F with AMS, unknown etiology. Viral meningitis vs. autoimmune encephalitis vs. other. * Not diabetic at baseline, but experiencing steroid-induced hyperglycemia due to very high dose methylprednisolone * Would normally initiate insulin drip, but patient's BSG's responded nicely this AM to a single SQ dose of Novolog (283 to 159 mg/dL). Will therefore attempt to manage hyperglycemia with basal/bolus insulin. However, will have a very low threshold to initiate insulin gtt. * Lantus * 0.4 units/kg SC x1 now * Will give additional 0.15 units/kg tonight if BSG's >140 mg/dL * Novolog * Scheduled q4h as patient on tubefeeds. Ordered to include CHO from tubefeeds in CHO counts. * Goal range per ICU 140-180 mg/dL. * Weight-based, stress of 3 PLAN FOR INPATIENT GLYCEMIC CONTROL: * Basal insulin with LANTUS 25 units SQ x1 then 10 units BID (if BSG > 140 mg/dL ) * Correctional Insulin with NOVOLOG q4h * Goal Range: Low 140 mg/dL - High 180 mg/dL * Correction Factor: 25 mg/dL/unit * Nutritional / Prandial insulin per carb ratio of 1 unit per 8 grams CHO consumed * If any BSG > 250 mg/dL or if two consecutive BSG's > 180 mg/dL, start IV insulin infusion * Severe stress protocol * Goal Range 120 - 180 mg/dl * Please note that the plan above was derived based on current level of insulin resistance and hospital stress. These recommendations are appropriate for inpatient admission only. Plan of care upon discharge will need to be reassessed to avoid potential outpatient hypo/hyperglycemia. Thank you.
[2017-07-09] MEDS: ENOXAPARIN 40 MG/0.4 ML SYR SQ SCH (16:47)
[2017-07-09] MEDS: INSULIN ASPART 100 UNITS/ML 3 ML PEN SC SCH ×2 (17:01→20:18)
[2017-07-09] MEDS: INSULIN GLARGINE SOLOSTAR 100 UNITS/ML 3 ML PEN SC SCH (20:13)
[2017-07-09 21:45] LABS: BUN/CREATININE RATIO 43.7 (10-20); CALCIUM 9.8 mg/dl (8.5-10.1); CREATININE 0.93 mg/dl (0.60-1.20); POTASSIUM 3.6 mmol/L (3.5-5.1)
[2017-07-09 21:46] LABS: PHOSPHORUS 3.5 mg/dl (2.5-4.9)
[2017-07-09] MEDS ORDERED: SODIUM CHLORIDE 1 GM TAB PO STA (22:01)
[2017-07-09] MEDS ORDERED: FUROSEMIDE 40 MG/4 ML VIAL IV STA (22:01)
[2017-07-10] VITALS (35 sets, daily range): BP systolic 74–141; BP diastolic 44–81; PULSE 43–86; TEMP 36.4–36.8; O2SAT 95–100
[2017-07-10] MEDS: INSULIN ASPART 100 UNITS/ML 3 ML PEN SC SCH ×6 (00:21→19:56)
[2017-07-10] MEDS: ACYCLOVIR SOD INJ 650 MG in DEXTROSE 5% 100ML 100 ML IV SCH ×3 (02:58→16:38)
[2017-07-10 04:36] LABS: HEMATOCRIT 38.6 % (37-47); MEAN CELL VOLUME 94.4 fL (80-100); MEAN CORPUSCULAR HEMOGLOBIN 33.3 pg (25-34); MEAN CORPUSCULAR HGB CONC 35.2 g/dl (32-36); MEAN PLATELET VOLUME 8.8 fL (7.4-10.4); PLATELET COUNT 372 K/uL (130-400); RED BLOOD COUNT 4.09 M/uL (4.2-5.4); WHITE BLOOD COUNT 19.96 K/uL (4.8-10.8)
[2017-07-10 04:40] LABS: VEN BLOOD GAS BASE EXCESS 4.9 mEq/L; VENOUS BLOOD GAS PCO2 51 mmHg (38.0-50.0); VENOUS BLOOD GAS PO2 34 mmHg
[2017-07-10 04:57] LABS: CREATININE 0.85 mg/dl (0.60-1.20)
[2017-07-10 04:58] LABS: BUN/CREATININE RATIO 62.1 (10-20); CALCIUM 9.2 mg/dl (8.5-10.1); MAGNESIUM 2.2 mg/dl (1.8-2.4); POTASSIUM 3.9 mmol/L (3.5-5.1)
[2017-07-10] MEDS ORDERED: SODIUM CHLORIDE 1 GM TAB PO STA (05:23)
--- NOTE | 2017-07-10 07:23 | DIAGNOSTIC IMAGING REPORT ---
CHEST ONE VIEW PORTABLE HISTORY: 87 years-old Female Intubated acute respiratory failure. COMPARISON: Chest radiographs 07/09/2017 TECHNIQUE: Portable upright AP view the chest FINDINGS: Endotracheal tube terminates 3.9 cm superior to the level the constantine. Right-sided PICC has been placed with distal tip terminating within the region of the mid SVC. Cardiac silhouette is within normal limits. There are multiple clips limited leads overlying the right chest. Atherosclerosis of the aorta. No pneumothorax, pleural effusion, or overt pulmonary edema. There is improved aeration of the left lung base with persistent hazy left basilar opacities. Lungs are hyperinflated. Bones appear grossly intact. IMPRESSION: 1. Endotracheal tube terminates 3.9 cm superior to the level of the constantine. 2. Right-sided PICC terminates within the region of the mid SVC. 3. Improved aeration of the left lung base with persistent hazy left basilar opacities. The above report was generated using voice recognition software. It may contain grammatical, syntax or spelling errors. Electronically signed by: Domingo Banks M.D. 07/10/2017 7:21 AM Dictated Date/Time: 07/10/2017 7:19 AM
--- NOTE | 2017-07-10 08:31 | Progress Note ---
Medicine Progress Note Date & Time of Visit: Jul 10, 2017 at 07:50 . Subjective Remains intubated on ventilator. No change in neuro status. No new problem reported by staff. Spouse at bedside. . Objective Last 8 Hrs Date Time Temp Pulse Resp B/P (MAP) Pulse Ox O2 Delivery O2 Flow Rate FiO2 07/10/17 07:07 30 07/10/17 07:01 30 07/10/17 06:16 58 14 101/57 (72) 97 07/10/17 06:11 55 15 93/52 (66) 96 07/10/17 06:06 56 14 93/56 (68) 97 07/10/17 06:01 54 14 108/62 (77) 98 07/10/17 05:56 60 12 115/68 (84) 98 07/10/17 05:51 59 16 99/59 (72) 96 07/10/17 05:46 55 15 91/47 (62) 96 07/10/17 05:01 57 14 77/46 (56) 97 07/10/17 04:25 CPAP 30 Mechanical Ventilator 07/10/17 04:16 56 15 80/44 (56) 96 CPAP 30 Mechanical Ventilator 07/10/17 04:11 57 15 95/50 (65) 97 CPAP 30 Mechanical Ventilator 07/10/17 04:10 30 07/10/17 04:07 73 13 115/64 (81) 98 CPAP 30 Mechanical Ventilator 07/10/17 04:01 58 15 79/45 (56) 96 CPAP 30 Mechanical Ventilator 07/10/17 03:56 58 14 74/45 (55) 95 CPAP 30 Mechanical Ventilator 07/10/17 03:51 56 14 87/49 (62) 97 CPAP 30 Mechanical Ventilator 07/10/17 03:46 70 14 106/58 (74) 97 CPAP 30 Mechanical Ventilator 07/10/17 03:41 58 14 85/50 (62) 96 CPAP 30 Mechanical Ventilator 07/10/17 03:36 58 14 89/51 (64) 96 CPAP 30 Mechanical Ventilator 07/10/17 03:35 60 14 84/48 (60) 96 CPAP 30 Mechanical Ventilator 07/10/17 03:31 54 14 74/50 (58) 96 CPAP 30 Mechanical Ventilator 07/10/17 03:01 67 16 130/80 (97) 98 CPAP 30 Mechanical Ventilator 07/10/17 02:31 67 17 132/78 (96) 97 CPAP 30 Mechanical Ventilator 07/10/17 01:31 70 16 140/81 (100) 97 CPAP 30 Mechanical Ventilator 07/10/17 01:01 59 17 119/72 (88) 97 CPAP 30 Mechanical Ventilator 07/10/17 00:48 30 07/10/17 00:31 65 17 114/74 (87) 96 CPAP 30 Mechanical Ventilator 07/10/17 00:30 CPAP 30 Mechanical Ventilator Physical Exam: General- no apparent distress Eyes- anicteric ENT- oral ETT, oral GT Neck- no JVD Lungs- clear to auscultation Heart- RRR with ectopy with, no murmur, no gallop Abdomen- + BS, soft, nontender Extremities- no pretibial edema or calf tenderness; SCD's applied; waffle boots applied Neuro- withdrawal response to some stimuli; pupils 2 mm, reactive; does not follow commands Skin- warm & dry . Laboratory Results: Last 24 Hours Test 07/09/17 08:24 07/09/17 11:45 07/09/17 16:57 07/09/17 20:11 Osmolality 283 mOsm/kg Bedside Glucose 159 mg/dl 197 mg/dl 212 mg/dl Test 07/09/17 21:03 07/10/17 00:11 07/10/17 04:24 Sodium Level 127 mmol/L 126 mmol/L Potassium Level 3.6 mmol/L 3.9 mmol/L Chloride Level 89 mmol/L 91 mmol/L Carbon Dioxide Level 28 mmol/L 28 mmol/L Anion Gap 10.0 mmol/L 7.0 mmol/L Blood Urea Nitrogen 41 mg/dl 53 mg/dl Creatinine 0.93 mg/dl 0.85 mg/dl Est Creatinine Clear Calc Drug Dose 42.2 ml/min 46.2 ml/min Estimated GFR () 64.5 71.9 Estimated GFR (Non- 55.6 62.0 BUN/Creatinine Ratio 43.7 62.1 Random Glucose 213 mg/dl 163 mg/dl Calcium Level 9.8 mg/dl 9.2 mg/dl Phosphorus Level 3.5 mg/dl 4.0 mg/dl Magnesium Level 2.0 mg/dl 2.2 mg/dl Bedside Glucose 168 mg/dl White Blood Count 19.96 K/uL Red Blood Count 4.09 M/uL Hemoglobin 13.6 g/dL Hematocrit 38.6 % Mean Corpuscular Volume 94.4 fL Mean Corpuscular Hemoglobin 33.3 pg Mean Corpuscular Hemoglobin Concent 35.2 g/dl RDW Standard Deviation 42.4 fL RDW Coefficient of Variation 12.6 % Platelet Count 372 K/uL Mean Platelet Volume 8.8 fL Venous Blood pH 7.40 Venous Blood Partial Pressure CO2 51 mmHg Venous Blood Partial Pressure O2 34 mmHg Venous Blood HCO3 31 mmol/L Venous Blood Oxygen Saturation 63.0 % Venous Blood Base Excess 4.9 mEq/L Assessment & Plan ALTERED MENTAL STATUS / FEBRILE ILLNESS Presented with progressive confusion. CT head demonstrated chronic microvascular changes, no acute findings. Altered mental status initially attributed to UTI. Recent outpatient urine culture grew E coli. UA at time of admission showed moderate leukocyte esterase, many WBC's, many epith cells, no bacteria. Initially received IV ceftriaxone. Urine culture subsequently grew more than 3 organisms, probable skin mariel. Blood cultures at time of admission were negative. STICK INSERTER infection was considered in light of fever and altered mental status. ID consulted. Antibiotic coverage was broadened (high dose ceftriaxone, vancomycin, ampicillin , acyclovir). LP could not be performed initially because of elevated INR on warfarin. Warfarin was reversed with vitamin K and FFP. LP performed, results as noted: Item Value Date Time CSF Appearance CLEAR 07/01/17 1000 CSF Color COLORLESS 07/01/17 1000 CSF WBC 164 /uL *H 07/01/17 1000 CSF RBC 2 /uL 07/01/17 1000 CSF Cell Count Tube # 3 07/01/17 1000 CSF Mononuclear WBCs 99.0 % 07/01/17 1000 CSF Polynuclear WBCs 1.0 % 07/01/17 1000 CSF Chemistry Tube # 1 07/01/17 1000 CSF Glucose 86 mg/dl H 07/01/17 1000 CSF Total Protein 79.3 mg/dl H 07/01/17 1000 CSF gram stain negative. CSF cultures negative so far. Cryptococcal Ag negative. CSF Lyme PCR and antibodies negative. CSF HSV 1/2 PCR negative. CSF Enterovirus PCR negative. CSF West Nile PCR negative. [place] most likely to have viral meningitis. Condition initially improved. Vancomycin, ampicillin, dexamethasone discontinued. Ceftriaxone and acyclovir were continued. Worsening confusion 07/03. Neuro consulted. MRI performed 07/03 had some motion artifact, but did not show any acute changes. EEG- moderate diffuse nonlateralizing encephalopathy, no apparent epileptogenic foci. Repeat LP 07/05/17: Item Value Date Time CSF WBC 57 /uL *H 07/05/17 1539 CSF RBC 41 /uL 07/05/17 1539 CSF Cell Count Tube # 3 07/05/17 1539 CSF Mononuclear WBCs 100.0 % 07/05/17 1539 CSF Glucose 76 mg/dl H 07/05/17 1539 CSF Total Protein 81.0 mg/dl H 07/05/17 1539 CSF culture negative. MRI with contrast 07/05/17 demonstrated T2 abnormalities in cerebellum and thalami as well as some subtle findings within temporal lobes. 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 Last elevated temp 07/04. De-escalated antibiotic coverage. Listeria unlikely- ampicillin discontinued. Lyme, pneumococcal pneumonia ruled out- ceftriaxone discontinued. ?? tick borne illness. Tick-borne illness PCR panel negative. Stopped doxycycline. Continue acyclovir- today is day # 07/04. Empiric trial of methylprednisolone recommended by Neurology for possible autoimmune disease. CSF NMDA receptor antibody level pending. Repeat CT head 07/09 unchanged (no acute findings). Continue supportive measures. RESPIRATORY Intubated for airway protection. Oxygenating well on 30% FIO2. Possible need for trach for pulmonary toilet discussed with family. Management per CCM. LLL DENSITY Chest x-ray 07/03 showed LLL density, infiltrate vs atelectasis. Started on IV piperacillin / tazobactam for possible pneumonia. Bronchoscopy performed 07/05; sputum culture from bronch grew only scant normal mariel and Jacy (probable contamination / colonization). Pneumonia unlikely. PAROXYSMAL ATRIAL FIB Unable to take oral metoprolol due to NPO status. Converted to parenteral metoprolol. Best not to maintain full anticoagulation at this time due to critical illness, procedures, etc. Remains in SR with PAC's. Resume warfarin when able. HYPERTENSION Unable to take oral meds due to NPO status. Blood pressures fluctuating. Best to allow relatively high BP's in light of neuro status. Converted metoprolol to IV --> GT. Added amlodipine via GT. BP's lower today. Hold parameters ordered. IV enalapril PRN. HYPONATREMIA Serum sodium 141 --> --> 128--> --> 131 --> --> 126. 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 Follow. HYPOKALEMIA K as low as 3.1. Receiving replacement. K today = 3.7. Avoid excessive free water Follow. HYPOTHYROIDISM Levothyroxine via OGT. NUTRITION Receiving enteral feedings via OGT. HYPERGLYCEMIA Serum glucose this morning 163. Hyperglycemia secondary to methylprednisolone therapy. Management per protocol. VTE PROPHYLAXIS On warfarin at time of admission which was subsequently held / reversed due to ICU status and multiple procedures. Continue enoxaparin. SCD's. DISPOSITION To be determined. Case Management following. Family Medicine follow-up with Dr. Mosley. Spouse Ms. Cortes at bedside and given update. . Consultants: [facility] Neurology . Procedures: CT head 06/29/17 CT head 06/30/17 LP under fluoro guidance 07/01/17 CT head 07/03/17 MRI brain 07/03/17 CT head 07/04/17 endotracheal intubation 07/05/17 mechanical ventilation 07/05/17 bronchoscopy 07/05/17 MRI brain with contrast 07/05/17 LP under fluoro guidance 06/25/17 . Current Inpatient Medications: Current Inpatient Medications Medications (Trade) Dose Ordered Sig/Josué Route Start Time Stop Time Status Last Admin Dose Admin Acetaminophen (Tylenol Tab) 650 mg Q4H PRN PO 06/29/17 11:00 07/29/17 10:59 Future Hold 07/03/17 11:07 650 MG Ondansetron HCl (Zofran Inj) 4 mg Q6H PRN IV 06/29/17 11:00 07/29/17 10:59 Aspirin (Ecotrin Tab) 81 mg DAILY PO 06/30/17 08:00 07/30/17 08:59 Future Hold 07/02/17 08:23 81 MG Atorvastatin Calcium (Lipitor Tab) 40 mg DAILY PO 06/30/17 08:00 07/30/17 08:59 Future Hold 07/02/17 08:22 40 MG Losartan Potassium (coZAAR TAB) 25 mg DAILY PO 06/30/17 08:00 07/30/17 08:59 Future Hold 07/02/17 08:24 25 MG Losartan Potassium (coZAAR TAB) 50 mg DAILY PO 06/30/17 08:00 07/30/17 08:59 Future Hold 07/02/17 08:24 50 MG Calcium/Vitamin D (Caltrate Plus Tab) 2 tab DAILY PO 06/30/17 08:00 07/30/17 07:59 Future Hold 07/02/17 08:23 2 TAB Miscellaneous (Iv Fluids Completed) 1 ea PRN PRN N/A 06/29/17 11:30 06/29/18 11:29 Acyclovir Sodium 650 mg/Dextrose 113 ml @ 110 mls/hr Q8H IV 06/30/17 10:30 07/21/17 10:29 07/10/17 02:58 110 MLS/HR Lactobacillus Acidophilus (Lactinex Granules Pack) 1 gm TIDM PO 07/01/17 07:30 07/31/17 07:29 Future Hold 07/02/17 15:22 1 GM Warfarin Sodium (Coumadin Tab) 5 mg DAILY@16 PO 07/02/17 16:00 08/01/17 15:59 Future Hold 07/02/17 15:21 5 MG Enoxaparin Sodium (Lovenox Inj) 40 mg Q24H SQ 07/02/17 16:00 08/01/17 15:59 Future hold 07/09/17 16:47 40 MG Enalaprilat 0.625 mg/Dextrose 25.5 ml @ 100 mls/hr Q6H PRN IV 07/04/17 09:15 08/03/17 09:14 07/07/17 08:08 100 MLS/HR Acetaminophen (Tylenol Supp) 650 mg Q4H PRN MO 07/05/17 07:30 08/04/17 07:29 Fentanyl Citrate (Fentanyl Inj) 50 mcg Q2H PRN IV 07/05/17 11:15 07/19/17 11:14 07/07/17 14:54 50 MCG Midazolam HCl (Versed Inj) 2 mg Q2H PRN IV 07/05/17 14:45 08/04/17 14:44 Fentanyl Citrate (Fentanyl Inj) 50 mcg Q2H PRN IV 07/05/17 14:45 07/19/17 14:44 Enteral Nutritional Formula (Peptamen Intense VHP) Start at 20mL/hr, titrate... DAILY OG 07/05/17 22:15 08/04/17 22:14 07/09/17 12:25 1,000 ML Levothyroxine Sodium (Synthroid Tab) 100 mcg DAILY GT 07/06/17 09:00 08/05/17 08:59 07/09/17 07:40 100 MCG Magnesium Hydroxide (Milk Of Magnesia Susp) 30 ml Q6H PRN PO 07/07/17 08:15 08/06/17 08:14 07/07/17 10:46 30 ML Enalaprilat 1.25 mg/Dextrose 26 ml @ 100 mls/hr Q6H PRN IV 07/07/17 11:00 08/06/17 10:59 Metoprolol Tartrate (Lopressor Iv) 2.5 mg Q4 PRN IV 07/07/17 11:00 08/06/17 10:59 07/07/17 13:47 2.5 MG Hydralazine HCl (HydrALAZINE INJ) 10 mg Q6H PRN IV. 07/07/17 14:45 08/06/17 14:44 Methylprednisolone Sodium Succinate 1000 mg/Dextrose 266 ml @ 250 mls/hr QD@1000 IV 07/08/17 10:00 07/11/17 11:04 07/09/17 11:31 250 MLS/HR Amlodipine Besylate (Norvasc Tab) 10 mg QAM NG 07/09/17 09:00 08/07/17 08:59 07/09/17 07:41 10 MG Metoprolol Tartrate (Lopressor Tab) 100 mg BID PO 07/08/17 21:00 08/06/17 08:59 07/09/17 20:19 100 MG Sodium Chloride (Sodium Chloride Tab) 1 gm DAILY PO 07/10/17 09:00 08/09/17 08:59 Miscellaneous Information (Consult Glycemic Management Pharmacy) 1 ea UD PRN N/A 07/09/17 13:42 08/08/17 13:41 Insulin Aspart (novoLOG ASPART) SLIDING SCALE Q4 SC 07/09/17 14:00 08/08/17 13:59 Future hold 07/10/17 05:54 3 UNITS Insulin Glargine (Lantus Solostar Pen) Q12@08,1999 MN 07/09/17 20:00 08/08/17 19:59 07/09/17 20:13 10 UNITS Heparin Sodium (Porcine) (Heparin 10 Unit/ ml 5 ml Flush) 5 ml PRN PRN FLUSH 07/09/17 23:45 08/08/17 23:44
[2017-07-10] MEDS: LEVOTHYROXINE 100 MCG TAB GT SCH (08:38)
[2017-07-10] MEDS: AMLODIPINE BESYLATE 5 MG TAB NG SCH (08:39)
[2017-07-10] MEDS: INSULIN GLARGINE SOLOSTAR 100 UNITS/ML 3 ML PEN SC SCH ×2 (08:41→19:57)
[2017-07-10] MEDS ORDERED: SODIUM CHLORIDE 1 GM TAB PO SCH (09:00)
[2017-07-10] MEDS: METOPROLOL TARTRATE 50 MG TAB PO SCH ×2 (09:51→21:00)
[2017-07-10] MEDS: PEPTAMEN INTENSE VHP 1000ML BAG OG SCH (09:51)
[2017-07-10] MEDS: METHYLPREDNISOLONE IV 1,000 MG in DEXTROSE 5% 250ML 250 ML IV SCH (09:51)
[2017-07-10] MEDS: FAMOTIDINE IV INJ 20 MG in SYRINGE 3 ML IV SCH ×2 (10:36→21:24)
[2017-07-10] MEDS: SODIUM CHLORIDE 1 GM TAB PO SCH ×2 (12:38→21:24)
--- NOTE | 2017-07-10 13:21 | Critical Care Progress Note ---
Critical Care Progress Note Date of Service Jul 10, 2017. ICU Day ICU Day Number: [address] Padron Subjective No acute events overnight. No improvement in level of responsiveness. Objective GENERAL: obtunded, w/o distress EYE EXAM: normal conjunctiva, PERRL and EOM's grossly intact OROPHARYNX: tongue normal and mucous membranes are moist NECK: supple, no nuchal rigidity, no adenopathy LUNGS: Clear to auscultation. HEART: no murmurs, S1 normal and S2 normal ABDOMEN: abdomen soft, non-tender, normo-active bowel sounds, no masses LOWER EXTREMITIES: No pitting edema. NEURO EXAM: GCS 6T Current SOFA Score SOFA Score Response (Comments) Value PaO2/FiO2 (mmHg) < 400 1 Platelets (x10) > 150 0 Bilirubin (mg/dL) < 1.2 0 Erickson Coma Score 6 - 9 3 Level of Hypotension No Hypotension 0 Creatinine (mg/dL) < 1.2 0 Total 4 Assessment & Plan 87 yo F w/x h/o Paroxysmal AFIB, HTN, HLD, presented with fever, Acute Confusion /Lethargy and UTI. LP consistent with meningitis vs Encephalitis likely of viral origin, currently on , Acyclovir. 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 No acute process. No change from the prior exam. MRI: No evidence for an acute ischemic insult.Generalized atrophy of the cerebellar as well as cerebral hemispheres ID following the patient. MRI (07/06) : appearance is consistent with a nonspecific encephalitis/ cerebritis Repeat LP (07/05) showed decrease in WBC (164-->54), Gram stain neg. cx pending. Glucose, Tot protein remain elevated CSF negative for Lyme ABs, Enterovirus, HSV I,II, [place] virus, Cryptococcal VZV) EBV, CMV pending EEG dated 07/07: Mildly to moderately diffusely abnormal EEG, No evidence of epileptogenic activity or of periodic lateralized epileptiform discharges which may be seen in association with herpetic encephalitis D/C'd Ampicillin and Ceftriaxone (07/07). D/C'd Doxycycline(07/08) Continue Acyclovir anti-NMDA receptor ab's pending Respiratory: Atelectasis given LL Lung Infiltrate, Pneumonia possible but less likely possible PNA s/p treatment with broadspectrum abx Chest X-ray(07/09): Tip of endotracheal tube 3.4 cm above the constantine Cardiovascular: Paroxysmal Afib, HTN, HLD HTN: Labile BP , Hold parameter placed on Amlodipine for sys <140, IV Enalapril prn , Continue PO Lopressor to 100 mg BID Afib: currently sinus, Continue to monitor CV drips: Remains off vasoactive medications Rhythm: Sinus EKG: Normal sinus, QTc : 429 Fluids/Renal: Hyponatremia: persists Na 126, Increase Salt tabs 1 gm TID urine osm 663, serum osm 283, urine Na 10, not consistent with SIADH F/u Repeat BMP Ruled out Cerebral edema, CT Head: No significant change compared to the prior study. No acute intracranial abnormality Hypokalemia: resolved Hypophosphatemia: resolved Mireles: Present GI/Nutrition: s/p rectal tube Feeding: Peptamen Prophylaxis: Not On PPI Bowel movements:1 ( diarrhea) ordered C diff. PRN Milk of Magnesia, Senokot Endocrine: Last 24 hour glucose: Ranging 163-213 Insulin protocol: Yes; Drip: No Hematology: Hemoglobin 19 DVT prophylaxis: Lovenox Infectious Disease/Immunology: suspected Viral Encephalitis of unknown etiology. Tmax: 36.6 Leukocytosis resolved Antimicrobials: Doxycycline, Ceftriaxone, Ampicillin remain D/C'd Continue Acyclovir Cultures: Blood: No growth Blood (Parasitology) on smear: Negative Bronchial washings:Jacy (likely from aspiration, no indication for antifungal ) Urine: No growth MRSA: neg CSF: No growth to date EBV, CMP serology pending Resident Physician Supervision Note: I was present with Dr. Tapia during the history and exam. I discussed the case with the resident and agree with the findings and plan as documented in the note. Any exceptions or clarifications are listed here: In brief, Patient with encephalopathy for over a week with work up which included MRI x 2; EEG x 1; LP x 2 with elevated protein in 80's on empirical Acyclovir; PLAN: Neuro - off sedation for over > 48 hrs; does not respond to commands; CSF with elevated protein and overall encephalopathy c/w infectious etiology; on Empirical stress dose Steroids as per Neurology; c/w Acyclovir although CPR HSV negative; EBV, CMV, cyto, Listeria still pending; case d/w Neurology; Pulm - not a candidate for CPAP given lack of mental status; c/w vent support; Patient on 30% FIo2; Today's VBG noted; CV - hemodynamically stable;c/w Metoprolol and Amlodipine; ID - Noted diarrhea --> will check C diff; Leukocytosis likely from Steroids; Renal - cr stable; Noted Persistent Hyponatremia --> increased salt tabs; c/w diuresis; Other issues as per PGY II; I have personally spent 35 minutes of critical care time in the direct management of this patient. This is a life/limb threatening event. This includes time spent evaluating patient, direct bedside care, chart review, placing orders, interpretation of diagnostic studies, discussion with consultants, patient, and family members, as well as other required patient management activities. This time is exclusive of all separately billable procedures, and teaching time and separate from and in addition to any other critical care service time I met with patient's and updated her on patient's current condition and plan of care; As per her, the patient would not want to proceed with trach and PEG especially if she does not have a mental status; At the same time, as per , the patient was very functional up untill a week prior to today; Patient had been vented for only a week at this point, will continue supportive care; Documented By: Raman Padron Consults & Procedures Consultants: Infectious Disease Neurology Procedures: HEAD CT NONCONTRAST CT DOSE: 614.27 mGy.cm HISTORY: Altered mental status. TECHNIQUE: Multiaxial CT images of the head were performed without the use of intravenous contrast. Automated exposure control was utilized for this study. A dose lowering technique was utilized adhering to the principles of ALARA. Comparison: Brain MRI 07/05/2017. Head CT 07/04/2017. Findings: The paranasal sinuses and mastoid air cells are clear. The calvarium and skull base are intact. There is no mass, hematoma, midline shift, acute infarct. Stable white matter hypodensity. Mild atrophic changes within the brain. Impression: No significant change compared to the prior study. No acute intracranial abnormality. FLUOROSCOPICALLY GUIDED LUMBAR PUNCTURE CLINICAL HISTORY: Evaluate for encephalitis. PROCEDURE: Due to altered mental status and sedation, the procedure, risks and benefits were discussed with the patient's power of patent prosecution attorney including the risk of spinal headache, bleeding and infection. She agreed to the procedure and informed written consent was obtained. The procedure was performed by Dr. Sandoval following a timeout. The right L5-S1 interlaminar space was targeted. Skin overlying the space was prepped and draped in sterile fashion and local anesthesia was achieved with 1% lidocaine. Under intermittent fluoroscopic guidance, a 3 1/2 inch 22-gauge spinal needle was directed into the thecal sac with immediate return of clear CSF. A total of 9 cc of CSF was collected in 4 vials and sent to the laboratory as ordered. The needle was removed. The patient tolerated the procedure well and no immediate complications were evident. [~ rep ct add3]] MRI OF THE BRAIN COMBO CLINICAL HISTORY: Encephalitis. COMPARISON STUDY: CT of the brain dated 07/04/2017. MRI of the brain dated 07/03/2017. TECHNIQUE: MRI of the brain was performed utilizing various T1 and T2-weighted sequences in the axial, sagittal, and coronal planes. Contrast-enhanced sequences were acquired following the administration of 6 cc of Gadavist. FINDINGS: Brain parenchyma: There are age-related involutional changes noting advanced confluent subcortical and periventricular microangiopathic disease. There is no hemorrhage or mass effect. There is patchy T2 signal abnormality seen throughout the cerebellum, and also involving both thalami. There may also be T2 signal abnormality within the white matter; however, this is not well evaluated due to extensive microangiopathic change. Subtle cortical abnormality is identified within the temporal lobes, best appreciated on the FLAIR sequences. Faint restricted diffusion is suggested in these regions that is not typical for ischemia. No enhancing mass lesion is identified on the postcontrast images. There is no leptomeningeal or pachymeningeal enhancement. No extra-axial fluid collection is seen. The cerebellar tonsils are normal in configuration. Ventricles, sulci, and cisterns: Prominent secondary to involutional change. Pituitary and sella: Unremarkable. Intracranial vasculature: Normal flow voids are maintained at the skull base. Orbits: The bony orbits are grossly intact. Orbital contents are normal in appearance noting bilateral ocular lens implants. Sinuses and mastoids: Trace mucosal thickening is seen within the maxillary antra. Mild mucosal thickening is also identified within the ethmoid sinuses. Fluid is noted in the sphenoid sinuses. There is a left mastoid effusion. Fluid is present within the pharynx. Calvarium: Unremarkable. Cervical cord: Partially visualized cervical spinal cord is normal in morphology and signal intensity. IMPRESSION: 1. There is patchy T2 signal abnormality identified, greatest in the cerebellar hemispheres and the thalami. There may also be periventricular matter abnormality; however, this is not well assessed due to significant underlying microangiopathic change. Subtle cortical signal abnormality is seen within the temporal lobes, and these findings are best appreciated on the FLAIR sequence. The appearance is consistent with a nonspecific encephalitis/cerebritis. This could be related to an infectious/viral process or less likely a metabolic or global ischemic insult. Clinical correlation will be essential. 2. No hemorrhage is identified. There is no restricted diffusion identified typical for stroke. 3. There is no enhancing mass. No leptomeningeal/pachymeningeal enhancement is seen. 4. Left mastoid effusion and paranasal sinus disease as above. 5. Fluid is seen layering in the pharynx. IMPRESSION: Fluoroscopically guided lumbar puncture collection of 9 cc of clear CSF. Data Medications: Current Inpatient Medications Medications (Trade) Dose Ordered Sig/Josué Route Start Time Stop Time Status Last Admin Dose Admin Acetaminophen (Tylenol Tab) 650 mg Q4H PRN PO 06/29/17 11:00 07/29/17 10:59 Future Hold 07/03/17 11:07 650 MG Ondansetron HCl (Zofran Inj) 4 mg Q6H PRN IV 06/29/17 11:00 07/29/17 10:59 Aspirin (Ecotrin Tab) 81 mg DAILY PO 06/30/17 08:00 07/30/17 08:59 Future Hold 07/02/17 08:23 81 MG Atorvastatin Calcium (Lipitor Tab) 40 mg DAILY PO 06/30/17 08:00 07/30/17 08:59 Future Hold 07/02/17 08:22 40 MG Calcium/Vitamin D (Caltrate Plus Tab) 2 tab DAILY PO 06/30/17 08:00 07/30/17 07:59 Future Hold 07/02/17 08:23 2 TAB Miscellaneous (Iv Fluids Completed) 1 ea PRN PRN N/A 06/29/17 11:30 06/29/18 11:29 Acyclovir Sodium 650 mg/Dextrose 113 ml @ 110 mls/hr Q8H IV 06/30/17 10:30 07/21/17 10:29 07/10/17 09:51 110 MLS/HR Lactobacillus Acidophilus (Lactinex Granules Pack) 1 gm TIDM PO 07/01/17 07:30 07/31/17 07:29 Future Hold 07/02/17 15:22 1 GM Enoxaparin Sodium (Lovenox Inj) 40 mg Q24H SQ 07/02/17 16:00 08/01/17 15:59 Future hold 07/09/17 16:47 40 MG Enalaprilat 0.625 mg/Dextrose 25.5 ml @ 100 mls/hr Q6H PRN IV 07/04/17 09:15 08/03/17 09:14 07/07/17 08:08 100 MLS/HR Acetaminophen (Tylenol Supp) 650 mg Q4H PRN [place] 07/05/17 07:30 08/04/17 07:29 Fentanyl Citrate (Fentanyl Inj) 50 mcg Q2H PRN IV 07/05/17 11:15 07/19/17 11:14 07/07/17 14:54 50 MCG Midazolam HCl (Versed Inj) 2 mg Q2H PRN IV 07/05/17 14:45 08/04/17 14:44 Fentanyl Citrate (Fentanyl Inj) 50 mcg Q2H PRN IV 07/05/17 14:45 07/19/17 14:44 Enteral Nutritional Formula (Peptamen Intense VHP) Start at 20mL/hr, titrate... DAILY OG 07/05/17 22:15 08/04/17 22:14 07/10/17 09:51 1,000 ML Levothyroxine Sodium (Synthroid Tab) 100 mcg DAILY GT 07/06/17 09:00 08/05/17 08:59 07/10/17 08:38 100 MCG Magnesium Hydroxide (Milk Of Magnesia Susp) 30 ml Q6H PRN PO 07/07/17 08:15 08/06/17 08:14 07/07/17 10:46 30 ML Enalaprilat 1.25 mg/Dextrose 26 ml @ 100 mls/hr Q6H PRN IV 07/07/17 11:00 08/06/17 10:59 Metoprolol Tartrate (Lopressor Iv) 2.5 mg Q4 PRN IV 07/07/17 11:00 08/06/17 10:59 07/07/17 13:47 2.5 MG Hydralazine HCl (HydrALAZINE INJ) 10 mg Q6H PRN IV. 07/07/17 14:45 08/06/17 14:44 Methylprednisolone Sodium Succinate 1000 mg/Dextrose 266 ml @ 250 mls/hr QD@1000 IV 07/08/17 10:00 07/11/17 11:04 07/10/17 09:51 250 MLS/HR Amlodipine Besylate (Norvasc Tab) 10 mg QAM NG 07/09/17 09:00 08/07/17 08:59 07/09/17 07:41 10 MG Metoprolol Tartrate (Lopressor Tab) 100 mg BID PO 07/08/17 21:00 08/06/17 08:59 07/10/17 09:51 100 MG Miscellaneous Information (Consult Glycemic Management Pharmacy) 1 ea UD PRN N/A 07/09/17 13:42 08/08/17 13:41 Insulin Aspart (novoLOG ASPART) SLIDING SCALE Q4 [place] 07/09/17 14:00 08/08/17 13:59 Future hold 07/10/17 12:40 4 UNITS Insulin Glargine (Lantus Solostar Pen) Q12@0800,2000 [place] 07/09/17 20:00 08/08/17 19:59 07/10/17 08:41 10 UNITS Heparin Sodium (Porcine) (Heparin 10 Unit/ ml 5 ml Flush) 5 ml PRN PRN FLUSH 07/09/17 23:45 08/08/17 23:44 07/10/17 10:35 10 ML Sodium Chloride (Sodium Chloride Tab) 1 gm TID PO 07/10/17 14:00 08/09/17 13:59 07/10/17 12:38 1 GM Famotidine 20 mg/ Syringe 5 ml @ 2.5 mls/min Q12 IV 07/10/17 10:30 08/09/17 10:29 07/10/17 10:36 2.5 MLS/MIN Vital Signs: Date Time Temp Pulse Resp B/P (MAP) Pulse Ox O2 Delivery O2 Flow Rate FiO2 07/10/17 12:00 30 07/10/17 12:00 Mechanical Ventilator 30 07/10/17 12:00 36.6 84 12 126/70 (88) 97 Mechanical Ventilator 30 07/10/17 11:10 30 07/10/17 10:05 30 07/10/17 08:00 36.6 86 14 115/58 (77) 100 CPAP 30 Mechanical Ventilator 07/10/17 08:00 30 07/10/17 08:00 CPAP 30 Mechanical Ventilator 07/10/17 07:07 30 07/10/17 07:01 30 07/10/17 06:16 58 14 101/57 (72) 97 07/10/17 06:11 55 15 93/52 (66) 96 07/10/17 06:06 56 14 93/56 (68) 97 07/10/17 06:01 54 14 108/62 (77) 98 07/10/17 05:56 60 12 115/68 (84) 98 07/10/17 05:51 59 16 99/59 (72) 96 07/10/17 05:46 55 15 91/47 (62) 96 07/10/17 05:01 57 14 77/46 (56) 97 07/10/17 04:25 CPAP 30 Mechanical Ventilator 07/10/17 04:16 56 15 80/44 (56) 96 CPAP 30 Mechanical Ventilator 07/10/17 04:11 57 15 95/50 (65) 97 CPAP 30 Mechanical Ventilator 07/10/17 04:10 30 07/10/17 04:07 73 13 115/64 (81) 98 CPAP 30 Mechanical Ventilator 07/10/17 04:01 58 15 79/45 (56) 96 CPAP 30 Mechanical Ventilator 07/10/17 03:56 58 14 74/45 (55) 95 CPAP 30 Mechanical Ventilator 07/10/17 03:51 56 14 87/49 (62) 97 CPAP 30 Mechanical Ventilator 07/10/17 03:46 70 14 106/58 (74) 97 CPAP 30 Mechanical Ventilator 07/10/17 03:41 58 14 85/50 (62) 96 CPAP 30 Mechanical Ventilator 07/10/17 03:36 58 14 89/51 (64) 96 CPAP 30 Mechanical Ventilator 07/10/17 03:35 60 14 84/48 (60) 96 CPAP 30 Mechanical Ventilator 07/10/17 03:31 54 14 74/50 (58) 96 CPAP 30 Mechanical Ventilator 07/10/17 03:01 67 16 130/80 (97) 98 CPAP 30 Mechanical Ventilator 07/10/17 02:31 67 17 132/78 (96) 97 CPAP 30 Mechanical Ventilator 07/10/17 01:31 70 16 140/81 (100) 97 CPAP 30 Mechanical Ventilator 07/10/17 01:01 59 17 119/72 (88) 97 CPAP 30 Mechanical Ventilator 07/10/17 00:48 30 07/10/17 00:31 65 17 114/74 (87) 96 CPAP 30 Mechanical Ventilator 07/10/17 00:30 CPAP 30 Mechanical Ventilator 07/10/17 00:01 36.4 64 18 141/81 (101) 96 CPAP 30 Mechanical Ventilator 07/09/17 23:31 68 18 114/72 (86) 96 CPAP 30 Mechanical Ventilator 07/09/17 23:01 59 14 127/71 (89) 96 CPAP 30 Mechanical Ventilator 07/09/17 22:31 74 13 150/89 (109) 97 CPAP 30 Mechanical Ventilator 07/09/17 22:01 67 17 129/80 (96) 97 CPAP 30 Mechanical Ventilator 07/09/17 21:55 30 07/09/17 21:31 62 16 152/81 (104) 97 CPAP 30 Mechanical Ventilator 07/09/17 21:01 85 6 139/74 (95) 97 CPAP 30 Mechanical Ventilator 07/09/17 20:34 CPAP 30 Mechanical Ventilator 07/09/17 20:31 91 18 143/72 (95) 96 CPAP 30 Mechanical Ventilator 07/09/17 20:01 36.4 100 18 141/79 (99) 96 CPAP 30 Mechanical Ventilator 07/09/17 19:31 89 18 133/78 (96) 96 CPAP 30 Mechanical Ventilator 07/09/17 19:01 91 17 118/70 (86) 96 CPAP 30 Mechanical Ventilator 07/09/17 18:01 97 19 140/98 (112) 96 CPAP 30 Mechanical Ventilator 07/09/17 18:00 97 19 96 07/09/17 17:31 92 18 139/82 (101) 96 07/09/17 17:30 30 07/09/17 17:01 92 19 154/86 (108) 97 07/09/17 17:00 93 19 97 07/09/17 16:31 96 18 150/83 (105) 97 07/09/17 16:01 36.8 94 18 159/93 (115) 96 CPAP 30 Mechanical Ventilator 07/09/17 16:00 94 19 96 07/09/17 16:00 97 CPAP 30 Mechanical Ventilator 07/09/17 15:31 91 17 147/82 (103) 96 07/09/17 15:01 91 18 157/86 (109) 96 07/09/17 15:00 95 18 96 07/09/17 14:31 94 18 158/94 (115) 96 CPAP 30 Mechanical Ventilator 07/09/17 14:30 90 18 96 07/09/17 14:01 90 18 160/85 (110) 97 07/09/17 14:00 91 18 97 07/09/17 13:35 30 07/09/17 13:31 89 17 153/91 (111) 97 07/09/17 13:30 89 17 97 Laboratory Results: Last 24 Hours Test 07/09/17 16:57 07/09/17 20:11 07/09/17 21:03 07/10/17 00:11 Bedside Glucose 197 mg/dl 212 mg/dl 168 mg/dl Sodium Level 127 mmol/L Potassium Level 3.6 mmol/L Chloride Level 89 mmol/L Carbon Dioxide Level 28 mmol/L Anion Gap 10.0 mmol/L Blood Urea Nitrogen 41 mg/dl Creatinine 0.93 mg/dl Est Creatinine Clear Calc Drug Dose 42.2 ml/min Estimated GFR () 64.5 Estimated GFR (Non- 55.6 BUN/Creatinine Ratio 43.7 Random Glucose 213 mg/dl Calcium Level 9.8 mg/dl Phosphorus Level 3.5 mg/dl Magnesium Level 2.0 mg/dl Test 07/10/17 04:24 07/10/17 08:24 07/10/17 12:35 White Blood Count 19.96 K/uL Red Blood Count 4.09 M/uL Hemoglobin 13.6 g/dL Hematocrit 38.6 % Mean Corpuscular Volume 94.4 fL Mean Corpuscular Hemoglobin 33.3 pg Mean Corpuscular Hemoglobin Concent 35.2 g/dl RDW Standard Deviation 42.4 fL RDW Coefficient of Variation 12.6 % Platelet Count 372 K/uL Mean Platelet Volume 8.8 fL Venous Blood pH 7.40 Venous Blood Partial Pressure CO2 51 mmHg Venous Blood Partial Pressure O2 34 mmHg Venous Blood HCO3 31 mmol/L Venous Blood Oxygen Saturation 63.0 % Venous Blood Base Excess 4.9 mEq/L Sodium Level 126 mmol/L Potassium Level 3.9 mmol/L Chloride Level 91 mmol/L Carbon Dioxide Level 28 mmol/L Anion Gap 7.0 mmol/L Blood Urea Nitrogen 53 mg/dl Creatinine 0.85 mg/dl Est Creatinine Clear Calc Drug Dose 46.2 ml/min Estimated GFR () 71.9 Estimated GFR (Non- 62.0 BUN/Creatinine Ratio 62.1 Random Glucose 163 mg/dl Calcium Level 9.2 mg/dl Phosphorus Level 4.0 mg/dl Magnesium Level 2.2 mg/dl Bedside Glucose 148 mg/dl 204 mg/dl Resident Tracking Resident Involvement: Resident Care Provided Care Provided: Adult Hospital Medicine
[2017-07-10] MEDS: ENOXAPARIN 40 MG/0.4 ML SYR SQ SCH (16:38)
--- NOTE | 2017-07-10 17:25 | PROGRESS NOTE ---
DATE: 07/10/2017 Indu looks virtually the same as she has the last 3 days despite having now 3 grams of Solu-Medrol on board over the 3 day period. There may be some eye opening on occasion and occasional random hand movements but by and large, I see nothing that would suggest that steroids have had any benefit here. The whole concept that this was an autoimmune encephalitis was a bit thin anyway as the history suggests that this came on very acutely and is likely a viral illness that is simply not one that is responsive to the acyclovir. A lot of the titers are still out, CMV and mono and the cytology is still pending, but at this point if she does not improve after the fourth dose of Solu-Medrol I am simply going to suggest that she be dropped down slowly to 100 mg IV daily for a day or two, then 80, then 60, then 40, 20, 10, and then stop it. I will continue to check with her daily.
[2017-07-11] VITALS (24 sets, daily range): BP systolic 92–167; BP diastolic 51–95; PULSE 51–93; TEMP 36.4–36.9; O2SAT 96–100
[2017-07-11 00:34] LABS: CMV DNA PCR QUANT SOURCE CSF; CMV DNA QN REAL TIME PCR <200 IU/mL (<200); EBV DNA QUANT PCR <200 copies/mL (<200); EBV DNA QUANT SOURCE CSF
[2017-07-11] MEDS: ACYCLOVIR SOD INJ 650 MG in DEXTROSE 5% 100ML 100 ML IV SCH ×3 (02:38→18:34)
[2017-07-11] MEDS: INSULIN ASPART 100 UNITS/ML 3 ML PEN SC SCH ×7 (04:06→23:35)
[2017-07-11 05:15] LABS: HEMATOCRIT 37.7 % (37-47); MEAN CELL VOLUME 95.9 fL (80-100); MEAN CORPUSCULAR HEMOGLOBIN 33.8 pg (25-34); MEAN CORPUSCULAR HGB CONC 35.3 g/dl (32-36); MEAN PLATELET VOLUME 8.8 fL (7.4-10.4); PLATELET COUNT 370 K/uL (130-400); RED BLOOD COUNT 3.93 M/uL (4.2-5.4); WHITE BLOOD COUNT 15.91 K/uL (4.8-10.8)
[2017-07-11 05:43] LABS: BUN/CREATININE RATIO 66.9 (10-20); CALCIUM 9.2 mg/dl (8.5-10.1); CREATININE 1.14 mg/dl (0.60-1.20); MAGNESIUM 2.5 mg/dl (1.8-2.4); POTASSIUM 3.4 mmol/L (3.5-5.1)
[2017-07-11 05:45] LABS: PHOSPHORUS 3.4 mg/dl (2.5-4.9)
[2017-07-11 06:08] LABS: ISTAT ALLEN TEST Pass; ISTAT ARTERIAL BLOOD GAS HCO3 26 meq/L (19-24); ISTAT ARTERIAL BLOOD GAS PCO2 39 mmHg (35-46); ISTAT ARTERIAL BLOOD GAS PO2 105 mmHg (80-95); ISTAT ARTERIAL BLOOD GAS pH 7.44 (7.35-7.45); ISTAT CARBON DIOXIDE 27 mEq/l (24-31); ISTAT DELIVERY SYSTEM Ventilator; ISTAT FIO2 30 %; ISTAT PEEP 5; ISTAT RATE 12; ISTAT SITE L Radial; VE 6; Vt 450
[2017-07-11] MEDS: PEPTAMEN INTENSE VHP 1000ML BAG OG SCH (06:27)
[2017-07-11] MEDS: AMLODIPINE BESYLATE 5 MG TAB NG SCH (07:56)
[2017-07-11] MEDS: LEVOTHYROXINE 100 MCG TAB GT SCH (07:57)
[2017-07-11] MEDS: SODIUM CHLORIDE 1 GM TAB PO SCH ×3 (07:57→20:36)
[2017-07-11] MEDS: FAMOTIDINE IV INJ 20 MG in SYRINGE 3 ML IV SCH ×2 (07:58→20:36)
[2017-07-11] MEDS: METOPROLOL TARTRATE 50 MG TAB PO SCH ×2 (07:58→20:36)
[2017-07-11] MEDS: INSULIN GLARGINE SOLOSTAR 100 UNITS/ML 3 ML PEN SC SCH ×2 (08:00→20:35)
--- NOTE | 2017-07-11 08:06 | DIAGNOSTIC IMAGING REPORT ---
CHEST ONE VIEW PORTABLE HISTORY: Intubated. COMPARISON: 07/10/2017 FINDINGS: The endotracheal tube terminates 4.1 cm from the constantine. Nasogastric tube terminates below the diaphragm. Right PICC terminates at the SVC. The heart is stable in size. No pneumothorax. No pleural effusions. Hazy opacity within the left lung base remains unchanged. The right lung is clear. IMPRESSION: 1. Satisfactory support line placement. 2. No change in the left lower lobe hazy airspace opacity. This favors a pneumonia. Electronically signed by: Alexis Castillo M.D. 07/11/2017 8:05 AM Dictated Date/Time: 07/11/2017 8:03 AM
--- NOTE | 2017-07-11 09:37 | Critical Care Progress Note ---
Critical Care Progress Note Date of Service Jul 11, 2017. Attending Dr. Padron Subjective NO acute events overnight. Patient remains on high dose steroids. Objective GENERAL: obtunded, w/o distress EYE EXAM: normal conjunctiva, PERRL and EOM's grossly intact OROPHARYNX: tongue normal and mucous membranes are moist NECK: supple, no nuchal rigidity, no adenopathy LUNGS: Clear to auscultation. HEART: no murmurs, S1 normal and S2 normal ABDOMEN: abdomen soft, non-tender, normo-active bowel sounds, no masses LOWER EXTREMITIES: No pitting edema. NEURO EXAM: GCS 6T Current SOFA Score SOFA Score Response (Comments) Value PaO2/FiO2 (mmHg) < 400 1 Platelets (x10) > 150 0 Bilirubin (mg/dL) < 1.2 0 [place] Coma Score 6 - 9 3 Level of Hypotension No Hypotension 0 Creatinine (mg/dL) < 1.2 0 Total 4 Assessment & Plan 87 yo F w/x h/o Paroxysmal AFIB, HTN, HLD, presented with fever, Acute Confusion /Lethargy and UTI. LP consistent with meningitis vs Encephalitis likely of viral origin, currently on , Acyclovir. [employer] T[employer]IVER/Neuro: Encephalopathy secondary to Suspected Viral Meningitis vs Encephalitis GCS: 6T Pupils: Pinpoint, reactive Focal Signs: None NO improvement in mental status EEG dated 07/05: Result reveals evidence for moderate diffuse generalized nonlateralizing encephalopathy of nonspecific type CT: Chronic and age-related change. No acute process. No change from the prior exam. MRI: No evidence for an acute ischemic insult.Generalized atrophy of the cerebellar as well as cerebral hemispheres MRI (07/06) : appearance is consistent with a nonspecific encephalitis/ cerebritis Repeat LP (07/05) showed decrease in WBC (164-->54), Gram stain neg. cx pending. Glucose, Tot protein remain elevated CSF negative for Lyme ABs, Enterovirus, HSV I,II, [place] virus, Cryptococcal VZV) EBV, CMV pending EEG dated 07/07: Mildly to moderately diffusely abnormal EEG, No evidence of epileptogenic activity or of periodic lateralized epileptiform discharges which may be seen in association with herpetic encephalitis CT (07/09) no significant changes from previous D/C'd Ampicillin and Ceftriaxone (07/07). D/C'd Doxycycline(07/08) Continue Acyclovir anti-NMDA receptor ab's pending Respiratory: Atelectasis given LL Lung Infiltrate, Pneumonia possible but less likely possible PNA s/p treatment with broadspectrum abx Chest X-ray(07/11): No change in the left lower lobe hazy airspace opacity , ET Tube in place Cardiovascular: Paroxysmal Afib, HTN, HLD HTN: c/w Metoprolol and Amlodipine Afib: currently sinus, Continue to monitor CV drips: Remains off vasoactive medications Rhythm: Sinus EKG: Normal sinus, QTc : 429 Fluids/Renal: Hyponatremia: improved persists Na 126-->132, labs not consistent with SIADH Continue Salt tabs Mireles: Present GI/Nutrition: diarrhea s/p rectal tube Feeding: Peptamen Prophylaxis: Not On PPI Bowel movements:1 ( diarrhea) C diff. NEG. Endocrine: Last 24 hour glucose: Ranging 163-202 Insulin protocol: Yes; Drip: No Hematology: Hemoglobin 19-->15.9 Folow CBC's DVT prophylaxis: Lovenox Infectious Disease/Immunology: suspected Viral Encephalitis of unknown etiology. Tmax: 36.6 Leukocytosis resolved Antimicrobials: Continue Acyclovir Cultures: Blood: No growth Blood (Parasitology) on smear: Negative Bronchial washings:Jacy (likely from aspiration, no indication for antifungal ) Urine: No growth MRSA: neg CSF: No growth to date EBV, CMP NEG Resident Physician Supervision Note: I was present with Dr. Phillip during the history and exam. I discussed the case with the resident and agree with the findings and plan as documented in the note. Any exceptions or clarifications are listed here: In brief, Patient with encephalopathy for over a week with work up which included MRI x 2; EEG x 1; LP x 2 with elevated protein in 80's on empirical Acyclovir; PLAN: Neuro - off sedation for over > 3 days, only on PRN Fentanyl and Versed; does not respond to commands, but appears to move more; CSF with elevated protein and overall encephalopathy c/w infectious etiology; on Empirical stress dose Steroids as per Neurology; CSF NDMA receptor Ab pending ; c/w Acyclovir although CPR HSV negative; EBV negative; CMV negative, cyto, Listeria still pending; case d/w Neurology; Pulm - not an extubation candidate at this time; But did well on CPAP despite lack of mental status; c/w vent support; Patient on 30% FIo2; Today's ABG noted; CV - hemodynamically stable;c/w Metoprolol and Amlodipine; on Enalapriat; ID - Noted diarrhea --> C diff negative; Leukocytosis likely from Steroids; still on Acyclovir empirically; Renal - cr worsened from 0.5 --> 1.14; Noted Persistent Hyponatremia --> on salt tabs with improved Na to 132; c/w diuresis; Other issues as per PGY II; I have personally spent 39 minutes of critical care time in the direct management of this patient. This is a life/limb threatening event. This includes time spent evaluating patient, direct bedside care, chart review, placing orders, interpretation of diagnostic studies, discussion with consultants, patient, and family members, as well as other required patient management activities. This time is exclusive of all separately billable procedures, and teaching time and separate from and in addition to any other critical care service time I met with patient's and updated her on patient's current condition and plan of care; As per her, the patient would not want to proceed with trach and PEG especially if she does not have a mental status; At the same time, as per , the patient was very functional up untill a week prior to today; Patient had been vented for only a week at this point, will continue supportive care; Case discussed on am rounds; Consults & Procedures Consultants: Infectious Disease Neurology Procedures: HEAD CT NONCONTRAST CT DOSE: 614.27 mGy.cm HISTORY: Altered mental status. TECHNIQUE: Multiaxial CT images of the head were performed without the use of intravenous contrast. Automated exposure control was utilized for this study. A dose lowering technique was utilized adhering to the principles of ALARA. Comparison: Brain MRI 07/05/2017. Head CT 07/04/2017. Findings: The paranasal sinuses and mastoid air cells are clear. The calvarium and skull base are intact. There is no mass, hematoma, midline shift, acute infarct. Stable white matter hypodensity. Mild atrophic changes within the brain. Impression: No significant change compared to the prior study. No acute intracranial abnormality. FLUOROSCOPICALLY GUIDED LUMBAR PUNCTURE CLINICAL HISTORY: Evaluate for encephalitis. PROCEDURE: Due to altered mental status and sedation, the procedure, risks and benefits were discussed with the patient's power of ip technology transactions attorney including the risk of spinal headache, bleeding and infection. She agreed to the procedure and informed written consent was obtained. The procedure was performed by Dr. Sandoval following a timeout. The right L5-S1 interlaminar space was targeted. Skin overlying the space was prepped and draped in sterile fashion and local anesthesia was achieved with 1% lidocaine. Under intermittent fluoroscopic guidance, a 3 1/2 inch 22-gauge spinal needle was directed into the thecal sac with immediate return of clear CSF. A total of 9 cc of CSF was collected in 4 vials and sent to the laboratory as ordered. The needle was removed. The patient tolerated the procedure well and no immediate complications were evident. [~ rep ct add3]] MRI OF THE BRAIN COMBO CLINICAL HISTORY: Encephalitis. COMPARISON STUDY: CT of the brain dated 07/04/2017. MRI of the brain dated 07/03/2017. TECHNIQUE: MRI of the brain was performed utilizing various T1 and T2-weighted sequences in the axial, sagittal, and coronal planes. Contrast-enhanced sequences were acquired following the administration of 6 cc of Gadavist. FINDINGS: Brain parenchyma: There are age-related involutional changes noting advanced confluent subcortical and periventricular microangiopathic disease. There is no hemorrhage or mass effect. There is patchy T2 signal abnormality seen throughout the cerebellum, and also involving both thalami. There may also be T2 signal abnormality within the white matter; however, this is not well evaluated due to extensive microangiopathic change. Subtle cortical abnormality is identified within the temporal lobes, best appreciated on the FLAIR sequences. Faint restricted diffusion is suggested in these regions that is not typical for ischemia. No enhancing mass lesion is identified on the postcontrast images. There is no leptomeningeal or pachymeningeal enhancement. No extra-axial fluid collection is seen. The cerebellar tonsils are normal in configuration. Ventricles, sulci, and cisterns: Prominent secondary to involutional change. Pituitary and sella: Unremarkable. Intracranial vasculature: Normal flow voids are maintained at the skull base. Orbits: The bony orbits are grossly intact. Orbital contents are normal in appearance noting bilateral ocular lens implants. Sinuses and mastoids: Trace mucosal thickening is seen within the maxillary antra. Mild mucosal thickening is also identified within the ethmoid sinuses. Fluid is noted in the sphenoid sinuses. There is a left mastoid effusion. Fluid is present within the pharynx. Calvarium: Unremarkable. Cervical cord: Partially visualized cervical spinal cord is normal in morphology and signal intensity. IMPRESSION: 1. There is patchy T2 signal abnormality identified, greatest in the cerebellar hemispheres and the thalami. There may also be periventricular matter abnormality; however, this is not well assessed due to significant underlying microangiopathic change. Subtle cortical signal abnormality is seen within the temporal lobes, and these findings are best appreciated on the FLAIR sequence. The appearance is consistent with a nonspecific encephalitis/cerebritis. This could be related to an infectious/viral process or less likely a metabolic or global ischemic insult. Clinical correlation will be essential. 2. No hemorrhage is identified. There is no restricted diffusion identified typical for stroke. 3. There is no enhancing mass. No leptomeningeal/pachymeningeal enhancement is seen. 4. Left mastoid effusion and paranasal sinus disease as above. 5. Fluid is seen layering in the pharynx. IMPRESSION: Fluoroscopically guided lumbar puncture collection of 9 cc of clear CSF. Data Medications: Current Inpatient Medications Medications (Trade) Dose Ordered Sig/Josué Route Start Time Stop Time Status Last Admin Dose Admin Acetaminophen (Tylenol Tab) 650 mg Q4H PRN PO 06/29/17 11:00 07/29/17 10:59 Future Hold 07/03/17 11:07 650 MG Ondansetron HCl (Zofran Inj) 4 mg Q6H PRN IV 06/29/17 11:00 07/29/17 10:59 Aspirin (Ecotrin Tab) 81 mg DAILY PO 06/30/17 08:00 07/30/17 08:59 Future Hold 07/02/17 08:23 81 MG Atorvastatin Calcium (Lipitor Tab) 40 mg DAILY PO 06/30/17 08:00 07/30/17 08:59 Future Hold 07/02/17 08:22 40 MG Calcium/Vitamin D (Caltrate Plus Tab) 2 tab DAILY PO 06/30/17 08:00 07/30/17 07:59 Future Hold 07/02/17 08:23 2 TAB Miscellaneous (Iv Fluids Completed) 1 ea PRN PRN N/A 06/29/17 11:30 06/29/18 11:29 Acyclovir Sodium 650 mg/Dextrose 113 ml @ 110 mls/hr Q8H IV 06/30/17 10:30 07/21/17 10:29 07/11/17 02:38 110 MLS/HR Lactobacillus Acidophilus (Lactinex Granules Pack) 1 gm TIDM PO 07/01/17 07:30 07/31/17 07:29 Future Hold 07/02/17 15:22 1 GM Enoxaparin Sodium (Lovenox Inj) 40 mg Q24H SQ 07/02/17 16:00 08/01/17 15:59 Future hold 07/10/17 16:38 40 MG Enalaprilat 0.625 mg/Dextrose 25.5 ml @ 100 mls/hr Q6H PRN IV 07/04/17 09:15 08/03/17 09:14 07/07/17 08:08 100 MLS/HR Acetaminophen (Tylenol Supp) 650 mg Q4H PRN SD 07/05/17 07:30 08/04/17 07:29 Fentanyl Citrate (Fentanyl Inj) 50 mcg Q2H PRN IV 07/05/17 11:15 07/19/17 11:14 07/07/17 14:54 50 MCG Midazolam HCl (Versed Inj) 2 mg Q2H PRN IV 07/05/17 14:45 08/04/17 14:44 Fentanyl Citrate (Fentanyl Inj) 50 mcg Q2H PRN IV 07/05/17 14:45 07/19/17 14:44 Enteral Nutritional Formula (Peptamen Intense VHP) Start at 20mL/hr, titrate... DAILY OG 07/05/17 22:15 08/04/17 22:14 07/11/17 06:27 65 ML Levothyroxine Sodium (Synthroid Tab) 100 mcg DAILY GT 07/06/17 09:00 08/05/17 08:59 07/11/17 07:57 100 MCG Magnesium Hydroxide (Milk Of Magnesia Susp) 30 ml Q6H PRN PO 07/07/17 08:15 08/06/17 08:14 07/07/17 10:46 30 ML Enalaprilat 1.25 mg/Dextrose 26 ml @ 100 mls/hr Q6H PRN IV 07/07/17 11:00 08/06/17 10:59 Metoprolol Tartrate (Lopressor Iv) 2.5 mg Q4 PRN IV 07/07/17 11:00 08/06/17 10:59 07/07/17 13:47 2.5 MG Hydralazine HCl (HydrALAZINE INJ) 10 mg Q6H PRN IV. 07/07/17 14:45 08/06/17 14:44 Methylprednisolone Sodium Succinate 1000 mg/Dextrose 266 ml @ 250 mls/hr QD@1000 IV 07/08/17 10:00 07/11/17 11:04 07/10/17 09:51 250 MLS/HR Amlodipine Besylate (Norvasc Tab) 10 mg QAM NG 07/09/17 09:00 08/07/17 08:59 07/09/17 07:41 10 MG Metoprolol Tartrate (Lopressor Tab) 100 mg BID PO 07/08/17 21:00 08/06/17 08:59 07/11/17 07:58 100 MG Miscellaneous Information (Consult Glycemic Management Pharmacy) 1 ea UD PRN N/A 07/09/17 13:42 08/08/17 13:41 Insulin Aspart (novoLOG ASPART) SLIDING SCALE Q4 SC 07/09/17 14:00 08/08/17 13:59 Future hold 07/11/17 08:00 2 UNITS Insulin Glargine (Lantus Solostar Pen) Q12@0800,2000 SC 07/09/17 20:00 08/08/17 19:59 07/11/17 08:00 10 UNITS Heparin Sodium (Porcine) (Heparin 10 Unit/ ml 5 ml Flush) 5 ml PRN PRN FLUSH 07/09/17 23:45 08/08/17 23:44 07/10/17 10:35 10 ML Sodium Chloride (Sodium Chloride Tab) 1 gm TID PO 07/10/17 14:00 08/09/17 13:59 07/11/17 07:57 1 GM Famotidine 20 mg/ Syringe 5 ml @ 2.5 mls/min Q12 IV 07/10/17 10:30 08/09/17 10:29 07/11/17 07:58 2.5 MLS/MIN Vital Signs: Date Time Temp Pulse Resp B/P (MAP) Pulse Ox O2 Delivery O2 Flow Rate FiO2 07/11/17 08:00 30 07/11/17 08:00 CPAP 30 Mechanical Ventilator 07/11/17 08:00 66 12 122/71 (88) 100 CPAP 30 Mechanical Ventilator 07/11/17 07:40 30 07/11/17 07:10 30 07/11/17 07:00 79 14 136/71 (92) 99 Mechanical Ventilator 30 07/11/17 06:01 60 12 149/77 (109) 100 07/11/17 05:05 30 07/11/17 05:01 59 12 120/66 (79) 99 07/11/17 04:01 55 14 105/51 (60) 99 07/11/17 04:00 36.5 07/11/17 04:00 30 07/11/17 04:00 Mechanical Ventilator 30 07/11/17 03:01 52 14 100/54 (57) 99 07/11/17 02:01 54 12 95/55 (60) 98 07/11/17 01:40 30 07/11/17 01:07 62 13 109/63 (68) 99 07/11/17 00:01 55 14 125/60 (77) 96 07/11/17 00:00 30 07/11/17 00:00 Mechanical Ventilator 30 07/11/17 00:00 36.4 07/10/17 22:55 30 07/10/17 22:00 82 14 111/66 (81) 97 Mechanical Ventilator 30 07/10/17 20:00 30 07/10/17 20:00 Mechanical Ventilator 30 07/10/17 20:00 36.5 86 18 125/74 (91) 96 Mechanical Ventilator 30 07/10/17 19:10 30 07/10/17 18:15 86 16 121/69 (86) 96 Mechanical Ventilator 30 07/10/17 17:20 30 07/10/17 16:00 30 07/10/17 16:00 Mechanical Ventilator 30 07/10/17 16:00 78 16 129/70 (89) 97 Mechanical Ventilator 30 07/10/17 14:15 30 07/10/17 14:00 73 14 136/77 (96) 97 Mechanical Ventilator 30 07/10/17 12:00 30 07/10/17 12:00 69 14 123/71 (88) 97 Mechanical Ventilator 30 07/10/17 12:00 Mechanical Ventilator 30 07/10/17 11:10 30 07/10/17 10:05 30 07/10/17 10:00 36.6 84 14 126/70 (88) 97 CPAP 30 Mechanical Ventilator Laboratory Results: Last 24 Hours Test 07/10/17 12:35 07/10/17 16:30 07/10/17 19:38 07/10/17 23:59 Bedside Glucose 204 mg/dl 166 mg/dl 177 mg/dl 168 mg/dl Test 07/11/17 04:03 07/11/17 04:59 07/11/17 05:54 Bedside Glucose 203 mg/dl White Blood Count 15.91 K/uL Red Blood Count 3.93 M/uL Hemoglobin 13.3 g/dL Hematocrit 37.7 % Mean Corpuscular Volume 95.9 fL Mean Corpuscular Hemoglobin 33.8 pg Mean Corpuscular Hemoglobin Concent 35.3 g/dl RDW Standard Deviation 44.3 fL RDW Coefficient of Variation 12.9 % Platelet Count 370 K/uL Mean Platelet Volume 8.8 fL Sodium Level 132 mmol/L Potassium Level 3.4 mmol/L Chloride Level 97 mmol/L Carbon Dioxide Level 29 mmol/L Anion Gap 6.0 mmol/L Blood Urea Nitrogen 76 mg/dl Creatinine 1.14 mg/dl Est Creatinine Clear Calc Drug Dose 34.4 ml/min Estimated GFR () 50.4 Estimated GFR (Non- 43.5 BUN/Creatinine Ratio 66.9 Random Glucose 202 mg/dl Calcium Level 9.2 mg/dl Phosphorus Level 3.4 mg/dl Magnesium Level 2.5 mg/dl Blood Gas Sample Site L Radial Bedside Blood Gas pH (LAB) 7.44 Bedside Blood Gas pCO2 (LAB) 39 mmHg Bedside Blood Gas pO2 (LAB) 105 mmHg Bedside Blood Gas HCO3 (LAB) 26 meq/L Bedside Blood Gas Total CO2 27 mEq/l Bedside Blood Gas Base Excess (LAB) 2.0 meq/L Bedside Blood Gas O2 Saturation 98.0 % Evelio Test Pass Oxygen Delivery Device Ventilator Bedside Oxygen Rate (breaths/min) 12 Blood Gas Minute Ventilation 6 Bedside FiO2 30 % Blood Gas Tidal Volume 450 Blood Gas PEEP 5
[2017-07-11] MEDS: METHYLPREDNISOLONE IV 1,000 MG in DEXTROSE 5% 250ML 250 ML IV SCH (10:11)
[2017-07-11] MEDS ORDERED: POTASSIUM CHLR 20 MEQ / WTR 20 MEQ in PREMIXED WATER 100 ML IV STA (10:39)
--- NOTE | 2017-07-11 10:55 | Progress Note ---
Internal Med Progress Note Date of Service: Jul 11, 2017. Provider Documentation: SUBJECTIVE: The patient was seen and examined Remains intubated and stable No acute issues identified OBJECTIVE: Vital Signs-as noted below Exam: General-Intubated abd sedated No apparent distress Eyes-Closed ENT-Normalo Neck-Supple Lungs-Decreased breaths sound bilaterally at the bases Heart-Regular,no murmur appreciated Abdomen-Benign Extremities-No edema Neuro-[id number] on Vent Minimal response to painful stimuli Lab data as noted below. ASSESSMENT & PLAN: ALTERED MENTAL STATUS :possible Viral Encephalitis Presented with progressive confusion of short duration CT head demonstrated chronic microvascular changes, no acute findings. Altered mental status initially attributed to UTI and or Febrile Illness Recent outpatient urine culture grew E coli. UA at time of admission showed moderate leukocyte esterase, many WBC's, many epith cells, no bacteria. Initially received IV ceftriaxone. Urine culture subsequently grew more than 3 organisms, probable skin mariel. Blood cultures at time of admission were negative. INDEX CLERK infection was considered in light of fever and altered mental status. Antibiotic coverage was broadened (high dose ceftriaxone, vancomycin, ampicillin , acyclovir). LP performed after adjusting the INR LP performed, results as noted:Suggestive of Viral Meningitis::/Encephalitis Item Value Date Time CSF Appearance CLEAR 07/01/17 1000 CSF Color COLORLESS 07/01/17 1000 CSF WBC 164 /uL *H 07/01/17 1000 CSF RBC 2 /uL 07/01/17 1000 CSF Cell Count Tube # 3 07/01/17 1000 CSF Mononuclear WBCs 99.0 % 07/01/17 1000 CSF Polynuclear WBCs 1.0 % 07/01/17 1000 CSF Chemistry Tube # 1 07/01/17 1000 CSF Glucose 86 mg/dl H 07/01/17 1000 CSF Total Protein 79.3 mg/dl H 07/01/17 1000 CSF gram stain negative. CSF cultures negative so far. Cryptococcal Ag negative. CSF Lyme PCR and antibodies negative. CSF HSV 1/2 PCR negative. CSF Enterovirus PCR negative. CSF West Nile PCR negative. Vancomycin, ampicillin, dexamethasone discontinued. Ceftriaxone and acyclovir were continued. Appreciate ID recommendation Worsening confusion 07/03. Neuro consulted-appreciate Input MRI performed 07/03 had some motion artifact, but did not show any acute changes. EEG- moderate diffuse nonlateralizing encephalopathy, no apparent epileptogenic foci. Repeat LP 07/05/17: Item Value Date Time CSF WBC 57 /uL *H 07/05/17 1539 CSF RBC 41 /uL 07/05/17 1539 CSF Cell Count Tube # 3 07/05/17 1539 CSF Mononuclear WBCs 100.0 % 07/05/17 1539 CSF Glucose 76 mg/dl H 07/05/17 1539 CSF Total Protein 81.0 mg/dl H 07/05/17 1539 CSF culture negative. MRI with contrast 07/05/17 demonstrated T2 abnormalities in cerebellum and thalami as well as some subtle findings within temporal lobes. Listeria unlikely- ampicillin discontinued. Lyme, pneumococcal pneumonia ruled out- ceftriaxone discontinued. Tick-borne illness PCR panel negative. Stopped doxycycline. Continue acyclovir- today is day # 07/04. Empiric trial of methylprednisolone recommended by Neurology for possible autoimmune disease. CSF NMDA receptor antibody level pending. Repeat CT head 07/09 unchanged (no acute findings). Continue supportive measures. Clinically stable but remains unresponsive -sedated on Vent RESPIRATORY Intubated for airway protection. Oxygenating well on 30% FIO2. Possible need for trach for pulmonary toilet discussed with family. Management per [facility]. LLL DENSITY Chest x-ray 07/03 showed LLL density, infiltrate vs atelectasis. Started on IV piperacillin / tazobactam for possible pneumonia. Bronchoscopy performed 07/05; sputum culture from bronch grew only scant normal mariel and Jacy (probable contamination / colonization). Repeat CXR-Persistence of the LLL infiltration -likely Pneumonia Will put on antibiotic after discussing with the [facility] PAROXYSMAL ATRIAL FIB Unable to take oral metoprolol due to NPO status. Converted to parenteral metoprolol. Best not to maintain full anticoagulation at this time due to critical illness, procedures, etc. Remains in SR with PAC's. Resume warfarin when able. HYPERTENSION Unable to take oral meds due to NPO status. Converted metoprolol to IV --> GT. Added amlodipine via GT. BP's lower today. Hold parameters ordered. IV enalapril PRN. BP seems to be stable now HYPONATREMIA Serum sodium 141 --> --> 128--> --> 131 --> --> 126. 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 Sodium level improved to 132 on 07/11 HYPOKALEMIA K as low as 3.1. Receiving replacement. Remains low will supplement Monitor HYPOTHYROIDISM Levothyroxine via OGT. NUTRITION Receiving enteral feedings via OGT. HYPERGLYCEMIA Serum glucose this morning 163. Hyperglycemia secondary to methylprednisolone therapy. Management per protocol. VTE PROPHYLAXIS On warfarin at time of admission which was subsequently held / reversed due to ICU status and multiple procedures. Continue enoxaparin. SCD's. DISPOSITION To be determined. Case Management following. Family Medicine follow-up with Dr. Mosley. Spouse Ms. Cortes at bedside and given update on 07/11 . Consultants: [facility] Neurology . Procedures: CT head 06/29/17 CT head 06/30/17 LP under fluoro guidance 07/01/17 CT head 07/03/17 MRI brain 07/03/17 CT head 07/04/17 endotracheal intubation 07/05/17 mechanical ventilation 07/05/17 bronchoscopy 07/05/17 MRI brain with contrast 07/05/17 LP under fluoro guidance 06/25/17 . Vital Signs: Date Time Temp Pulse Resp B/P (MAP) Pulse Ox O2 Delivery O2 Flow Rate FiO2 07/11/17 10:07 36.6 64 14 124/64 (84) 99 CPAP 30 Mechanical Ventilator 07/11/17 08:00 30 07/11/17 08:00 CPAP 30 Mechanical Ventilator 07/11/17 08:00 66 12 122/71 (88) 100 CPAP 30 Mechanical Ventilator 07/11/17 07:40 30 07/11/17 07:10 30 07/11/17 07:00 79 14 136/71 (92) 99 Mechanical Ventilator 30 07/11/17 06:01 60 12 149/77 (109) 100 07/11/17 05:05 30 07/11/17 05:01 59 12 120/66 (79) 99 07/11/17 04:01 55 14 105/51 (60) 99 07/11/17 04:00 36.5 07/11/17 04:00 30 07/11/17 04:00 Mechanical Ventilator 30 07/11/17 03:01 52 14 100/54 (57) 99 07/11/17 02:01 54 12 95/55 (60) 98 07/11/17 01:40 30 07/11/17 01:07 62 13 109/63 (68) 99 07/11/17 00:01 55 14 125/60 (77) 96 07/11/17 00:00 30 07/11/17 00:00 Mechanical Ventilator 30 07/11/17 00:00 36.4 07/10/17 22:55 30 07/10/17 22:00 82 14 111/66 (81) 97 Mechanical Ventilator 30 07/10/17 20:00 30 07/10/17 20:00 Mechanical Ventilator 30 07/10/17 20:00 36.5 86 18 125/74 (91) 96 Mechanical Ventilator 30 07/10/17 19:10 30 07/10/17 18:15 86 16 121/69 (86) 96 Mechanical Ventilator 30 07/10/17 17:20 30 07/10/17 16:00 30 07/10/17 16:00 Mechanical Ventilator 30 07/10/17 16:00 78 16 129/70 (89) 97 Mechanical Ventilator 30 07/10/17 14:15 30 07/10/17 14:00 73 14 136/77 (96) 97 Mechanical Ventilator 30 07/10/17 12:00 30 07/10/17 12:00 69 14 123/71 (88) 97 Mechanical Ventilator 30 07/10/17 12:00 Mechanical Ventilator 30 07/10/17 11:10 30 Lab Results: Results Past 24 Hours Test 07/10/17 12:35 07/10/17 16:30 07/10/17 19:38 07/10/17 23:59 Range/Units Bedside Glucose 204 166 177 168 70-90 mg/dl Test 07/11/17 04:03 07/11/17 04:59 07/11/17 05:54 Range/Units Bedside Glucose 203 70-90 mg/dl White Blood Count 15.91 4.8-10.8 K/uL Red Blood Count 3.93 4.2-5.4 M/uL Hemoglobin 13.3 12.0-16.0 g/dL Hematocrit 37.7 37-47 % Mean Corpuscular Volume 95.9 80-100 fL Mean Corpuscular Hemoglobin 33.8 25-34 pg Mean Corpuscular Hemoglobin Concent 35.3 32-36 g/dl RDW Standard Deviation 44.3 36.4-46.3 fL RDW Coefficient of Variation 12.9 11.5-14.5 % Platelet Count 370 130-400 K/uL Mean Platelet Volume 8.8 7.4-10.4 fL Sodium Level 132 136-145 mmol/L Potassium Level 3.4 3.5-5.1 mmol/L Chloride Level 97 98-107 mmol/L Carbon Dioxide Level 29 21-32 mmol/L Anion Gap 6.0 3-11 mmol/L Blood Urea Nitrogen 76 7-18 mg/dl Creatinine 1.14 0.60-1.20 mg/dl Est Creatinine Clear Calc Drug Dose 34.4 ml/min Estimated GFR () 50.4 Estimated GFR (Non- 43.5 BUN/Creatinine Ratio 66.9 10-20 Random Glucose 202 70-99 mg/dl Calcium Level 9.2 8.5-10.1 mg/dl Phosphorus Level 3.4 2.5-4.9 mg/dl Magnesium Level 2.5 1.8-2.4 mg/dl Blood Gas Sample Site L Radial Bedside Blood Gas pH (LAB) 7.44 7.35-7.45 Bedside Blood Gas pCO2 (LAB) 39 35-46 mmHg Bedside Blood Gas pO2 (LAB) 105 80-95 mmHg Bedside Blood Gas HCO3 (LAB) 26 19-24 meq/L Bedside Blood Gas Total CO2 27 24-31 mEq/l Bedside Blood Gas Base Excess (LAB) 2.0 -9-1.8 meq/L Bedside Blood Gas O2 Saturation 98.0 90-95 % Evelio Test Pass Oxygen Delivery Device Ventilator Bedside Oxygen Rate (breaths/min) 12 Blood Gas Minute Ventilation 6 Bedside FiO2 30 % Blood Gas Tidal Volume 450 Blood Gas PEEP 5 Microbiology Results 07/10/17 C.difficile Toxin B Gene (PCR) - Final, Complete No C. difficile toxin B gene detected
--- NOTE | 2017-07-11 12:55 | Pharmacy Progress Note ---
Pharmacy Glycemic Short Note 2 Date of Service Jul 11, 2017. Outpatient Anti-diabetic Regimen: * None Risk Factors for Insulin Resistance: * Steroids: Methylprednisolone 1000 mg IV daily * Infection: ?viral meningitis, on acyclovir * Diet: Peptamen bariatric @ 65mL/hr * Mechanical Ventilation: yes ASSESSMENT: * 87 yo F with AMS, unknown etiology. Viral meningitis vs. autoimmune encephalitis vs. other. * Not diabetic at baseline, but experiencing steroid-induced hyperglycemia due to very high dose methylprednisolone * Last scheduled dose of IV SoluMedrol given this morning. Expect that hyperglycemia will resolve with discontinuation of high-dose steroids. * Patient has had several BSGs in the low 200's, but trying to avoid IV insulin infusion (and hourly accu-checks) in patient with poor prognosis and possible comfort care. * Lantus 10 units SQ BID * Novolog * Scheduled q4h as patient on tubefeeds. Ordered to include CHO from tubefeeds in CHO counts. * Goal range per ICU 140-180 mg/dL. * Weight-based, stress of 3 PLAN FOR INPATIENT GLYCEMIC CONTROL: * Increase Basal insulin with LANTUS to 12 units SQ BID * Correctional Insulin with NOVOLOG q4h * Goal Range: Low 140 mg/dL - High 180 mg/dL * Correction Factor: 20 mg/dL/unit * Nutritional / Prandial insulin per carb ratio of 1 unit per 8 grams CHO consumed * Please note that the plan above was derived based on current level of insulin resistance and hospital stress. These recommendations are appropriate for inpatient admission only. Plan of care upon discharge will need to be reassessed to avoid potential outpatient hypo/hyperglycemia. Thank you.
[2017-07-11] MEDS: ENOXAPARIN 40 MG/0.4 ML SYR SQ SCH (15:56)
--- NOTE | 2017-07-11 17:05 | PROGRESS NOTE ---
DATE: 07/11/2017 Indu is actually a little more awake today. She opens her eyes to command, will follow my fingers when I clap my hands on either side and will try to focus on them. I cannot get her to move her hands very much. I cannot induce any posturing of decerebrate or decorticate type on noxious stimulation, but her overall level of alertness is clearly better. At this point, she is going to be extubated and we are going to drop her to 100 mg of Solu-Medrol intravenously daily for a few days to see what transpires. 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 We will see what a tapering course of steroids does and I will check with her again tomorrow. EEGs have not shown any seizure like activity. MRI shows some vaguely defined uptake in the temporal lobes. The CSF shows a lymphocytic pleocytosis. Cytology is negative. Protein is elevated but the glucose remains normal, all consistent with more of a viral pattern or perhaps an autoimmune picture. MTDD
[2017-07-12] VITALS (23 sets, daily range): BP systolic 105–177; BP diastolic 53–121; PULSE 52–80; TEMP 36.5–36.8; O2SAT 94–100
[2017-07-12] MEDS: ACYCLOVIR SOD INJ 650 MG in DEXTROSE 5% 100ML 100 ML IV SCH ×3 (02:26→17:53)
[2017-07-12] MEDS: INSULIN ASPART 100 UNITS/ML 3 ML PEN SC SCH ×6 (04:07→23:43)
[2017-07-12 05:59] LABS: BASO % 0.1 %; BASO ABS # 0.01 K/uL (0-0.2); COMPLETE YES; HEMATOCRIT 37.6 % (37-47); IG% 0.8 %; LYMPH % 5.3 %; LYMPH ABS # 0.85 K/uL (1.2-3.4); MEAN CELL VOLUME 96.9 fL (80-100); MEAN CORPUSCULAR HEMOGLOBIN 33.5 pg (25-34); MEAN CORPUSCULAR HGB CONC 34.6 g/dl (32-36); MEAN PLATELET VOLUME 8.8 fL (7.4-10.4); MONO % 4.9 %; NEUT % 88.9 %; PLATELET COUNT 389 K/uL (130-400); RED BLOOD COUNT 3.88 M/uL (4.2-5.4); WHITE BLOOD COUNT 16.06 K/uL (4.8-10.8)
[2017-07-12 06:32] LABS: BUN/CREATININE RATIO 75.2 (10-20); CALCIUM 9.4 mg/dl (8.5-10.1); CREATININE 0.74 mg/dl (0.60-1.20); MAGNESIUM 2.7 mg/dl (1.8-2.4); PHOSPHORUS 2.2 mg/dl (2.5-4.9); POTASSIUM 4.1 mmol/L (3.5-5.1)
--- NOTE | 2017-07-12 07:36 | DIAGNOSTIC IMAGING REPORT ---
CHEST ONE VIEW PORTABLE CLINICAL HISTORY: 87 years-old Female presenting with pna. TECHNIQUE: Portable upright AP view of the chest was obtained. COMPARISON: 07/11/2017. FINDINGS: Endotracheal tube terminates in the upper thoracic trachea approximately 7 cm from the constantine. Right upper extremity PICC terminates in the lower SVC. Nasogastric tube descends below the diaphragm with the side hole located at the gastroesophageal junction. Atherosclerosis of aortic arch. Cardiac silhouette top normal in size. Minimal left basilar opacity stable to slightly decreased from prior. No large pleural effusion or pneumothorax. Osseous structures normal. Upper abdomen normal. IMPRESSION: 1. Nasogastric tube with sidehole at the gastroesophageal junction. Advancement to be considered. 2. Otherwise appropriately positioned lines and tubes. 3. Stable to slight decrease in left basilar opacity. Infection not excluded. Electronically signed by: Chan Nunez M.D. 07/12/2017 7:35 AM Dictated Date/Time: 07/12/2017 7:32 AM
[2017-07-12] MEDS: SODIUM CHLORIDE 1 GM TAB PO SCH ×2 (08:59→20:43)
[2017-07-12] MEDS: FAMOTIDINE IV INJ 20 MG in SYRINGE 3 ML IV SCH ×2 (09:00→20:43)
[2017-07-12] MEDS: AMLODIPINE BESYLATE 5 MG TAB NG SCH (09:00)
[2017-07-12] MEDS: PEPTAMEN INTENSE VHP 1000ML BAG OG SCH (09:00)
[2017-07-12] MEDS: LEVOTHYROXINE 100 MCG TAB GT SCH (09:00)
[2017-07-12] MEDS: METOPROLOL TARTRATE 50 MG TAB PO SCH ×2 (09:00→20:43)
[2017-07-12] MEDS: INSULIN GLARGINE SOLOSTAR 100 UNITS/ML 3 ML PEN SC SCH (09:04)
--- NOTE | 2017-07-12 09:34 | Critical Care Progress Note ---
Critical Care Progress Note Date of Service Jul 12, 2017. ICU Day ICU Day Number: [address] Padron Subjective overnight patient had improved mental status overall. following commands and tracking withe her eyes Objective GENERAL:awake, w/o distress EYE EXAM: normal conjunctiva, PERRL and EOM's grossly intact OROPHARYNX: tongue normal and mucous membranes are moist NECK: supple, no nuchal rigidity, no adenopathy LUNGS: Clear to auscultation. HEART: no murmurs, S1 normal and S2 normal ABDOMEN: abdomen soft, non-tender, normo-active bowel sounds, no masses LOWER EXTREMITIES: No pitting edema. NEURO EXAM: s/p extubation, Current SOFA Score SOFA Score Response (Comments) Value PaO2/FiO2 (mmHg) < 400 1 Platelets (x10) > 150 0 Bilirubin (mg/dL) < 1.2 0 Mcclure Coma Score 6 - 9 3 Level of Hypotension No Hypotension 0 Creatinine (mg/dL) < 1.2 0 Total 4 Assessment & Plan 87 yo F w/x h/o Paroxysmal AFIB, HTN, HLD, presented with fever, Acute Confusion /Lethargy and UTI. LP consistent with meningitis vs Encephalitis likely of viral origin, currently on , Acyclovir. [employer]/Neuro: Encephalopathy secondary to Suspected Viral Meningitis vs Encephalitis GCS: 11 Pupils: Pinpoint, reactive Focal Signs: None Significant improvement in mental status, following commands EEG dated 07/05: Result reveals evidence for moderate diffuse generalized nonlateralizing encephalopathy of nonspecific type CT: Chronic and age-related change. No acute process. No change from the prior exam. MRI: No evidence for an acute ischemic insult.Generalized atrophy of the cerebellar as well as cerebral hemispheres MRI (07/06) : appearance is consistent with a nonspecific encephalitis/ cerebritis Repeat LP (07/05) showed decrease in WBC (164-->54), Gram stain neg. cx pending. Glucose, Tot protein remain elevated CSF negative for Lyme ABs, Enterovirus, HSV I,II, [place] virus, Cryptococcal VZV) EBV, CMV pending EEG dated 07/07: Mildly to moderately diffusely abnormal EEG, No evidence of epileptogenic activity or of periodic lateralized epileptiform discharges which may be seen in association with herpetic encephalitis CT (07/09) no significant changes from previous D/C'd Ampicillin and Ceftriaxone (07/07). D /C'd Doxycycline(07/08) Continue Acyclovir anti-NMDA receptor ab's pending Respiratory: Atelectasis given LL Lung Infiltrate, Pneumonia possible but less likely Chest X-ray(07/12): Stable to slight decrease in left basilar opacity. Infection not excluded s/p extubation today Cardiovascular: Paroxysmal Afib, HTN, HLD HTN: c/w Metoprolol and Amlodipine Afib: currently sinus, had coverted back and forth Start Heparin drip for anticoagulation CV drips: Remains off vasoactive medications Rhythm: Sinus EKG: Normal sinus, QTc : 429 Fluids/Renal: Hyponatremia: improved Na 126-->132-->136 Hypophosphatemia: 2.2: Replete Phos Reduced Salt tabs to BID Mireles: Present GI/Nutrition: diarrhea Feeds held prior to extubation s/p rectal tube Prophylaxis: Not On PPI Bowel movements:1 ( diarrhea) C diff. NEG. Endocrine: Last 24 hour glucose: Ranging 125-202 Insulin protocol: Yes; Drip: No Hematology: Hemoglobin 19-->15.9--.13 Follow CBC's DVT prophylaxis: Lovenox d/c'd, already on heparin drip Infectious Disease/Immunology: suspected Viral Encephalitis of unknown etiology. Tmax: 36.6 Leukocytosis resolved Antimicrobials: Continue Acyclovir Cultures: Blood: No growth Blood (Parasitology) on smear: Negative Bronchial washings:Jacy (likely from aspiration, no indication for antifungal ) Urine: No growth MRSA: neg CSF: No growth to date EBV, CMP NEG Disposition: LTAC referral made per Case management Resident Physician Supervision Note: I was present with Dr. Phillip during the history and exam. I discussed the case with the resident and agree with the findings and plan as documented in the note. Any exceptions or clarifications are listed here: In brief, Patient with encephalopathy for over a week with work up which included MRI x 2; EEG x 1; LP x 2 with elevated protein in 80's on empirical Acyclovir; PLAN: Neuro - off sedation for over > 3 days, only on PRN Fentanyl and Versed; for past two days with improving mental status and started to follow commands; CSF with elevated protein and overall encephalopathy c/w infectious etiology; Started on decreased dose Steroids following high dose x 4 days as per Neurology ; CSF NDMA receptor Ab pending; c/w Acyclovir although CPR HSV negative; EBV negative; CMV negative, cyto, Listeria still pending; case d/w Neurology; Pulm - s/p extubated this am 07/12 following CPAP trial; + cuff leak; NIF - 18 but suspect lack of effort; post extubation had minimal stridor s/p nebs and racemic Epi x 1 got better; currently on low amount by NC with ETCO2 in 30's; CV - hemodynamically stable;c/w Metoprolol and Amlodipine; on Enalapriat; ID - Noted diarrhea --> C diff negative; Leukocytosis likely from Steroids; still on Acyclovir empirically; Renal - cr 0.7 Na improved; decreased salt tabs; Other issues as per PGY II; I have personally spent 43 minutes of critical care time in the direct management of this patient. This is a life/limb threatening event. This includes time spent evaluating patient, direct bedside care, chart review, placing orders, interpretation of diagnostic studies, discussion with consultants, patient, and family members, as well as other required patient management activities. This time is exclusive of all separately billable procedures, and teaching time and separate from and in addition to any other critical care service time I met with patient's and updated her on patient's current condition and plan of care; As per her, if the patient has significant neurological improvement then reintubation would be an option; in the event that the patient's mental status is poor and she is not able to interact with her environment, patient would not be reintubated. Above decisions were reached following a meeting with patient's which were attended by myself and Evgeny CASTILLO); All questions were addressed to the best of my ability and knowledge. The expressed understanding of the plan and agreed to it. Case discussed on am rounds; Consults & Procedures Consultants: Infectious Disease Neurology Procedures: HEAD CT NONCONTRAST CT DOSE: 614.27 mGy.cm HISTORY: Altered mental status. TECHNIQUE: Multiaxial CT images of the head were performed without the use of intravenous contrast. Automated exposure control was utilized for this study. A dose lowering technique was utilized adhering to the principles of ALARA. Comparison: Brain MRI 07/05/2017. Head CT 07/04/2017. Findings: The paranasal sinuses and mastoid air cells are clear. The calvarium and skull base are intact. There is no mass, hematoma, midline shift, acute infarct. Stable white matter hypodensity. Mild atrophic changes within the brain. Impression: No significant change compared to the prior study. No acute intracranial abnormality. FLUOROSCOPICALLY GUIDED LUMBAR PUNCTURE CLINICAL HISTORY: Evaluate for encephalitis. PROCEDURE: Due to altered mental status and sedation, the procedure, risks and benefits were discussed with the patient's power of managing attorney including the risk of spinal headache, bleeding and infection. She agreed to the procedure and informed written consent was obtained. The procedure was performed by Dr. Sandoval following a timeout. The right L5-S1 interlaminar space was targeted. Skin overlying the space was prepped and draped in sterile fashion and local anesthesia was achieved with 1% lidocaine. Under intermittent fluoroscopic guidance, a 3 1/2 inch 22-gauge spinal needle was directed into the thecal sac with immediate return of clear CSF. A total of 9 cc of CSF was collected in 4 vials and sent to the laboratory as ordered. The needle was removed. The patient tolerated the procedure well and no immediate complications were evident. [~ rep ct add3]] MRI OF THE BRAIN COMBO CLINICAL HISTORY: Encephalitis. COMPARISON STUDY: CT of the brain dated 07/04/2017. MRI of the brain dated 07/03/2017. TECHNIQUE: MRI of the brain was performed utilizing various T1 and T2-weighted sequences in the axial, sagittal, and coronal planes. Contrast-enhanced sequences were acquired following the administration of 6 cc of Gadavist. FINDINGS: Brain parenchyma: There are age-related involutional changes noting advanced confluent subcortical and periventricular microangiopathic disease. There is no hemorrhage or mass effect. There is patchy T2 signal abnormality seen throughout the cerebellum, and also involving both thalami. There may also be T2 signal abnormality within the white matter; however, this is not well evaluated due to extensive microangiopathic change. Subtle cortical abnormality is identified within the temporal lobes, best appreciated on the FLAIR sequences. Faint restricted diffusion is suggested in these regions that is not typical for ischemia. No enhancing mass lesion is identified on the postcontrast images. There is no leptomeningeal or pachymeningeal enhancement. No extra-axial fluid collection is seen. The cerebellar tonsils are normal in configuration. Ventricles, sulci, and cisterns: Prominent secondary to involutional change. Pituitary and sella: Unremarkable. Intracranial vasculature: Normal flow voids are maintained at the skull base. Orbits: The bony orbits are grossly intact. Orbital contents are normal in appearance noting bilateral ocular lens implants. Sinuses and mastoids: Trace mucosal thickening is seen within the maxillary antra. Mild mucosal thickening is also identified within the ethmoid sinuses. Fluid is noted in the sphenoid sinuses. There is a left mastoid effusion. Fluid is present within the pharynx. Calvarium: Unremarkable. Cervical cord: Partially visualized cervical spinal cord is normal in morphology and signal intensity. IMPRESSION: 1. There is patchy T2 signal abnormality identified, greatest in the cerebellar hemispheres and the thalami. There may also be periventricular matter abnormality; however, this is not well assessed due to significant underlying microangiopathic change. Subtle cortical signal abnormality is seen within the temporal lobes, and these findings are best appreciated on the FLAIR sequence. The appearance is consistent with a nonspecific encephalitis/cerebritis. This could be related to an infectious/viral process or less likely a metabolic or global ischemic insult. Clinical correlation will be essential. 2. No hemorrhage is identified. There is no restricted diffusion identified typical for stroke. 3. There is no enhancing mass. No leptomeningeal/pachymeningeal enhancement is seen. 4. Left mastoid effusion and paranasal sinus disease as above. 5. Fluid is seen layering in the pharynx. IMPRESSION: Fluoroscopically guided lumbar puncture collection of 9 cc of clear CSF. Data Medications: Current Inpatient Medications Medications (Trade) Dose Ordered Sig/Josué Route Start Time Stop Time Status Last Admin Dose Admin Acetaminophen (Tylenol Tab) 650 mg Q4H PRN PO 06/29/17 11:00 07/29/17 10:59 Future Hold 07/03/17 11:07 650 MG Ondansetron HCl (Zofran Inj) 4 mg Q6H PRN IV 06/29/17 11:00 07/29/17 10:59 Aspirin (Ecotrin Tab) 81 mg DAILY PO 06/30/17 08:00 07/30/17 08:59 Future Hold 07/02/17 08:23 81 MG Atorvastatin Calcium (Lipitor Tab) 40 mg DAILY PO 06/30/17 08:00 07/30/17 08:59 Future Hold 07/02/17 08:22 40 MG Calcium/Vitamin D (Caltrate Plus Tab) 2 tab DAILY PO 06/30/17 08:00 07/30/17 07:59 Future Hold 07/02/17 08:23 2 TAB Miscellaneous (Iv Fluids Completed) 1 ea PRN PRN N/A 06/29/17 11:30 06/29/18 11:29 Acyclovir Sodium 650 mg/Dextrose 113 ml @ 110 mls/hr Q8H IV 06/30/17 10:30 07/21/17 10:29 07/12/17 02:26 110 MLS/HR Lactobacillus Acidophilus (Lactinex Granules Pack) 1 gm TIDM PO 07/01/17 07:30 07/31/17 07:29 Future Hold 07/02/17 15:22 1 GM Enalaprilat 0.625 mg/Dextrose 25.5 ml @ 100 mls/hr Q6H PRN IV 07/04/17 09:15 08/03/17 09:14 07/07/17 08:08 100 MLS/HR Acetaminophen (Tylenol Supp) 650 mg Q4H PRN SD 07/05/17 07:30 08/04/17 07:29 Fentanyl Citrate (Fentanyl Inj) 50 mcg Q2H PRN IV 07/05/17 11:15 07/19/17 11:14 07/07/17 14:54 50 MCG Midazolam HCl (Versed Inj) 2 mg Q2H PRN IV 07/05/17 14:45 08/04/17 14:44 Fentanyl Citrate (Fentanyl Inj) 50 mcg Q2H PRN IV 07/05/17 14:45 07/19/17 14:44 Enteral Nutritional Formula (Peptamen Intense VHP) Start at 20mL/hr, titrate... DAILY OG 07/05/17 22:15 08/04/17 22:14 07/11/17 06:27 65 ML Levothyroxine Sodium (Synthroid Tab) 100 mcg DAILY GT 07/06/17 09:00 08/05/17 08:59 07/12/17 09:00 100 MCG Magnesium Hydroxide (Milk Of Magnesia Susp) 30 ml Q6H PRN PO 07/07/17 08:15 08/06/17 08:14 07/07/17 10:46 30 ML Enalaprilat 1.25 mg/Dextrose 26 ml @ 100 mls/hr Q6H PRN IV 07/07/17 11:00 08/06/17 10:59 Metoprolol Tartrate (Lopressor Iv) 2.5 mg Q4 PRN IV 07/07/17 11:00 08/06/17 10:59 07/07/17 13:47 2.5 MG Hydralazine HCl (HydrALAZINE INJ) 10 mg Q6H PRN IV. 07/07/17 14:45 08/06/17 14:44 Amlodipine Besylate (Norvasc Tab) 10 mg QAM NG 07/09/17 09:00 08/07/17 08:59 07/12/17 09:00 10 MG Metoprolol Tartrate (Lopressor Tab) 100 mg BID PO 07/08/17 21:00 08/06/17 08:59 07/12/17 09:00 100 MG Miscellaneous Information (Consult Glycemic Management Pharmacy) 1 ea UD PRN N/A 07/09/17 13:42 08/08/17 13:41 Insulin Aspart (novoLOG ASPART) SLIDING SCALE Q4 SC 07/09/17 14:00 08/08/17 13:59 Future hold 07/12/17 04:07 3 UNITS Heparin Sodium (Porcine) (Heparin 10 Unit/ ml 5 ml Flush) 5 ml PRN PRN FLUSH 07/09/17 23:45 08/08/17 23:44 07/10/17 10:35 10 ML Famotidine 20 mg/ Syringe 5 ml @ 2.5 mls/min Q12 IV 07/10/17 10:30 08/09/17 10:29 07/12/17 09:00 2.5 MLS/MIN Insulin Glargine (Lantus Solostar Pen) 12 units Q12H SC 07/11/17 20:00 08/10/17 19:59 07/12/17 09:04 12 UNITS Heparin Sodium/ Dextrose 1 ea Q15M N/A 07/12/17 08:15 08/11/17 08:14 Sodium Chloride (Sodium Chloride Tab) 1 gm BID PO 07/12/17 09:00 08/11/17 08:59 07/12/17 08:59 1 GM Methylprednisolone Sodium Succinate 100 mg/Syringe 1.6 ml @ 1.5 mls/min Q24H IV 07/12/17 09:00 07/13/17 09:02 Miscellaneous Information (Order Awaiting Action) 1 ea QS N/A 07/12/17 09:26 08/11/17 09:25 Heparin Sodium/ Dextrose 500 ml @ 22 mls/hr [id number] PRN IV 07/12/17 09:45 08/11/17 09:44 UNV Vital Signs: Date Time Temp Pulse Resp B/P (MAP) Pulse Ox O2 Delivery O2 Flow Rate FiO2 07/12/17 07:27 30 07/12/17 06:02 77 14 165/82 (97) 98 07/12/17 05:29 30 07/12/17 05:19 69 13 174/85 (120) 98 07/12/17 05:01 70 8 177/110 (127) 99 07/12/17 04:01 61 14 162/88 (97) 99 07/12/17 04:00 36.7 07/12/17 04:00 99 Mechanical Ventilator 30 07/12/17 04:00 30 07/12/17 03:02 71 16 165/74 (114) 99 07/12/17 02:01 53 12 137/72 (83) 99 07/12/17 01:51 30 07/12/17 01:01 54 14 135/67 (100) 99 07/12/17 00:01 52 15 105/53 (66) 99 07/12/17 00:01 36.5 07/11/17 23:59 30 07/11/17 23:59 98 Mechanical Ventilator 30 07/11/17 23:17 30 07/11/17 23:01 51 14 92/56 (67) 96 07/11/17 22:45 52 14 131/64 (84) 98 07/11/17 21:01 77 17 127/76 (89) 98 07/11/17 20:01 93 14 166/87 (119) 97 07/11/17 20:00 30 07/11/17 20:00 97 Mechanical Ventilator 30 07/11/17 20:00 30 07/11/17 20:00 36.8 07/11/17 19:01 88 17 149/81 (99) 97 07/11/17 18:00 86 16 149/95 (113) 97 Mechanical Ventilator 30 07/11/17 16:27 30 07/11/17 16:01 36.9 79 15 167/83 (111) 98 Mechanical Ventilator 30 07/11/17 16:00 30 07/11/17 16:00 Mechanical Ventilator 07/11/17 15:01 30 07/11/17 15:01 70 16 147/82 (103) 98 Mechanical Ventilator 30 07/11/17 14:04 30 07/11/17 14:00 74 14 153/69 (97) 99 Mechanical Ventilator 30 07/11/17 12:04 71 14 126/65 (85) 100 Mechanical Ventilator 30 07/11/17 12:00 30 07/11/17 12:00 CPAP 30 Mechanical Ventilator 07/11/17 10:35 30 07/11/17 10:07 36.6 64 14 124/64 (84) 99 CPAP 30 Mechanical Ventilator Laboratory Results: Last 24 Hours Test 07/11/17 11:58 07/11/17 15:48 07/11/17 19:57 07/11/17 23:29 Bedside Glucose 209 mg/dl 155 mg/dl 176 mg/dl 141 mg/dl Test 07/12/17 03:53 07/12/17 05:16 07/12/17 09:22 Bedside Glucose 146 mg/dl White Blood Count 16.06 K/uL Red Blood Count 3.88 M/uL Hemoglobin 13.0 g/dL Hematocrit 37.6 % Mean Corpuscular Volume 96.9 fL Mean Corpuscular Hemoglobin 33.5 pg Mean Corpuscular Hemoglobin Concent 34.6 g/dl Platelet Count 389 K/uL Mean Platelet Volume 8.8 fL Neutrophils (%) (Auto) 88.9 % Lymphocytes (%) (Auto) 5.3 % Monocytes (%) (Auto) 4.9 % Eosinophils (%) (Auto) 0.0 % Basophils (%) (Auto) 0.1 % Neutrophils # (Auto) 14.28 K/uL Lymphocytes # (Auto) 0.85 K/uL Monocytes # (Auto) 0.79 K/uL Eosinophils # (Auto) 0.00 K/uL Basophils # (Auto) 0.01 K/uL RDW Standard Deviation 44.8 fL RDW Coefficient of Variation 13.2 % Immature Granulocyte % (Auto) 0.8 % Immature Granulocyte # (Auto) 0.13 K/uL Sodium Level 136 mmol/L Potassium Level 4.1 mmol/L Chloride Level 102 mmol/L Carbon Dioxide Level 32 mmol/L Anion Gap 2.0 mmol/L Blood Urea Nitrogen 55 mg/dl Creatinine 0.74 mg/dl Est Creatinine Clear Calc Drug Dose 53.1 ml/min Estimated GFR () 85.0 Estimated GFR (Non- 73.4 BUN/Creatinine Ratio 75.2 Random Glucose 125 mg/dl Calcium Level 9.4 mg/dl Phosphorus Level 2.2 mg/dl Magnesium Level 2.7 mg/dl Resident Tracking Resident Involvement: Resident Care Provided Care Provided: Adult [facility]
[2017-07-12 09:44] LABS: ISTAT ALLEN TEST Pass; ISTAT ARTERIAL BLOOD GAS HCO3 32 meq/L (19-24); ISTAT ARTERIAL BLOOD GAS PCO2 38 mmHg (35-46); ISTAT ARTERIAL BLOOD GAS PO2 115 mmHg (80-95); ISTAT ARTERIAL BLOOD GAS pH 7.53 (7.35-7.45); ISTAT CARBON DIOXIDE 33 mEq/l (24-31); ISTAT DELIVERY SYSTEM Ventilator; ISTAT FIO2 30 %; ISTAT PEEP 5; ISTAT SITE L Radial
[2017-07-12] MEDS ORDERED: ALTEPLASE, RECOMBINANT 1 MG/ML 2 ML VIAL IV SCH (09:45)
[2017-07-12] MEDS ORDERED: RACEPINEPHRINE 2.25% NEBU SOLN 0.5 ML VIAL INH STA (09:53)
[2017-07-12 09:56] LABS: PARTIAL THROMBOPLASTIN RATIO 0.9; PROTHROMBIN TIME (PATIENT) 10.3 SECONDS (9.0-12.0)
[2017-07-12] MEDS ORDERED: ALBUT/IPRATROP 3MG/0.5MG NEB 3 ML VIAL INH ONE (10:00)
[2017-07-12] MEDS ORDERED: RACEPINEPHRINE 2.25% NEBU SOLN 0.5 ML VIAL INH ONE (10:00)
[2017-07-12] MEDS: HEPARIN 25,000 UNIT/500ML D5W 500 ML IV PRN (10:46)
[2017-07-12] MEDS: METHYLPREDNISOLONE IV 100 MG in SYRINGE 0 ML IV SCH (10:53)
[2017-07-12] MEDS ORDERED: SODIUM PHOSPHATE 3 MMOL/1 ML INFUSION IV STA (11:08)
[2017-07-12] MEDS ORDERED: SODIUM PHOSPHATE INJ 15 MMOL in SODIUM CHLORIDE 0.9% 250ML 250 ML IV ONE (11:30)
--- NOTE | 2017-07-12 13:30 | Progress Note ---
Internal Med Progress Note Date of Service: Jul 12, 2017. Provider Documentation: SUBJECTIVE: The patient was seen and examined Remains intubated and stable No acute issues identified Minimally improved compared with yesterday OBJECTIVE: Vital Signs-as noted below Exam: General-Intubated and sedated No apparent distress Minimal response to vocal commands Eyes-Closed ENT-Normal Neck-Supple Lungs-Decreased breaths sound bilaterally at the bases Heart-Regular,no murmur appreciated Abdomen-Benign Extremities-No edema Neuro-Sedated on Vent Minimal response to painful stimuli and to vocal commands Lab data as noted below. ASSESSMENT & PLAN: ALTERED MENTAL STATUS :possible Viral Encephalitis Presented with progressive confusion of short duration CT head demonstrated chronic microvascular changes, no acute findings. Altered mental status initially attributed to UTI and or Febrile Illness Recent outpatient urine culture grew E coli. UA at time of admission showed moderate leukocyte esterase, many WBC's, many epith cells, no bacteria. Initially received IV ceftriaxone. Urine culture subsequently grew more than 3 organisms, probable skin mariel. Blood cultures at time of admission were negative. [employer] infection was considered in light of fever and altered mental status. Antibiotic coverage was broadened (high dose ceftriaxone, vancomycin, ampicillin , acyclovir). LP performed after adjusting the INR LP performed, results as noted:Suggestive of Viral Meningitis::/Encephalitis Item Value Date Time CSF Appearance CLEAR 07/01/17 1000 CSF Color COLORLESS 07/01/17 1000 CSF WBC 164 /uL *H 07/01/17 1000 CSF RBC 2 /uL 07/01/17 1000 CSF Cell Count Tube # 3 07/01/17 1000 CSF Mononuclear WBCs 99.0 % 07/01/17 1000 CSF Polynuclear WBCs 1.0 % 07/01/17 1000 CSF Chemistry Tube # 1 07/01/17 1000 CSF Glucose 86 mg/dl H 07/01/17 1000 CSF Total Protein 79.3 mg/dl H 07/01/17 1000 CSF gram stain negative. CSF cultures negative so far. Cryptococcal Ag negative. CSF Lyme PCR and antibodies negative. CSF HSV 1/2 PCR negative. CSF Enterovirus PCR negative. CSF West Nile PCR negative. Vancomycin, ampicillin, dexamethasone discontinued. Ceftriaxone and acyclovir were continued. Appreciate ID recommendation Worsening confusion 07/03. Neuro consulted-appreciate Input MRI performed 07/03 had some motion artifact, but did not show any acute changes. EEG- moderate diffuse nonlateralizing encephalopathy, no apparent epileptogenic foci. Repeat LP 07/05/17: Item Value Date Time CSF WBC 57 /uL *H 07/05/17 1539 CSF RBC 41 /uL 07/05/17 1539 CSF Cell Count Tube # 3 07/05/17 1539 CSF Mononuclear WBCs 100.0 % 07/05/17 1539 CSF Glucose 76 mg/dl H 07/05/17 1539 CSF Total Protein 81.0 mg/dl H 07/05/17 1539 CSF culture negative. MRI with contrast 07/05/17 demonstrated T2 abnormalities in cerebellum and thalami as well as some subtle findings within temporal lobes. Listeria unlikely- ampicillin discontinued. Lyme, pneumococcal pneumonia ruled out- ceftriaxone discontinued. Tick-borne illness PCR panel negative. Stopped doxycycline. Continue acyclovir- today is day # 07/04. Empiric trial of methylprednisolone recommended by Neurology for possible autoimmune disease. CSF NMDA receptor antibody level pending. Repeat CT head 07/09 unchanged (no acute findings). Continue supportive measures. Clinically stable but remains unresponsive -sedated on Vent Tapering dose of Solumedrol started ,clinically a little better 07/12 Discussed with the significant other RESPIRATORY Intubated for airway protection. Oxygenating well on 30% FIO2. Possible need for trach for pulmonary toilet discussed with family. Management per [facility]. Try to extubate today/tomorrow LLL DENSITY Chest x-ray 07/03 showed LLL density, infiltrate vs atelectasis. Started on IV piperacillin / tazobactam for possible pneumonia. Bronchoscopy performed 07/05; sputum culture from bronch grew only scant normal mariel and Jacy (probable contamination / colonization). Repeat CXR-Persistence of the LLL infiltration -likely Pneumonia Will put on antibiotic after discussing with the CCM No antibiotics-increase WCC is likely due to Steroid PAROXYSMAL ATRIAL FIB Unable to take oral metoprolol due to NPO status. Converted to parenteral metoprolol. Best not to maintain full anticoagulation at this time due to critical illness, procedures, etc. Remains in SR with PAC's. Resume warfarin when able. HYPERTENSION Unable to take oral meds due to NPO status. Converted metoprolol to IV --> GT. Added amlodipine via GT. BP's lower today. Hold parameters ordered. IV enalapril PRN. BP seems to be stable now HYPONATREMIA Serum sodium 141 --> --> 128--> --> 131 --> --> 126. 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 Sodium level improved to 132 on 07/11 Normalized HYPOKALEMIA K as low as 3.1. Receiving replacement. Remains low will supplement Monitor HYPOTHYROIDISM Levothyroxine via OGT. NUTRITION Receiving enteral feedings via OGT. HYPERGLYCEMIA Serum glucose this morning 163. Hyperglycemia secondary to methylprednisolone therapy. Management per protocol. VTE PROPHYLAXIS On warfarin at time of admission which was subsequently held / reversed due to ICU status and multiple procedures. Continue enoxaparin. SCD's. DISPOSITION To be determined. Case Management following. Family Medicine follow-up with Dr. Mosley. Spouse Ms. Cortes at bedside and given update on 07/11 . Consultants: [facility] Neurology . Procedures: CT head 06/29/17 CT head 06/30/17 LP under fluoro guidance 07/01/17 CT head 07/03/17 MRI brain 07/03/17 CT head 07/04/17 endotracheal intubation 07/05/17 mechanical ventilation 07/05/17 bronchoscopy 07/05/17 MRI brain with contrast 07/05/17 LP under fluoro guidance 06/25/17 . Vital Signs: Date Time Temp Pulse Resp B/P (MAP) Pulse Ox O2 Delivery O2 Flow Rate FiO2 07/12/17 12:00 96 Room Air 07/12/17 12:00 36.5 59 15 137/84 (101) 95 Room Air 07/12/17 10:07 60 18 100 Mask 30 07/12/17 10:00 61 12 164/121 (135) 100 Mechanical Ventilator 07/12/17 08:00 100 Mechanical Ventilator 30 07/12/17 08:00 30 07/12/17 08:00 36.8 80 12 143/84 (103) 100 Mechanical Ventilator 30 07/12/17 07:27 30 07/12/17 06:02 77 14 165/82 (97) 98 07/12/17 05:29 30 07/12/17 05:19 69 13 174/85 (120) 98 07/12/17 05:01 70 8 177/110 (127) 99 07/12/17 04:01 61 14 162/88 (97) 99 07/12/17 04:00 36.7 07/12/17 04:00 99 Mechanical Ventilator 30 07/12/17 04:00 30 07/12/17 03:02 71 16 165/74 (114) 99 07/12/17 02:01 53 12 137/72 (83) 99 07/12/17 01:51 30 07/12/17 01:01 54 14 135/67 (100) 99 07/12/17 00:01 52 15 105/53 (66) 99 07/12/17 00:01 36.5 07/11/17 23:59 30 07/11/17 23:59 98 Mechanical Ventilator 30 07/11/17 23:17 30 07/11/17 23:01 51 14 92/56 (67) 96 07/11/17 22:45 52 14 131/64 (84) 98 07/11/17 21:01 77 17 127/76 (89) 98 07/11/17 20:01 93 14 166/87 (119) 97 07/11/17 20:00 30 07/11/17 20:00 97 Mechanical Ventilator 30 07/11/17 20:00 30 07/11/17 20:00 36.8 07/11/17 19:01 88 17 149/81 (99) 97 07/11/17 18:00 86 16 149/95 (113) 97 Mechanical Ventilator 30 07/11/17 16:27 30 07/11/17 16:01 36.9 79 15 167/83 (111) 98 Mechanical Ventilator 30 07/11/17 16:00 30 07/11/17 16:00 Mechanical Ventilator 07/11/17 15:01 30 07/11/17 15:01 70 16 147/82 (103) 98 Mechanical Ventilator 30 07/11/17 14:04 30 07/11/17 14:00 74 14 153/69 (97) 99 Mechanical Ventilator 30 Lab Results: Results Past 24 Hours Test 07/11/17 15:48 07/11/17 19:57 07/11/17 23:29 07/12/17 03:53 Range/Units Bedside Glucose 155 176 141 146 70-90 mg/dl Test 07/12/17 05:16 07/12/17 09:25 07/12/17 09:34 07/12/17 11:28 Range/Units White Blood Count 16.06 4.8-10.8 K/uL Red Blood Count 3.88 4.2-5.4 M/uL Hemoglobin 13.0 12.0-16.0 g/dL Hematocrit 37.6 37-47 % Mean Corpuscular Volume 96.9 80-100 fL Mean Corpuscular Hemoglobin 33.5 25-34 pg Mean Corpuscular Hemoglobin Concent 34.6 32-36 g/dl Platelet Count 389 130-400 K/uL Mean Platelet Volume 8.8 7.4-10.4 fL Neutrophils (%) (Auto) 88.9 % Lymphocytes (%) (Auto) 5.3 % Monocytes (%) (Auto) 4.9 % Eosinophils (%) (Auto) 0.0 % Basophils (%) (Auto) 0.1 % Neutrophils # (Auto) 14.28 1.4-6.5 K/uL Lymphocytes # (Auto) 0.85 1.2-3.4 K/uL Monocytes # (Auto) 0.79 0.11-0.59 K/uL Eosinophils # (Auto) 0.00 0-0.5 K/uL Basophils # (Auto) 0.01 0-0.2 K/uL RDW Standard Deviation 44.8 36.4-46.3 fL RDW Coefficient of Variation 13.2 11.5-14.5 % Immature Granulocyte % (Auto) 0.8 % Immature Granulocyte # (Auto) 0.13 0.00-0.02 K/uL Sodium Level 136 136-145 mmol/L Potassium Level 4.1 3.5-5.1 mmol/L Chloride Level 102 98-107 mmol/L Carbon Dioxide Level 32 21-32 mmol/L Anion Gap 2.0 3-11 mmol/L Blood Urea Nitrogen 55 7-18 mg/dl Creatinine 0.74 0.60-1.20 mg/dl Est Creatinine Clear Calc Drug Dose 53.1 ml/min Estimated GFR () 85.0 Estimated GFR (Non- 73.4 BUN/Creatinine Ratio 75.2 10-20 Random Glucose 125 70-99 mg/dl Calcium Level 9.4 8.5-10.1 mg/dl Phosphorus Level 2.2 2.5-4.9 mg/dl Magnesium Level 2.7 1.8-2.4 mg/dl Blood Gas Sample Site L Radial Bedside Blood Gas pH (LAB) 7.53 7.35-7.45 Bedside Blood Gas pCO2 (LAB) 38 35-46 mmHg Bedside Blood Gas pO2 (LAB) 115 80-95 mmHg Bedside Blood Gas HCO3 (LAB) 32 19-24 meq/L Bedside Blood Gas Total CO2 33 24-31 mEq/l Bedside Blood Gas Base Excess (LAB) 9.0 -9-1.8 meq/L Bedside Blood Gas O2 Saturation 99.0 90-95 % Evelio Test Pass Oxygen Delivery Device Ventilator Bedside FiO2 30 % Blood Gas PEEP 5 Prothrombin Time 10.3 9.0-12.0 SECONDS Prothromb Time International Ratio 1.0 0.9-1.1 Activated Partial Thromboplast Time 22.4 21.0-31.0 SECONDS Partial Thromboplastin Ratio 0.9 Bedside Glucose 118 70-90 mg/dl
[2017-07-12] MEDS ORDERED: LABETALOL HCL IV 5 MG/ML 20ML IV PRN (16:00)
[2017-07-12 16:17] LABS: ISTAT ALLEN TEST Pass; ISTAT ARTERIAL BLOOD GAS HCO3 31 meq/L (19-24); ISTAT ARTERIAL BLOOD GAS PCO2 40 mmHg (35-46); ISTAT ARTERIAL BLOOD GAS PO2 69 mmHg (80-95); ISTAT CARBON DIOXIDE 32 mEq/l (24-31); ISTAT DELIVERY SYSTEM Room Air; ISTAT SITE L Radial
--- NOTE | 2017-07-12 17:01 | PROGRESS NOTE ---
DATE: 07/12/2017 DATE: 07/12/2017 Indu looks even better today. She is moving her eyes spontaneously. She is interacting with her significant other to some degree, she wiggles her toes, she is moving her arms and is currently working with physical therapy. Diagnosis remains unestablished. 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 She was pretty devastated however and it appears that at least her improvement does correlate with the use of 4 days of high IV doses of Solu-Medrol and thus an autoimmune encephalomyelitis meningoencephalitis cannot be totally excluded as the CSF picture, the MRI patterns, etc. can be similar. At age 87 the odds of this being a new intrinsic autoimmune issue are fairly slim and if anything it would be parineoplastic possibly through antineuronal antibodies induced by tumor antigens.. If she continues to improve, we may end up simply doing a chest, abdomen and pelvis CT with and without contrast to see if there is no ovarian tumor or other definable neoplasm and go from there. We could draw an NMDA receptor antibody level in the serum or CSF, but the amount of CSF obtained last time was inadequate. I will continue to follow her along. She is on 100 mg of Solu-Medrol now. This could probably be tapered down over the next week or two and depending on how she responds. Dr. Hudson will be assuming her care again on Monday and I will review the case tomorrow with her before she takes over on Monday afternoon. I did discuss the options with the ICU staff and right now I think we are simply going to continue the Solu-Medrol, physical therapy, tincture of time and defer on any further imaging studies or laboratory studies at this point. HILARIO
[2017-07-12 17:32] LABS: PARTIAL THROMBOPLASTIN RATIO 2.3
[2017-07-12] MEDS ORDERED: INSULIN GLARGINE SOLOSTAR 100 UNITS/ML 3 ML PEN SC SCH (20:00)
[2017-07-13] VITALS (18 sets, daily range): BP systolic 126–155; BP diastolic 61–98; PULSE 52–78; TEMP 36.4–36.6; O2SAT 94–98
[2017-07-13] MEDS: ACYCLOVIR SOD INJ 650 MG in DEXTROSE 5% 100ML 100 ML IV SCH ×3 (01:53→17:54)
[2017-07-13] MEDS: INSULIN ASPART 100 UNITS/ML 3 ML PEN SC SCH ×5 (04:00→23:46)
[2017-07-13 05:42] LABS: HEMATOCRIT 38.6 % (37-47); MEAN CELL VOLUME 98.5 fL (80-100); MEAN CORPUSCULAR HEMOGLOBIN 32.9 pg (25-34); MEAN CORPUSCULAR HGB CONC 33.4 g/dl (32-36); MEAN PLATELET VOLUME 8.6 fL (7.4-10.4); PLATELET COUNT 385 K/uL (130-400); RED BLOOD COUNT 3.92 M/uL (4.2-5.4); WHITE BLOOD COUNT 13.81 K/uL (4.8-10.8)
[2017-07-13 06:10] LABS: PARTIAL THROMBOPLASTIN RATIO 5.8
[2017-07-13 06:12] LABS: BUN/CREATININE RATIO 55.4 (10-20); CREATININE 0.61 mg/dl (0.60-1.20); MAGNESIUM 2.6 mg/dl (1.8-2.4); PHOSPHORUS 2.9 mg/dl (2.5-4.9); POTASSIUM 3.9 mmol/L (3.5-5.1)
[2017-07-13 07:08] LABS: PARTIAL THROMBOPLASTIN RATIO 5.8
[2017-07-13 08:57] LABS: PARTIAL THROMBOPLASTIN RATIO 2.6
[2017-07-13] MEDS: SODIUM CHLORIDE 1 GM TAB PO SCH ×2 (09:09→20:31)
[2017-07-13] MEDS: AMLODIPINE BESYLATE 5 MG TAB NG SCH (09:09)
[2017-07-13] MEDS: METOPROLOL TARTRATE 50 MG TAB PO SCH ×2 (09:09→20:31)
[2017-07-13] MEDS: LEVOTHYROXINE 100 MCG TAB GT SCH (09:10)
[2017-07-13] MEDS: METHYLPREDNISOLONE IV 100 MG in SYRINGE 0 ML IV SCH (09:12)
--- NOTE | 2017-07-13 09:22 | Critical Care Progress Note ---
Critical Care Progress Note Date of Service Jul 13, 2017. ICU Day ICU Day Number: [address] Padron Subjective No acute events overnight. Patient went into Afib on the monitor. PTT overnight came back at 150 and Heparin was held. Objective GENERAL:lethargic, difficult to awaken, off sedation, w/o distress EYE EXAM: normal conjunctiva, PERRL and EOM's grossly intact OROPHARYNX: tongue normal and mucous membranes are moist NECK: supple, no nuchal rigidity, no adenopathy LUNGS: Clear to auscultation. HEART: no murmurs, S1 normal and S2 normal ABDOMEN: abdomen soft, non-tender, normo-active bowel sounds, no masses LOWER EXTREMITIES: No pitting edema. NEURO EXAM: s/p extubation, GCS 10 Current SOFA Score SOFA Score Response (Comments) Value PaO2/FiO2 (mmHg) < 400 1 Platelets (x10) > 150 0 Bilirubin (mg/dL) < 1.2 0 [place] Coma Score 6 - 9 3 Level of Hypotension No Hypotension 0 Creatinine (mg/dL) < 1.2 0 Total 4 Assessment & Plan 87 yo F w/x h/o Paroxysmal AFIB, HTN, HLD, presented with fever, Acute Confusion /Lethargy and UTI. LP consistent with meningitis vs Encephalitis likely of viral origin, currently on , Acyclovir. NIGHT ORDER SELECTOR/Neuro: Encephalopathy secondary to Suspected Viral Meningitis vs Encephalitis GCS: 11 Pupils: Pinpoint, reactive Focal Signs: None more lethargic, but awakens and follows commands D/C Versed EEG dated 07/05: Result reveals evidence for moderate diffuse generalized nonlateralizing encephalopathy of nonspecific type CT: Chronic and age-related change. No acute process. No change from the prior exam. MRI: No evidence for an acute ischemic insult.Generalized atrophy of the cerebellar as well as cerebral hemispheres MRI (07/06) : appearance is consistent with a nonspecific encephalitis/ cerebritis Repeat LP (07/05) showed decrease in WBC (164-->54), Gram stain neg. cx pending. Glucose, Tot protein remain elevated CSF negative for Lyme ABs, Enterovirus, HSV I,II, [place] virus, Cryptococcal VZV) EBV, CMV pending EEG dated 07/07: Mildly to moderately diffusely abnormal EEG, No evidence of epileptogenic activity or of periodic lateralized epileptiform discharges which may be seen in association with herpetic encephalitis CT (07/09) no significant changes from previous D/C'd Ampicillin and Ceftriaxone (07/07). D/C'd Doxycycline(07/08) Continue Acyclovir Anti-NMDA receptor ab's pending Respiratory: Atelectasis given LL Lung Infiltrate, Pneumonia possible but less likely Chest X-ray(07/12): Stable to slight decrease in left basilar opacity. Infection not excluded s/p extubation today Cardiovascular: Paroxysmal Afib, HTN, HLD HTN: c/w Metoprolol and Amlodipine Afib: converts back and from A fib CV drips: Remains off vasoactive medications Rhythm: Afib EKG: Normal sinus, QTc : 429 PTT 1501.1-->66.3 Heparin drip per protocol Fluids/Renal: Hyponatremia: resolved Na 139 Hypophosphatemia: resolved Continue 1 gm Salt tabs to BID Mireles: Present GI/Nutrition: diarrhea Feeds held prior to extubation s/p rectal tube Prophylaxis: Not On PPI Bowel movements:1 ( diarrhea) C diff. NEG. D/C Famotidine Endocrine: Last 24 hour glucose: Ranging 115-136 Insulin protocol: Yes; Drip: No Hematology: Hemoglobin 12.9 PTT 150-->66.3 Follow CBC's DVT prophylaxis: heparin drip per protocol Infectious Disease/Immunology: suspected Viral Encephalitis of unknown etiology. Tmax: 36.6 Leukocytosis trending down Antimicrobials: Continue Acyclovir Day Cultures: Blood: No growth Blood (Parasitology) on smear: Negative Bronchial washings:Jacy (likely from aspiration, no indication for antifungal ) Urine: No growth MRSA: neg CSF: No growth to date EBV, CMP NEG Disposition: LTAC referral made per Case management Resident Physician Supervision Note: I was present with Dr. Phillip during the history and exam. I discussed the case with the resident and agree with the findings and plan as documented in the note. Any exceptions or clarifications are listed here: In brief, Patient with encephalopathy for over a week with work up which included MRI x 2; EEG x 1; LP x 2 with elevated protein in 80's on empirical Acyclovir; PLAN: Neuro - off sedation for over > 4 days, CSF with elevated protein and overall encephalopathy c/w possibly infectious etiology; Currently on decreased dose Steroids following high dose x 4 days as per Neurology; CSF NDMA receptor Ab pending; to complete Acyclovir course although CPR HSV negative; EBV negative; CMV negative, cyto, Listeria still pending; case d/w Neurology; Will defer management to Neurology. Mental status is worse this am; Pulm - s/p extubated on 07/13; on RA with ETCO2 monitoring; CV - hemodynamically stable;c/w Metoprolol and Amlodipine; on Enalapriat; A fib - resumed Heparin gtt; ID - Noted diarrhea --> C diff negative; Leukocytosis likely from Steroids and improving; still on Acyclovir empirically; Renal - cr 0.6 Na improved;on salt tabs; Endo - Glu < 180; GI - NGT placed for feeding; will be feed cautiously and keep HOB elevated to avoid aspiration; once mental status better will do swallow eval; Code status: DNR I have personally spent 46 minutes of critical care time in the direct management of this patient. This is a life/limb threatening event. This includes time spent evaluating patient, direct bedside care, chart review, placing orders, interpretation of diagnostic studies, discussion with consultants, patient, and family members, as well as other required patient management activities. This time is exclusive of all separately billable procedures, and teaching time and separate from and in addition to any other critical care service time I met with patient's and updated her on patient's current condition and plan of care; As per her, if the patient has significant neurological improvement then reintubation would be an option; in the event that the patient's mental status is poor and she is not able to interact with her environment, patient would not be reintubated. Above decisions were reached following a meeting with patient's which were attended by myself and Evgeny CASTILLO); All questions were addressed to the best of my ability and knowledge. The expressed understanding of the plan and agreed to it. Case discussed on am rounds; Consults & Procedures Consultants: Infectious Disease Neurology Procedures: extubated 07/[address] DOSE: 614.27 mGy.cm HISTORY: Altered mental status. TECHNIQUE: Multiaxial CT images of the head were performed without the use of intravenous contrast. Automated exposure control was utilized for this study. A dose lowering technique was utilized adhering to the principles of ALARA. Comparison: Brain MRI 07/05/2017. Head CT 07/04/2017. Findings: The paranasal sinuses and mastoid air cells are clear. The calvarium and skull base are intact. There is no mass, hematoma, midline shift, acute infarct. Stable white matter hypodensity. Mild atrophic changes within the brain. Impression: No significant change compared to the prior study. No acute intracranial abnormality. FLUOROSCOPICALLY GUIDED LUMBAR PUNCTURE CLINICAL HISTORY: Evaluate for encephalitis. PROCEDURE: Due to altered mental status and sedation, the procedure, risks and benefits were discussed with the patient's power of prosecuting attorney including the risk of spinal headache, bleeding and infection. She agreed to the procedure and informed written consent was obtained. The procedure was performed by Dr. Sandoval following a timeout. The right L5-S1 interlaminar space was targeted. Skin overlying the space was prepped and draped in sterile fashion and local anesthesia was achieved with 1% lidocaine. Under intermittent fluoroscopic guidance, a 3 1/2 inch 22-gauge spinal needle was directed into the thecal sac with immediate return of clear CSF. A total of 9 cc of CSF was collected in 4 vials and sent to the laboratory as ordered. The needle was removed. The patient tolerated the procedure well and no immediate complications were evident. [~ rep ct add3]] MRI OF THE BRAIN COMBO CLINICAL HISTORY: Encephalitis. COMPARISON STUDY: CT of the brain dated 07/04/2017. MRI of the brain dated 07/03/2017. TECHNIQUE: MRI of the brain was performed utilizing various T1 and T2-weighted sequences in the axial, sagittal, and coronal planes. Contrast-enhanced sequences were acquired following the administration of 6 cc of Gadavist. FINDINGS: Brain parenchyma: There are age-related involutional changes noting advanced confluent subcortical and periventricular microangiopathic disease. There is no hemorrhage or mass effect. There is patchy T2 signal abnormality seen throughout the cerebellum, and also involving both thalami. There may also be T2 signal abnormality within the white matter; however, this is not well evaluated due to extensive microangiopathic change. Subtle cortical abnormality is identified within the temporal lobes, best appreciated on the FLAIR sequences. Faint restricted diffusion is suggested in these regions that is not typical for ischemia. No enhancing mass lesion is identified on the postcontrast images. There is no leptomeningeal or pachymeningeal enhancement. No extra-axial fluid collection is seen. The cerebellar tonsils are normal in configuration. Ventricles, sulci, and cisterns: Prominent secondary to involutional change. Pituitary and sella: Unremarkable. Intracranial vasculature: Normal flow voids are maintained at the skull base. Orbits: The bony orbits are grossly intact. Orbital contents are normal in appearance noting bilateral ocular lens implants. Sinuses and mastoids: Trace mucosal thickening is seen within the maxillary antra. Mild mucosal thickening is also identified within the ethmoid sinuses. Fluid is noted in the sphenoid sinuses. There is a left mastoid effusion. Fluid is present within the pharynx. Calvarium: Unremarkable. Cervical cord: Partially visualized cervical spinal cord is normal in morphology and signal intensity. IMPRESSION: 1. There is patchy T2 signal abnormality identified, greatest in the cerebellar hemispheres and the thalami. There may also be periventricular matter abnormality; however, this is not well assessed due to significant underlying microangiopathic change. Subtle cortical signal abnormality is seen within the temporal lobes, and these findings are best appreciated on the FLAIR sequence. The appearance is consistent with a nonspecific encephalitis/cerebritis. This could be related to an infectious/viral process or less likely a metabolic or global ischemic insult. Clinical correlation will be essential. 2. No hemorrhage is identified. There is no restricted diffusion identified typical for stroke. 3. There is no enhancing mass. No leptomeningeal/pachymeningeal enhancement is seen. 4. Left mastoid effusion and paranasal sinus disease as above. 5. Fluid is seen layering in the pharynx. IMPRESSION: Fluoroscopically guided lumbar puncture collection of 9 cc of clear CSF. Data Medications: Current Inpatient Medications Medications (Trade) Dose Ordered Sig/Josué Route Start Time Stop Time Status Last Admin Dose Admin Acetaminophen (Tylenol Tab) 650 mg Q4H PRN PO 06/29/17 11:00 07/29/17 10:59 Future Hold 07/03/17 11:07 650 MG Ondansetron HCl (Zofran Inj) 4 mg Q6H PRN IV 06/29/17 11:00 07/29/17 10:59 Aspirin (Ecotrin Tab) 81 mg DAILY PO 06/30/17 08:00 07/30/17 08:59 Future Hold 07/02/17 08:23 81 MG Atorvastatin Calcium (Lipitor Tab) 40 mg DAILY PO 06/30/17 08:00 07/30/17 08:59 Future Hold 07/02/17 08:22 40 MG Calcium/Vitamin D (Caltrate Plus Tab) 2 tab DAILY PO 06/30/17 08:00 07/30/17 07:59 Future Hold 07/02/17 08:23 2 TAB Miscellaneous (Iv Fluids Completed) 1 ea PRN PRN N/A 06/29/17 11:30 06/29/18 11:29 Acyclovir Sodium 650 mg/Dextrose 113 ml @ 110 mls/hr Q8H IV 06/30/17 10:30 07/21/17 10:29 07/13/17 01:53 110 MLS/HR Lactobacillus Acidophilus (Lactinex Granules Pack) 1 gm TIDM PO 07/01/17 07:30 07/31/17 07:29 Future Hold 07/02/17 15:22 1 GM Enalaprilat 0.625 mg/Dextrose 25.5 ml @ 100 mls/hr Q6H PRN IV 07/04/17 09:15 08/03/17 09:14 07/07/17 08:08 100 MLS/HR Acetaminophen (Tylenol Supp) 650 mg Q4H PRN OK 07/05/17 07:30 08/04/17 07:29 Fentanyl Citrate (Fentanyl Inj) 50 mcg Q2H PRN IV 07/05/17 11:15 07/19/17 11:14 07/07/17 14:54 50 MCG Fentanyl Citrate (Fentanyl Inj) 50 mcg Q2H PRN IV 07/05/17 14:45 07/19/17 14:44 Enteral Nutritional Formula (Peptamen Intense VHP) Start at 20mL/hr, titrate... DAILY OG 07/05/17 22:15 08/04/17 22:14 07/11/17 06:27 65 ML Levothyroxine Sodium (Synthroid Tab) 100 mcg DAILY GT 07/06/17 09:00 08/05/17 08:59 07/13/17 09:10 100 MCG Magnesium Hydroxide (Milk Of Magnesia Susp) 30 ml Q6H PRN PO 07/07/17 08:15 08/06/17 08:14 07/07/17 10:46 30 ML Enalaprilat 1.25 mg/Dextrose 26 ml @ 100 mls/hr Q6H PRN IV 07/07/17 11:00 08/06/17 10:59 Hydralazine HCl (HydrALAZINE INJ) 10 mg Q6H PRN IV. 07/07/17 14:45 08/06/17 14:44 Amlodipine Besylate (Norvasc Tab) 10 mg QAM NG 07/09/17 09:00 08/07/17 08:59 07/13/17 09:09 10 MG Metoprolol Tartrate (Lopressor Tab) 100 mg BID PO 07/08/17 21:00 08/06/17 08:59 07/13/17 09:09 100 MG Miscellaneous Information (Consult Glycemic Management Pharmacy) 1 ea UD PRN N/A 07/09/17 13:42 08/08/17 13:41 Insulin Aspart (novoLOG ASPART) SLIDING SCALE Q4 SC 07/09/17 14:00 08/08/17 13:59 Future hold 07/12/17 04:07 3 UNITS Heparin Sodium (Porcine) (Heparin 10 Unit/ ml 5 ml Flush) 5 ml PRN PRN FLUSH 07/09/17 23:45 08/08/17 23:44 07/12/17 10:41 10 ML Sodium Chloride (Sodium Chloride Tab) 1 gm BID PO 07/12/17 09:00 08/11/17 08:59 07/13/17 09:09 1 GM Heparin Sodium/ Dextrose 500 ml @ 22 mls/hr [id number] PRN IV 07/12/17 09:45 08/11/17 09:44 07/12/17 10:46 22 MLS/HR Labetalol HCl (Normodyne IV) 10 mg Q4 PRN IV 07/12/17 16:00 08/11/17 15:59 07/12/17 17:09 10 MG Vital Signs: Date Time Temp Pulse Resp B/P (MAP) Pulse Ox O2 Delivery O2 Flow Rate FiO2 07/13/17 06:02 53 12 132/76 (92) 96 07/13/17 05:02 72 14 151/92 (121) 97 07/13/17 04:02 59 17 145/77 (122) 96 07/13/17 04:00 36.4 07/13/17 04:00 96 Room Air 07/13/17 03:01 55 14 130/74 (105) 94 07/13/17 02:02 70 15 139/88 (105) 96 07/13/17 01:02 52 13 126/61 (87) 96 07/13/17 00:02 64 13 139/75 (121) 97 07/13/17 00:01 36.5 07/12/17 23:59 97 Room Air 07/12/17 23:01 64 15 148/65 (99) 97 07/12/17 22:01 74 13 126/100 (106) 97 07/12/17 21:02 53 12 113/60 (77) 94 07/12/17 20:02 58 15 145/75 (82) 95 07/12/17 20:00 95 Room Air 07/12/17 20:00 36.5 07/12/17 19:01 73 15 134/73 (91) 94 07/12/17 18:00 58 16 158/75 (102) 95 Room Air 07/12/17 16:05 36.8 53 15 145/80 (101) 96 Room Air 07/12/17 16:00 95 Room Air 07/12/17 12:00 96 Room Air 07/12/17 12:00 36.5 59 15 137/84 (101) 95 Room Air 07/12/17 10:07 60 18 100 Mask 30 07/12/17 10:00 61 12 164/121 (135) 100 Mechanical Ventilator 30 Laboratory Results: Last 24 Hours Test 07/12/17 09:25 07/12/17 09:34 07/12/17 11:28 07/12/17 15:55 Blood Gas Sample Site L Radial Bedside Blood Gas pH (LAB) 7.53 Bedside Blood Gas pCO2 (LAB) 38 mmHg Bedside Blood Gas pO2 (LAB) 115 mmHg Bedside Blood Gas HCO3 (LAB) 32 meq/L Bedside Blood Gas Total CO2 33 mEq/l Bedside Blood Gas Base Excess (LAB) 9.0 meq/L Bedside Blood Gas O2 Saturation 99.0 % Evelio Test Pass Oxygen Delivery Device Ventilator Bedside FiO2 30 % Blood Gas PEEP 5 Prothrombin Time 10.3 SECONDS Prothromb Time International Ratio 1.0 Activated Partial Thromboplast Time 22.4 SECONDS Partial Thromboplastin Ratio 0.9 Bedside Glucose 118 mg/dl 139 mg/dl Test 07/12/17 16:03 07/12/17 16:52 07/12/17 19:48 07/12/17 23:37 Blood Gas Sample Site L Radial Bedside Blood Gas pH (LAB) 7.50 Bedside Blood Gas pCO2 (LAB) 40 mmHg Bedside Blood Gas pO2 (LAB) 69 mmHg Bedside Blood Gas HCO3 (LAB) 31 meq/L Bedside Blood Gas Total CO2 32 mEq/l Bedside Blood Gas Base Excess (LAB) 8.0 meq/L Bedside Blood Gas O2 Saturation 95.0 % Evelio Test Pass Oxygen Delivery Device Room Air Activated Partial Thromboplast Time 60.3 SECONDS Partial Thromboplastin Ratio 2.3 Bedside Glucose 171 mg/dl 122 mg/dl Test 07/13/17 03:50 07/13/17 05:02 07/13/17 06:30 07/13/17 07:57 Bedside Glucose 131 mg/dl 104 mg/dl White Blood Count 13.81 K/uL Red Blood Count 3.92 M/uL Hemoglobin 12.9 g/dL Hematocrit 38.6 % Mean Corpuscular Volume 98.5 fL Mean Corpuscular Hemoglobin 32.9 pg Mean Corpuscular Hemoglobin Concent 33.4 g/dl RDW Standard Deviation 46.4 fL RDW Coefficient of Variation 13.5 % Platelet Count 385 K/uL Mean Platelet Volume 8.6 fL Activated Partial Thromboplast Time 150.8 SECONDS 150.1 SECONDS Partial Thromboplastin Ratio 5.8 5.8 Sodium Level 139 mmol/L Potassium Level 3.9 mmol/L Chloride Level 103 mmol/L Carbon Dioxide Level 32 mmol/L Anion Gap 4.0 mmol/L Blood Urea Nitrogen 34 mg/dl Creatinine 0.61 mg/dl Est Creatinine Clear Calc Drug Dose 64.4 ml/min Estimated GFR () 95.1 Estimated GFR (Non- 82.1 BUN/Creatinine Ratio 55.4 Random Glucose 115 mg/dl Calcium Level 9.0 mg/dl Phosphorus Level 2.9 mg/dl Magnesium Level 2.6 mg/dl Test 07/13/17 08:32 Activated Partial Thromboplast Time 66.3 SECONDS Partial Thromboplastin Ratio 2.6 Resident Tracking Resident Involvement: Resident Care Provided Care Provided: Adult Hospital Medicine
--- NOTE | 2017-07-13 09:59 | DIAGNOSTIC IMAGING REPORT ---
KUB CLINICAL HISTORY: 87 years-old Female presenting with Tube Placement. TECHNIQUE: Single supine view of the abdomen was obtained. COMPARISON: CT from 06/30/2017. FINDINGS: Weighted feeding catheter containing a guidewire terminates in the stomach. Possibly of small bowel gas, nonspecific. Mild stool burden. No gross pneumoperitoneum. Suggestion of a small calcification projecting over the right kidney, consistent with the calculus at the right lower pole as noted on CT from 06/30/2017. Atherosclerosis. Degenerative changes of the spine. Apparent left retrocardiac opacity at the apex may relate to a prominent pericardial fat pad or developing consolidation and/or effusion. IMPRESSION: 1. Weighted feeding catheter terminates in the stomach. Advancement recommended. 2. Right renal calculus. 3. Apparent left retrocardiac opacity, possibly a prominent pericardial fat pad, consolidation, or effusion. Electronically signed by: Chan Nunez M.D. 07/13/2017 9:58 AM Dictated Date/Time: 07/13/2017 9:56 AM
[2017-07-13] MEDS: HEPARIN 25,000 UNIT/500ML D5W 500 ML IV PRN (11:27)
[2017-07-13] MEDS: PEPTAMEN 1.5 CAL 1000ML BAG NG PRN (12:08)
--- NOTE | 2017-07-13 14:44 | Progress Note ---
Internal Med Progress Note Date of Service: Jul 13, 2017. Provider Documentation: SUBJECTIVE: The patient was seen and examined S/P Extubation Remains very lethargic and semiresponsive OBJECTIVE: Vital Signs-as noted below Exam: General-Semiresponsive following Extubation No apparent distress Eyes-Closed ENT-Normal Neck-Supple Lungs-Decreased breaths sound bilaterally at the bases Heart-Regular,no murmur appreciated Abdomen-Benign Extremities-No edema Neuro-Sedated on Vent Minimal response to painful stimuli and to vocal commands Lab data as noted below. ASSESSMENT & PLAN: ALTERED MENTAL STATUS :possible Viral Encephalitis Presented with progressive confusion of short duration CT head demonstrated chronic microvascular changes, no acute findings. Altered mental status initially attributed to UTI and or Febrile Illness Recent outpatient urine culture grew E coli. UA at time of admission showed moderate leukocyte esterase, many WBC's, many epith cells, no bacteria. Initially received IV ceftriaxone. Urine culture subsequently grew more than 3 organisms, probable skin mariel. Blood cultures at time of admission were negative. CERTIFICATION AND SELECTION SPECIALIST infection was considered in light of fever and altered mental status. Antibiotic coverage was broadened (high dose ceftriaxone, vancomycin, ampicillin , acyclovir). LP performed after adjusting the INR LP performed, results as noted:Suggestive of Viral Meningitis::/Encephalitis Item Value Date Time CSF Appearance CLEAR 07/01/17 1000 CSF Color COLORLESS 07/01/17 1000 CSF WBC 164 /uL *H 07/01/17 1000 CSF RBC 2 /uL 07/01/17 1000 CSF Cell Count Tube # 3 07/01/17 1000 CSF Mononuclear WBCs 99.0 % 07/01/17 1000 CSF Polynuclear WBCs 1.0 % 07/01/17 1000 CSF Chemistry Tube # 1 07/01/17 1000 CSF Glucose 86 mg/dl H 07/01/17 1000 CSF Total Protein 79.3 mg/dl H 07/01/17 1000 CSF gram stain negative. CSF cultures negative so far. Cryptococcal Ag negative. CSF Lyme PCR and antibodies negative. CSF HSV 1/2 PCR negative. CSF Enterovirus PCR negative. CSF West Nile PCR negative. Vancomycin, ampicillin, dexamethasone discontinued. Ceftriaxone and acyclovir were continued. Appreciate ID recommendation Worsening confusion 07/03. Neuro consulted-appreciate Input MRI performed 07/03 had some motion artifact, but did not show any acute changes. EEG- moderate diffuse nonlateralizing encephalopathy, no apparent epileptogenic foci. Repeat LP 07/05/17: Item Value Date Time CSF WBC 57 /uL *H 07/05/17 1539 CSF RBC 41 /uL 07/05/17 1539 CSF Cell Count Tube # 3 07/05/17 1539 CSF Mononuclear WBCs 100.0 % 07/05/17 1539 CSF Glucose 76 mg/dl H 07/05/17 1539 CSF Total Protein 81.0 mg/dl H 07/05/17 1539 CSF culture negative. MRI with contrast 07/05/17 demonstrated T2 abnormalities in cerebellum and thalami as well as some subtle findings within temporal lobes. Listeria unlikely- ampicillin discontinued. Lyme, pneumococcal pneumonia ruled out- ceftriaxone discontinued. Tick-borne illness PCR panel negative. Stopped doxycycline. Continue acyclovir- today is day # 07/04. Viral Serologies -negative Empiric trial of methylprednisolone recommended by Neurology for possible autoimmune disease. CSF NMDA receptor antibody level pending. Repeat CT head 07/09 unchanged (no acute findings). Continue supportive measures. Clinically stable but remains unresponsive -sedated on Vent Tapering dose of Solumedrol started ,clinically a little better 07/12 RESPIRATORY Intubated for airway protection. Oxygenating well on 30% FIO2. Possible need for trach for pulmonary toilet discussed with family. Management per CCM. S/P Extubation -remains very drowsy and semiresponsive LLL DENSITY Chest x-ray 07/03 showed LLL density, infiltrate vs atelectasis. Started on IV piperacillin / tazobactam for possible pneumonia. Bronchoscopy performed 07/05; sputum culture from bronch grew only scant normal mariel and Jacy (probable contamination / colonization). Repeat CXR-Persistence of the LLL infiltration -likely Pneumonia Will put on antibiotic after discussing with the [facility] No antibiotics-increase WCC is likely due to Steroid PAROXYSMAL ATRIAL FIB Unable to take oral metoprolol due to NPO status. Converted to parenteral metoprolol. Best not to maintain full anticoagulation at this time due to critical illness, procedures, etc. Remains in SR with PAC's. On IV heparin now Resume warfarin when able. HYPERTENSION Unable to take oral meds due to NPO status. Converted metoprolol to IV --> GT. Added amlodipine via GT. BP's lower today. Hold parameters ordered. IV enalapril PRN. BP seems to be stable now HYPONATREMIA Serum sodium 141 --> --> 128--> --> 131 --> --> 126. 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 Sodium level improved to 132 on 07/11 Normalized HYPOKALEMIA K as low as 3.1. Receiving replacement. Remains low will supplement Monitor HYPOTHYROIDISM Levothyroxine via OGT. NUTRITION Receiving enteral feedings via OGT. HYPERGLYCEMIA Serum glucose this morning 163. Hyperglycemia secondary to methylprednisolone therapy. Management per protocol. VTE PROPHYLAXIS On warfarin at time of admission which was subsequently held / reversed due to ICU status and multiple procedures. Continue enoxaparin. SCD's. DISPOSITION To be determined. Case Management following. Family Medicine follow-up with Dr. Mosley. Spouse Ms. Cortes at bedside and given update on 07/11 . Consultants: [facility] Neurology . Procedures: CT head 06/29/17 CT head 06/30/17 LP under fluoro guidance 07/01/17 CT head 07/03/17 MRI brain 07/03/17 CT head 07/04/17 endotracheal intubation 07/05/17 mechanical ventilation 07/05/17 bronchoscopy 07/05/17 MRI brain with contrast 07/05/17 LP under fluoro guidance 06/25/17 Extubation-07/12/17 . Discussed with the significant other Clinically a little better today -discussed with the Significant other Vital Signs: Date Time Temp Pulse Resp B/P (MAP) Pulse Ox O2 Delivery O2 Flow Rate FiO2 07/13/17 14:00 75 14 132/78 (96) 95 Room Air 07/13/17 12:00 96 Room Air 07/13/17 12:00 36.5 76 14 132/72 (92) 95 Room Air 07/13/17 10:00 56 14 155/80 (105) 97 Room Air 07/13/17 08:00 96 Room Air 07/13/17 08:00 36.4 76 14 128/66 (86) 98 Room Air 07/13/17 06:02 53 12 132/76 (92) 96 07/13/17 05:02 72 14 151/92 (121) 97 07/13/17 04:02 59 17 145/77 (122) 96 07/13/17 04:00 36.4 07/13/17 04:00 96 Room Air 07/13/17 03:01 55 14 130/74 (105) 94 07/13/17 02:02 70 15 139/88 (105) 96 07/13/17 01:02 52 13 126/61 (87) 96 07/13/17 00:02 64 13 139/75 (121) 97 07/13/17 00:01 36.5 07/12/17 23:59 97 Room Air 07/12/17 23:01 64 15 148/65 (99) 97 07/12/17 22:01 74 13 126/100 (106) 97 07/12/17 21:02 53 12 113/60 (77) 94 07/12/17 20:02 58 15 145/75 (82) 95 07/12/17 20:00 95 Room Air 07/12/17 20:00 36.5 07/12/17 19:01 73 15 134/73 (91) 94 07/12/17 18:00 58 16 158/75 (102) 95 Room Air 07/12/17 16:05 36.8 53 15 145/80 (101) 96 Room Air 07/12/17 16:00 95 Room Air Lab Results: Results Past 24 Hours Test 07/12/17 15:55 07/12/17 16:03 07/12/17 16:52 07/12/17 19:48 Range/Units Bedside Glucose 139 171 70-90 mg/dl Blood Gas Sample Site L Radial Bedside Blood Gas pH (LAB) 7.50 7.35-7.45 Bedside Blood Gas pCO2 (LAB) 40 35-46 mmHg Bedside Blood Gas pO2 (LAB) 69 80-95 mmHg Bedside Blood Gas HCO3 (LAB) 31 19-24 meq/L Bedside Blood Gas Total CO2 32 24-31 mEq/l Bedside Blood Gas Base Excess (LAB) 8.0 -9-1.8 meq/L Bedside Blood Gas O2 Saturation 95.0 90-95 % Evelio Test Pass Oxygen Delivery Device Room Air Activated Partial Thromboplast Time 60.3 21.0-31.0 SECONDS Partial Thromboplastin Ratio 2.3 Test 07/12/17 23:37 07/13/17 03:50 07/13/17 05:02 07/13/17 06:30 Range/Units Bedside Glucose 122 131 70-90 mg/dl White Blood Count 13.81 4.8-10.8 K/uL Red Blood Count 3.92 4.2-5.4 M/uL Hemoglobin 12.9 12.0-16.0 g/dL Hematocrit 38.6 37-47 % Mean Corpuscular Volume 98.5 80-100 fL Mean Corpuscular Hemoglobin 32.9 25-34 pg Mean Corpuscular Hemoglobin Concent 33.4 32-36 g/dl RDW Standard Deviation 46.4 36.4-46.3 fL RDW Coefficient of Variation 13.5 11.5-14.5 % Platelet Count 385 130-400 K/uL Mean Platelet Volume 8.6 7.4-10.4 fL Activated Partial Thromboplast Time 150.8 150.1 21.0-31.0 SECONDS Partial Thromboplastin Ratio 5.8 5.8 Sodium Level 139 136-145 mmol/L Potassium Level 3.9 3.5-5.1 mmol/L Chloride Level 103 98-107 mmol/L Carbon Dioxide Level 32 21-32 mmol/L Anion Gap 4.0 3-11 mmol/L Blood Urea Nitrogen 34 7-18 mg/dl Creatinine 0.61 0.60-1.20 mg/dl Est Creatinine Clear Calc Drug Dose 64.4 ml/min Estimated GFR () 95.1 Estimated GFR (Non- 82.1 BUN/Creatinine Ratio 55.4 10-20 Random Glucose 115 70-99 mg/dl Calcium Level 9.0 8.5-10.1 mg/dl Phosphorus Level 2.9 2.5-4.9 mg/dl Magnesium Level 2.6 1.8-2.4 mg/dl Test 07/13/17 07:57 07/13/17 08:32 07/13/17 11:31 Range/Units Bedside Glucose 104 106 70-90 mg/dl Activated Partial Thromboplast Time 66.3 21.0-31.0 SECONDS Partial Thromboplastin Ratio 2.6
[2017-07-13 16:41] LABS: PARTIAL THROMBOPLASTIN RATIO 2.6
--- NOTE | 2017-07-13 16:54 | PROGRESS NOTE ---
DATE: 07/13/2017 Indu is waking up even more today. She is looking around the room. Will make eye contact and will squeeze the hands of nursing staff, but not mine and will wiggle her toes to command. All of this is improving slowly correlating to some degree historically with the use of IV Solu-Medrol and now decreasing steroids. She has had imaging studies of her abdomen and pelvis on admission which were done with contrast, but no ovarian masses are described and she has had a series and chest x-rays, but does not show anything suspicious for cancer and I am not sure we need to even do anything further at this point in light of her age and the slow improvement. While this may be an autoimmune encephalitis I still think it is viral and that the improvement is the natural course of an acute self-limited illness. At this point, I am going to suggest we just continue to taper down off the Solu-Medrol perhaps going to 80 mg for several days, then 60 mg for several days and then 40, 20, and 10. I will let Dr. Hudson make the ultimate decision about how to approach this as she is taking over the case again tomorrow. In terms of working her up for paraneoplastic issues I see really little point in it now. If she improves off the steroids and remains improved, then we really will not need to do it and at her age I do not think we would be aggressive with any cancer we would find any way. Again, my feelings are is that this is a viral illness, has been all along, and that any improvement with steroids may be fortuitous or simply part of mild anti-inflammatory effect the steroids are having on injured brain. HILARIO
[2017-07-14] VITALS (23 sets, daily range): BP systolic 103–163; BP diastolic 50–105; PULSE 57–94; TEMP 36.4–36.9; O2SAT 92–97
[2017-07-14] MEDS: ACYCLOVIR SOD INJ 650 MG in DEXTROSE 5% 100ML 100 ML IV SCH ×3 (02:08→18:57)
[2017-07-14] MEDS: INSULIN ASPART 100 UNITS/ML 3 ML PEN SC SCH ×4 (05:30→21:00)
[2017-07-14 06:05] LABS: HEMATOCRIT 40.3 % (37-47); MEAN CELL VOLUME 98.1 fL (80-100); MEAN CORPUSCULAR HEMOGLOBIN 32.8 pg (25-34); MEAN CORPUSCULAR HGB CONC 33.5 g/dl (32-36); MEAN PLATELET VOLUME 8.7 fL (7.4-10.4); PLATELET COUNT 391 K/uL (130-400); RED BLOOD COUNT 4.11 M/uL (4.2-5.4)
[2017-07-14 06:25] LABS: PARTIAL THROMBOPLASTIN RATIO 3.4
[2017-07-14 06:39] LABS: BUN/CREATININE RATIO 56.4 (10-20); CALCIUM 9.3 mg/dl (8.5-10.1); CREATININE 0.62 mg/dl (0.60-1.20); MAGNESIUM 2.6 mg/dl (1.8-2.4); PHOSPHORUS 2.7 mg/dl (2.5-4.9); POTASSIUM 3.8 mmol/L (3.5-5.1)
[2017-07-14] MEDS: HEPARIN 25,000 UNIT/500ML D5W 500 ML IV PRN ×2 (07:06→18:14)
[2017-07-14] MEDS: AMLODIPINE BESYLATE 5 MG TAB NG SCH (07:51)
[2017-07-14] MEDS: METOPROLOL TARTRATE 50 MG TAB PO SCH ×2 (07:51→20:19)
[2017-07-14] MEDS: LEVOTHYROXINE 100 MCG TAB GT SCH (07:51)
[2017-07-14] MEDS: SODIUM CHLORIDE 1 GM TAB PO SCH ×2 (08:34→20:19)
--- NOTE | 2017-07-14 10:25 | Critical Care Progress Note ---
Critical Care Progress Note Date of Service Jul 14, 2017. ICU Day ICU Day Number: [address] Padron Subjective No acute events overnight. Patient has been more alert/awake, following commands , and reportedly limited speech Objective GENERAL:awake, off sedation, w/o distress EYE EXAM: normal conjunctiva, PERRL and EOM's grossly intact OROPHARYNX: tongue normal and mucous membranes are moist NECK: supple, no nuchal rigidity, no adenopathy LUNGS: Clear to auscultation. HEART: no murmurs, S1 normal and S2 normal ABDOMEN: abdomen soft, non-tender, normo-active bowel sounds, no masses LOWER EXTREMITIES: No pitting edema. NEURO EXAM: s/p extubation, following commands, GCS 11 Current SOFA Score SOFA Score Response (Comments) Value PaO2/FiO2 (mmHg) < 400 1 Platelets (x10) > 150 0 Bilirubin (mg/dL) < 1.2 0 Erickson Coma Score 10 - 12 2 Level of Hypotension No Hypotension 0 Creatinine (mg/dL) < 1.2 0 Total 3 Assessment & Plan 87 yo F w/x h/o Paroxysmal AFIB, HTN, HLD, presented with fever, Acute Confusion /Lethargy and UTI. LP consistent with meningitis vs Encephalitis likely of viral origin, currently on , Acyclovir. 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 No acute process. No change from the prior exam. MRI: No evidence for an acute ischemic insult.Generalized atrophy of the cerebellar as well as cerebral hemispheres MRI (07/06) : appearance is consistent with a nonspecific encephalitis/ cerebritis Repeat LP (07/05) showed decrease in WBC (164-->54), Gram stain neg. cx pending. Glucose, Tot protein remain elevated CSF negative for Lyme ABs, Enterovirus, HSV I,II, [place] virus, Cryptococcal VZV) EBV, CMV pending EEG dated 07/07: Mildly to moderately diffusely abnormal EEG, No evidence of epileptogenic activity or of periodic lateralized epileptiform discharges which may be seen in association with herpetic encephalitis CT (07/09) no significant changes from previous D/C'd Ampicillin and Ceftriaxone (07/07). D/C'd Doxycycline(07/08) Continue Acyclovir Anti-NMDA receptor AB's pending Respiratory: Atelectasis given LL Lung Infiltrate, Pneumonia possible but less likely Chest X-ray(07/12): Stable to slight decrease in left basilar opacity. Infection not excluded s/p extubation today Cardiovascular: Paroxysmal Afib, HTN, HLD HTN: c/w Metoprolol and Amlodipine Afib: converts back and forth from sinus to A fib CV drips: Remains off vasoactive medications Rhythm: Afib EKG: Normal sinus, QTc : 429 Heparin drip per protocol Fluids/Renal: Hyponatremia: Na 135, continue to monitor Hypophosphatemia: resolved Continue 1 gm Salt tabs to BID Mireles: Present GI/Nutrition: diarrhea Feeds held prior to extubation s/p rectal tube Prophylaxis: Not On PPI Bowel movements:2 ( diarrhea) C diff. NEG. Endocrine: Last 24 hour glucose: Ranging 122-125 Insulin protocol: Yes; Drip: No Hematology: Hemoglobin 13.5 Follow CBC's DVT prophylaxis: heparin drip per protocol Infectious Disease/Immunology: suspected Viral Encephalitis of unknown etiology. Tmax: 36.8 Leukocytosis Antimicrobials: Continue Acyclovir Day Cultures: Blood: No growth Blood (Parasitology) on smear: Negative Bronchial washings:Jacy (likely from aspiration, no indication for antifungal ) Urine: No growth MRSA: neg CSF: No growth to date EBV, CMP NEG Disposition: LTAC referral made per Case management Resident Physician Supervision Note: I was present with Dr. Phillip during the history and exam. I discussed the case with the resident and agree with the findings and plan as documented in the note. Any exceptions or clarifications are listed here: In brief, Patient with encephalopathy for over a week with work up which included MRI x 2; EEG x 1; LP x 2 with elevated protein in 80's on empirical Acyclovir; PLAN: Neuro - off sedation for over > 4 days, CSF with elevated protein and overall encephalopathy c/w possibly infectious etiology; Currently on decreased dose Steroids following high dose x 4 days as per Neurology; CSF NDMA receptor Ab pending; to complete Acyclovir course although CPR HSV negative; EBV negative; CMV negative, cyto, Listeria still pending; case d/w Neurology; Will defer management to Neurology 07/14 - much more alert and trying to speak; Pulm - s/p extubated on 07/13; on RA; CV - hemodynamically stable;c/w Metoprolol and Amlodipine; on Enalapriat; A fib - c/w Heparin gtt; If passes swallow eval and no need for PEG will consider switching to Coumadin; ID - Leukocytosis likely from Steroids and improving; still on Acyclovir empirically to complete 21 day. Renal - cr 0.6 Na improved;on salt tabs; Endo -at goal Glu < 180; GI - NGT placed for feeding and tolerating feeds; Awaiting rpt attempt at swallow eval; If fails Swallow eval may need a PEG if this is in accordance to the patient's wishes. Alternatively, we may wait to repeat swallow eval at a later time when the patient's mental status improves; We presented these possible scenarios to the patient's and awaiting her thoughts on what's she thinks the patient would wish. Code status: DNR at this point. However, decision to make patient DNR was done at the time she had no mental status earlier. In light of patient's improved mental status, the patient's was given an opportunity to re assess whether this is still patient's choice. Other - PT/OT; will try to get the patient out of bed if able; I have personally spent 47 minutes of critical care time in the direct management of this patient. This is a life/limb threatening event. This includes time spent evaluating patient, direct bedside care, chart review, placing orders, interpretation of diagnostic studies, discussion with consultants, patient, and family members, as well as other required patient management activities. This time is exclusive of all separately billable procedures, and teaching time and separate from and in addition to any other critical care service time I met with patient's and updated her on patient's current condition and plan of care; As it stands at this point, we are to proceed with reintubation as long as the patient's mental status is appropriate and improving; Case was discussed extensively with the patient's ; Evgeny Causey ( JONATHAN Chung) was present as well; All questions were answered to the best of my knowledge. The expressed understanding of the plan and agreed to it. Case discussed on am rounds; Consults & Procedures Consultants: Infectious Disease Neurology Procedures: extubated 07/[address] DOSE: 614.27 mGy.cm HISTORY: Altered mental status. TECHNIQUE: Multiaxial CT images of the head were performed without the use of intravenous contrast. Automated exposure control was utilized for this study. A dose lowering technique was utilized adhering to the principles of ALARA. Comparison: Brain MRI 07/05/2017. Head CT 07/04/2017. Findings: The paranasal sinuses and mastoid air cells are clear. The calvarium and skull base are intact. There is no mass, hematoma, midline shift, acute infarct. Stable white matter hypodensity. Mild atrophic changes within the brain. Impression: No significant change compared to the prior study. No acute intracranial abnormality. FLUOROSCOPICALLY GUIDED LUMBAR PUNCTURE CLINICAL HISTORY: Evaluate for encephalitis. PROCEDURE: Due to altered mental status and sedation, the procedure, risks and benefits were discussed with the patient's power of consumer attorney including the risk of spinal headache, bleeding and infection. She agreed to the procedure and informed written consent was obtained. The procedure was performed by Dr. Sandoval following a timeout. The right L5-S1 interlaminar space was targeted. Skin overlying the space was prepped and draped in sterile fashion and local anesthesia was achieved with 1% lidocaine. Under intermittent fluoroscopic guidance, a 3 1/2 inch 22-gauge spinal needle was directed into the thecal sac with immediate return of clear CSF. A total of 9 cc of CSF was collected in 4 vials and sent to the laboratory as ordered. The needle was removed. The patient tolerated the procedure well and no immediate complications were evident. [~ rep ct add3]] MRI OF THE BRAIN COMBO CLINICAL HISTORY: Encephalitis. COMPARISON STUDY: CT of the brain dated 07/04/2017. MRI of the brain dated 07/03/2017. TECHNIQUE: MRI of the brain was performed utilizing various T1 and T2-weighted sequences in the axial, sagittal, and coronal planes. Contrast-enhanced sequences were acquired following the administration of 6 cc of Gadavist. FINDINGS: Brain parenchyma: There are age-related involutional changes noting advanced confluent subcortical and periventricular microangiopathic disease. There is no hemorrhage or mass effect. There is patchy T2 signal abnormality seen throughout the cerebellum, and also involving both thalami. There may also be T2 signal abnormality within the white matter; however, this is not well evaluated due to extensive microangiopathic change. Subtle cortical abnormality is identified within the temporal lobes, best appreciated on the FLAIR sequences. Faint restricted diffusion is suggested in these regions that is not typical for ischemia. No enhancing mass lesion is identified on the postcontrast images. There is no leptomeningeal or pachymeningeal enhancement. No extra-axial fluid collection is seen. The cerebellar tonsils are normal in configuration. Ventricles, sulci, and cisterns: Prominent secondary to involutional change. Pituitary and sella: Unremarkable. Intracranial vasculature: Normal flow voids are maintained at the skull base. Orbits: The bony orbits are grossly intact. Orbital contents are normal in appearance noting bilateral ocular lens implants. Sinuses and mastoids: Trace mucosal thickening is seen within the maxillary antra. Mild mucosal thickening is also identified within the ethmoid sinuses. Fluid is noted in the sphenoid sinuses. There is a left mastoid effusion. Fluid is present within the pharynx. Calvarium: Unremarkable. Cervical cord: Partially visualized cervical spinal cord is normal in morphology and signal intensity. IMPRESSION: 1. There is patchy T2 signal abnormality identified, greatest in the cerebellar hemispheres and the thalami. There may also be periventricular matter abnormality; however, this is not well assessed due to significant underlying microangiopathic change. Subtle cortical signal abnormality is seen within the temporal lobes, and these findings are best appreciated on the FLAIR sequence. The appearance is consistent with a nonspecific encephalitis/cerebritis. This could be related to an infectious/viral process or less likely a metabolic or global ischemic insult. Clinical correlation will be essential. 2. No hemorrhage is identified. There is no restricted diffusion identified typical for stroke. 3. There is no enhancing mass. No leptomeningeal/pachymeningeal enhancement is seen. 4. Left mastoid effusion and paranasal sinus disease as above. 5. Fluid is seen layering in the pharynx. IMPRESSION: Fluoroscopically guided lumbar puncture collection of 9 cc of clear CSF. Data Medications: Current Inpatient Medications Medications (Trade) Dose Ordered Sig/Josué Route Start Time Stop Time Status Last Admin Dose Admin Acetaminophen (Tylenol Tab) 650 mg Q4H PRN PO 06/29/17 11:00 07/29/17 10:59 Future Hold 07/03/17 11:07 650 MG Ondansetron HCl (Zofran Inj) 4 mg Q6H PRN IV 06/29/17 11:00 07/29/17 10:59 Aspirin (Ecotrin Tab) 81 mg DAILY PO 06/30/17 08:00 07/30/17 08:59 Future Hold 07/02/17 08:23 81 MG Atorvastatin Calcium (Lipitor Tab) 40 mg DAILY PO 06/30/17 08:00 07/30/17 08:59 Future Hold 07/02/17 08:22 40 MG Calcium/Vitamin D (Caltrate Plus Tab) 2 tab DAILY PO 06/30/17 08:00 07/30/17 07:59 Future Hold 07/02/17 08:23 2 TAB Miscellaneous (Iv Fluids Completed) 1 ea PRN PRN N/A 06/29/17 11:30 06/29/18 11:29 Acyclovir Sodium 650 mg/Dextrose 113 ml @ 110 mls/hr Q8H IV 06/30/17 10:30 07/21/17 10:29 07/14/17 02:08 110 MLS/HR Lactobacillus Acidophilus (Lactinex Granules Pack) 1 gm TIDM PO 07/01/17 07:30 07/31/17 07:29 Future Hold 07/02/17 15:22 1 GM Enalaprilat 0.625 mg/Dextrose 25.5 ml @ 100 mls/hr Q6H PRN IV 07/04/17 09:15 08/03/17 09:14 07/07/17 08:08 100 MLS/HR Acetaminophen (Tylenol Supp) 650 mg Q4H PRN MA 07/05/17 07:30 08/04/17 07:29 Fentanyl Citrate (Fentanyl Inj) 50 mcg Q2H PRN IV 07/05/17 11:15 07/19/17 11:14 07/07/17 14:54 50 MCG Levothyroxine Sodium (Synthroid Tab) 100 mcg DAILY GT 07/06/17 09:00 08/05/17 08:59 07/14/17 07:51 100 MCG Magnesium Hydroxide (Milk Of Magnesia Susp) 30 ml Q6H PRN PO 07/07/17 08:15 08/06/17 08:14 07/07/17 10:46 30 ML Enalaprilat 1.25 mg/Dextrose 26 ml @ 100 mls/hr Q6H PRN IV 07/07/17 11:00 08/06/17 10:59 Hydralazine HCl (HydrALAZINE INJ) 10 mg Q6H PRN IV. 07/07/17 14:45 08/06/17 14:44 07/14/17 02:09 10 MG Amlodipine Besylate (Norvasc Tab) 10 mg QAM NG 07/09/17 09:00 08/07/17 08:59 07/14/17 07:51 10 MG Metoprolol Tartrate (Lopressor Tab) 100 mg BID PO 07/08/17 21:00 08/06/17 08:59 07/14/17 07:51 100 MG Miscellaneous Information (Consult Glycemic Management Pharmacy) 1 ea UD PRN N/A 07/09/17 13:42 08/08/17 13:41 Heparin Sodium (Porcine) (Heparin 10 Unit/ ml 5 ml Flush) 5 ml PRN PRN FLUSH 07/09/17 23:45 08/08/17 23:44 07/12/17 10:41 10 ML Sodium Chloride (Sodium Chloride Tab) 1 gm BID PO 07/12/17 09:00 08/11/17 08:59 07/14/17 08:34 1 GM Heparin Sodium/ Dextrose 500 ml @ 16 mls/hr Q24H PRN IV 07/12/17 09:45 08/11/17 09:44 07/14/17 07:06 16 MLS/HR Labetalol HCl (Normodyne IV) 10 mg Q4 PRN IV 07/12/17 16:00 08/11/17 15:59 07/12/17 17:09 10 MG Enteral Nutritional Formula (Peptamen 1.5) 1,000 ml UD PRN NG 07/13/17 10:45 08/12/17 10:44 07/13/17 12:08 1,000 ML Insulin Aspart (novoLOG ASPART) SLIDING SCALE Q6 SC 07/13/17 18:00 08/12/17 17:59 Vital Signs: Date Time Temp Pulse Resp B/P (MAP) Pulse Ox O2 Delivery O2 Flow Rate FiO2 07/14/17 08:01 86 14 124/76 (94) 96 07/14/17 08:00 95 Room Air 07/14/17 08:00 36.6 72 22 108/64 (79) 97 Room Air 07/14/17 08:00 89 8 96 12/1/17 07:01 80 13 111/58 (73) 96 07/14/17 07:00 84 14 96 07/14/17 06:01 84 14 119/70 (86) 95 07/14/17 06:01 84 14 119/70 (76) 95 07/14/17 06:00 92 16 97 07/14/17 05:01 68 13 112/54 (73) 95 07/14/17 05:01 68 13 112/54 (65) 95 07/14/17 04:01 71 13 106/50 (68) 94 07/14/17 04:01 36.8 71 13 106/50 (70) 94 07/14/17 04:00 96 Room Air 07/14/17 04:00 36.8 76 14 96 07/14/17 03:02 66 10 103/52 (69) 95 Room Air 07/14/17 02:02 78 14 163/96 (118) 96 Room Air 07/14/17 02:00 76 14 163/96 95 07/14/17 01:02 59 14 159/97 (117) 95 Room Air 07/14/17 00:30 59 15 96 07/14/17 00:01 36.4 57 14 154/105 (121) 96 Room Air 07/13/17 23:59 96 Room Air 07/13/17 22:00 58 13 146/97 (113) 96 Room Air 07/13/17 20:00 97 Room Air 07/13/17 20:00 36.5 56 14 129/76 (93) 96 Room Air 07/13/17 18:00 78 16 141/98 (112) 95 Room Air 07/13/17 16:00 95 Room Air 07/13/17 16:00 36.6 66 15 148/79 (102) 95 Room Air 07/13/17 14:00 75 14 132/78 (96) 95 Room Air 07/13/17 12:00 96 Room Air 07/13/17 12:00 36.5 76 14 132/72 (92) 95 Room Air Laboratory Results: Last 24 Hours Test 07/13/17 11:31 07/13/17 16:14 07/13/17 17:50 07/13/17 23:36 Bedside Glucose 106 mg/dl 164 mg/dl 150 mg/dl Activated Partial Thromboplast Time 67.4 SECONDS Partial Thromboplastin Ratio 2.6 Test 07/14/17 05:23 White Blood Count 14.40 K/uL Red Blood Count 4.11 M/uL Hemoglobin 13.5 g/dL Hematocrit 40.3 % Mean Corpuscular Volume 98.1 fL Mean Corpuscular Hemoglobin 32.8 pg Mean Corpuscular Hemoglobin Concent 33.5 g/dl RDW Standard Deviation 45.9 fL RDW Coefficient of Variation 13.3 % Platelet Count 391 K/uL Mean Platelet Volume 8.7 fL Activated Partial Thromboplast Time 88.8 SECONDS Partial Thromboplastin Ratio 3.4 Sodium Level 135 mmol/L Potassium Level 3.8 mmol/L Chloride Level 101 mmol/L Carbon Dioxide Level 29 mmol/L Anion Gap 5.0 mmol/L Blood Urea Nitrogen 35 mg/dl Creatinine 0.62 mg/dl Est Creatinine Clear Calc Drug Dose 63.3 ml/min Estimated GFR () 94.6 Estimated GFR (Non- 81.6 BUN/Creatinine Ratio 56.4 Bedside Glucose 122 mg/dl Random Glucose 125 mg/dl Calcium Level 9.3 mg/dl Phosphorus Level 2.7 mg/dl Magnesium Level 2.6 mg/dl Resident Tracking Resident Involvement: Resident Care Provided Care Provided: Adult Hospital Medicine
--- NOTE | 2017-07-14 10:27 | Progress Note ---
Internal Med Progress Note Date of Service: Jul 14, 2017. Provider Documentation: SUBJECTIVE: The patient was seen and examined S/P Extubation Remains very lethargic and semiresponsive A little better today -very minimal communication OBJECTIVE: Vital Signs-as noted below Exam: General-Minimal communication No apparent distress Eyes-Closed ENT-Normal Neck-Supple Lungs-Decreased breaths sound bilaterally at the bases Heart-Regular,no murmur appreciated Abdomen-Benign Extremities-No edema Neuro-Sedated on Vent Minimal response to painful stimuli and to vocal commands Lab data as noted below. ASSESSMENT & PLAN: ALTERED MENTAL STATUS :possible Viral Encephalitis Presented with progressive confusion of short duration CT head demonstrated chronic microvascular changes, no acute findings. Altered mental status initially attributed to UTI and or Febrile Illness Recent outpatient urine culture grew E coli. UA at time of admission showed moderate leukocyte esterase, many WBC's, many epith cells, no bacteria. Initially received IV ceftriaxone. Urine culture subsequently grew more than 3 organisms, probable skin mariel. Blood cultures at time of admission were negative. DOPE MIXER infection was considered in light of fever and altered mental status. Antibiotic coverage was broadened (high dose ceftriaxone, vancomycin, ampicillin , acyclovir). LP performed after adjusting the INR LP performed, results as noted:Suggestive of Viral Meningitis::/Encephalitis Item Value Date Time CSF Appearance CLEAR 07/01/17 1000 CSF Color COLORLESS 07/01/17 1000 CSF WBC 164 /uL *H 07/01/17 1000 CSF RBC 2 /uL 07/01/17 1000 CSF Cell Count Tube # 3 07/01/17 1000 CSF Mononuclear WBCs 99.0 % 07/01/17 1000 CSF Polynuclear WBCs 1.0 % 07/01/17 1000 CSF Chemistry Tube # 1 07/01/17 1000 CSF Glucose 86 mg/dl H 07/01/17 1000 CSF Total Protein 79.3 mg/dl H 07/01/17 1000 CSF gram stain negative. CSF cultures negative so far. Cryptococcal Ag negative. CSF Lyme PCR and antibodies negative. CSF HSV 1/2 PCR negative. CSF Enterovirus PCR negative. CSF West Nile PCR negative. Vancomycin, ampicillin, dexamethasone discontinued. Ceftriaxone and acyclovir were continued. Appreciate ID recommendation Worsening confusion 07/03. Neuro consulted-appreciate Input MRI performed 07/03 had some motion artifact, but did not show any acute changes. EEG- moderate diffuse nonlateralizing encephalopathy, no apparent epileptogenic foci. Repeat LP 07/05/17: Item Value Date Time CSF WBC 57 /uL *H 07/05/17 1539 CSF RBC 41 /uL 07/05/17 1539 CSF Cell Count Tube # 3 07/05/17 1539 CSF Mononuclear WBCs 100.0 % 07/05/17 1539 CSF Glucose 76 mg/dl H 07/05/17 1539 CSF Total Protein 81.0 mg/dl H 07/05/17 1539 CSF culture negative. MRI with contrast 07/05/17 demonstrated T2 abnormalities in cerebellum and thalami as well as some subtle findings within temporal lobes. Listeria unlikely- ampicillin discontinued. Lyme, pneumococcal pneumonia ruled out- ceftriaxone discontinued. Tick-borne illness PCR panel negative. Stopped doxycycline. Continue acyclovir- today is day # 07/04. Viral Serologies -negative Empiric trial of methylprednisolone recommended by Neurology for possible autoimmune disease. CSF NMDA receptor antibody level pending. Repeat CT head 07/09 unchanged (no acute findings). Continue supportive measures. Clinically stable but remains unresponsive -sedated on Vent Tapering dose of Solumedrol started ,clinically a little better 07/12 Clinically a little better RESPIRATORY Intubated for airway protection. Oxygenating well on 30% FIO2. Possible need for trach for pulmonary toilet discussed with family. Management per CCM. S/P Extubation -remains very drowsy and semiresponsive LLL DENSITY Chest x-ray 07/03 showed LLL density, infiltrate vs atelectasis. Started on IV piperacillin / tazobactam for possible pneumonia. Bronchoscopy performed 07/05; sputum culture from bronch grew only scant normal mariel and Jacy (probable contamination / colonization). Repeat CXR-Persistence of the LLL infiltration -likely Pneumonia Will put on antibiotic after discussing with the CCM No antibiotics-increase WCC is likely due to Steroid PAROXYSMAL ATRIAL FIB Unable to take oral metoprolol due to NPO status. Converted to parenteral metoprolol. Best not to maintain full anticoagulation at this time due to critical illness, procedures, etc. Remains in SR with PAC's. On IV heparin now Resume warfarin when able. HYPERTENSION Unable to take oral meds due to NPO status. Converted metoprolol to IV --> GT. Added amlodipine via GT. BP's lower today. Hold parameters ordered. IV enalapril PRN. BP seems to be stable now HYPONATREMIA Serum sodium 141 --> --> 128--> --> 131 --> --> 126. 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 Sodium level improved to 132 on 07/11 Normalized HYPOKALEMIA K as low as 3.1. Receiving replacement. Remains low will supplement Monitor HYPOTHYROIDISM Levothyroxine via OGT. NUTRITION Receiving enteral feedings via OGT. Continue NGT feeding for now May need PEG tube placement if can not eat by mouth HYPERGLYCEMIA Serum glucose this morning 163. Hyperglycemia secondary to methylprednisolone therapy. Management per protocol. VTE PROPHYLAXIS On warfarin at time of admission which was subsequently held / reversed due to ICU status and multiple procedures. Continue enoxaparin. SCD's. DISPOSITION To be determined. Case Management following. Family Medicine follow-up with Dr. Mosley. Spouse Ms. Cortes at bedside and given update on 07/11 . Consultants: [facility] Neurology . Procedures: CT head 06/29/17 CT head 06/30/17 LP under fluoro guidance 07/01/17 CT head 07/03/17 MRI brain 07/03/17 CT head 07/04/17 endotracheal intubation 07/05/17 mechanical ventilation 07/05/17 bronchoscopy 07/05/17 MRI brain with contrast 07/05/17 LP under fluoro guidance 06/25/17 Extubation-07/12/17 . Discussed with the significant other Clinically a little better today -discussed with the Significant other Vital Signs: Date Time Temp Pulse Resp B/P (MAP) Pulse Ox O2 Delivery O2 Flow Rate FiO2 07/14/17 08:01 86 14 124/76 (94) 96 07/14/17 08:00 95 Room Air 07/14/17 08:00 36.6 72 22 108/64 (79) 97 Room Air 07/14/17 08:00 89 8 96 07/14/17 07:01 80 13 111/58 (73) 96 07/14/17 07:00 84 14 96 07/14/17 06:01 84 14 119/70 (86) 95 07/14/17 06:01 84 14 119/70 (76) 95 07/14/17 06:00 92 16 97 07/14/17 05:01 68 13 112/54 (73) 95 07/14/17 05:01 68 13 112/54 (65) 95 07/14/17 04:01 71 13 106/50 (68) 94 07/14/17 04:01 36.8 71 13 106/50 (70) 94 07/14/17 04:00 96 Room Air 07/14/17 04:00 36.8 76 14 96 07/14/17 03:02 66 10 103/52 (69) 95 Room Air 07/14/17 02:02 78 14 163/96 (118) 96 Room Air 07/14/17 02:00 76 14 163/96 95 07/14/17 01:02 59 14 159/97 (117) 95 Room Air 07/14/17 00:30 59 15 96 07/14/17 00:01 36.4 57 14 154/105 (121) 96 Room Air 07/13/17 23:59 96 Room Air 07/13/17 22:00 58 13 146/97 (113) 96 Room Air 07/13/17 20:00 97 Room Air 07/13/17 20:00 36.5 56 14 129/76 (93) 96 Room Air 07/13/17 18:00 78 16 141/98 (112) 95 Room Air 07/13/17 16:00 95 Room Air 07/13/17 16:00 36.6 66 15 148/79 (102) 95 Room Air 07/13/17 14:00 75 14 132/78 (96) 95 Room Air 07/13/17 12:00 96 Room Air 07/13/17 12:00 36.5 76 14 132/72 (92) 95 Room Air Lab Results: Results Past 24 Hours Test 07/13/17 11:31 07/13/17 16:14 07/13/17 17:50 07/13/17 23:36 Range/Units Bedside Glucose 106 164 150 70-90 mg/dl Activated Partial Thromboplast Time 67.4 21.0-31.0 SECONDS Partial Thromboplastin Ratio 2.6 Test 07/14/17 05:23 Range/Units White Blood Count 14.40 4.8-10.8 K/uL Red Blood Count 4.11 4.2-5.4 M/uL Hemoglobin 13.5 12.0-16.0 g/dL Hematocrit 40.3 37-47 % Mean Corpuscular Volume 98.1 80-100 fL Mean Corpuscular Hemoglobin 32.8 25-34 pg Mean Corpuscular Hemoglobin Concent 33.5 32-36 g/dl RDW Standard Deviation 45.9 36.4-46.3 fL RDW Coefficient of Variation 13.3 11.5-14.5 % Platelet Count 391 130-400 K/uL Mean Platelet Volume 8.7 7.4-10.4 fL Activated Partial Thromboplast Time 88.8 21.0-31.0 SECONDS Partial Thromboplastin Ratio 3.4 Sodium Level 135 136-145 mmol/L Potassium Level 3.8 3.5-5.1 mmol/L Chloride Level 101 98-107 mmol/L Carbon Dioxide Level 29 21-32 mmol/L Anion Gap 5.0 3-11 mmol/L Blood Urea Nitrogen 35 7-18 mg/dl Creatinine 0.62 0.60-1.20 mg/dl Est Creatinine Clear Calc Drug Dose 63.3 ml/min Estimated GFR () 94.6 Estimated GFR (Non- 81.6 BUN/Creatinine Ratio 56.4 10-20 Bedside Glucose 122 70-90 mg/dl Random Glucose 125 70-99 mg/dl Calcium Level 9.3 8.5-10.1 mg/dl Phosphorus Level 2.7 2.5-4.9 mg/dl Magnesium Level 2.6 1.8-2.4 mg/dl
[2017-07-14] MEDS ORDERED: METHYLPREDNISOLONE IV 80 MG in SYRINGE 0 ML IV SCH (11:00)
--- NOTE | 2017-07-14 11:33 | Pharmacy Progress Note ---
Pharmacy Glycemic Short Note 2 Date of Service Jul 14, 2017. Outpatient Anti-diabetic Regimen: * None Risk Factors for Insulin Resistance: * Steroids: SoluMedrol IV taper (80 --> 60 --> 40 --> 20 --> 10mg, d/c) * Infection: ?viral meningitis, on acyclovir * Diet: Peptamen bariatric @ 30mL/hr (goal: 45mL/hr) * Mechanical Ventilation: no ASSESSMENT: * 87 yo F with AMS, unknown etiology. Viral meningitis vs. autoimmune encephalitis vs. other. * Not diabetic at baseline, but was experiencing steroid-induced hyperglycemia due to very high dose methylprednisolone * SoluMedrol now tapering daily until stopped (in approx 5 days). * Patient has been extubated, but remains only sporadically responsive and is not yet able to take anything by mouth. * Patient's BSGs have been well-controlled with no insulin for 24+ hours. * Frequency of Novolog coverage/accu-checks has been reduced to q6h. Expect that insulin can probably be stopped altogether if BSGs remain stable with steroid taper and titration of tube feeds to goal. PLAN FOR INPATIENT GLYCEMIC CONTROL: * No basal insulin needed at this time. * Correctional Insulin with NOVOLOG q6h * Goal Range: Low 140 mg/dL - High 180 mg/dL * Correction Factor: 35 mg/dL/unit * Nutritional / Prandial insulin per carb ratio of 1 unit per 15 grams CHO consumed cover CHO from tube feeds if patient becomes hyperglycemic with tube feed titration * Please note that the plan above was derived based on current level of insulin resistance and hospital stress. These recommendations are appropriate for inpatient admission only. Plan of care upon discharge will need to be reassessed to avoid potential outpatient hypo/hyperglycemia. Thank you.
[2017-07-14 14:10] LABS: PARTIAL THROMBOPLASTIN RATIO 2.4
--- NOTE | 2017-07-14 17:59 | PROGRESS NOTE ---
DATE: 07/14/2017 SUBJECTIVE: I am seeing Mrs. Venegas in followup for presumed viral meningitis. I have last her approximately 10 days ago. She continue to decline somewhat, methylprednisolone was added to her regimen. It appears that she was intubated at some point after I had seen her last. Fortunately having reinstituted steroids, she has begun to wake up. She has not yet been alert enough to have a swallowing study. Her EEG was repeated and showed no epileptogenic discharges and the EEG showed slow activity. A repeat lumbar puncture showed a decline in the CSF leukocytosis. OBJECTIVE: GENERAL: On exam, she is sleepy but arousable, looks around the room, does not follow any commands currently. VITAL SIGNS: 36.5, 65, 12, 110/65, 95%. NEUROLOGIC: No rigidity is noted. No seizure activity is noted. No posturing is noted. Tone appears normal throughout. 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 NMDA receptor antibody continues to be pending. There has been no evidence of seizure. I see some positive evidence of improvement including decreased csf wbc and improved at EEG. Dr. Ingram had laid out a plan of gradually tapering her Solu-Medrol such as 80 mg for several days, 60 for several then 40, 20, 10. I will continue to follow with you. HILARIO
[2017-07-14] MEDS ORDERED: INSULIN ASPART 100 UNITS/ML 3 ML PEN SC SCH (20:00)
[2017-07-14] MEDS ORDERED: INSULIN IV INFUSION PROTOCOL STA (20:34)
[2017-07-14] MEDS: PEPTAMEN 1.5 CAL 1000ML BAG NG PRN (20:39)
[2017-07-14] MEDS ORDERED: INSULIN PROTOCOL GOAL RANGE ONE (20:45)
[2017-07-14] MEDS ORDERED: NovoLIN R BOLUS FROM BAG IV ONE (20:45)
[2017-07-14] MEDS ORDERED: SEVERE STRESS LEVEL ONE (20:45)
[2017-07-14] MEDS ORDERED: INSULIN REGULAR 250 UNITS in SODIUM CHLORIDE 0.9% 250ML 250 ML IV SCH (21:00)
[2017-07-15] VITALS (18 sets, daily range): BP systolic 94–151; BP diastolic 48–91; PULSE 56–98; TEMP 36.3–36.9; O2SAT 94–97
[2017-07-15] MEDS: ACYCLOVIR SOD INJ 650 MG in DEXTROSE 5% 100ML 100 ML IV SCH ×3 (02:32→19:09)
[2017-07-15 06:45] LABS: HEMATOCRIT 39.7 % (37-47); MEAN CELL VOLUME 98.3 fL (80-100); MEAN CORPUSCULAR HEMOGLOBIN 32.9 pg (25-34); MEAN CORPUSCULAR HGB CONC 33.5 g/dl (32-36); MEAN PLATELET VOLUME 8.9 fL (7.4-10.4); PLATELET COUNT 353 K/uL (130-400); RED BLOOD COUNT 4.04 M/uL (4.2-5.4); WHITE BLOOD COUNT 15.78 K/uL (4.8-10.8)
[2017-07-15 07:03] LABS: PARTIAL THROMBOPLASTIN RATIO 2.5
[2017-07-15 07:24] LABS: BUN/CREATININE RATIO 43.7 (10-20); CALCIUM 9.1 mg/dl (8.5-10.1); MAGNESIUM 2.7 mg/dl (1.8-2.4); PHOSPHORUS 3.4 mg/dl (2.5-4.9); POTASSIUM 3.9 mmol/L (3.5-5.1)
[2017-07-15 07:25] LABS: CREATININE 1.37 mg/dl (0.60-1.20)
[2017-07-15] MEDS: INSULIN ASPART 100 UNITS/ML 3 ML PEN SC SCH ×3 (08:00→20:59)
[2017-07-15] MEDS ORDERED: INSULIN GLARGINE SOLOSTAR 100 UNITS/ML 3 ML PEN SC ONE (08:30)
[2017-07-15] MEDS: SODIUM CHLORIDE 1 GM TAB PO SCH ×2 (09:01→21:04)
[2017-07-15] MEDS: LEVOTHYROXINE 100 MCG TAB GT SCH (09:01)
[2017-07-15] MEDS: METOPROLOL TARTRATE 50 MG TAB PO SCH ×2 (09:01→21:03)
[2017-07-15] MEDS: AMLODIPINE BESYLATE 5 MG TAB NG SCH (09:01)
[2017-07-15] MEDS ORDERED: METHYLPREDNISOLONE IV 60 MG in SYRINGE 0 ML IV SCH (11:00)
--- NOTE | 2017-07-15 11:22 | Progress Note ---
Internal Med Progress Note Date of Service: Jul 15, 2017. Provider Documentation: SUBJECTIVE: The patient was seen and examined S/P Extubation Remains very lethargic and semiresponsive No further improvement OBJECTIVE: Vital Signs-as noted below Exam: General-Minimal communication No apparent distress Eyes-Closed ENT-Normal Neck-Supple Lungs-Decreased breaths sound bilaterally at the bases Heart-Regular,no murmur appreciated Abdomen-Benign Extremities-No edema Neuro-Sedated on Vent Minimal response to painful stimuli and to vocal commands Lab data as noted below. ASSESSMENT & PLAN: ALTERED MENTAL STATUS :possible Viral Encephalitis Presented with progressive confusion of short duration CT head demonstrated chronic microvascular changes, no acute findings. Altered mental status initially attributed to UTI and or Febrile Illness Recent outpatient urine culture grew E coli. UA at time of admission showed moderate leukocyte esterase, many WBC's, many epith cells, no bacteria. Initially received IV ceftriaxone. Urine culture subsequently grew more than 3 organisms, probable skin mariel. Blood cultures at time of admission were negative. 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 Antibiotic coverage was broadened (high dose ceftriaxone, vancomycin, ampicillin , acyclovir). LP performed after adjusting the INR LP performed, results as noted:Suggestive of Viral Meningitis::/Encephalitis Item Value Date Time CSF Appearance CLEAR 07/01/17 1000 CSF Color COLORLESS 07/01/17 1000 CSF WBC 164 /uL *H 07/01/17 1000 CSF RBC 2 /uL 07/01/17 1000 CSF Cell Count Tube # 3 07/01/17 1000 CSF Mononuclear WBCs 99.0 % 07/01/17 1000 CSF Polynuclear WBCs 1.0 % 07/01/17 1000 CSF Chemistry Tube # 1 07/01/17 1000 CSF Glucose 86 mg/dl H 07/01/17 1000 CSF Total Protein 79.3 mg/dl H 07/01/17 1000 CSF gram stain negative. CSF cultures negative so far. Cryptococcal Ag negative. CSF Lyme PCR and antibodies negative. CSF HSV 1/2 PCR negative. CSF Enterovirus PCR negative. CSF West Nile PCR negative. Vancomycin, ampicillin, dexamethasone discontinued. Ceftriaxone and acyclovir were continued. Appreciate ID recommendation Worsening confusion 07/03. Neuro consulted-appreciate Input MRI performed 07/03 had some motion artifact, but did not show any acute changes. EEG- moderate diffuse nonlateralizing encephalopathy, no apparent epileptogenic foci. Repeat LP 07/05/17: Item Value Date Time CSF WBC 57 /uL *H 07/05/17 1539 CSF RBC 41 /uL 07/05/17 1539 CSF Cell Count Tube # 3 07/05/17 1539 CSF Mononuclear WBCs 100.0 % 07/05/17 1539 CSF Glucose 76 mg/dl H 07/05/17 1539 CSF Total Protein 81.0 mg/dl H 07/05/17 1539 CSF culture negative. MRI with contrast 07/05/17 demonstrated T2 abnormalities in cerebellum and thalami as well as some subtle findings within temporal lobes. Listeria unlikely- ampicillin discontinued. Lyme, pneumococcal pneumonia ruled out- ceftriaxone discontinued. Tick-borne illness PCR panel negative. Stopped doxycycline. Continue acyclovir- continue for 21 days in total or as recommended by the Specialist Viral Serologies -negative Empiric trial of methylprednisolone recommended by Neurology for possible autoimmune disease. CSF NMDA receptor antibody level pending. Repeat CT head 07/09 unchanged (no acute findings). Continue supportive measures. Clinically stable but remains unresponsive -sedated on Vent Tapering dose of Solumedrol started ,clinically a little better 07/12 Remains critical but stable RESPIRATORY Intubated for airway protection. Oxygenating well on 30% FIO2. Possible need for trach for pulmonary toilet discussed with family. Management per CCM. S/P Extubation -remains very drowsy and semiresponsive Will need Reintubation in case of Respiratory arrest LLL DENSITY Chest x-ray 07/03 showed LLL density, infiltrate vs atelectasis. Started on IV piperacillin / tazobactam for possible pneumonia. Bronchoscopy performed 07/05; sputum culture from bronch grew only scant normal mariel and Jacy (probable contamination / colonization). Repeat CXR-Persistence of the LLL infiltration -likely Pneumonia Will put on antibiotic after discussing with the CCM No antibiotics-increase WCC is likely due to Steroid CXR shows decrease in infiltration PAROXYSMAL ATRIAL FIB Unable to take oral metoprolol due to NPO status. Converted to parenteral metoprolol. Best not to maintain full anticoagulation at this time due to critical illness, procedures, etc. Remains in SR with PAC's. On IV heparin now Resume warfarin when able. HYPERTENSION Unable to take oral meds due to NPO status. Converted metoprolol to IV --> GT. Added amlodipine via GT. BP's lower today. Hold parameters ordered. IV enalapril PRN and IV Labetalol BP seems to be stable now HYPONATREMIA Serum sodium 141 --> --> 128--> --> 131 --> --> 126. 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 Sodium level improved to 132 on 07/11 Normalized HYPOKALEMIA K as low as 3.1. Receiving replacement. Remains low will supplement Monitor HYPOTHYROIDISM Levothyroxine via OGT. NUTRITION Receiving enteral feedings via OGT. Continue NGT feeding for now May need PEG tube placement if can not eat by mouth HYPERGLYCEMIA Serum glucose this morning 163. Hyperglycemia secondary to methylprednisolone therapy. Management per protocol. VTE PROPHYLAXIS On warfarin at time of admission which was subsequently held / reversed due to ICU status and multiple procedures. Continue enoxaparin. SCD's. DISPOSITION To be determined. Case Management following. Family Medicine follow-up with Dr. Mosley. Spouse Ms. Cortes at bedside and given update on 07/11 . Consultants: [facility] Neurology . Procedures: CT head 06/29/17 CT head 06/30/17 LP under fluoro guidance 07/01/17 CT head 07/03/17 MRI brain 07/03/17 CT head 07/04/17 endotracheal intubation 07/05/17 mechanical ventilation 07/05/17 bronchoscopy 07/05/17 MRI brain with contrast 07/05/17 LP under fluoro guidance 06/25/17 Extubation-07/12/17 . Discussed with the significant other Clinically a little better today -discussed with the Significant other Discussed with the significant other NO CPR in case of Cardiac arrest Intubation in case of Respiratory arrest Will transfer to [facility] Vital Signs: Date Time Temp Pulse Resp B/P (MAP) Pulse Ox O2 Delivery O2 Flow Rate FiO2 07/15/17 09:01 88 20 148/91 (110) 96 Room Air 07/15/17 08:01 36.6 73 16 124/74 (91) 97 Room Air 07/15/17 08:00 Room Air 07/15/17 07:00 98 15 150/90 (110) 96 Room Air 07/15/17 06:00 69 14 143/67 (72) 96 07/15/17 06:00 69 17 143/67 (92) 96 07/15/17 04:01 94 16 135/57 (81) 95 07/15/17 04:00 95 Room Air 07/15/17 03:02 81 16 142/48 (91) 96 07/15/17 03:02 36.9 81 14 142/48 (79) 96 Room Air 07/15/17 02:00 61 14 94/60 (71) 95 Room Air 07/15/17 00:11 67 16 134/73 (92) 96 07/15/17 00:11 36.9 67 17 134/73 (93) 96 Room Air 07/14/17 23:59 95 Room Air 07/14/17 22:00 75 12 128/67 (87) 95 Room Air 07/14/17 20:00 97 Room Air 07/14/17 20:00 36.9 94 12 119/60 (79) 95 Room Air 07/14/17 18:00 94 16 113/75 (88) 95 Room Air 07/14/17 16:00 36.5 65 12 110/65 (80) 95 Room Air 07/14/17 16:00 95 Room Air 07/14/17 14:00 87 18 115/68 (84) 95 Room Air 07/14/17 12:00 83 20 105/56 (72) 97 Room Air 07/14/17 12:00 95 Mechanical Ventilator Lab Results: Results Past 24 Hours Test 07/14/17 11:56 07/14/17 13:26 07/14/17 17:32 07/14/17 18:09 Range/Units Bedside Glucose 128 257 235 70-90 mg/dl Activated Partial Thromboplast Time 63.5 21.0-31.0 SECONDS Partial Thromboplastin Ratio 2.4 Test 07/14/17 20:29 07/14/17 21:52 07/14/17 23:30 07/15/17 00:36 Range/Units Bedside Glucose 233 156 173 167 70-90 mg/dl Test 07/15/17 01:31 07/15/17 02:35 07/15/17 03:31 07/15/17 04:33 Range/Units Bedside Glucose 136 160 217 199 70-90 mg/dl Test 07/15/17 05:29 07/15/17 05:34 07/15/17 06:36 07/15/17 08:01 Range/Units White Blood Count 15.78 4.8-10.8 K/uL Red Blood Count 4.04 4.2-5.4 M/uL Hemoglobin 13.3 12.0-16.0 g/dL Hematocrit 39.7 37-47 % Mean Corpuscular Volume 98.3 80-100 fL Mean Corpuscular Hemoglobin 32.9 25-34 pg Mean Corpuscular Hemoglobin Concent 33.5 32-36 g/dl RDW Standard Deviation 47.1 36.4-46.3 fL RDW Coefficient of Variation 13.6 11.5-14.5 % Platelet Count 353 130-400 K/uL Mean Platelet Volume 8.9 7.4-10.4 fL Activated Partial Thromboplast Time 64.6 21.0-31.0 SECONDS Partial Thromboplastin Ratio 2.5 Sodium Level 137 136-145 mmol/L Potassium Level 3.9 3.5-5.1 mmol/L Chloride Level 104 98-107 mmol/L Carbon Dioxide Level 26 21-32 mmol/L Anion Gap 7.0 3-11 mmol/L Blood Urea Nitrogen 60 7-18 mg/dl Creatinine 1.37 0.60-1.20 mg/dl Est Creatinine Clear Calc Drug Dose 27.4 ml/min Estimated GFR () 40.4 Estimated GFR (Non- 34.8 BUN/Creatinine Ratio 43.7 10-20 Random Glucose 160 70-99 mg/dl Calcium Level 9.1 8.5-10.1 mg/dl Phosphorus Level 3.4 2.5-4.9 mg/dl Magnesium Level 2.7 1.8-2.4 mg/dl Bedside Glucose 267 147 147 70-90 mg/dl Test 07/15/17 09:10 07/15/17 10:04 Range/Units Bedside Glucose 143 150 70-90 mg/dl
[2017-07-15] MEDS ORDERED: INSULIN ASPART 100 UNITS/ML 3 ML PEN SC SCH (12:00)
--- NOTE | 2017-07-15 12:02 | PROGRESS NOTE ---
DATE: 07/15/2017 SUBJECTIVE: Mrs. Venegas is seen in followup of what is presumably a viral meningitis. She remains on acyclovir. Dr. Ingram had raised the question whether or not this could be a perineoplastic syndrome and ordered an MVA on the CSF that remains pending. The patient clinically has never had any seizures and her second EEG of 2 showed an improved alpha rhythm. OBJECTIVE: VITAL SIGNS: Temperature 36.6, blood pressure 148/91, pulse 88, respirations 20, O2 sat 96%. NEUROLOGICAL: The patient is sleepy, will occasionally tracking to name, follows no commands, does withdraw to painful stimulation per nursing. There are some volitional movement of the head. No fixed eye or gaze preference. Eye movements are conjugate and roving. There is some minor increase in tone in the right upper extremity compared to the left upper and toes are downgoing. 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 We will continue the Solu-Medrol taper and acyclovir, per infectious disease. I spoke to the patient's . Will continue to follow. HILARIO
--- NOTE | 2017-07-15 13:58 | Pharmacy Progress Note ---
Pharmacy Glycemic Short Note 2 Date of Service Jul 15, 2017. Outpatient Anti-diabetic Regimen: * None Risk Factors for Insulin Resistance: * Steroids: SoluMedrol IV taper (60mg today --> 40 --> 20 --> 10mg, d/c) * Infection: ?viral meningitis, on acyclovir * Diet: Peptamen bariatric @ goal of 45mL/hr * Mechanical Ventilation: no ASSESSMENT: * 87 yo F with AMS, unknown etiology. Viral meningitis vs. autoimmune encephalitis vs. other. * Not diabetic at baseline, but was experiencing steroid-induced hyperglycemia due to very high dose methylprednisolone * SoluMedrol now tapering daily until stopped (in approx 4 days). * Patient has been extubated, but remains only sporadically responsive and is not yet able to take anything by mouth. * Patient's BSGs went above goal last evening, insulin drip started and ran x ~ 18 hours (rate = 0.6-1units/hr), pt ready to transition off to basal bolus PLAN FOR INPATIENT GLYCEMIC CONTROL: * Lantus 20 units x 1 at 0900 * Discontinue IV Insulin infusion at 1100 * Correctional Insulin with NOVOLOG q4h * Goal Range: Low 140 mg/dL - High 180 mg/dL * Correction Factor: 25 mg/dL/unit * No Nutritional / Prandial insulin at this time, may add carb ratio to cover carbs in Peptamen if needed
[2017-07-15] MEDS: PEPTAMEN 1.5 CAL 1000ML BAG NG PRN (19:24)
[2017-07-15] MEDS: INSULIN GLARGINE SOLOSTAR 100 UNITS/ML 3 ML PEN SC SCH (21:00)
[2017-07-16] VITALS (8 sets, daily range): BP systolic 115–155; BP diastolic 51–81; PULSE 60–79; TEMP 36.3–37.2; O2SAT 90–97
[2017-07-16] MEDS: ACYCLOVIR SOD INJ 650 MG in DEXTROSE 5% 100ML 100 ML IV SCH ×3 (02:33→18:18)
[2017-07-16] MEDS: HEPARIN 25,000 UNIT/500ML D5W 500 ML IV PRN (03:55)
[2017-07-16] MEDS: INSULIN ASPART 100 UNITS/ML 3 ML PEN SC SCH ×6 (04:00→19:54)
[2017-07-16 09:12] LABS: HEMATOCRIT 39.5 % (37-47); MEAN CELL VOLUME 98.5 fL (80-100); MEAN CORPUSCULAR HEMOGLOBIN 33.4 pg (25-34); MEAN CORPUSCULAR HGB CONC 33.9 g/dl (32-36); MEAN PLATELET VOLUME 8.9 fL (7.4-10.4); PLATELET COUNT 332 K/uL (130-400); RED BLOOD COUNT 4.01 M/uL (4.2-5.4); WHITE BLOOD COUNT 17.86 K/uL (4.8-10.8)
[2017-07-16] MEDS: SODIUM CHLORIDE 1 GM TAB PO SCH ×2 (09:21→19:55)
[2017-07-16] MEDS: AMLODIPINE BESYLATE 5 MG TAB NG SCH (09:21)
[2017-07-16] MEDS: LEVOTHYROXINE 100 MCG TAB GT SCH (09:21)
[2017-07-16] MEDS: METOPROLOL TARTRATE 50 MG TAB PO SCH ×2 (09:22→19:57)
[2017-07-16 09:36] LABS: PARTIAL THROMBOPLASTIN RATIO 2.1
[2017-07-16 09:40] LABS: BUN/CREATININE RATIO 47.7 (10-20); CALCIUM 9.6 mg/dl (8.5-10.1); CREATININE 1.23 mg/dl (0.60-1.20); MAGNESIUM 2.6 mg/dl (1.8-2.4); PHOSPHORUS 3.5 mg/dl (2.5-4.9); POTASSIUM 3.9 mmol/L (3.5-5.1)
[2017-07-16] MEDS ORDERED: METHYLPREDNISOLONE IV 40 MG in SYRINGE 0 ML IV SCH (11:00)
--- NOTE | 2017-07-16 11:34 | PROGRESS NOTE ---
DATE: 07/16/2017 SUBJECTIVE: I am seeing Mrs. Venegas in followup of likely viral meningitis. She continues on a tapering dose of Solu-Medrol as well as continued acyclovir. Her serum NMDA remains pending. She has not had any noted seizures. PHYSICAL EXAMINATION: She is more alert. Her eyes are conjugate and roving. There is some volitional movements of the head. No significant volitional movement of the arms or legs. There is mild increase in tone in the uppers. IMPRESSION AND PLAN: The patient has what appears to be a viral meningitis with sequellae of the same. 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 I discussed with the who feels she was doing somewhat better earlier Monday. This may fluctuate and in general I see evidence since I have been seen her on Monday of some mild improvement. Were she to decline, we certainly could reconsider the tapering of the Solu-Medrol and reinstituting a higher dose. I spent a total of 20 minutes with the patient and her , answering all questions including some related to advanced directives, options for treatment, home care with hospice. We will follow with you. IHLARIO
--- NOTE | 2017-07-16 12:25 | Progress Note ---
Internal Med Progress Note Date of Service: Jul 16, 2017. Provider Documentation: SUBJECTIVE: The patient was seen and examined S/P Extubation Remains very lethargic and semiresponsive Fluctuating responsiveness as per the significant other No significant improvement OBJECTIVE: Vital Signs-as noted below Exam: General-Minimal communication -opens eyes No apparent distress Breaths heavily Eyes-Closed ENT-Normal Neck-Supple Lungs-Decreased breaths sound bilaterally at the bases Heart-Regular,no murmur appreciated Abdomen-Benign Extremities-No edema Neuro-remains unresponsive Minimal response to painful stimuli and to vocal commands Lab data as noted below. ASSESSMENT & PLAN: ALTERED MENTAL STATUS :possible Viral Encephalitis Presented with progressive confusion of short duration CT head demonstrated chronic microvascular changes, no acute findings. Altered mental status initially attributed to UTI and or Febrile Illness Recent outpatient urine culture grew E coli. UA at time of admission showed moderate leukocyte esterase, many WBC's, many epith cells, no bacteria. Initially received IV ceftriaxone. Urine culture subsequently grew more than 3 organisms, probable skin mariel. Blood cultures at time of admission were negative. 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 Antibiotic coverage was broadened (high dose ceftriaxone, vancomycin, ampicillin , acyclovir). LP performed after adjusting the INR LP performed, results as noted:Suggestive of Viral Meningitis::/Encephalitis Item Value Date Time CSF Appearance CLEAR 07/01/17 1000 CSF Color COLORLESS 07/01/17 1000 CSF WBC 164 /uL *H 07/01/17 1000 CSF RBC 2 /uL 07/01/17 1000 CSF Cell Count Tube # 3 07/01/17 1000 CSF Mononuclear WBCs 99.0 % 07/01/17 1000 CSF Polynuclear WBCs 1.0 % 07/01/17 1000 CSF Chemistry Tube # 1 07/01/17 1000 CSF Glucose 86 mg/dl H 07/01/17 1000 CSF Total Protein 79.3 mg/dl H 07/01/17 1000 CSF gram stain negative. CSF cultures negative so far. Cryptococcal Ag negative. CSF Lyme PCR and antibodies negative. CSF HSV 1/2 PCR negative. CSF Enterovirus PCR negative. CSF West Nile PCR negative. Vancomycin, ampicillin, dexamethasone discontinued. Ceftriaxone and acyclovir were continued. Appreciate ID recommendation Worsening confusion 07/03. Neuro consulted-appreciate Input MRI performed 07/03 had some motion artifact, but did not show any acute changes. EEG- moderate diffuse nonlateralizing encephalopathy, no apparent epileptogenic foci. Repeat LP 07/05/17: Item Value Date Time CSF WBC 57 /uL *H 07/05/17 1539 CSF RBC 41 /uL 07/05/17 1539 CSF Cell Count Tube # 3 07/05/17 1539 CSF Mononuclear WBCs 100.0 % 07/05/17 1539 CSF Glucose 76 mg/dl H 07/05/17 1539 CSF Total Protein 81.0 mg/dl H 07/05/17 1539 CSF culture negative. MRI with contrast 07/05/17 demonstrated T2 abnormalities in cerebellum and thalami as well as some subtle findings within temporal lobes. Listeria unlikely- ampicillin discontinued. Lyme, pneumococcal pneumonia ruled out- ceftriaxone discontinued. Tick-borne illness PCR panel negative. Stopped doxycycline. Continue acyclovir- continue for 21 days in total or as recommended by the Specialist Viral Serologies -negative Empiric trial of methylprednisolone recommended by Neurology for possible autoimmune disease. CSF NMDA receptor antibody level pending. Repeat CT head 07/09 unchanged (no acute findings). Continue supportive measures. Clinically stable but remains unresponsive -sedated on Vent Tapering dose of Solumedrol started ,clinically a little better 07/12 Remains critical but stable No further improvement -observe RESPIRATORY Intubated for airway protection. Oxygenating well on 30% FIO2. Possible need for trach for pulmonary toilet discussed with family. Management per CCM. S/P Extubation -remains very drowsy and semiresponsive Will need Reintubation in case of Respiratory arrest Minimally labored breathing-maintaining saturation LLL DENSITY Chest x-ray 07/03 showed LLL density, infiltrate vs atelectasis. Started on IV piperacillin / tazobactam for possible pneumonia. Bronchoscopy performed 07/05; sputum culture from bronch grew only scant normal mariel and Jacy (probable contamination / colonization). Repeat CXR-Persistence of the LLL infiltration -likely Pneumonia Will put on antibiotic after discussing with the CCM No antibiotics-increase WCC is likely due to Steroid CXR shows decrease in infiltration PAROXYSMAL ATRIAL FIB Unable to take oral metoprolol due to NPO status. Converted to parenteral metoprolol. Best not to maintain full anticoagulation at this time due to critical illness, procedures, etc. Remains in SR with PAC's. On IV heparin now Resume warfarin when able.-continue for now HYPERTENSION Unable to take oral meds due to NPO status. Converted metoprolol to IV --> GT. Added amlodipine via GT. BP's lower today. Hold parameters ordered. IV enalapril PRN and IV Labetalol BP seems to be stable now HYPONATREMIA Serum sodium 141 --> --> 128--> --> 131 --> --> 126. 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 Sodium level improved to 132 on 07/11 Normalized HYPOKALEMIA K as low as 3.1. Receiving replacement. Remains low will supplement Monitor HYPOTHYROIDISM Levothyroxine via OGT. NUTRITION Receiving enteral feedings via OGT. Continue NGT feeding for now May need PEG tube placement if can not eat by mouth HYPERGLYCEMIA Serum glucose this morning 163. Hyperglycemia secondary to methylprednisolone therapy. Management per protocol. VTE PROPHYLAXIS On warfarin at time of admission which was subsequently held / reversed due to ICU status and multiple procedures. Continue enoxaparin. SCD's. DISPOSITION To be determined. Case Management following. Family Medicine follow-up with Dr. Mosley. Spouse Ms. Cortes at bedside and given update on 07/11 . Consultants: [facility] Neurology . Procedures: CT head 06/29/17 CT head 06/30/17 LP under fluoro guidance 07/01/17 CT head 07/03/17 MRI brain 07/03/17 CT head 07/04/17 endotracheal intubation 07/05/17 mechanical ventilation 07/05/17 bronchoscopy 07/05/17 MRI brain with contrast 07/05/17 LP under fluoro guidance 06/25/17 Extubation-07/12/17 . Discussed with the significant other Clinically a little better today -discussed with the Significant other Discussed with the significant other NO CPR in case of Cardiac arrest Intubation in case of Respiratory arrest Will transfer to [facility] Vital Signs: Date Time Temp Pulse Resp B/P (MAP) Pulse Ox O2 Delivery O2 Flow Rate FiO2 07/16/17 08:00 Room Air 07/16/17 07:02 37.1 79 20 127/56 (79) 96 Room Air 07/16/17 04:25 36.5 78 15 119/51 (73) 90 Room Air 07/16/17 04:00 90 Room Air 07/16/17 00:37 36.9 60 20 155/80 (105) 97 07/16/17 00:00 97 Room Air 07/15/17 20:00 97 Room Air 07/15/17 19:46 66 22 126/58 (80) 97 Room Air 07/15/17 16:00 94 Room Air 07/15/17 15:21 36.3 58 18 133/82 (99) 94 Room Air 07/15/17 14:29 36.9 84 16 96 07/15/17 14:00 84 16 132/70 (90) 96 Room Air Lab Results: Results Past 24 Hours Test 07/15/17 12:20 07/15/17 16:00 07/15/17 20:05 07/16/17 00:08 Range/Units Bedside Glucose 177 193 224 162 70-90 mg/dl Test 07/16/17 05:21 07/16/17 08:15 07/16/17 08:36 Range/Units Bedside Glucose 158 180 70-90 mg/dl White Blood Count 17.86 4.8-10.8 K/uL Red Blood Count 4.01 4.2-5.4 M/uL Hemoglobin 13.4 12.0-16.0 g/dL Hematocrit 39.5 37-47 % Mean Corpuscular Volume 98.5 80-100 fL Mean Corpuscular Hemoglobin 33.4 25-34 pg Mean Corpuscular Hemoglobin Concent 33.9 32-36 g/dl RDW Standard Deviation 46.8 36.4-46.3 fL RDW Coefficient of Variation 13.5 11.5-14.5 % Platelet Count 332 130-400 K/uL Mean Platelet Volume 8.9 7.4-10.4 fL Activated Partial Thromboplast Time 53.7 21.0-31.0 SECONDS Partial Thromboplastin Ratio 2.1 Sodium Level 143 136-145 mmol/L Potassium Level 3.9 3.5-5.1 mmol/L Chloride Level 107 98-107 mmol/L Carbon Dioxide Level 27 21-32 mmol/L Anion Gap 10.0 3-11 mmol/L Blood Urea Nitrogen 59 7-18 mg/dl Creatinine 1.23 0.60-1.20 mg/dl Est Creatinine Clear Calc Drug Dose 31.8 ml/min Estimated GFR () 46.0 Estimated GFR (Non- 39.7 BUN/Creatinine Ratio 47.7 10-20 Random Glucose 184 70-99 mg/dl Calcium Level 9.6 8.5-10.1 mg/dl Phosphorus Level 3.5 2.5-4.9 mg/dl Magnesium Level 2.6 1.8-2.4 mg/dl
[2017-07-16] MEDS: INSULIN GLARGINE SOLOSTAR 100 UNITS/ML 3 ML PEN SC SCH (19:55)
[2017-07-16] MEDS: PEPTAMEN 1.5 CAL 1000ML BAG NG PRN (21:52)
[2017-07-17] VITALS (9 sets, daily range): BP systolic 105–145; BP diastolic 63–79; PULSE 63–119; TEMP 36.2–36.9; O2SAT 91–94
[2017-07-17 04:35] LABS: HEMATOCRIT 42.4 % (37-47); MEAN CELL VOLUME 100.2 fL (80-100); MEAN CORPUSCULAR HEMOGLOBIN 33.3 pg (25-34); MEAN CORPUSCULAR HGB CONC 33.3 g/dl (32-36); MEAN PLATELET VOLUME 8.9 fL (7.4-10.4); PLATELET COUNT 347 K/uL (130-400); RED BLOOD COUNT 4.23 M/uL (4.2-5.4)
[2017-07-17] MEDS: INSULIN ASPART 100 UNITS/ML 3 ML PEN SC SCH ×6 (08:31→19:49)
[2017-07-17] MEDS: AMLODIPINE BESYLATE 5 MG TAB NG SCH (08:33)
[2017-07-17] MEDS: METOPROLOL TARTRATE 50 MG TAB PO SCH ×2 (08:33→19:44)
[2017-07-17] MEDS: SODIUM CHLORIDE 1 GM TAB PO SCH ×2 (08:34→20:45)
[2017-07-17] MEDS: LEVOTHYROXINE 100 MCG TAB GT SCH (08:34)
[2017-07-17] MEDS: ACYCLOVIR SOD INJ 650 MG in DEXTROSE 5% 100ML 100 ML IV SCH ×3 (08:35→18:40)
[2017-07-17] MEDS ORDERED: METHYLPREDNISOLONE IV 20 MG in SYRINGE 0 ML IV SCH (11:00)
[2017-07-17] MEDS ORDERED: METHYLPREDNISOLONE IV 40 MG in SYRINGE 0 ML IV SCH (12:15)
--- NOTE | 2017-07-17 13:02 | Pharmacy Progress Note ---
Glycemic: Assessment & Plan Date of Service Jul 17, 2017. Assessment & Plan Outpatient Anti-diabetic Regimen: * None Risk Factors for Insulin Resistance: * Steroids: SoluMedrol IV taper (20mg today --> 10mg tomorrow, then d/c) * Infection: ?viral meningitis, on acyclovir * Diet: Peptamen bariatric @ goal of 45mL/hr * Mechanical Ventilation: no ASSESSMENT: * 87 yo F with AMS, unknown etiology. Viral meningitis vs. autoimmune encephalitis vs. other. * Not diabetic at baseline, but was experiencing steroid-induced hyperglycemia due to very high dose methylprednisolone * SoluMedrol now tapering daily until stopped. Last dose of Solu-Medrol scheduled for tomorrow AM * Transitioned to basal /bolus SQ regimen on 07/15, however BSGs radha throughout the day, likely needed a scheduled dose of Novolog to cover carbs in continuous tube feeds. Current BSG pattern suggests that an additional dose of Lantus x 1 now may be beneficial rather than starting a scheduled dose of Novolog that will need changed tomorrow AM as the steroid is tapered again. PLAN FOR INPATIENT GLYCEMIC CONTROL: * Lantus 10 units x 1 now; but continue 10 units SQ Q HS * Correctional Insulin with NOVOLOG q4h * Goal Range: Low 120 mg/dL - High 160 mg/dL * Correction Factor: 25 mg/dL/unit * No Nutritional / Prandial insulin at this time, may add carb ratio to cover carbs in Peptamen if needed * Please note that the plan above was derived based on current level of insulin resistance and hospital stress. These recommendations are appropriate for inpatient admission only. Plan of care upon discharge will need to be reassessed to avoid potential outpatient hypo/hyperglycemia.
[2017-07-17] MEDS ORDERED: INSULIN GLARGINE SOLOSTAR 100 UNITS/ML 3 ML PEN SC ONE (13:15)
--- NOTE | 2017-07-17 15:03 | DIAGNOSTIC IMAGING REPORT ---
SINGLE VIEW CHEST CLINICAL HISTORY: Dyspnea. FINDINGS: An AP, portable, semierect chest radiograph is compared to study dated 07/12/2017. The examination is degraded by portable technique and patient rotation. A right PICC line is unchanged in position. An enteric tube has been exchanged. This projects below the diaphragm. The endotracheal tube has been removed. The heart is mildly enlarged and there is atherosclerotic calcification of the thoracic aorta. The pulmonary vasculature is noncongested. Chronic interstitial thickening is similar to previous. No airspace consolidation, large pleural effusion, or pneumothorax is seen. The skeletal structures are osteopenic. The bony thorax is grossly intact. IMPRESSION: 1. Lines and tubes as above. 2. Cardiomegaly without radiographic evidence of congestive failure. 3. No airspace consolidation or pleural effusion is identified. Electronically signed by: Evgeny Garduno M.D. 07/17/2017 3:02 PM Dictated Date/Time: 07/17/2017 3:01 PM
[2017-07-17] MEDS ORDERED: SODIUM CHLORIDE 0.9% 1000ML 1,000 ML IV SCH (17:15)
--- NOTE | 2017-07-17 17:24 | PROGRESS NOTE ---
DATE: 07/17/2017 SUBJECTIVE: I am seeing Mrs. 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 Her NMDA antibody titer remains pending, although CT of the chest, abdomen and pelvis did not show an underlying malignancy. She was given an additional dose of steroids today, for a total of 60 mg of Solu-Medrol. LABORATORY DATA: Her labs on July 16 - of note, BUN was 59, creatinine was 1.2. Random glucose was 184 and random glucose today 191. PHYSICAL EXAMINATION: VITAL SIGNS: 36.2, 111, 27, 126/71, 90-91% sat on 2.5. GENERAL: The patient appears to be awake, not overtly alert, following no commands, some spontaneous volitional movement of the right arm and the head. HEENT: Her pupils are reactive. There is no fixed gaze preference. LUNGS: Her respirations are increased and snoring. I did not witness any apnea or Maximilian-Chavarria respirations. NEUROLOGICAL: She has no response to painful stimulation in all 4 extremities and toes are mute. IMPRESSION AND PLAN: Viral meningitis. This patient has declined neurologically and has a respiratory pattern of hyperventilation, which may indicate rostrocaudal central nervous system deterioration. Dr. Leung has given her an additional dose of Solu-Medrol and will give her a dose in addition to that. We discussed potential for IV fluids as well as morphine to decrease the patient's respiratory distress. We will follow with you. HILARIO
--- NOTE | 2017-07-17 17:24 | Progress Note ---
Internal Med Progress Note Date of Service: Jul 17, 2017. Provider Documentation: SUBJECTIVE: The patient was seen and examined S/P Extubation Remains very lethargic and semiresponsive Fluctuating responsiveness as per the significant other Has been having burst of SOB and tachycardia No throat swelling OBJECTIVE: Vital Signs-as noted below Exam: General-remains unresponsive Moderate SOB at rest Breaths heavily Eyes-Closed ENT-Normal,Normal throat Neck-Supple Lungs-Decreased breaths sound bilaterally at the bases Heart-Regular,no murmur appreciated Abdomen-Benign Extremities-No edema Neuro-remains unresponsive Minimal response to painful stimuli and to vocal commands Lab data as noted below. ASSESSMENT & PLAN: Tachycardia, tachypnea Noted since this AM Likely central Discussed with the significant other and with the Neurologist Agreed upon giving Morphine and more solumedrol IFV for dehydration ALTERED MENTAL STATUS :possible Viral Encephalitis Presented with progressive confusion of short duration CT head demonstrated chronic microvascular changes, no acute findings. Altered mental status initially attributed to UTI and or Febrile Illness Recent outpatient urine culture grew E coli. UA at time of admission showed moderate leukocyte esterase, many WBC's, many epith cells, no bacteria. Initially received IV ceftriaxone. Urine culture subsequently grew more than 3 organisms, probable skin mariel. Blood cultures at time of admission were negative. 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 Antibiotic coverage was broadened (high dose ceftriaxone, vancomycin, ampicillin , acyclovir). LP performed after adjusting the INR LP performed, results as noted:Suggestive of Viral Meningitis::/Encephalitis Item Value Date Time CSF Appearance CLEAR 07/01/17 1000 CSF Color COLORLESS 07/01/17 1000 CSF WBC 164 /uL *H 07/01/17 1000 CSF RBC 2 /uL 07/01/17 1000 CSF Cell Count Tube # 3 07/01/17 1000 CSF Mononuclear WBCs 99.0 % 07/01/17 1000 CSF Polynuclear WBCs 1.0 % 07/01/17 1000 CSF Chemistry Tube # 1 07/01/17 1000 CSF Glucose 86 mg/dl H 07/01/17 1000 CSF Total Protein 79.3 mg/dl H 07/01/17 1000 CSF gram stain negative. CSF cultures negative so far. Cryptococcal Ag negative. CSF Lyme PCR and antibodies negative. CSF HSV 1/2 PCR negative. CSF Enterovirus PCR negative. CSF West Nile PCR negative. Vancomycin, ampicillin, dexamethasone discontinued. Ceftriaxone and acyclovir were continued. Appreciate ID recommendation Worsening confusion 07/03. Neuro consulted-appreciate Input MRI performed 07/03 had some motion artifact, but did not show any acute changes. EEG- moderate diffuse nonlateralizing encephalopathy, no apparent epileptogenic foci. Repeat LP 07/05/17: Item Value Date Time CSF WBC 57 /uL *H 07/05/17 1539 CSF RBC 41 /uL 07/05/17 1539 CSF Cell Count Tube # 3 07/05/17 1539 CSF Mononuclear WBCs 100.0 % 07/05/17 1539 CSF Glucose 76 mg/dl H 07/05/17 1539 CSF Total Protein 81.0 mg/dl H 07/05/17 1539 CSF culture negative. MRI with contrast 07/05/17 demonstrated T2 abnormalities in cerebellum and thalami as well as some subtle findings within temporal lobes. Listeria unlikely- ampicillin discontinued. Lyme, pneumococcal pneumonia ruled out- ceftriaxone discontinued. Tick-borne illness PCR panel negative. Stopped doxycycline. Continue acyclovir- continue for 21 days in total or as recommended by the Specialist Viral Serologies -negative Empiric trial of methylprednisolone recommended by Neurology for possible autoimmune disease. CSF NMDA receptor antibody level pending. Repeat CT head 07/09 unchanged (no acute findings). Continue supportive measures. Clinically stable but remains unresponsive -sedated on Vent Tapering dose of Solumedrol started ,clinically a little better 07/12 Remains critical and deterioration as of today 07/17/17 RESPIRATORY Intubated for airway protection. Oxygenating well on 30% FIO2. Possible need for trach for pulmonary toilet discussed with family. Management per CCM. S/P Extubation -remains very drowsy and semiresponsive Will need Reintubation in case of Respiratory arrest Tachypnea-likely central LLL DENSITY Chest x-ray 07/03 showed LLL density, infiltrate vs atelectasis. Started on IV piperacillin / tazobactam for possible pneumonia. Bronchoscopy performed 07/05; sputum culture from bronch grew only scant normal mariel and Jacy (probable contamination / colonization). Repeat CXR-Persistence of the LLL infiltration -likely Pneumonia Will put on antibiotic after discussing with the CCM No antibiotics-increase WCC is likely due to Steroid CXR shows decrease in infiltration PAROXYSMAL ATRIAL FIB Unable to take oral metoprolol due to NPO status. Converted to parenteral metoprolol. Best not to maintain full anticoagulation at this time due to critical illness, procedures, etc. Remains in SR with PAC's. On IV heparin now Resume warfarin when able.-continue for now HYPERTENSION Unable to take oral meds due to NPO status. Converted metoprolol to IV --> GT. Added amlodipine via GT. BP's lower today. Hold parameters ordered. IV enalapril PRN and IV Labetalol BP seems to be stable now HYPONATREMIA Serum sodium 141 --> --> 128--> --> 131 --> --> 126. 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 Sodium level improved to 132 on 07/11 Normalized HYPOKALEMIA K as low as 3.1. Receiving replacement. Remains low will supplement Monitor HYPOTHYROIDISM Levothyroxine via OGT. NUTRITION Receiving enteral feedings via OGT. Continue NGT feeding for now May need PEG tube placement if can not eat by mouth HYPERGLYCEMIA Serum glucose this morning 163. Hyperglycemia secondary to methylprednisolone therapy. Management per protocol. VTE PROPHYLAXIS On warfarin at time of admission which was subsequently held / reversed due to ICU status and multiple procedures. Continue enoxaparin. SCD's. DISPOSITION To be determined. Case Management following. Family Medicine follow-up with Dr. Mosley. Spouse Ms. Cortes at bedside and given update on 07/11 . Consultants: [facility] Neurology . Procedures: CT head 06/29/17 CT head 06/30/17 LP under fluoro guidance 07/01/17 CT head 07/03/17 MRI brain 07/03/17 CT head 07/04/17 endotracheal intubation 07/05/17 mechanical ventilation 07/05/17 bronchoscopy 07/05/17 MRI brain with contrast 07/05/17 LP under fluoro guidance 06/25/17 Extubation-07/12/17 . Discussed with the significant other Clinically a little better today -discussed with the Significant other Discussed with the significant other NO CPR in case of Cardiac arrest Intubation in case of Respiratory arrest Will transfer to Tele Discussed with the significant other -Made DNR Will try Morphine PRN Vital Signs: Date Time Temp Pulse Resp B/P (MAP) Pulse Ox O2 Delivery O2 Flow Rate FiO2 07/17/17 16:34 36.2 111 27 126/71 (89) 91 Nasal Cannula 2.5 07/17/17 12:00 Room Air 07/17/17 11:44 36.9 112 28 133/72 (92) 94 Nasal Cannula 3.5 07/17/17 08:10 36.5 89 22 145/79 (101) 91 Room Air 07/17/17 08:00 Room Air 07/17/17 04:00 36.8 101 20 105/64 (78) 94 Room Air 07/17/17 04:00 Room Air 07/17/17 00:46 36.5 63 30 121/66 (84) 94 Room Air 07/16/17 23:59 Room Air 07/16/17 20:00 Room Air 07/16/17 19:36 36.3 79 20 115/61 (79) 94 Room Air Lab Results: Results Past 24 Hours Test 07/16/17 18:05 07/16/17 19:41 07/16/17 23:54 07/17/17 04:24 Range/Units Bedside Glucose 201 296 159 70-90 mg/dl White Blood Count 16.70 4.8-10.8 K/uL Red Blood Count 4.23 4.2-5.4 M/uL Hemoglobin 14.1 12.0-16.0 g/dL Hematocrit 42.4 37-47 % Mean Corpuscular Volume 100.2 80-100 fL Mean Corpuscular Hemoglobin 33.3 25-34 pg Mean Corpuscular Hemoglobin Concent 33.3 32-36 g/dl RDW Standard Deviation 48.6 36.4-46.3 fL RDW Coefficient of Variation 13.9 11.5-14.5 % Platelet Count 347 130-400 K/uL Mean Platelet Volume 8.9 7.4-10.4 fL Activated Partial Thromboplast Time 51.8 21.0-31.0 SECONDS Partial Thromboplastin Ratio 2.0 Test 07/17/17 08:05 07/17/17 12:20 07/17/17 16:14 Range/Units Bedside Glucose 141 207 191 70-90 mg/dl
[2017-07-17] MEDS: MoRPHine SULFATE 2 MG/ML CARP IV PRN (19:31)
[2017-07-17] MEDS: INSULIN GLARGINE SOLOSTAR 100 UNITS/ML 3 ML PEN SC SCH (20:51)
[2017-07-17] MEDS ORDERED: METHYLPREDNISOLONE IV 60 MG in SYRINGE 0 ML IV SCH (21:00)
[2017-07-17] MEDS: PEPTAMEN 1.5 CAL 1000ML BAG NG PRN (22:41)
[2017-07-18] MEDS: MoRPHine SULFATE 2 MG/ML CARP IV PRN (00:20)
[2017-07-18] MEDS: INSULIN ASPART 100 UNITS/ML 3 ML PEN SC SCH (00:25)
[2017-07-18 00:55] VITALS: BP 136/58; PULSE 103; TEMP 37.9; O2SAT 94
[2017-07-18] MEDS: ACYCLOVIR SOD INJ 650 MG in DEXTROSE 5% 100ML 100 ML IV SCH (02:16)
[2017-07-18 03:35] VITALS: BP 80/35; PULSE 68; TEMP 36.6; O2SAT 87
[2017-07-18 04:00] VITALS: O2SAT 87
[2017-07-18] MEDS ORDERED: ALBUT/IPRATROP 3MG/0.5MG NEB 3 ML VIAL INH ONE (04:18)
[2017-07-18 04:23] VITALS: PULSE 54; O2SAT 83
[2017-07-18] MEDS ORDERED: NALOXONE HCL 0.4 MG/1 ML VIAL/CARP IV STA (04:26)
[2017-07-18] MEDS ORDERED: ALBUMIN HUMAN 25% 12.5 GM/50 ML VIAL IV SCH (04:30)
[2017-07-18] MEDS ORDERED: METHYLPREDNISOLONE IV 60 MG in SYRINGE 0 ML IV ONE (04:30)
[2017-07-18] MEDS ORDERED: ATROPINE SULFATE 0.1 MG/ML 5ML SYR ONE (04:42)
[2017-07-18] MEDS ORDERED: LORAZEPAM INJ 1 MG in SYRINGE 0.5 ML IV PRN (05:00)
[2017-07-18] MEDS ORDERED: MoRPHine SULFATE 4 MG/ML 1 ML CARP\\VIAL IV PRN (05:00)
[2017-07-18 05:01] LABS: PARTIAL THROMBOPLASTIN RATIO 3.4
--- NOTE | 2017-07-18 05:03 | Progress Note ---
Internal Med Progress Note Date of Service: Jul 18, 2017. Provider Documentation: Patient deteriorated noted in early a.m.. Hypotension, bradycardia, hypoxemia. Patient's spouse subsequently requested for patient to be placed on comfort measures. Vital Signs: Date Time Temp Pulse Resp B/P (MAP) Pulse Ox O2 Delivery O2 Flow Rate FiO2 07/18/17 04:23 54 23 83 Mask 10.0 07/18/17 04:00 87 Oxymask 6.0 07/18/17 03:35 36.6 68 32 80/35 (50) 87 Oxymask 6.0 07/18/17 00:55 37.9 103 30 136/58 (84) 94 Oxymask 7.0 07/17/17 23:59 94 Oxymask 6.0 07/17/17 20:02 36.3 119 32 108/63 (78) 91 Oxymask 10.0 07/17/17 20:00 91 Oxymask 10.0 07/17/17 16:34 36.2 111 27 126/71 (89) 91 Nasal Cannula 2.5 07/17/17 16:00 94 Nasal Cannula 4.0 07/17/17 12:00 Room Air 07/17/17 11:44 36.9 112 28 133/72 (92) 94 Nasal Cannula 3.5 Lab Results: Results Past 24 Hours Test 07/17/17 12:20 07/17/17 16:14 07/17/17 19:41 07/18/17 00:19 Range/Units Bedside Glucose 207 191 212 194 70-90 mg/dl Test 07/18/17 04:22 Range/Units White Blood Count 35.57 4.8-10.8 K/uL Red Blood Count 3.68 4.2-5.4 M/uL Hemoglobin 12.4 12.0-16.0 g/dL Hematocrit 40.5 37-47 % Mean Corpuscular Volume 110.1 80-100 fL Mean Corpuscular Hemoglobin 33.7 25-34 pg Mean Corpuscular Hemoglobin Concent 30.6 32-36 g/dl Platelet Count 331 130-400 K/uL Mean Platelet Volume 9.4 7.4-10.4 fL Neutrophils (%) (Auto) 94.0 % Lymphocytes (%) (Auto) 2.1 % Monocytes (%) (Auto) 3.3 % Eosinophils (%) (Auto) 0.0 % Basophils (%) (Auto) 0.0 % Neutrophils # (Auto) 33.41 1.4-6.5 K/uL Lymphocytes # (Auto) 0.74 1.2-3.4 K/uL Monocytes # (Auto) 1.18 0.11-0.59 K/uL Eosinophils # (Auto) 0.00 0-0.5 K/uL Basophils # (Auto) 0.01 0-0.2 K/uL RDW Standard Deviation 55.6 36.4-46.3 fL RDW Coefficient of Variation 14.2 11.5-14.5 % Immature Granulocyte % (Auto) 0.6 % Immature Granulocyte # (Auto) 0.23 0.00-0.02 K/uL Hypersegmented Polys 1+ Toxic Vacuolation 1+ Echinocytes 1+ Activated Partial Thromboplast Time 89.3 21.0-31.0 SECONDS Partial Thromboplastin Ratio 3.4 Sodium Level 148 136-145 mmol/L Potassium Level 5.7 3.5-5.1 mmol/L Chloride Level 111 98-107 mmol/L Carbon Dioxide Level 38 21-32 mmol/L Anion Gap -1.0 3-11 mmol/L Blood Urea Nitrogen 64 7-18 mg/dl Creatinine 1.60 0.60-1.20 mg/dl Est Creatinine Clear Calc Drug Dose 24.5 ml/min Estimated GFR () 33.5 Estimated GFR (Non- 28.9 BUN/Creatinine Ratio 39.9 10-20 Random Glucose 260 70-99 mg/dl Calcium Level 9.4 8.5-10.1 mg/dl Magnesium Level 3.3 1.8-2.4 mg/dl Total Bilirubin 0.2 0.2-1 mg/dl Aspartate Amino Transf (AST/SGOT) 21 15-37 U/L Alanine Aminotransferase (ALT/SGPT) 36 12-78 U/L Alkaline Phosphatase 76 45-117 U/L Total Protein 6.1 6.4-8.2 gm/dl Albumin 2.5 3.4-5.0 gm/dl Globulin 3.6 2.5-4.0 gm/dl Albumin/Globulin Ratio 0.7 0.9-2
[2017-07-18] MEDS ORDERED: VECURONIUM BROMIDE 10 MG VIAL IV ONE (05:14)
[2017-07-18] MEDS ORDERED: ETOMIDATE 2 MG/ML 20 ML VIAL IV ONE (05:14)
[2017-07-18] MEDS ORDERED: SUCCINYLCHOLINE CHLORIDE 20 MG/ML 10 ML VIAL IV ONE (05:14)
[2017-07-18] MEDS ORDERED: LORAZEPAM 2 MG/ML 1 ML VIAL IV PRN (05:15)
--- NOTE | 2017-07-18 05:28 | Progress Note ---
Internal Med Progress Note Date of Service: Jul 18, 2017. Provider Documentation: nternal Med Progress Note Provider Documentation SUBJECTIVE: called to eval px for probable OBJECTIVE: Vital Signs-as noted below Exam: General-unresponsive to pain, no spont respiration HEENT- sparse hair, pale palp conj, dilated pupils not reactive to light Heart-no heartbeat Lungs- no spont respiration Patient pronounced at 5:15 AM, Dr. Leung to accomplish discharge summary. Vital Signs: Date Time Temp Pulse Resp B/P (MAP) Pulse Ox O2 Delivery O2 Flow Rate FiO2 07/18/17 04:23 54 23 83 Mask 10.0 07/18/17 04:00 87 Oxymask 6.0 07/18/17 03:35 36.6 68 32 80/35 (50) 87 Oxymask 6.0 07/18/17 00:55 37.9 103 30 136/58 (84) 94 Oxymask 7.0 07/17/17 23:59 94 Oxymask 6.0 07/17/17 20:02 36.3 119 32 108/63 (78) 91 Oxymask 10.0 07/17/17 20:00 91 Oxymask 10.0 07/17/17 16:34 36.2 111 27 126/71 (89) 91 Nasal Cannula 2.5 07/17/17 16:00 94 Nasal Cannula 4.0 07/17/17 12:00 Room Air 07/17/17 11:44 36.9 112 28 133/72 (92) 94 Nasal Cannula 3.5 Lab Results: Results Past 24 Hours Test 07/17/17 12:20 07/17/17 16:14 07/17/17 19:41 07/18/17 00:19 Range/Units Bedside Glucose 207 191 212 194 70-90 mg/dl Test 07/18/17 04:22 Range/Units White Blood Count 35.57 4.8-10.8 K/uL Red Blood Count 3.68 4.2-5.4 M/uL Hemoglobin 12.4 12.0-16.0 g/dL Hematocrit 40.5 37-47 % Mean Corpuscular Volume 110.1 80-100 fL Mean Corpuscular Hemoglobin 33.7 25-34 pg Mean Corpuscular Hemoglobin Concent 30.6 32-36 g/dl Platelet Count 331 130-400 K/uL Mean Platelet Volume 9.4 7.4-10.4 fL Neutrophils (%) (Auto) 94.0 % Lymphocytes (%) (Auto) 2.1 % Monocytes (%) (Auto) 3.3 % Eosinophils (%) (Auto) 0.0 % Basophils (%) (Auto) 0.0 % Neutrophils # (Auto) 33.41 1.4-6.5 K/uL Lymphocytes # (Auto) 0.74 1.2-3.4 K/uL Monocytes # (Auto) 1.18 0.11-0.59 K/uL Eosinophils # (Auto) 0.00 0-0.5 K/uL Basophils # (Auto) 0.01 0-0.2 K/uL RDW Standard Deviation 55.6 36.4-46.3 fL RDW Coefficient of Variation 14.2 11.5-14.5 % Immature Granulocyte % (Auto) 0.6 % Immature Granulocyte # (Auto) 0.23 0.00-0.02 K/uL Hypersegmented Polys 1+ Toxic Vacuolation 1+ Echinocytes 1+ Activated Partial Thromboplast Time 89.3 21.0-31.0 SECONDS Partial Thromboplastin Ratio 3.4 Sodium Level 148 136-145 mmol/L Potassium Level 5.7 3.5-5.1 mmol/L Chloride Level 111 98-107 mmol/L Carbon Dioxide Level 38 21-32 mmol/L Anion Gap -1.0 3-11 mmol/L Blood Urea Nitrogen 64 7-18 mg/dl Creatinine 1.60 0.60-1.20 mg/dl Est Creatinine Clear Calc Drug Dose 24.5 ml/min Estimated GFR () 33.5 Estimated GFR (Non- 28.9 BUN/Creatinine Ratio 39.9 10-20 Random Glucose 260 70-99 mg/dl Calcium Level 9.4 8.5-10.1 mg/dl Magnesium Level 3.3 1.8-2.4 mg/dl Total Bilirubin 0.2 0.2-1 mg/dl Aspartate Amino Transf (AST/SGOT) 21 15-37 U/L Alanine Aminotransferase (ALT/SGPT) 36 12-78 U/L Alkaline Phosphatase 76 45-117 U/L Total Protein 6.1 6.4-8.2 gm/dl Albumin 2.5 3.4-5.0 gm/dl Globulin 3.6 2.5-4.0 gm/dl Albumin/Globulin Ratio 0.7 0.9-2
[2017-07-18 05:40] LABS: HEMATOCRIT 40.5 % (37-47); MEAN CELL VOLUME 110.1 fL (80-100); MEAN CORPUSCULAR HEMOGLOBIN 33.7 pg (25-34); MEAN CORPUSCULAR HGB CONC 30.6 g/dl (32-36); MEAN PLATELET VOLUME 9.4 fL (7.4-10.4); PLATELET COUNT 331 K/uL (130-400); RED BLOOD COUNT 3.68 M/uL (4.2-5.4); WHITE BLOOD COUNT 35.57 K/uL (4.8-10.8)
[2017-07-18 05:41] LABS: BASO ABS # 0.01 K/uL (0-0.2); COMPLETE YES; ECHINOCYTES 1+; HYPERSEGMENTED POLYS 1+; IG% 0.6 %; LYMPH % 2.1 %; LYMPH ABS # 0.74 K/uL (1.2-3.4); MONO % 3.3 %; VACUOLIZATION 1+
[2017-07-18 05:57] LABS: ALB/GLOB RATIO 0.7 (0.9-2); BUN/CREATININE RATIO 39.9 (10-20); CALCIUM 9.4 mg/dl (8.5-10.1); CREATININE 1.6 mg/dl (0.60-1.20); MAGNESIUM 3.3 mg/dl (1.8-2.4); POTASSIUM 5.7 mmol/L (3.5-5.1)
[2017-07-18] MEDS ORDERED: METHYLPREDNISOLONE IV 10 MG in SYRINGE 0 ML IV SCH (11:00)
--- NOTE | 2017-07-18 11:01 | Discharge Summary ---
Discharge Summary Date of Service Jul 18, 2017. Discharge Summary Admission Date: Jun 30, 2017 at 14:58 Discharge Date: Jul 18, 2017 Discharge Disposition: ( on 07/18/2017 at 05:15 AM) Principal Diagnosis: Viral Encephalitis Secondary Diagnoses/Problems: Please see H&P and Hospital Progress note Procedures: CT head 06/29/17 CT head 06/30/17 LP under fluoro guidance 07/01/17 CT head 07/03/17 MRI brain 07/03/17 CT head 07/04/17 endotracheal intubation 07/05/17 mechanical ventilation 07/05/17 bronchoscopy 07/05/17 MRI brain with contrast 07/05/17 LP under fluoro guidance 06/25/17 . Consultations: ID, CCM, Neurology . Admission Information HPI (per Admitting provider): This is an 87yo F with a PMH of HTN, hypothyroidism, paroxysmal A Fib and HLD who presents with confusion that began last evening. Patient presented to her PCP last week for painful urination and one episode of hematuria. UA was found to have a trace amount of blood and leuk esterase but no antibiotics were started. Urine culture was collected. Patient used Monistat with some relief. Throughout the course of the week, patient developed a dull headache, muscle aches and fatigue that her spouse assumed was the flu. Last evening patient was found to have a fever and chills that improved with Tylenol. Seemed slightly confused but thought mentation would improve with rest. This morning, per spouse , patient woke up markedly confused, not knowing how to get to her bathroom or remembering she was going to the ER despite being reminded multiple times. Per chart review, patient's urine culture came back growing E. coli on 06/23. Patient has not yet been notified with this result. Patient is A&O x 3 at baseline, but is only oriented to self at this time. Endorses dysuria, a dull frontal headache, chills and some dull lower back pain. Denies fever, visual changes, dizziness, difficulty with speech, facial droop, CP, SOB, abdominal pain, N/V, CVA tenderness or numbness/weakness of upper or lower extremities. Past Medical/Surgical History Medical Problems: (1) Dyslipidemia Status: Chronic (2) Hypertension Status: Chronic (3) Hypothyroidism Status: Chronic (4) Osteoporosis Status: Chronic (5) Paroxysmal atrial tachycardia Status: Chronic Surgical Problems: (1) H/O colonoscopy with polypectomy Permanent Comment: 07/17- 4 mm hepatic flexure tubular adenoma 09/21/2009- polyp x1, adenomatous tissue Status: Chronic (2) History of cataract surgery Status: Chronic (3) Hx of mastoidectomy Status: Resolved (4) S/P knee surgery Status: Chronic (5) S/p mastoid surgery Status: Chronic (6) S/P tonsillectomy and adenoidectomy Status: Chronic Family History Hypertension Social History Smoking Status: Never Smoker Alcohol Use: socially (1 glass of wine with dinner most nights ) Marital Status: Housing status: lives with significant other Occupational Status: retired Immunizations History of Influenza Vaccine: Yes Influenza Vaccine Date: Jun 14, 2013 History of Tetanus Vaccine?: Yes History of Pneumococcal: Yes Pneumococcal Date: Jul 10, 2010 History of Hepatitis B Vaccine: Unknown Multi-Drug Resistant Organisms History of MDRO: No Allergies Coded Allergies: No Known Allergies (Verified , 06/29/17) Home Medications Scheduled Aspirin (Aspirin Ec), 81 MG PO DAILY Atorvastatin (Lipitor), 40 MG PO DAILY Calcium Carbonate-Vitamin D (Calcium + D), 600 MG PO DAILY Levothyroxine Sodium (Levothyroxine Sodium), 100 MCG PO DAILY Losartan Potassium (Cozaar), 50 MG PO DAILY Losartan Potassium (Cozaar), 1 TAB PO DAILY Metoprolol Succinate (Toprol Xl), 50 MG PO DAILY Multivitamin (Multivitamin), 1 TAB PO DAILY Warfarin Sod (Jantoven), 2.5 MG PO [id number] Warfarin Sod (Jantoven), 5 MG PO MWF Review of Systems Ten systems reviewed and negative except as noted in the HPI. Physical Exam Vital Signs Date Time Temp Pulse Resp B/P (MAP) Pulse Ox O2 Delivery O2 Flow Rate FiO2 06/29/17 10:55 95 Room Air 06/29/17 10:30 74 21 161/79 95 Room Air 06/29/17 10:01 75 21 162/86 96 Room Air 06/29/17 09:01 37.1 06/29/17 08:42 Room Air 06/29/17 08:36 81 06/29/17 08:32 79 22 138/68 94 Room Air 06/29/17 08:11 37.2 95 16 166/83 95 Room Air General Appearance: no apparent distress (Sleepy, confused but responsive ) Head: normocephalic, atraumatic Eyes: normal inspection, PERRL, sclerae normal (conjunctiva normal ) ENT: normal ENT inspection, hearing grossly normal, pharynx normal (Dry mucous membranes ) Neck: supple, thyroid normal, trachea midline Respiratory/Chest: chest non-tender, lungs clear, normal breath sounds, no respiratory distress, no accessory muscle use Cardiovascular: regular rate, rhythm, no murmur, normal peripheral pulses Abdomen/GI: normal bowel sounds, non tender, soft, no organomegaly Back: normal inspection, + pertinent finding (Paraspinal TTP in lumbosacral area with radiation to the flank ) Extremities/Musculoskelatal: normal inspection, no calf tenderness, no pedal edema, non-tender Neurologic/Psych: 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 tested, no motor/sensory deficits, alert ( oriented to self but not place or time), normal mood/affect, + disoriented Skin: normal color, warm/dry, no rash Diagnostics Laboratory Results Results Past 24 Hours Test 06/29/17 00:00 06/29/17 08:41 06/29/17 08:47 06/29/17 09:04 Range/Units Urine Color YELLOW Urine Appearance CLEAR CLEAR Urine pH 7.5 4.5-7.5 Urine Specific [place] 1.024 1.000-1.030 Urine Protein NEG NEG Urine Glucose (UA) NEG NEG Urine Ketones NEG NEG Urine Occult Blood NEG NEG Urine Nitrite NEG NEG Urine Bilirubin NEG NEG Urine Urobilinogen NEG NEG Urine Leukocyte Esterase MODERATE NEG Urine WBC (Auto) >30 0-5 /hpf Urine RBC (Auto) 5-10 0-4 /hpf Urine Hyaline Casts (Auto) 5-10 0-5 /lpf Urine Epithelial Cells (Auto) >30 0-5 /lpf Urine Bacteria (Auto) NEG NEG White Blood Count 10.66 4.8-10.8 K/uL Red Blood Count 4.12 4.2-5.4 M/uL Hemoglobin 13.1 12.0-16.0 g/dL Hematocrit 40.4 37-47 % Mean Corpuscular Volume 98.1 80-100 fL Mean Corpuscular Hemoglobin 31.8 25-34 pg Mean Corpuscular Hemoglobin Concent 32.4 32-36 g/dl Platelet Count 202 130-400 K/uL Mean Platelet Volume 9.6 7.4-10.4 fL Neutrophils (%) (Auto) 74.6 % Lymphocytes (%) (Auto) 17.8 % Monocytes (%) (Auto) 7.3 % Eosinophils (%) (Auto) 0.0 % Basophils (%) (Auto) 0.2 % Neutrophils # (Auto) 7.95 1.4-6.5 K/uL Lymphocytes # (Auto) 1.90 1.2-3.4 K/uL Monocytes # (Auto) 0.78 0.11-0.59 K/uL Eosinophils # (Auto) 0.00 0-0.5 K/uL Basophils # (Auto) 0.02 0-0.2 K/uL RDW Standard Deviation 45.4 36.4-46.3 fL RDW Coefficient of Variation 12.7 11.5-14.5 % Immature Granulocyte % (Auto) 0.1 % Immature Granulocyte # (Auto) 0.01 0.00-0.02 K/uL Prothrombin Time 23.1 9.0-12.0 SECONDS Prothromb Time International Ratio 2.1 0.9-1.1 Activated Partial Thromboplast Time 36.1 21.0-31.0 SECONDS Partial Thromboplastin Ratio 1.4 Sodium Level 141 136-145 mmol/L Potassium Level 3.9 3.5-5.1 mmol/L Chloride Level 107 98-107 mmol/L Carbon Dioxide Level 26 21-32 mmol/L Anion Gap 8.0 3-11 mmol/L Blood Urea Nitrogen 20 7-18 mg/dl Creatinine 0.95 0.60-1.20 mg/dl Est Creatinine Clear Calc Drug Dose 41.3 ml/min Estimated GFR () 62.9 Estimated GFR (Non- 54.2 BUN/Creatinine Ratio 20.9 10-20 Random Glucose 107 70-99 mg/dl Calcium Level 9.2 8.5-10.1 mg/dl Magnesium Level 2.1 1.8-2.4 mg/dl Total Bilirubin 0.8 0.2-1 mg/dl Direct Bilirubin 0.2 0-0.2 mg/dl Aspartate Amino Transf (AST/SGOT) 19 15-37 U/L Alanine Aminotransferase (ALT/SGPT) 18 12-78 U/L Alkaline Phosphatase 103 45-117 U/L Total Creatine Kinase 48 26-192 U/L Creatine Kinase MB < 0.5 0.5-3.6 ng/ml Creatine Kinase MB Ratio 0-3.0 Troponin I < 0.015 0-0.045 ng/ml Total Protein 7.2 6.4-8.2 gm/dl Albumin 3.6 3.4-5.0 gm/dl Lipase 239 73-393 U/L Thyroid Stimulating Hormone (TSH) 0.744 0.300-4.500 uIu/ml Bedside Lactic Acid Venous 1.21 0.90-1.70 mmol/L Influenza Type A Antigen Neg for Influ A NEG Influenza Type B Antigen Neg for Influ B NEG Microbiology Results 06/29/17 Blood Culture, Received Pending 06/29/17 Blood Culture, Received Pending 06/29/17 Urine Culture, Received Pending Diagnostic Radiology CT head: IMPRESSION: No acute intracranial findings CXR normal EKG Normal sinus rhythm Left anterior fascicular block Moderate voltage criteria for LVH, may be normal variant Abnormal ECG When compared with ECG of 18-MAY-2016 23:16, No significant change was found No change from prior EKG Impression Assessment and Plan This is an 87yo F with a PMH of HTN, hypothyroidism, paroxysmal A Fib and HLD who presents with confusion that began last evening. Pyelonephritis: -Dysuria, subjective fever, confusion, lethargy, flank pain -VS stable, wbc on high end of normal, lactic acid wnl -Out-patient urine culture with presence of 10,000-100,000 colonies/ml of E. coli -Rocephin initiated for treatment in ER -Garcia-sensitive culture. Will continue Rocephin -Blood, urine cultures pending -IVF resuscitation -Tylenol for fever -Monitor CBC Metabolic encephalopathy 2/2 UTI: -Patient lethargic and disoriented likely due to infection -Should see improvement with abx treatment and IVF -Other etiologies considered but unlikely -CT head without acute abnormalities, no focal deficits on exam -No recent medication changes -Flu PCR negative Headache: -Dull, frontal headache x 3 days -CT head normal -Likely 2/2 poor PO intake, water intake -Alleviated by Tylenol at home -Tylenol PRN, IVF Paroxysmal A Fib: -NSR on initial EKG -Continue home dose metoprolol, coumadin -INR therapeutic at 2.1 HTN: -Slightly elevated, likely 2/2 infection and pain -Continue home losartan and metoprolol -Add additional agents if indicated HLD: -Continue statin Hypothyroidism: -Continue levothyroxine -TSH wnl DVT Ppx: Home dose coumadin Code status: FULL PCP: Melany Dispo: Plan to return home once medically stable Patient seen in collaboration with Dr. Vera. Please see addendum. ADDENDUM: I agree with the assessment and plan as above. My exam of the patient revealed an elderly female with very dry mucous membranes who appeared acutely confused with some attention span. She had no focal neuro deficits, although ambulating was not tested. She did report a minor headache in the frontal region of her head. She was stating how silly she felt that she couldn' t remember the events of the last 24 hours but did remember things such as having several days of dysuria. She did also report some flank pain on both sides. Abdominal pain was benign but I was able to appreciate bilateral CVA tenderness. The patient and her spouse reported significant chills and some fever at home. I agree with the diagnosis of acute pyelonephritis and the treatment with Rocephin empirically until cultures return. DO Chuy Level of Care Med/Surg Advanced Directives Existing Living Will: Yes Existing Power of Health Safety Manager: Yes Resuscitation Status FULL RESUSCITATION VTE Prophylaxis VTE Risk Assessment Done? Y/N: Yes Risk Level: Moderate Given or contraindicated: Warfarin (Coumadin) <Electronically signed by Mirlande García P.A.-C.> <Electronically signed by Lyric Vera DO> Signed: 06/29/17 1448 Signed: 06/29/17 [id number] Physical Exam (per Admitting): General Appearance: no apparent distress (Sleepy, confused but responsive ) Head: normocephalic, atraumatic Eyes: normal inspection, PERRL, sclerae normal (conjunctiva normal ) ENT: normal ENT inspection, hearing grossly normal, pharynx normal (Dry mucous membranes ) Neck: supple, thyroid normal, trachea midline Respiratory/Chest: chest non-tender, lungs clear, normal breath sounds, no respiratory distress, no accessory muscle use Cardiovascular: regular rate, rhythm, no murmur, normal peripheral pulses Abdomen/GI: normal bowel sounds, non tender, soft, no organomegaly Back: normal inspection, + pertinent finding (Paraspinal TTP in lumbosacral area with radiation to the flank ) Extremities/Musculoskelatal: normal inspection, no calf tenderness, no pedal edema, non-tender Neurologic/Psych: 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 Altered mental status initially attributed to UTI and or Febrile Illness Recent outpatient urine culture grew E coli. UA at time of admission showed moderate leukocyte esterase, many WBC's, many epith cells, no bacteria. Initially received IV ceftriaxone. Urine culture subsequently grew more than 3 organisms, probable skin mariel. Blood cultures at time of admission were negative. CONTRACT ANALYST infection was considered in light of fever and altered mental status. Antibiotic coverage was broadened (high dose ceftriaxone, vancomycin, ampicillin , acyclovir). LP performed after adjusting the INR LP performed, results as noted:Suggestive of Viral Meningitis::/Encephalitis Item Value Date Time CSF Appearance CLEAR 07/01/17 1000 CSF Color COLORLESS 07/01/17 1000 CSF WBC 164 /uL *H 07/01/17 1000 CSF RBC 2 /uL 07/01/17 1000 CSF Cell Count Tube # 3 07/01/17 1000 CSF Mononuclear WBCs 99.0 % 07/01/17 1000 CSF Polynuclear WBCs 1.0 % 07/01/17 1000 CSF Chemistry Tube # 1 07/01/17 1000 CSF Glucose 86 mg/dl H 07/01/17 1000 CSF Total Protein 79.3 mg/dl H 07/01/17 1000 CSF gram stain negative. CSF cultures negative so far. Cryptococcal Ag negative. CSF Lyme PCR and antibodies negative. CSF HSV 1/2 PCR negative. CSF Enterovirus PCR negative. CSF West Nile PCR negative. Vancomycin, ampicillin, dexamethasone discontinued. Ceftriaxone and acyclovir were continued. Appreciate ID recommendation Worsening confusion 07/03. Neuro consulted-appreciate Input MRI performed 07/03 had some motion artifact, but did not show any acute changes. EEG- moderate diffuse nonlateralizing encephalopathy, no apparent epileptogenic foci. Repeat LP 07/05/17: Item Value Date Time CSF WBC 57 /uL *H 07/05/17 1539 CSF RBC 41 /uL 07/05/17 1539 CSF Cell Count Tube # 3 07/05/17 1539 CSF Mononuclear WBCs 100.0 % 07/05/17 1539 CSF Glucose 76 mg/dl H 07/05/17 1539 CSF Total Protein 81.0 mg/dl H 07/05/17 1539 CSF culture negative. MRI with contrast 07/05/17 demonstrated T2 abnormalities in cerebellum and thalami as well as some subtle findings within temporal lobes. Listeria unlikely- ampicillin discontinued. Lyme, pneumococcal pneumonia ruled out- ceftriaxone discontinued. Tick-borne illness PCR panel negative. Stopped doxycycline. Continue acyclovir- continue for 21 days in total or as recommended by the Specialist Viral Serologies -negative Empiric trial of methylprednisolone recommended by Neurology for possible autoimmune disease. CSF NMDA receptor antibody level pending. Repeat CT head 07/09 unchanged (no acute findings). Continue supportive measures. Clinically stable but remains unresponsive -sedated on Vent Tapering dose of Solumedrol started ,clinically a little better 07/12 Remains critical and deterioration as of today 07/17/17 RESPIRATORY Intubated for airway protection. Oxygenating well on 30% FIO2. Possible need for trach for pulmonary toilet discussed with family. Management per [facility]. S/P Extubation -remains very drowsy and semiresponsive Will need Reintubation in case of Respiratory arrest Tachypnea-likely central LLL DENSITY Chest x-ray 07/03 showed LLL density, infiltrate vs atelectasis. Started on IV piperacillin / tazobactam for possible pneumonia. Bronchoscopy performed 07/05; sputum culture from bronch grew only scant normal mariel and Jacy (probable contamination / colonization). Repeat CXR-Persistence of the LLL infiltration -likely Pneumonia Will put on antibiotic after discussing with the [facility] No antibiotics-increase WCC is likely due to Steroid CXR shows decrease in infiltration PAROXYSMAL ATRIAL FIB Unable to take oral metoprolol due to NPO status. Converted to parenteral metoprolol. Best not to maintain full anticoagulation at this time due to critical illness, procedures, etc. Remains in SR with PAC's. On IV heparin now Resume warfarin when able.-continue for now HYPERTENSION Unable to take oral meds due to NPO status. Converted metoprolol to IV --> GT. Added amlodipine via GT. BP's lower today. Hold parameters ordered. IV enalapril PRN and IV Labetalol BP seems to be stable now HYPONATREMIA Serum sodium 141 --> --> 128--> --> 131 --> --> 126. 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 Sodium level improved to 132 on 07/11 Normalized HYPOKALEMIA K as low as 3.1. Receiving replacement. Remains low will supplement Monitor HYPOTHYROIDISM Levothyroxine via OGT. NUTRITION Receiving enteral feedings via OGT. Continue NGT feeding for now May need PEG tube placement if can not eat by mouth HYPERGLYCEMIA Serum glucose this morning 163. Hyperglycemia secondary to methylprednisolone therapy. Management per protocol. VTE PROPHYLAXIS On warfarin at time of admission which was subsequently held / reversed due to ICU status and multiple procedures. Continue enoxaparin. SCD's. DISPOSITION To be determined. Case Management following. Family Medicine follow-up with Dr. Mosley. Spouse Ms. Cortes at bedside and given update on 07/11 . Consultants: [facility] Neurology . Procedures: CT head 06/29/17 CT head 06/30/17 LP under fluoro guidance 07/01/17 CT head 07/03/17 MRI brain 07/03/17 CT head 07/04/17 endotracheal intubation 07/05/17 mechanical ventilation 07/05/17 bronchoscopy 07/05/17 MRI brain with contrast 07/05/17 LP under fluoro guidance 06/25/17 Extubation-07/12/17 . Discussed with the significant other Clinically a little better today -discussed with the Significant other Discussed with the significant other NO CPR in case of Cardiac arrest Intubation in case of Respiratory arrest Will transfer to [facility] Discussed with the significant other -Made DNR Will try Morphine PRN Total time spent on discharge = 20 minutes This includes examination of the patient, discharge planning, medication reconciliation, and communication with other providers. Discharge Instructions Patient on 07/18/2017 at 0515hours Additional Copies To Anamaria Mosley,
== END 2017-07-18 05:15 | disposition expired | DRG 97 ==
LOC: C.EDB 08:09 → C.MS4W 10:48 → ENRESERV 11:21 → EDBEDREQ 06-30 12:44 → ENRESERV 06-30 13:00 → C.2E 06-30 14:14 → OBSVTOIN 06-30 14:58 → ENRESERV 07-02 11:13 → C.4E 07-02 12:24 → ENRESERV 07-04 09:11 → C.2E 07-04 10:03 → C.MSICU 07-04 12:46 → ENRESERV 07-15 13:54 → C.2E 07-15 15:18
PROVIDERS: ADMIT Hospitalist; ATTEND Internal Medicine
PROC: 009U3ZX Drainage of Spinal Canal, Percutaneous Approach, Diagnostic (ICD-10-PCS; principal; 2017-06-30)
PROC: 0BH17EZ Insertion of Endotracheal Airway into Trachea, Via Natural or Artificial Opening (ICD-10-PCS; 2017-07-05)
PROC: 0BJ08ZZ Inspection of Tracheobronchial Tree, Via Natural or Artificial Opening Endoscopic (ICD-10-PCS; 2017-07-05)
PROC: 5A1955Z Respiratory Ventilation, Greater than 96 Consecutive Hours (ICD-10-PCS; 2017-07-06)
DX: A86 Unspecified viral encephalitis (principal); G93.41 Metabolic encephalopathy; J18.9 Pneumonia, unspecified organism; N12 Tubulo-interstitial nephritis, not specified as acute or chronic; N39.0 Urinary tract infection, site not specified; J98.11 Atelectasis; E22.2 Syndrome of inappropriate secretion of antidiuretic hormone; I10 Essential (primary) hypertension; E03.9 Hypothyroidism, unspecified; I48.0 Paroxysmal atrial fibrillation; E78.5 Hyperlipidemia, unspecified; Z82.49 Family history of ischemic heart disease and other diseases of the circulatory system; B96.20 Unspecified Escherichia coli [E. coli] as the cause of diseases classified elsewhere; R51 Headache; E83.51 Hypocalcemia; R06.89 Other abnormalities of breathing; R73.9 Hyperglycemia, unspecified; T38.0X5A Adverse effect of glucocorticoids and synthetic analogues, initial encounter